=== PATIENT | female | born 1940 | race Caucasian/White ===

== ENCOUNTER 2018-01-21 16:23 | Inpatient (IN) ==
[2018-01-21] MEDS ORDERED: ONDANSETRON 4 MG/2 ML INJECTION IVP ONE (17:39)
[2018-01-21] MEDS ORDERED: ALBUTEROL/IPRATROPIUM 2.5mg-0.5mg/3ml NEB AEROSOL ONE ×2 (17:39→20:15)
--- NOTE | 2018-01-21 17:47 | Emergency Department Report ---
SOB HPI - General Chief Complaint: Shortness of Breath/Dyspnea Stated Complaint: difficulty breathing Time Seen by Provider: 01/21/18 17:30 Source: patient, family Mode of arrival: ambulatory Limitations: no limitations - History of Present Illness Pt presents with a known pneumonia. She reports she started having symptoms of cough and overall fatigue about 4 days ago. She then saw her PCP who did a CXR and the next day had a CTA of the chest which revealed a RML pneumonia. Pt was given an "antibiotic shot" that day and started on a Z pack hte next day. SHe then saw her validation technician earlier today who then changed her antibiotics ( which pt hasn't started yet). Once home pt states she was feeling progressively weaker and is now vomiting. Medical Secretary had mentioned she could be admitted earlier however pt felt she could treat at home. Pt later returned to validation technician with reports of nausea and increased weakness. He sent her to ER to be admitted. Pt denies chest pain, nausea, vomiting, diarrhea, or fever. She does have a history of COPD and uses "breathing treatments" at home. MD Complaint: shortness of breath, cough Onset (ago): day(s) Known history of: COPD Associated symptoms: nausea/vomiting - Related Data Home Medications Medication Instructions Recorded Confirmed Arformoterol Neb [Brovana Neb] 1 vial AEROSOL BID #320 ml 09/29/16 01/21/18 Azithromycin [Azithromycin] 500 mg PO O 01/21/18 01/21/18 Calcium Carbonate [Calcium] 500 mg PO DAILY 01/21/18 01/21/18 Cholecalciferol (Vitamin D3) 1 cap PO DAILY 01/21/18 01/21/18 [Vitamin D3] Hydrocodone/APAP 5/325 [[place] 1 tab PO Q4H PRN 01/21/18 01/21/18 5/325] Loratadine [Claritin] 10 mg PO DAILY 01/21/18 01/21/18 [place]-3/Dha/Epa/Fish Oil [Fish Oil 1 each PO DAILY 01/21/18 01/21/18 1,000 mg Softgel] Vit A/C/E AC/Znox/Cupric Oxide 1 each PO DAILY 01/21/18 01/21/18 [Eye Vitamin-Minerals Tablet] Zoledronic Acid [Reclast] 1 dose IV 1 YEAR 01/21/18 01/21/18 hydroCHLOROthiazide 12.5 mg PO DAILY 01/21/18 01/21/18 [Hydrochlorothiazide] levoFLOXacin [Levofloxacin] 750 mg PO DAILY 01/21/18 01/21/18 Allergies Allergy/AdvReac Type Severity Reaction Status Date / Time lisinopril Allergy Unknown Verified 01/21/18 17:19 nylon suture Allergy Uncoded 09/15/17 09:11 Review of Systems All systems: reviewed and negative except as stated Constitutional: Reports: as per HPI Cardiovascular: Reports: as per HPI Respiratory: Reports: as per HPI Gastrointestinal: Reports: as per HPI Musculoskeletal: Reports: as per HPI [facility] Patient Stated Medical History Macular Degeneration Yes Hypertension Yes Chronic Obstructive Pulmonary Yes: Patient states her diagnosis is emphysema, Disease (COPD) aware of COPD. Diagnosed 2014. Hiatal Hernia Yes: Diagnosed at the same time as the pacemaker , not symptomatic. Osteoporosis Yes Other Musculoskeletal Yes: osteoporosis Shingles Yes Depression No Clinic Medical History (Last Reviewed 09/15/17 @ 09:46 by Viola Ruffin) Bradycardia (Acute Medical) COPD (chronic obstructive pulmonary disease) (Acute Medical) Coronary atherosclerosis (Acute Medical) Edema (Acute Medical) Hypertension (Acute Medical) Hypocholesteremia (Acute Medical) Hypoxia (Acute Medical) Infiltrating ductal carcinoma of breast, stage 1 (Acute Medical) Diagnosed: 10/22/2015 Treatment: Lumpectomy with radiation Macular degeneration (Acute Medical) Osteoporosis (Acute Medical) Tobacco dependence (Acute Medical) Quit 2014 Surgical History: Left partial mastectomy 2008. Tubal ligation. Colonoscopy , polyps. Pacemaker insertion 03/14/2016 Family History: Family History (Last Updated 09/15/17 @ 09:53 by Viola Ruffin) Mother Cancer of female breast Sister Cancer of female breast Father Coronary arteriosclerosis COPD (chronic obstructive pulmonary disease) Sister Cancer of colon Cancer of female breast Brother Heart attack Daughter Ovarian cancer - Social History Smoking status: Former smoker Quit date: 10/26/14 Alcohol intake frequency: holidays/special occasions only () Physical Exam - Limitations Limitations: no limitations - General General appearance: alert, in no apparent distress - Normal Exams: Head:: Normocephalic without trauma Eyes:: Pupils are PERRLA w/ EOMI Cardiovascular:: Regular rate and rhythm, without murmur or gallop, Pulses 2+ all extremities, capillary refill, <2 seconds all extremities Abdomen:: Bowel sounds positive, soft, non-tender, non-distended Musculoskeletal:: No tenderness, or deformity noted, good range of motion, all extremities Integumentary:: No rashes Neurological:: Patient is alert, and oriented, cranial nerves, motor/sensory/ cerebellar, exams w/o gross deficits, to observation Psychiatric:: Patient exhibits, appropriate attention, emotion and affect - Respiratory Respiratory exam: Absent: respiratory distress, accessory muscle use - Expanded Respiratory Exam Location: Left: rhonchi, Right: rales, rhonchi, decreased breath sounds, Lower: rales, decreased breath sounds Course Vital Signs Temperature 97.7 F 01/21/18 16:33 Pulse Rate 84 01/21/18 16:33 Respiratory Rate 20 01/21/18 16:33 Blood Pressure 136/73 01/21/18 16:33 Pulse Oximetry 96 01/21/18 16:33 Temperature 97.1 F 01/25/18 08:57 Pulse Rate 79 01/25/18 08:57 Respiratory Rate 24 01/25/18 10:45 Blood Pressure 132/60 01/25/18 08:57 Pulse Oximetry 88 L 01/25/18 11:35 Shortness of Breath/Dyspnea - Differential Diagnosis Likely: acute exacerbation of chronic obstructive airways disease, congestive heart failure, community acquired pneumonia, asthma with exacerbation - Lab Data Result diagrams: 01/25/18 04:04 01/25/18 04:04 Lab Results 01/21/18 01/21/18 Range/Units 18:51 18:51 WBC 21.6 H (4.5-11.0) T/MM3 RBC 4.27 (4.00-5.20) M/MM3 Hgb 12.8 (12-16) GM/DL Hct 37.6 (36-46) % MCV 88.1 (80-100) UM3 MCH 30.0 (26-34) UUG MCHC 34.0 (31-37) GM/DL RDW Std Deviation 42.3 (36.9-50.2) FL Plt Count 163 (130-400) T/MM3 MPV 9.9 (9.4-12.4) UM3 Immature Gran % (Auto) Not performed Neut % (Auto) Not performed Lymph % (Auto) Not performed [place] % (Auto) Not performed Eos % (Auto) Not performed Baso % (Auto) Not performed Neut # (Auto) Not performed Lymph # (Auto) Not performed [place] # (Auto) Not performed Eos # (Auto) Not performed Baso # (Auto) Not performed Abs Immat Gran (auto) Not performed Neutrophils % (Manual) 89.0 H (33-66) % Band Neutrophils % 1.0 (0-6) % Lymphocytes % (Manual) 5.0 L (23-45) % Monocytes % (Manual) 5.0 (0-9.0) % Neutrophils # (Manual) 19.2 H (1.8-7.7) T/MM3 Band Neutrophils # 0.2 T/MM3 Lymphocytes # (Manual) 1.1 (1-4.8) T/MM3 Monocytes # (Manual) 1.1 H (0-0.8) T/MM3 RBC Morph Comment Normal Turbidity < 20 (0-20) Sodium 118 L* (134-144) MEQ/L Potassium 4.4 (3.6-5) MEQ/L Chloride 82 L (98-107) MEQ/L Carbon Dioxide 23 (22-30) MEQ/L Anion Gap 13 (5-15) MEQ/L BUN 26.0 H (7-17) MG/DL Creatinine 0.9 (0.7-1.2) mg/dL GFR Calculation 61 BUN/Creatinine Ratio 29 H (6-26) RATIO Glucose 111 H (65-110) MG/DL Calculated Osmolality 234 L (261-280) MOSM/KG Calcium 9.5 (8.4-10.2) MG/DL Total Bilirubin 0.90 (0.20-1.30) MG/DL Icterus Index < 2 (0-7) AST 42 H (14-36) U/L ALT 20 (1-35) U/L Alkaline Phosphatase 133 H (38-126) U/L Total Protein 7.0 (6.3-8.2) g/dL Albumin 3.5 (3.5-5.0) g/dL Globulin 3.5 (2.4-3.6) G/DL Albumin/Globulin Ratio 1.0 L (1.1-2.2) RATIO Specimen Hemolysis 48 H (0-25) Disposition Clinical Impression: Community acquired pneumonia, Hyponatremia Disposition: 02 To [place] Acute Care Condition: Stable - Seen By: midlevel
[2018-01-21] MEDS: SALINE FLUSH 10ml SYRINGE IVF PRN (18:55)
[2018-01-21] MEDS ORDERED: NS 1,000 ML IV ONE (19:48)
[2018-01-21] MEDS ORDERED: SENNA + DOCUSATE TABLET PO PRN (20:15)
[2018-01-21] MEDS ORDERED: ONDANSETRON 4 MG/2 ML INJECTION IVP PRN (20:15)
[2018-01-21] MEDS ORDERED: ACETAMINOPHEN 325 MG TABLET PO PRN (20:15)
[2018-01-21 20:58] VITALS: BMI 26.6
[2018-01-21] MEDS: LEVOFLOXACIN PB 750 MG/150 ML BAG IV SCH (21:23)
--- NOTE | 2018-01-21 21:34 | History & Physical Report ---
History of Present Illness Date: 01/21/18 Chief complaint: cough and weakness HPI: Patient seen via telemedicine with nursing assistance on 01/21/2018 Ms. Harden is a 77yo woman with h/o COPD, HTN, pacemaker, now with h/o 4 days of cough not greatly productive, weakness, [place]. No fevers or chills today, but nausea and vomiting X3. Had received Zpak and Lortab from PCP 2 days ago after told has CAP. No syncope or CP. Has been drinking water. Review of Systems All systems PM: 10-point ROS was reviewed, no additional remarkable complaints except Past Medical History Patient Stated Medical History Macular Degeneration Yes Hypertension Yes Chronic Obstructive Pulmonary Yes: Patient states her diagnosis is emphysema, Disease (COPD) aware of COPD. Diagnosed 2014. Hiatal Hernia Yes: Diagnosed at the same time as the pacemaker , not symptomatic. Other Musculoskeletal Yes: osteoporosis Shingles Yes Depression No Clinic Medical History (Last Reviewed 09/15/17 @ 09:46 by Viola Ruffin) Bradycardia (Acute Medical) COPD (chronic obstructive pulmonary disease) (Acute Medical) Coronary atherosclerosis (Acute Medical) Edema (Acute Medical) Hypertension (Acute Medical) Hypocholesteremia (Acute Medical) Hypoxia (Acute Medical) Infiltrating ductal carcinoma of breast, stage 1 (Acute Medical) Diagnosed: 10/22/2015 Treatment: Lumpectomy with radiation Macular degeneration (Acute Medical) Osteoporosis (Acute Medical) Tobacco dependence (Acute Medical) Quit 2014 Surgical History: Left partial mastectomy 2008. Tubal ligation. Colonoscopy , polyps. Pacemaker insertion 03/14/2016 Family History: Family History (Last Updated 09/15/17 @ 09:53 by Viola Ruffin) Mother Cancer of female breast Sister Cancer of female breast Father Coronary arteriosclerosis COPD (chronic obstructive pulmonary disease) Sister Cancer of colon Cancer of female breast Brother Heart attack Daughter Ovarian cancer Family History Updates: mother of breast cancer. father of emphysema. sis with breast cancer - Social History Smoking status: Former smoker Housing: house Household members: spouse Medications Home Medications Medication Instructions Recorded Confirmed Type Arformoterol Neb [Brovana Neb] 1 vial AEROSOL BID #320 ml 09/29/16 01/21/18 History Azithromycin [Azithromycin] 500 mg PO O 01/21/18 01/21/18 History Calcium Carbonate [Calcium] 500 mg PO DAILY 01/21/18 01/21/18 History Cholecalciferol (Vitamin D3) 1 cap PO DAILY 01/21/18 01/21/18 History [Vitamin D3] Hydrocodone/APAP 5/325 [[place] 1 tab PO Q4H PRN 01/21/18 01/21/18 History 5/325] Loratadine [Claritin] 10 mg PO DAILY 01/21/18 01/21/18 History [place]-3/Dha/Epa/Fish Oil [Fish Oil 1 each PO DAILY 01/21/18 01/21/18 History 1,000 mg Softgel] Vit A/C/E AC/Znox/Cupric Oxide 1 each PO DAILY 01/21/18 01/21/18 History [Eye Vitamin-Minerals Tablet] Zoledronic Acid [Reclast] 1 dose IV 1 YEAR 01/21/18 01/21/18 History hydroCHLOROthiazide 12.5 mg PO DAILY 01/21/18 01/21/18 History [Hydrochlorothiazide] levoFLOXacin [Levofloxacin] 750 mg PO DAILY 01/21/18 01/21/18 History Allergies Allergy/AdvReac Type Severity Reaction Status Date / Time lisinopril Allergy Unknown Verified 01/21/18 17:19 nylon suture Allergy Uncoded 09/15/17 09:11 Exam Vital Signs: Temperature 97.7 F 01/21/18 16:33 Pulse Rate 124 H 01/21/18 19:48 Respiratory Rate 22 01/21/18 19:48 Blood Pressure 168/72 H 01/21/18 19:47 Pulse Oximetry 92 01/21/18 19:48 Telemetry Rhythm: Sinus Rhythm Height/Weight/BMI: Height 1.61 m Weight 69.5 kg Body Mass Index 26.6 - Constitutional Present: mild distress - Routine HEENT Exam Head: Present: normocephalic, atraumatic Eye: Present: EOMI - Routine Neck Exam Absent: JVD - Routine Respiratory Exam Absent: accessory muscle use Comments: rales on R with no wheezing and good effort - Routine Cardiovascular Exam Present: RRR, S1, S2, no murmur - Routine Abdominal Exam Present: soft, normoactive bowel sounds, non tender - Routine Extremities Exam Absent: cyanosis - Routine Skin Exam Present: intact - Routine Neurological Exam Present: alert, oriented X3, CN II-XII intact Results - Labs CBC & Chem 7: 01/21/18 18:51 01/21/18 18:51 Assessment and Plan (1) CAP (community acquired pneumonia) Current visit: Yes Status: Acute (2) Hyponatremia Current visit: Yes Status: Acute (3) COPD (chronic obstructive pulmonary disease) Current visit: Yes Status: Acute (4) HTN (hypertension) Current visit: Yes Status: Acute Assessment and Plan: 1. CAP with no hypoxia currently--cxs, levaquin as per her dust mixer rec today. Nebs. 2. COPD--brovana and duoneb 3. Hyponatremia due to HCTZ and free water excess most likely. NS and recheck in AM holding HCTZ. 4. Essential HTN--hold HCTZ and monitor. 5. N/V likely due to lortab, monitor with 1. possible contributor. LFTs fine. Lovenox for DVT prophylaxis. DVT Prophylaxis: Lovenox - Physician Narrative Narrative: Date: 01/21/18 Time: 2130 Hospital Course Summary Disclaimer: The visit summary below is not to be considered part of the above Progress Note.
[2018-01-21] MEDS: ENOXAPARIN 40 MG/0.4 ML INJECTION SQ SCH (21:39)
[2018-01-21] MEDS: NS 1,000 ML IV SCH (21:44)
[2018-01-21] MEDS ORDERED: ALBUTEROL/IPRATROPIUM 2.5mg-0.5mg/3ml NEB AEROSOL SCH (22:00)
[2018-01-22] MEDS: ALBUTEROL 2.5mg/3ml (0.083%) NEB AEROSOL SCH ×4 (06:54→19:37)
[2018-01-22] MEDS: BUDESONIDE INH.SOLN 0.5mg/2ml NEB AEROSOL SCH ×2 (06:54→19:35)
[2018-01-22] MEDS ORDERED: ARFORMOTEROL NEB 15mcg/2ml AEROSOL SCH ×2 (07:00→09:00)
--- NOTE | 2018-01-22 08:05 | XRay Report ---
INDICATION: cough, known pneumonia COPD PROCEDURE: CHEST 2-VIEWS UPRIGHT (PA & LAT) Encounter: Initial COMPARISON: Chest CT dated January 20, 2018 FINDINGS: Increasing consolidation in the right mid to lower lung field peripherally. Small right effusion. Left lung remains clear. No pneumothorax. Cardiomediastinal contours are stable. Left pacemaker. Pulmonary vascularity appears normal. Impression: Right middle and lower lobe pneumonia appears slightly worse. .
[2018-01-22] MEDS: ENOXAPARIN 40 MG/0.4 ML INJECTION SQ SCH (08:54)
[2018-01-22] MEDS: NS 1,000 ML IV SCH ×2 (08:54→19:15)
[2018-01-22] MEDS ORDERED: METHYLPREDNISOLONE SOD SUCC 125mg/2ml INJECTION IVP SCH (12:00)
[2018-01-22] MEDS ORDERED: DiltiaZEM SR 60 MG CAPSULE (12 HR) PO SCH (12:00)
[2018-01-22] MEDS: SALINE FLUSH 10ml SYRINGE IVF PRN (12:27)
--- NOTE | 2018-01-22 13:11 | History & Physical Report ---
History of Present Illness Date: 01/22/18 HPI: Patient is a 77 year old female with a history of COPD, hypertension and pacemaker due to bradycardia who was admitted for pneumonia. Patient reports that she was seen by PCP due to cough and was diagnosed with pneumonia approximately 4 days ago. She was started on azithromycin. She was then seen by pulmonology, Dr Garcia who changed to levaquin and placed on steroids. She continued to be symptomatic so presented to the ED the same day. She was found to be hyponatremic as well. She reports nausea and vomiting with no fever or chills she also reports generalized weakness. She was found to be in atrial fibrillation overnight. She states this is a new diagnosis and she has never been told she has an abnormal heart rhythm. Review of Systems - Constitutional Constitutional: Present: weakness. Absent: fever(s) - EENMT Eyes: Absent: blurry vision, change in vision - Cardiovascular Cardiovascular: Absent: chest pain, palpitations, syncope - Respiratory Respiratory: Present: cough, excessive phlegm production - Gastrointestinal Gastrointestinal: Present: nausea, vomiting. Absent: abdominal pain - Musculoskeletal Musculoskeletal: Absent: myalgias - Integumentary/Breasts Integumentary: Absent: rash, wounds - Neurological Neurological: Absent: abnormal gait, abnormal movements, confusion, headache(s) Past Medical History Patient Stated Medical History Macular Degeneration Yes Hypertension Yes Chronic Obstructive Pulmonary Yes: Patient states her diagnosis is emphysema, Disease (COPD) aware of COPD. Diagnosed 2014. Hiatal Hernia Yes: Diagnosed at the same time as the pacemaker , not symptomatic. Other Musculoskeletal Yes: osteoporosis Shingles Yes Depression No Clinic Medical History (Last Reviewed 09/15/17 @ 09:46 by Viola Ruffin) Bradycardia (Acute Medical) COPD (chronic obstructive pulmonary disease) (Acute Medical) Coronary atherosclerosis (Acute Medical) Edema (Acute Medical) Hypertension (Acute Medical) Hypocholesteremia (Acute Medical) Hypoxia (Acute Medical) Infiltrating ductal carcinoma of breast, stage 1 (Acute Medical) Diagnosed: 10/22/2015 Treatment: Lumpectomy with radiation Macular degeneration (Acute Medical) Osteoporosis (Acute Medical) Tobacco dependence (Acute Medical) Quit 2014 Surgical History: Left partial mastectomy 2008. Tubal ligation. Colonoscopy , polyps. Pacemaker insertion 03/14/2016 Family History Updates: Family History (Last Updated 09/15/17 @ 09:53 by Viola Ruffin). Mother. Cancer of female breast. Sister. Cancer of female breast. Father. Coronary arteriosclerosis. COPD (chronic obstructive pulmonary disease). Sister. Cancer of colon. Cancer of female breast. Brother. Heart attack. Daughter. Ovarian cancer - Social History Smoking status: Former smoker Medications Home Medications Medication Instructions Recorded Confirmed Type Arformoterol Neb [Brovana Neb] 1 vial AEROSOL BID #320 ml 09/29/16 01/21/18 History Azithromycin [Azithromycin] 500 mg PO O 01/21/18 01/21/18 History Calcium Carbonate [Calcium] 500 mg PO DAILY 01/21/18 01/21/18 History Cholecalciferol (Vitamin D3) 1 cap PO DAILY 01/21/18 01/21/18 History [Vitamin D3] Hydrocodone/APAP 5/325 [[place] 1 tab PO Q4H PRN 01/21/18 01/21/18 History 5/325] Loratadine [Claritin] 10 mg PO DAILY 01/21/18 01/21/18 History [place]-3/Dha/Epa/Fish Oil [Fish Oil 1 each PO DAILY 01/21/18 01/21/18 History 1,000 mg Softgel] Vit A/C/E AC/Znox/Cupric Oxide 1 each PO DAILY 01/21/18 01/21/18 History [Eye Vitamin-Minerals Tablet] Zoledronic Acid [Reclast] 1 dose IV 1 YEAR 01/21/18 01/21/18 History hydroCHLOROthiazide 12.5 mg PO DAILY 01/21/18 01/21/18 History [Hydrochlorothiazide] levoFLOXacin [Levofloxacin] 750 mg PO DAILY 01/21/18 01/21/18 History Allergies Allergy/AdvReac Type Severity Reaction Status Date / Time lisinopril Allergy Unknown Verified 01/21/18 17:19 nylon suture Allergy Uncoded 09/15/17 09:11 Exam Vital Signs: Temperature 97.8 F 01/22/18 12:00 Pulse Rate 102 H 01/22/18 12:00 Respiratory Rate 22 01/22/18 12:00 Blood Pressure 152/58 H 01/22/18 12:00 Pulse Oximetry 93 01/22/18 12:00 Height/Weight/BMI: Height 5 ft 3.5 in Weight 70.5 kg Body Mass Index 26.6 - Constitutional Present: mild distress - Routine HEENT Exam Head: Present: normocephalic, atraumatic Eye: Present: EOMI, conjunctivae pink ENT: Present: mucous membranes moist - Routine Neck Exam Present: supple, full ROM - Routine Respiratory Exam Present: dyspnea, decreased breath sounds, distant breath sounds, diminished air movement - Routine Cardiovascular Exam Present: tachycardia, irregularly irregular - Routine Abdominal Exam Present: soft, normoactive bowel sounds, non distended, non tender - Routine Extremities Exam Present: no edema, pulses intact, normal capillary refill. Absent: cyanosis, clubbing - Routine Skin Exam Present: intact, dry, warm - Routine Neurological Exam Present: alert, oriented X3, CN II-XII intact - Routine Psychiatric Exam Present: normal affect, normal thought process Results - Labs CBC & Chem 7: 01/22/18 04:07 01/22/18 12:12 Microbiology Results: Microbiology 01/22/18 12:47 Sputum, Expectorated Sputum Culture - Preliminary Culture Initiated - Results Pending Assessment and Plan (1) CAP (community acquired pneumonia) Current visit: Yes Status: Acute (2) Hyponatremia Current visit: Yes Status: Acute (3) COPD (chronic obstructive pulmonary disease) Current visit: Yes Status: Acute (4) HTN (hypertension) Current visit: Yes Status: Acute Assessment and Plan: Assessment New onset A fib with RVR Hyponatremia-currently 120 CAP COPD HTN Nausea/Vomiting CAD Plan Obtain troponin Obtain serum/urine osm, urine sodium Hold HCTZ Obtain TSH Monitor I/O Continue antibiotics and start steroids Consult patient's dog sitter (Emilee) and slot machine repairer (Radha) Trend sodium Breathing treatments RT consult Oxygen as needed to maintain sats >[address] patient on tele DVT ppx: lovenox for now, will need to discuss anticoagulation GI ppx: not indicated Code status: full code, patient expressed to nurse she wanted to be DNR-on further discussion patient would like to talk to daughter prior to changing code status DVT Prophylaxis: Lovenox Resuscitation Status: Full Code - Physician Narrative Physician: other (Donna Meyer MD) Narrative: Date: 01/22/18 Time: 1306 Hospital Course Summary Disclaimer: The visit summary below is not to be considered part of the above Progress Note.
--- NOTE | 2018-01-22 15:02 | Cardiology Consult Note ---
<Madhavi Griffiths - Last Filed: 01/23/18 17:14> History of Present Illness Consult date: 01/22/18 Requesting physician: Donna Meyer Consult reason: atrial fibrillation Chief complaint: atrial fibrillation w/RVR; CAP, hyponatremia History of present illness: Kaitlin is a 77 yo pt well known to Dr. Hebert for PPM implanted for symptomatic bradycardia. She was being treated as an OP for pneumonia, on antibiotics and steroids, with a scheduled f/u with Dr. Cazares. She progressively worsened with n/v, weakness and presented to [facility] due to her worsened condition. She was admitted and placed on supplemental O2. Her tele overnight showed AFib with RVR, pt denied palpitations. She does confirm a intermittent substernal, upper GI pain; qualified as pressure. Troponin negative. Upon exam pt is alert, oriented. Reports feeling unwell, tired. Her tele shows SR rate 80's this afternoon, ECG confirms SR w/PAC, RBBB. When anticoagulation discussed pt refused. Review of Systems - Constitutional Constitutional: Present: fatigue, fever(s) - EENMT Eyes: Absent: change in vision - Cardiovascular Cardiovascular: Present: chest pain, heart murmur. Absent: palpitations, syncope, orthopnea - Respiratory Respiratory: Present: cough, excessive phlegm production - Gastrointestinal Gastrointestinal: Present: nausea - Musculoskeletal Musculoskeletal: Present: muscle weakness - Integumentary/Breasts Integumentary: Absent: rash - Neurological Neurological: Absent: abnormal gait, abnormal speech - Psychiatric Psychiatric: Absent: anxiety - Endocrine Endocrine: Absent: palpitations PFSH Patient Stated Medical History Macular Degeneration Yes Hypertension Yes Chronic Obstructive Pulmonary Yes: Patient states her diagnosis is emphysema, Disease (COPD) aware of COPD. Diagnosed 2014. Hiatal Hernia Yes: Diagnosed at the same time as the pacemaker , not symptomatic. Other Musculoskeletal Yes: osteoporosis Shingles Yes Depression No Clinic Medical History (Last Reviewed 09/15/17 @ 09:46 by Viola Ruffin) Bradycardia (Acute Medical) COPD (chronic obstructive pulmonary disease) (Acute Medical) Coronary atherosclerosis (Acute Medical) Edema (Acute Medical) Hypertension (Acute Medical) Hypocholesteremia (Acute Medical) Hypoxia (Acute Medical) Infiltrating ductal carcinoma of breast, stage 1 (Acute Medical) Diagnosed: 10/22/2015 Treatment: Lumpectomy with radiation Macular degeneration (Acute Medical) Osteoporosis (Acute Medical) Tobacco dependence (Acute Medical) Quit 2014 Surgical History: Left partial mastectomy 2008. Tubal ligation. Colonoscopy , polyps. Pacemaker insertion 03/14/2016 Family History: Family History (Last Updated 09/15/17 @ 09:53 by Viola Ruffin) Mother Cancer of female breast Sister Cancer of female breast Father Coronary arteriosclerosis COPD (chronic obstructive pulmonary disease) Sister Cancer of colon Cancer of female breast Brother Heart attack Daughter Ovarian cancer Family History Updates: Family History (Last Updated 09/15/17 @ 09:53 by Viola Ruffin). Mother. Cancer of female breast. Sister. Cancer of female breast. Father. Coronary arteriosclerosis. COPD (chronic obstructive pulmonary disease). Sister. Cancer of colon. Cancer of female breast. Brother. Heart attack. Daughter. Ovarian cancer - Social History Smoking status: Former smoker Quit date: 10/26/14 Alcohol intake frequency: holidays/special occasions only () Housing: house Household members: spouse Medications Home Medications Medication Instructions Recorded Confirmed Type Arformoterol Neb [Brovana Neb] 1 vial AEROSOL BID #320 ml 09/29/16 01/21/18 History Azithromycin [Azithromycin] 500 mg PO O 01/21/18 01/21/18 History Calcium Carbonate [Calcium] 500 mg PO DAILY 01/21/18 01/21/18 History Cholecalciferol (Vitamin D3) 1 cap PO DAILY 01/21/18 01/21/18 History [Vitamin D3] Hydrocodone/APAP 5/325 [[place] 1 tab PO Q4H PRN 01/21/18 01/21/18 History 5/325] Loratadine [Claritin] 10 mg PO DAILY 01/21/18 01/21/18 History [place]-3/Dha/Epa/Fish Oil [Fish Oil 1 each PO DAILY 01/21/18 01/21/18 History 1,000 mg Softgel] Vit A/C/E AC/Znox/Cupric Oxide 1 each PO DAILY 01/21/18 01/21/18 History [Eye Vitamin-Minerals Tablet] Zoledronic Acid [Reclast] 1 dose IV 1 YEAR 01/21/18 01/21/18 History hydroCHLOROthiazide 12.5 mg PO DAILY 01/21/18 01/21/18 History [Hydrochlorothiazide] levoFLOXacin [Levofloxacin] 750 mg PO DAILY 01/21/18 01/21/18 History Allergies Allergy/AdvReac Type Severity Reaction Status Date / Time lisinopril Allergy Unknown Verified 01/21/18 17:19 nylon suture Allergy Uncoded 09/15/17 09:11 Exam Vital signs: Temperature 97.8 F 01/22/18 12:00 Pulse Rate 102 H 01/22/18 12:00 Respiratory Rate 16 01/22/18 14:50 Blood Pressure 152/58 H 01/22/18 12:00 Pulse Oximetry 97 01/22/18 14:50 - Constitutional no acute distress - Routine HEENT Exam Head: Present: normocephalic, atraumatic Eye: Present: PERRL ENT: Present: mucous membranes moist - Routine Neck Exam Absent: JVD, carotid bruit - Routine Chest/Breast/Axilla Exam Chest wall: Present: pacemaker - Routine Respiratory Exam Present: decreased breath sounds, diminished air movement - Routine Cardiovascular Exam Present: RRR, murmur (II/IV). Absent: JVD - Routine Abdominal Exam Present: soft, normoactive bowel sounds - Routine Extremities Exam Present: no edema - Routine Skin Exam Present: intact. Absent: rash - Routine Neurological Exam Present: alert, oriented X3 - Routine Psychiatric Exam Present: normal affect, normal thought process, cooperative Results 01/23/18 10:13 01/23/18 10:13 Cardiac Enzymes 01/22/18 Range/Units 12:12 Troponin I 0.053 (0-0.12) ng/ml CBC 01/22/18 Range/Units 04:07 WBC 15.6 H (4.5-11.0) T/MM3 RBC 3.95 L (4.00-5.20) M/MM3 Hgb 12.0 (12-16) GM/DL Hct 35.1 L (36-46) % Plt Count 154 (130-400) T/MM3 Neut # (Auto) Not performed Lymph # (Auto) Not performed Kay # (Auto) Not performed Eos # (Auto) Not performed Baso # (Auto) Not performed Comprehensive Metabolic Panel 01/22/18 01/22/18 Range/Units 04:07 12:12 Sodium 120 L 120 L (134-144) MEQ/L Potassium 4.2 (3.6-5) MEQ/L Chloride 87 L D (98-107) MEQ/L Carbon Dioxide 24 (22-30) MEQ/L BUN 20.0 H (7-17) MG/DL Creatinine 0.9 (0.7-1.2) mg/dL Glucose 79 (65-110) MG/DL Calcium 8.2 L D (8.4-10.2) MG/DL Intake and Output 01/21/18 01/22/18 01/22/18 22:59 06:59 14:59 Intake Total 150 / 150 800 / 800 1000 / 1000 Output Total 250 / 250 600 / 600 Balance 150 / 150 550 / 550 400 / 400 Intake: IV 150 / 150 1000 / 1000 Levofloxacin Pb 750 mg In 150 150 / 150 ml @ 100 mls/hr IV Q24H JUANJOSE Rx# :[id number] Ns 1,000 ml @ 100 mls/hr IV . 1000 / 1000 Q10H JUANJOSE Rx#:[id number] Oral 800 / 800 Output: Urine 250 / 250 600 / 600 Other: Urine Appearance Clear Urine Color Pale Yellow # Voids 1 Weight 69.5 kg 70.5 kg Patient Weight 01/23/18 06:59 Weight 70.5 kg EKG interpretations - EKG EKG results cardiology: sinus rhythm EKG shows: sinus rhythm - Dysrhythmias Sinus rhythms and dysrhythmias: sinus rhythm Supraventricular dysrhythmia: atrial premature complexes - Blocks, axis, hypertrophy, ST abn AV and intraventricular conduction: right bundle branch block (fixed/ intermittent, complete/incomplete) Assessment and Plan - Assessment and Plan (1) Atrial fibrillation with RVR Current visit: Yes Status: Acute (2) CAP (community acquired pneumonia) Current visit: Yes Status: Acute (3) Hyponatremia Current visit: Yes Status: Acute (4) COPD (chronic obstructive pulmonary disease) Current visit: Yes Status: Chronic (5) HTN (hypertension) Current visit: Yes Status: Chronic (6) Aortic stenosis Current visit: Yes Status: Acute (7) Pulmonary hypertension Current visit: Yes Status: Acute (8) Pacemaker Current visit: Yes Status: Acute - Assessment and Plan Troponin negative. Converted to SR this afternoon, confirmed on ECG, no ischemic changes. TSH wnl. ECHO 01/22/18: moderate , Pa pressures 51mmHg, mild TR. Recommend aggressive rhythm management due to patient and pulmonary hypertension, putting her at greater heart failure risk. Initiate AAT with Amiodarone 400mg bid for 7 days, then 200mg daily. ECG in AM; monitor QT closely in the setting Levaquin antibiotic therapy. Pt refuses anticoagulation at this time; she is advised to start it to reduce stroke risk associated with Afib. Pneumonia, hypoxia, COPD managed per attending. Hospital Course Summary Disclaimer: The visit summary below is not to be considered part of the above Progress Note. <Omkar Hebert - Last Filed: 02/01/18 13:44> [facility] Patient Stated Medical History Macular Degeneration Yes Hypertension Yes Chronic Obstructive Pulmonary Yes: Patient states her diagnosis is emphysema, Disease (COPD) aware of COPD. Diagnosed 2014. Hiatal Hernia Yes: Diagnosed at the same time as the pacemaker , not symptomatic. Other Musculoskeletal Yes: osteoporosis Shingles Yes Depression No Clinic Medical History (Last Reviewed 09/15/17 @ 09:46 by Viola Ruffin) Bradycardia (Acute Medical) COPD (chronic obstructive pulmonary disease) (Acute Medical) Coronary atherosclerosis (Acute Medical) Edema (Acute Medical) Hypertension (Acute Medical) Hypocholesteremia (Acute Medical) Hypoxia (Acute Medical) Infiltrating ductal carcinoma of breast, stage 1 (Acute Medical) Diagnosed: 10/22/2015 Treatment: Lumpectomy with radiation Macular degeneration (Acute Medical) Osteoporosis (Acute Medical) Tobacco dependence (Acute Medical) Quit 2014 Family History: Family History (Last Updated 09/15/17 @ 09:53 by Viola Ruffin) Mother Cancer of female breast Sister Cancer of female breast Father Coronary arteriosclerosis COPD (chronic obstructive pulmonary disease) Sister Cancer of colon Cancer of female breast Brother Heart attack Daughter Ovarian cancer Exam Vital signs: Temperature 96.6 F L 01/27/18 07:50 Pulse Rate 70 01/27/18 07:50 Respiratory Rate 22 01/27/18 09:42 Blood Pressure 154/71 H 01/27/18 08:10 Pulse Oximetry 98 01/27/18 09:42 Results 02/01/18 04:48 02/01/18 04:48 CBC 01/27/18 Range/Units 04:36 WBC 18.0 H (4.5-11.0) T/MM3 RBC 3.54 L (4.00-5.20) M/MM3 Hgb 10.8 L (12-16) GM/DL Hct 32.1 L (36-46) % Plt Count 252 (130-400) T/MM3 Neut # (Auto) Not performed Lymph # (Auto) Not performed Kay # (Auto) Not performed Eos # (Auto) Not performed Baso # (Auto) Not performed Comprehensive Metabolic Panel 01/27/18 Range/Units 04:36 Sodium 137 (134-144) MEQ/L Potassium 3.6 (3.6-5) MEQ/L Chloride 100 (98-107) MEQ/L Carbon Dioxide 31 H (22-30) MEQ/L BUN 19.0 H (7-17) MG/DL Creatinine 0.7 (0.7-1.2) mg/dL Glucose 99 (65-110) MG/DL Calcium 7.6 L (8.4-10.2) MG/DL Intake and Output 01/26/18 01/27/18 01/27/18 22:59 06:59 14:59 Intake Total 800 / 800 200 / 200 Output Total 300 / 300 350 / 350 Balance 500 / 500 -150 / -150 Intake: Oral 800 / 800 200 / 200 Output: Urine 300 / 300 350 / 350 Other: Urine Appearance Clear Clear Urine Color Yellow Yellow Urine Odor Normal Stool Color Brown Green Stool Consistency Liquid Size of Bowel Movement Small # Bowel Movements 2 Weight 70.2 kg Patient Weight 01/28/18 06:59 Weight 70.2 kg Assessment and Plan - Attestation Attestation Narrative: 01/27/18 10:08 Patient seen and evaluated by me and all labs, radiology, clinical findings reviewed. I have determined this plan of care. 02/01/18 13:43 Recommendation I agree with the above and I am involved in the formulation of the patient's plan of care. - Assessment and Plan (1) CAP (community acquired pneumonia) Current visit: Yes Status: Acute (2) Hyponatremia Problem details: POA-118 Current visit: Yes Status: Resolved (3) COPD (chronic obstructive pulmonary disease) Current visit: Yes Status: Chronic (4) HTN (hypertension) Current visit: Yes Status: Chronic (5) Atrial fibrillation with RVR Current visit: Yes Status: Resolved (6) Aortic stenosis Current visit: Yes Status: Chronic (7) Pulmonary hypertension Current visit: Yes Status: Chronic (8) Pacemaker Current visit: Yes Status: Chronic (9) Diastolic CHF, acute Current visit: Yes Status: Acute Hospital Course Summary Disclaimer: The visit summary below is not to be considered part of the above Progress Note.
[2018-01-22] MEDS: AMIODARONE 200 MG TABLET PO SCH (17:38)
[2018-01-22] MEDS: ARFORMOTEROL NEB 15mcg/2ml AEROSOL SCH (19:35)
[2018-01-22] MEDS: LEVOFLOXACIN PB 750 MG/150 ML BAG IV SCH (20:21)
[2018-01-23] MEDS: NS 1,000 ML IV SCH ×2 (06:58→17:17)
[2018-01-23] MEDS: ARFORMOTEROL NEB 15mcg/2ml AEROSOL SCH ×2 (08:00→19:51)
[2018-01-23] MEDS: BUDESONIDE INH.SOLN 0.5mg/2ml NEB AEROSOL SCH ×2 (08:00→19:51)
[2018-01-23] MEDS: ENOXAPARIN 40 MG/0.4 ML INJECTION SQ SCH (08:22)
[2018-01-23] MEDS: AMIODARONE 200 MG TABLET PO SCH ×2 (08:22→20:48)
[2018-01-23] MEDS: ALBUTEROL 2.5mg/3ml (0.083%) NEB AEROSOL SCH ×4 (10:05→19:51)
--- NOTE | 2018-01-23 12:08 | Echocardiogram ---
DATE OF PROCEDURE 01/22/2018 This is a two-dimensional echo with spectral Doppler, color-flow and M-mode. It was obtained in a patient with new-onset atrial fibrillation. Left atrial dimension is normal. Left ventricular end-diastolic dimension is normal. Left ventricular wall thickness is normal. LV systolic function is normal with ejection fraction of 56%. Right atrium is normal. Right ventricle is normal. Aortic root dimension is normal. Mitral valve is morphologically normal. Aortic valve shows fibrocalcific changes. Peak velocity across the aortic valve is increased at 3.16 m/sec. Peak gradient across the aortic valve is 40 with a mean gradient of 24. Aortic valve area is calculated at 1.08 cm2. Mild aortic insufficiency is present. Tricuspid valve shows moderate tricuspid regurgitation with moderate pulmonary hypertension with estimated pulmonary artery systolic pressure of 51. Pulmonary valve was not visualized. There is no pericardial effusion. Pacemaker is present in right heart. IMPRESSION 1. Technically difficult study. 2. Normal LV systolic function with ejection fraction of 56%. 3. Moderate aortic stenosis with a valve area of 1.08 cm2 with mild aortic insufficiency. 4. Moderate tricuspid regurgitation with moderate pulmonary hypertension with estimated pulmonary artery systolic pressure of 51. 6. Pacemaker present in right heart. MTDD
--- NOTE | 2018-01-23 16:38 | Progress Note ---
- Date 01/23/18 Subjective: Mrs. Harden complains of burning in the lower esophagus when she swallows. She reports that it "clogs up" with swallowing and that she's had minor symptoms prior to hospitalization but that it's been worse after emesis preceding admission. She describes dyspnea with nonproductive cough today but no chest pain or palpitations. She remained in atrial fibrillation this morning with subsequent conversion to sinus rhythm this afternoon. She denied dysuria, feeling feverish or having chills, or pain. Her appetite is poor and she describes feeling slightly lightheaded when she initially stands. Objective Vital signs: Temperature 97.3 F 01/23/18 16:00 Pulse Rate 91 01/23/18 16:00 Respiratory Rate 20 01/23/18 16:28 Blood Pressure 124/64 01/23/18 16:00 Pulse Oximetry 98 -2 L 01/23/18 16:28 I/O 4100/3100 NAD, alert Conjunctiva clear, sclera anicteric, oropharynx clear Respirations nonlabored, diminished breath sounds throughout but clear; no wheezing Regular rhythm, S1-S2 Abdomen soft, nontender, bowel sounds diminished but present Trace edema MAEW cooperative, calm Height/Weight/BMI: Height 1.61 m Weight 70.3 kg Body Mass Index 26.6 Results - Labs CBC & Chem 7: 01/23/18 10:13 01/23/18 10:13 Labs: Sodium 128 this morning improving to 134 this afternoon; remainder of electrolytes unremarkable, creatinine 0.7. Urine sodium < 5, urine osmolality 172 Microbiology Results: Microbiology 01/22/18 12:47 Sputum, Expectorated Gram Stain - Final 01/22/18 12:47 Sputum, Expectorated Sputum Culture - Preliminary Normal Respiratory Bridgette Present - Echocardiogram History of Echocardiogram: 01/22/18: 1. Technically difficult study. 2. Normal LV systolic function with ejection fraction of 56%. 3. Moderate aortic stenosis with a valve area of 1.08 cm2 with mild aortic insufficiency. 4. Moderate tricuspid regurgitation with moderate pulmonary hypertension with estimated pulmonary artery systolic pressure of 51. 6. Pacemaker present in right heart. - ECG Data Tracing #1 I reviewed this ECG and interpreted as documented below: (a.m. tracing with atrial fibrillation, rate 140, RBBB by my review) Assessment and Plan (1) CAP (community acquired pneumonia) Current visit: Yes Status: Acute (2) Hyponatremia Current visit: Yes Status: Acute (3) Atrial fibrillation with RVR Current visit: Yes Status: Acute Assessment and Plan: Assessment: New onset A fib with RVR Hyponatremia-118 on admission CAP-RML/RLL COPD HTN Nausea/Vomiting Dysphagia-01/23/18 CAD Valvular heart disease-/TR Plan: Day 3 Levaquin for community-acquired pneumonia. Convert to oral Levaquin. Repeat chest x-ray in a.m. Continue breathing treatments/O2 as needed. Initiate prednisone-intended to start earlier today. Sodium has improved progressively off HCTZ and with volume replacement. Undetectable urine sodium consistent with volume depletion. BUN 26--> 14 with hydration. Cardiac rhythm stabilizing, in sinus rhythm at present. Troponins unremarkable. Echocardiogram with normal LV function and moderate aortic stenosis, moderate TR , moderate pulmonary hypertension. Appreciate assistance offered by cardiology. Increased dysphasia described by patient-Carafate suspension initiated. Minimal symptoms prior to nausea/vomiting prior to hospitalization. Nursing notes indicate patient asked about a DO NOT RESUSCITATE shortly after admission. Discussed with patient further, she describes desire not to be kept alive on machines and I've recommended that she consider further discussions with family and a living will. Continue current status-full code. DVT Prophylaxis: Lovenox Resuscitation Status: Full Code - Physician Narrative Narrative: Date: 01/23/18 Time: 1633 Hospital Course Summary Disclaimer: The visit summary below is not to be considered part of the above Progress Note. Hospital Course: 01/21/18 1. CAP with no hypoxia currently--cxs, levaquin as per her manager editorial rec today. Nebs. 2. COPD--brovana and duoneb 3. Hyponatremia due to HCTZ and free water excess most likely. NS and recheck in AM holding HCTZ. 4. Essential HTN--hold HCTZ and monitor. 5. N/V likely due to lortab, monitor with 1. possible contributor. LFTs fine. 01/22/18 New onset atrial fibrillation present early this morning. Obtain troponin, obtain echocardiogram. Telemetry initiated. Obtain serum/urine osm, urine sodium. Continue to hold HCTZ. Trend sodium. Obtain TSH Monitor I/O Continue antibiotics and start steroids; continue breathing treatments, RT consult. Consult patient's pediatric allergist (Emilee) and manager editorial (Radha) 01/23/18 Day 3 Levaquin for community-acquired pneumonia. Convert to oral Levaquin. Repeat chest x-ray in a.m. Continue breathing treatments/O2 as needed. Initiate prednisone-intended to start earlier today. Sodium has improved progressively off HCTZ and with volume replacement. Undetectable urine sodium consistent with volume depletion. BUN 26--> 14 with hydration. Cardiac rhythm stabilizing, in sinus rhythm at present. Troponins unremarkable. Echocardiogram with normal LV function and moderate aortic stenosis, moderate TR , moderate pulmonary hypertension. Appreciate assistance offered by cardiology. Increased dysphasia described by patient-Carafate suspension initiated. Minimal symptoms prior to nausea/vomiting prior to hospitalization.
[2018-01-23] MEDS ORDERED: HYDROCODONE/APAP 5mg/325mg TABLET PO PRN (16:45)
[2018-01-23] MEDS: SUCRALFATE 1gm/10ml ORAL LIQUID PO SCH ×2 (17:16→20:49)
--- NOTE | 2018-01-23 17:19 | Cardiology Progress Note ---
<Madhavi Griffiths L - Last Filed: 01/24/18 10:33> Subjective Principal diagnosis: Atrial Fibrillation Interval history: Kaitlin is seen in f/u of new onset AFib, , PPM. She is currently in AFib upon exam, she denies palpitations, chest pain. Confirms mild dizziness upon arising from bed. Pt educated regarding stroke risk associated with AFib, she consents to initiating anti-coagulation therapy with Eliquis 5mg bid. Exam Vital signs: Temperature 97.3 F 01/23/18 16:00 Pulse Rate 91 01/23/18 16:00 Respiratory Rate 20 01/23/18 16:28 Blood Pressure 124/64 01/23/18 16:00 Pulse Oximetry 98 01/23/18 16:28 Inpatient Medications: Generic Name Dose Route Start Last Admin Trade Name Freq PRN Reason Stop Dose Admin Acetaminophen 325 - 650 mg 01/21/18 20:15 01/22/18 11:42 Tylenol PO 650 mg Q5H PRN Administration Discomfort Hydrocodone Bitart/Acetaminophen 1 tab 01/23/18 16:45 [place] 5/325 PO Q4H PRN Pain Albuterol Sulfate 2.5 mg 01/22/18 07:00 01/23/18 16:27 Proventil Neb (0.083%) AEROSOL 2.5 mg RTQID JUANJOSE Administration Amiodarone HCl 400 mg 01/22/18 16:24 01/23/18 08:22 Pacerone PO 01/29/18 09:01 400 mg BID JUANJOSE Administration Amiodarone HCl 200 mg 01/29/18 21:00 Pacerone PO 02/05/18 09:01 BID JUANJOSE Amiodarone HCl 200 mg 02/06/18 09:00 Pacerone PO DAILY JUANJOSE Arformoterol Tartrate 15 mcg 01/22/18 19:00 01/23/18 08:00 Brovana Neb AEROSOL 15 mcg RTBID JUANJOSE Administration Budesonide 0.5 mg 01/22/18 07:00 01/23/18 08:00 Pulmicort Inhalation AEROSOL 0.5 mg RTBID JUANJOSE Administration Diltiazem HCl 180 mg 01/23/18 13:00 01/23/18 13:02 Cardizem Cd 180 Mg PO 180 mg DAILY JUANJOSE Administration Enoxaparin Sodium 40 mg 01/22/18 09:00 01/23/18 08:22 Lovenox SQ 40 mg DAILY JUANJOSE Administration Sodium Chloride 1,000 mls @ 50 mls/hr 01/21/18 20:15 01/23/18 06:58 Normal Saline IV 100 mls/hr .Q20H JUANJOSE Administration Levofloxacin 750 mg 01/23/18 20:30 Levaquin PO ACB JUANJOSE Ondansetron HCl 4 mg 01/21/18 20:15 Zofran IVP Q6H PRN Nausea &/or vomiting Prednisone 40 mg 01/23/18 16:47 Deltasone 20 Mg PO WB JUANJOSE Senna/Docusate Sodium 1 tab 01/21/18 20:15 Senna Plus Tablet PO BID PRN Constipation Sodium Chloride 10 - 80 ml 01/21/18 17:39 01/22/18 12:27 Iv Flush IVF 10 ml PRN PRN Administration Flushing Sucralfate 1 gm 01/23/18 17:00 Carafate Slurry PO ACHS JUANJOSE Discontinued Medications Generic Name Dose Route Start Last Admin Trade Name Freq PRN Reason Stop Dose Admin Albuterol/Ipratropium 3 ml 01/21/18 17:39 01/21/18 18:59 Duoneb AEROSOL 01/21/18 17:40 3 ml O ONE Administration Albuterol/Ipratropium 3 ml 01/21/18 20:15 Duoneb AEROSOL 01/21/18 20:16 Q4WA ONE Albuterol/Ipratropium 3 ml 01/21/18 22:00 01/21/18 21:45 Duoneb AEROSOL 3 ml Q4WA JUANJOSE Administration Arformoterol Tartrate 15 mcg 01/22/18 09:00 01/22/18 09:15 Brovana Neb AEROSOL 15 mcg BID JUANJOSE Administration Diltiazem HCl 60 mg 01/22/18 12:00 01/22/18 12:26 Cardizem Sr 60 Mg (12 Hr) PO 60 mg O JUANJOSE Administration Sodium Chloride 1,000 mls @ 999.9 mls/hr 01/21/18 19:48 01/21/18 19:59 Normal Saline IV 01/21/18 20:47 999.9 mls/hr .Q1H ONE Administration Levofloxacin/Dextrose 750 mg in 150 mls @ 100 mls/hr 01/21/18 20:15 01/22/18 21:54 Levaquin Premix IV Infused Q24H JUANJOSE Infusion Methylprednisolone Sodium Succinate 62.5 mg 01/22/18 12:00 01/22/18 12:26 Solu-Medrol IVP 62.5 mg O JUANJOSE Administration Ondansetron HCl 4 mg 01/21/18 17:39 01/21/18 18:54 Zofran IVP 01/21/18 17:40 4 mg O ONE Administration - Constitutional no acute distress, well developed - Routine HEENT Exam Head: Present: normocephalic, atraumatic Eye: Present: PERRL ENT: Present: mucous membranes moist - Routine Neck Exam Absent: JVD, carotid bruit - Routine Chest/Breast/Axilla Exam Chest wall: Present: pacemaker - Routine Respiratory Exam Present: decreased breath sounds - Routine Cardiovascular Exam Present: murmur (II/IV), tachycardia, irregular rhythm - Routine Abdominal Exam Present: soft, normoactive bowel sounds - Routine Extremities Exam Present: no edema, pulses intact, normal capillary refill - Routine Skin Exam Present: intact. Absent: rash - Routine Neurological Exam Present: alert, oriented X3 - Routine Psychiatric Exam Present: normal affect, normal thought process Results 01/24/18 05:00 01/24/18 05:00 Cardiac Enzymes 01/22/18 Range/Units 18:06 Troponin I 0.044 (0-0.12) ng/ml CBC 01/23/18 Range/Units 10:13 WBC 16.3 H (4.5-11.0) T/MM3 RBC 4.27 (4.00-5.20) M/MM3 Hgb 12.9 (12-16) GM/DL Hct 38.2 (36-46) % Plt Count 197 (130-400) T/MM3 Neut # (Auto) Not performed Lymph # (Auto) Not performed [place] # (Auto) Not performed Eos # (Auto) Not performed Baso # (Auto) Not performed Comprehensive Metabolic Panel 01/22/18 01/22/18 01/23/18 Range/Units 18:06 19:07 00:15 Sodium 129 L D 120 L D 124 L (134-144) MEQ/L Potassium 2.9 L* D 4.3 D 4.1 (3.6-5) MEQ/L Chloride 103 D 89 L D 92 L (98-107) MEQ/L Carbon Dioxide 19 L 23 22 (22-30) MEQ/L BUN 12.0 16.0 15.0 (7-17) MG/DL Creatinine 0.6 L D 0.8 D 0.8 (0.7-1.2) mg/dL Glucose 107 138 H 115 H (65-110) MG/DL Calcium 5.8 L* D 8.2 L D 8.3 L (8.4-10.2) MG/DL 01/23/18 01/23/18 Range/Units 04:36 10:13 Sodium 128 L 134 D (134-144) MEQ/L Potassium 4.4 (3.6-5) MEQ/L Chloride 96 L (98-107) MEQ/L Carbon Dioxide 23 (22-30) MEQ/L BUN 14.0 (7-17) MG/DL Creatinine 0.7 (0.7-1.2) mg/dL Glucose 111 H (65-110) MG/DL Calcium 8.4 (8.4-10.2) MG/DL Intake and Output 01/23/18 01/23/18 01/23/18 06:59 14:59 22:59 Intake Total 1500 / 1500 1060 / 1060 Output Total 1450 / 1450 400 / 400 200 / 200 Balance 50 / 50 660 / 660 -200 / -200 Intake: IV 1000 / 1000 Ns 1,000 ml @ 100 mls/hr IV . 1000 / 1000 Q10H [facility] Rx#:[id number] Oral 500 / 500 1060 / 1060 Output: Urine 1450 / 1450 400 / 400 200 / 200 Other: Urine Appearance Clear Clear Urine Color Pale Yellow Yellow Urine Odor Normal Normal Weight 70.3 kg Patient Weight 01/24/18 06:59 Weight 70.3 kg - Imaging and Cardiology EKG results: image reviewed Imaging & Cardiology Narrative: ECHO 01/22/18 IMPRESSION 1. Technically difficult study. 2. Normal LV systolic function with ejection fraction of 56%. 3. Moderate aortic stenosis with a valve area of 1.08 cm2 with mild aortic insufficiency. 4. Moderate tricuspid regurgitation with moderate pulmonary hypertension with estimated pulmonary artery systolic pressure of 51. 6. Pacemaker present in right heart. - EKG Interpretation EKG shows: atrial fibrillation (QT stable) Assessment and Plan - Assessment and Plan (1) Atrial fibrillation with RVR Current visit: Yes Status: Acute (2) CAP (community acquired pneumonia) Current visit: Yes Status: Acute (3) Hyponatremia Current visit: Yes Status: Acute (4) COPD (chronic obstructive pulmonary disease) Current visit: Yes Status: Chronic (5) HTN (hypertension) Current visit: Yes Status: Chronic (6) Aortic stenosis Current visit: Yes Status: Acute (7) Pulmonary hypertension Current visit: Yes Status: Acute (8) Pacemaker Current visit: Yes Status: Acute - Assessment and Plan 01/22/18 Troponin negative. Converted to SR this afternoon, confirmed on ECG, no ischemic changes. TSH wnl. ECHO 01/22/18: moderate , Pa pressures 51mmHg, mild TR. Recommend aggressive rhythm management due to patient and pulmonary hypertension, putting her at greater heart failure risk. Initiate AAT with Amiodarone 400mg bid for 7 days, then 200mg daily. ECG in AM; monitor QT closely in the setting Levaquin antibiotic therapy. Pt refuses anticoagulation at this time; she is advised to start it to reduce stroke risk associated with Afib. Pneumonia, hypoxia, COPD managed per attending. 01/23/18 Pt has been and out of afib since yesterday rates up to 140 seen on tele. On amiodarone 400mg po bid, continue. Initiate diltiazem 180mg daily for improved rate control, hold for sbp <100. Monitor pressures closely, avoid hypotension in setting of . Pt consents to anticoagulation therapy, initiate eliquis 5mg bid, dc lovenox 40mg daily. First dose of eliquis this PM. Pneumonia, hypotnatremia per attending. Hospital Course Summary Disclaimer: The visit summary below is not to be considered part of the above Progress Note. Hospital Course: 01/21/18 1. CAP with no hypoxia currently--cxs, levaquin as per her risk control specialist rec today. Nebs. 2. COPD--brovana and duoneb 3. Hyponatremia due to HCTZ and free water excess most likely. NS and recheck in AM holding HCTZ. 4. Essential HTN--hold HCTZ and monitor. 5. N/V likely due to lortab, monitor with 1. possible contributor. LFTs fine. 01/22/18 New onset atrial fibrillation present early this morning. Obtain troponin, obtain echocardiogram. Telemetry initiated. Obtain serum/urine osm, urine sodium. Continue to hold HCTZ. Trend sodium. Obtain TSH Monitor I/O Continue antibiotics and start steroids; continue breathing treatments, RT consult. Consult patient's senior quality technician (Emilee) and risk control specialist (Radha) 01/23/18 Day 3 Levaquin for community-acquired pneumonia. Convert to oral Levaquin. Repeat chest x-ray in a.m. Continue breathing treatments/O2 as needed. Initiate prednisone-intended to start earlier today. Sodium has improved progressively off HCTZ and with volume replacement. Undetectable urine sodium consistent with volume depletion. BUN 26--> 14 with hydration. Cardiac rhythm stabilizing, in sinus rhythm at present. Troponins unremarkable. Echocardiogram with normal LV function and moderate aortic stenosis, moderate TR , moderate pulmonary hypertension. Appreciate assistance offered by cardiology. Increased dysphasia described by patient-Carafate suspension initiated. Minimal symptoms prior to nausea/vomiting prior to hospitalization. <Omkar Hebert - Last Filed: 01/27/18 10:09> Exam Vital signs: Temperature 96.6 F L 01/27/18 07:50 Pulse Rate 70 01/27/18 07:50 Respiratory Rate 22 01/27/18 09:42 Blood Pressure 154/71 H 01/27/18 08:10 Pulse Oximetry 98 01/27/18 09:42 Inpatient Medications: Generic Name Dose Route Start Last Admin Trade Name Freq PRN Reason Stop Dose Admin Acetaminophen 325 - 650 mg 01/21/18 20:15 01/22/18 11:42 Tylenol PO 650 mg Q5H PRN Administration Discomfort Hydrocodone Bitart/Acetaminophen 1 tab 01/23/18 16:45 [place] 5/325 PO Q4H PRN Pain Albuterol/Ipratropium 3 ml 01/27/18 11:00 01/27/18 09:41 Duoneb AEROSOL 3 ml RTQID JUANJOSE Administration Amiodarone HCl 400 mg 01/22/18 16:24 01/27/18 09:02 Pacerone PO 01/29/18 09:01 400 mg BID JUANJOSE Administration Amiodarone HCl 200 mg 01/29/18 21:00 Pacerone PO 02/05/18 09:01 BID JUANJOSE Amiodarone HCl 200 mg 02/06/18 09:00 Pacerone PO DAILY JUANJOSE Apixaban 5 mg 01/23/18 21:00 01/27/18 09:04 Eliquis PO 5 mg BID JUANJOSE Administration Arformoterol Tartrate 15 mcg 01/22/18 19:00 01/27/18 08:12 Brovana Neb AEROSOL 15 mcg RTBID JUANJOSE Administration Budesonide 0.5 mg 01/22/18 07:00 01/27/18 09:42 Pulmicort Inhalation AEROSOL 0.5 mg RTBID JUANJOSE Administration Bumetanide 2 mg 01/26/18 15:00 01/27/18 09:04 Bumex 2.5 Mg/10 Ml Inj IVP 2 mg DAILY JUANJOSE Administration Diltiazem HCl 180 mg 01/23/18 13:00 01/27/18 09:04 Cardizem Cd 180 Mg PO 180 mg DAILY JUANJOSE Administration Famotidine 20 mg 01/25/18 21:00 01/27/18 09:03 Pepcid PO 20 mg BID JUANJOSE Administration Nystatin 5 ml 01/25/18 13:00 01/27/18 09:05 Mycostatin PO 01/30/18 12:59 5 ml QID JUANJOSE Administration Ondansetron HCl 4 mg 01/21/18 20:15 Zofran IVP Q6H PRN Nausea &/or vomiting Prednisone 20 mg 01/28/18 08:00 Deltasone 20 Mg PO 02/02/18 07:59 WB JUANJOSE Senna/Docusate Sodium 1 tab 01/21/18 20:15 Senna Plus Tablet PO BID PRN Constipation Sodium Chloride 10 - 80 ml 01/21/18 17:39 01/22/18 12:27 Iv Flush IVF 10 ml PRN PRN Administration Flushing Sucralfate 1 gm 01/23/18 17:00 01/27/18 05:59 Carafate Slurry PO 1 gm ACHS JUANJOSE Administration Discontinued Medications Generic Name Dose Route Start Last Admin Trade Name Freq PRN Reason Stop Dose Admin Albuterol Sulfate 2.5 mg 01/22/18 07:00 01/26/18 19:47 Proventil Neb (0.083%) AEROSOL 2.5 mg RTQID JUANJOSE Administration Albuterol/Ipratropium 3 ml 01/21/18 17:39 01/21/18 18:59 Duoneb AEROSOL 01/21/18 17:40 3 ml O ONE Administration Albuterol/Ipratropium 3 ml 01/21/18 20:15 03/31/18 22:20 Duoneb AEROSOL 01/21/18 20:16 Not Given Q4WA ONE Albuterol/Ipratropium 3 ml 01/21/18 22:00 01/21/18 21:45 Duoneb AEROSOL 3 ml Q4WA JUANJOSE Administration Amoxicillin/Clavulanate Potassium 875 mg 01/25/18 08:00 01/25/18 17:06 Augmentin 875/125 PO 01/26/18 01:00 875 mg BIDWM JUANJOSE Administration Arformoterol Tartrate 15 mcg 01/22/18 09:00 01/22/18 09:15 Brovana Neb AEROSOL 15 mcg BID JUANJOSE Administration Diltiazem HCl 60 mg 01/22/18 12:00 01/22/18 12:26 Cardizem Sr 60 Mg (12 Hr) PO 60 mg O JUANJOSE Administration Enoxaparin Sodium 40 mg 01/22/18 09:00 01/23/18 08:22 Lovenox SQ 40 mg DAILY JUANJOSE Administration Furosemide 40 mg 01/25/18 12:14 01/25/18 12:24 Lasix 40 Mg/4 Ml IVP 01/25/18 12:15 40 mg O ONE Administration Sodium Chloride 1,000 mls @ 999.9 mls/hr 01/21/18 19:48 01/23/18 22:19 Normal Saline IV 01/21/18 20:47 Infused .Q1H ONE Infusion Levofloxacin/Dextrose 750 mg in 150 mls @ 100 mls/hr 01/21/18 20:15 01/22/18 21:54 Levaquin Premix IV Infused Q24H JUANJOSE Infusion Sodium Chloride 1,000 mls @ 50 mls/hr 01/21/18 20:15 01/24/18 15:15 Normal Saline IV Infused .Q20H JUANJOSE Infusion Levofloxacin 750 mg 01/23/18 20:30 01/24/18 06:30 Levaquin PO 750 mg ACB JUANJOSE Administration Methylprednisolone Sodium Succinate 62.5 mg 01/22/18 12:00 01/22/18 12:26 Solu-Medrol IVP 62.5 mg O JUANJOSE Administration Ondansetron HCl 4 mg 01/21/18 17:39 01/21/18 18:54 Zofran IVP 01/21/18 17:40 4 mg O ONE Administration Potassium Chloride 20 meq 01/25/18 12:14 01/25/18 12:24 K-Dur 20 Meq Tablet PO 01/25/18 12:15 20 meq O ONE Administration Prednisone 40 mg 01/23/18 16:47 01/27/18 09:03 Deltasone 20 Mg PO 01/27/18 08:01 40 mg WB JUANJOSE Administration Sodium Phosphate 250 mg 01/24/18 17:30 01/26/18 20:26 K-Phos *Neutral* Tablet PO 250 mg WM JUANJOSE Administration Results 01/27/18 04:36 01/27/18 04:36 CBC 01/27/18 Range/Units 04:36 WBC 18.0 H (4.5-11.0) T/MM3 RBC 3.54 L (4.00-5.20) M/MM3 Hgb 10.8 L (12-16) GM/DL Hct 32.1 L (36-46) % Plt Count 252 (130-400) T/MM3 Neut # (Auto) Not performed Lymph # (Auto) Not performed [place] # (Auto) Not performed Eos # (Auto) Not performed Baso # (Auto) Not performed Comprehensive Metabolic Panel 01/27/18 Range/Units 04:36 Sodium 137 (134-144) MEQ/L Potassium 3.6 (3.6-5) MEQ/L Chloride 100 (98-107) MEQ/L Carbon Dioxide 31 H (22-30) MEQ/L BUN 19.0 H (7-17) MG/DL Creatinine 0.7 (0.7-1.2) mg/dL Glucose 99 (65-110) MG/DL Calcium 7.6 L (8.4-10.2) MG/DL Intake and Output 01/26/18 01/27/18 01/27/18 22:59 06:59 14:59 Intake Total 800 / 800 200 / 200 Output Total 300 / 300 350 / 350 Balance 500 / 500 -150 / -150 Intake: Oral 800 / 800 200 / 200 Output: Urine 300 / 300 350 / 350 Other: Urine Appearance Clear Clear Urine Color Yellow Yellow Urine Odor Normal Stool Color Brown Green Stool Consistency Liquid Size of Bowel Movement Small # Bowel Movements 2 Weight 70.2 kg Patient Weight 01/28/18 06:59 Weight 70.2 kg Assessment and Plan - Assessment and Plan (1) CAP (community acquired pneumonia) Current visit: Yes Status: Acute (2) Hyponatremia Current visit: Yes Status: Acute (3) COPD (chronic obstructive pulmonary disease) Current visit: Yes Status: Chronic (4) HTN (hypertension) Current visit: Yes Status: Chronic (5) Atrial fibrillation with RVR Current visit: Yes Status: Acute (6) Aortic stenosis Current visit: Yes Status: Acute (7) Pulmonary hypertension Current visit: Yes Status: Acute (8) Pacemaker Current visit: Yes Status: Acute (9) Diastolic CHF, acute Current visit: Yes Status: Acute - Attestation Attestation Narrative: 01/27/18 10:09 Patient seen and evaluated by my midlevel Laura. All aspects of this patient' s care was discussed with me in detail and I agree with the plan of care and note above. Hospital Course Summary Disclaimer: The visit summary below is not to be considered part of the above Progress Note.
[2018-01-23] MEDS: PredniSONE 20 MG TABLET PO SCH (17:32)
[2018-01-23] MEDS: LEVOFLOXACIN 750 MG TABLET PO SCH (20:48)
[2018-01-23] MEDS: APIXABAN 5 MG TABLET PO SCH (20:48)
[2018-01-24] MEDS: LEVOFLOXACIN 750 MG TABLET PO SCH (06:30)
[2018-01-24] MEDS: SUCRALFATE 1gm/10ml ORAL LIQUID PO SCH ×5 (06:30→21:35)
[2018-01-24] MEDS: BUDESONIDE INH.SOLN 0.5mg/2ml NEB AEROSOL SCH ×2 (07:10→21:24)
[2018-01-24] MEDS: ARFORMOTEROL NEB 15mcg/2ml AEROSOL SCH ×2 (07:10→21:23)
[2018-01-24] MEDS: APIXABAN 5 MG TABLET PO SCH ×2 (08:29→21:35)
[2018-01-24] MEDS: PredniSONE 20 MG TABLET PO SCH (08:29)
[2018-01-24] MEDS: AMIODARONE 200 MG TABLET PO SCH ×2 (08:29→21:35)
[2018-01-24] MEDS: ALBUTEROL 2.5mg/3ml (0.083%) NEB AEROSOL SCH ×4 (10:20→21:23)
--- NOTE | 2018-01-24 10:41 | Cardiology Progress Note ---
<Madhavi Griffiths - Last Filed: 01/25/18 08:02> Subjective Principal diagnosis: Atrial Fibrillation Interval history: Kaitlin is seen in f/u of new onset AFib, , PPM. She reports feeling fatigued today. Denies palpitations. She continues to have epigastric discomfort and low appetite from her hiatal hernia. Exam Vital signs: Temperature 96.9 F 01/24/18 07:32 Pulse Rate 83 01/24/18 07:32 Respiratory Rate 24 01/24/18 10:24 Blood Pressure 133/66 01/24/18 07:32 Pulse Oximetry 97 01/24/18 07:32 Inpatient Medications: Generic Name Dose Route Start Last Admin Trade Name Freq PRN Reason Stop Dose Admin Acetaminophen 325 - 650 mg 01/21/18 20:15 01/22/18 11:42 Tylenol PO 650 mg Q5H PRN Administration Discomfort Hydrocodone Bitart/Acetaminophen 1 tab 01/23/18 16:45 [place] 5/325 PO Q4H PRN Pain Albuterol Sulfate 2.5 mg 01/22/18 07:00 01/24/18 10:20 Proventil Neb (0.083%) AEROSOL 2.5 mg RTQID JUANJOSE Administration Amiodarone HCl 400 mg 01/22/18 16:24 01/24/18 08:29 Pacerone PO 01/29/18 09:01 400 mg BID JUANJOSE Administration Amiodarone HCl 200 mg 01/29/18 21:00 Pacerone PO 02/05/18 09:01 BID JUANJOSE Amiodarone HCl 200 mg 02/06/18 09:00 Pacerone PO DAILY JUANJOSE Apixaban 5 mg 01/23/18 21:00 01/24/18 08:29 Eliquis PO 5 mg BID JUANJOSE Administration Arformoterol Tartrate 15 mcg 01/22/18 19:00 01/24/18 07:10 Brovana Neb AEROSOL 15 mcg RTBID JUANJOSE Administration Budesonide 0.5 mg 01/22/18 07:00 01/24/18 07:10 Pulmicort Inhalation AEROSOL 0.5 mg RTBID JUANJOSE Administration Diltiazem HCl 180 mg 01/23/18 13:00 01/24/18 08:29 Cardizem Cd 180 Mg PO 180 mg DAILY JUANJOSE Administration Sodium Chloride 1,000 mls @ 50 mls/hr 01/21/18 20:15 01/23/18 17:17 Normal Saline IV 50 mls/hr .Q20H JUANJOSE Infusion Levofloxacin 750 mg 01/23/18 20:30 01/24/18 06:30 Levaquin PO 750 mg ACB JUANJOSE Administration Ondansetron HCl 4 mg 01/21/18 20:15 Zofran IVP Q6H PRN Nausea &/or vomiting Prednisone 40 mg 01/23/18 16:47 01/24/18 08:29 Deltasone 20 Mg PO 40 mg WB JUANJOSE Administration Senna/Docusate Sodium 1 tab 01/21/18 20:15 Senna Plus Tablet PO BID PRN Constipation Sodium Chloride 10 - 80 ml 01/21/18 17:39 01/22/18 12:27 Iv Flush IVF 10 ml PRN PRN Administration Flushing Sucralfate 1 gm 01/23/18 17:00 01/24/18 06:45 Carafate Slurry PO 1 gm ACHS JUANJOSE Administration Discontinued Medications Generic Name Dose Route Start Last Admin Trade Name Freq PRN Reason Stop Dose Admin Albuterol/Ipratropium 3 ml 01/21/18 17:39 01/21/18 18:59 Duoneb AEROSOL 01/21/18 17:40 3 ml O ONE Administration Albuterol/Ipratropium 3 ml 01/21/18 20:15 01/23/18 22:20 Duoneb AEROSOL 01/21/18 20:16 Not Given Q4WA ONE Albuterol/Ipratropium 3 ml 01/21/18 22:00 01/21/18 21:45 Duoneb AEROSOL 3 ml Q4WA JUANJOSE Administration Arformoterol Tartrate 15 mcg 01/22/18 09:00 01/22/18 09:15 Brovana Neb AEROSOL 15 mcg BID JUANJOSE Administration Diltiazem HCl 60 mg 01/22/18 12:00 01/22/18 12:26 Cardizem Sr 60 Mg (12 Hr) PO 60 mg O JUANJOSE Administration Enoxaparin Sodium 40 mg 01/22/18 09:00 01/23/18 08:22 Lovenox SQ 40 mg DAILY JUANJOSE Administration Sodium Chloride 1,000 mls @ 999.9 mls/hr 01/21/18 19:48 01/23/18 22:19 Normal Saline IV 01/21/18 20:47 Infused .Q1H ONE Infusion Levofloxacin/Dextrose 750 mg in 150 mls @ 100 mls/hr 01/21/18 20:15 01/22/18 21:54 Levaquin Premix IV Infused Q24H JUANJOSE Infusion Methylprednisolone Sodium Succinate 62.5 mg 01/22/18 12:00 01/22/18 12:26 Solu-Medrol IVP 62.5 mg O JUANJOSE Administration Ondansetron HCl 4 mg 01/21/18 17:39 01/21/18 18:54 Zofran IVP 01/21/18 17:40 4 mg O ONE Administration - Constitutional no acute distress - Routine HEENT Exam Head: Present: normocephalic, atraumatic Eye: Present: EOMI, PERRL ENT: Present: mucous membranes moist - Routine Chest/Breast/Axilla Exam Chest wall: Present: pacemaker - Routine Respiratory Exam Present: diminished air movement - Routine Cardiovascular Exam Present: murmur (II/IV systolic ejection), tachycardia - Routine Abdominal Exam Present: soft, normoactive bowel sounds - Routine Extremities Exam Present: no edema, normal capillary refill - Routine Skin Exam Present: intact, dry, warm - Routine Neurological Exam Present: alert, oriented X3 - Routine Psychiatric Exam Present: normal affect, normal thought process Results 01/25/18 04:04 01/25/18 04:04 CBC 01/23/18 01/24/18 Range/Units 10:13 05:00 WBC 16.3 H 13.9 H (4.5-11.0) T/MM3 RBC 4.27 3.54 L (4.00-5.20) M/MM3 Hgb 12.9 10.8 L D (12-16) GM/DL Hct 38.2 32.0 L D (36-46) % Plt Count 197 219 (130-400) T/MM3 Neut # (Auto) Not performed Not performed Lymph # (Auto) Not performed Not performed [place] # (Auto) Not performed Not performed Eos # (Auto) Not performed Not performed Baso # (Auto) Not performed Not performed Comprehensive Metabolic Panel 01/23/18 01/24/18 Range/Units 10:13 05:00 Sodium 134 D 136 (134-144) MEQ/L Potassium 4.2 (3.6-5) MEQ/L Chloride 105 D (98-107) MEQ/L Carbon Dioxide 24 (22-30) MEQ/L BUN 16.0 (7-17) MG/DL Creatinine 0.8 (0.7-1.2) mg/dL Glucose 137 H (65-110) MG/DL Calcium 8.0 L (8.4-10.2) MG/DL Albumin 2.7 L (3.5-5.0) g/dL Intake and Output 01/23/18 01/24/18 01/24/18 22:59 06:59 14:59 Intake Total 2920 / 2920 Output Total 450 / 450 650 / 650 Balance 2470 / 2470 -650 / -650 Intake: IV 1999 / 1999 Ns 1,000 ml @ 50 mls/hr IV . 1000 / 1000 Q20H JUANJOSE Rx#:[id number] Oral 920 / 920 Output: Urine 450 / 450 650 / 650 Other: Urine Appearance Clear Clear Urine Color Yellow Yellow Urine Odor Normal # Voids 1 1 Weight 70.7 kg Patient Weight 01/25/18 06:59 Weight 70.7 kg - Imaging and Cardiology Echo: report reviewed EKG results: image reviewed Assessment and Plan - Assessment and Plan (1) Atrial fibrillation with RVR Current visit: Yes Status: Acute (2) CAP (community acquired pneumonia) Current visit: Yes Status: Acute (3) Hyponatremia Current visit: Yes Status: Acute (4) COPD (chronic obstructive pulmonary disease) Current visit: Yes Status: Chronic (5) HTN (hypertension) Current visit: Yes Status: Chronic (6) Aortic stenosis Current visit: Yes Status: Acute (7) Pulmonary hypertension Current visit: Yes Status: Acute (8) Pacemaker Current visit: Yes Status: Acute - Assessment and Plan 01/22/18 Troponin negative. Converted to SR this afternoon, confirmed on ECG, no ischemic changes. TSH wnl. ECHO 01/22/18: moderate , Pa pressures 51mmHg, mild TR. Recommend aggressive rhythm management due to patient and pulmonary hypertension, putting her at greater heart failure risk. Initiate AAT with Amiodarone 400mg bid for 7 days, then 200mg daily. ECG in AM; monitor QT closely in the setting Levaquin antibiotic therapy. Pt refuses anticoagulation at this time; she is advised to start it to reduce stroke risk associated with Afib. Pneumonia, hypoxia, COPD managed per attending. 01/23/18 Pt has been and out of afib since yesterday rates up to 140 seen on tele. On amiodarone 400mg po bid, continue. Initiate diltiazem 180mg daily for improved rate control, hold for sbp <100. Monitor pressures closely, avoid hypotension in setting of . Pt consents to anticoagulation therapy, initiate eliquis 5mg bid, dc lovenox 40mg daily. First dose of eliquis this PM. Pneumonia, hypotnatremia per attending. 01/24/18: In SR, has maintained it most of the day. Continue Amiodarone and Diltiazem. Get ECG in AM to monitor QT. Eliquis 5mg bid. Continue to monitor tele, vitals. Hospital Course Summary Disclaimer: The visit summary below is not to be considered part of the above Progress Note. Hospital Course: 01/21/18 1. CAP with no hypoxia currently--cxs, levaquin as per her transit authority police officer rec today. Nebs. 2. COPD--brovana and duoneb 3. Hyponatremia due to HCTZ and free water excess most likely. NS and recheck in AM holding HCTZ. 4. Essential HTN--hold HCTZ and monitor. 5. N/V likely due to lortab, monitor with 1. possible contributor. LFTs fine. 01/22/18 New onset atrial fibrillation present early this morning. Obtain troponin, obtain echocardiogram. Telemetry initiated. Obtain serum/urine osm, urine sodium. Continue to hold HCTZ. Trend sodium. Obtain TSH Monitor I/O Continue antibiotics and start steroids; continue breathing treatments, RT consult. Consult patient's end finder twisting department (Emilee) and transit authority police officer (Radha) 01/23/18 Day 3 Levaquin for community-acquired pneumonia. Convert to oral Levaquin. Repeat chest x-ray in a.m. Continue breathing treatments/O2 as needed. Initiate prednisone-intended to start earlier today. Sodium has improved progressively off HCTZ and with volume replacement. Undetectable urine sodium consistent with volume depletion. BUN 26--> 14 with hydration. Cardiac rhythm stabilizing, in sinus rhythm at present. Troponins unremarkable. Echocardiogram with normal LV function and moderate aortic stenosis, moderate TR , moderate pulmonary hypertension. Appreciate assistance offered by cardiology. Increased dysphasia described by patient-Carafate suspension initiated. Minimal symptoms prior to nausea/vomiting prior to hospitalization. <ColettecristoferOmkar [email or web address] - Last Filed: 02/01/18 13:47> Exam Vital signs: Temperature 97.5 F 02/01/18 07:00 Pulse Rate 72 02/01/18 08:00 Respiratory Rate 22 02/01/18 09:33 Blood Pressure 136/62 02/01/18 07:33 Pulse Oximetry 96 02/01/18 07:07 Inpatient Medications: Generic Name Dose Route Start Last Admin Trade Name Freq PRN Reason Stop Dose Admin Acetaminophen 325 - 650 mg 01/21/18 20:15 01/22/18 11:42 Tylenol PO 650 mg Q5H PRN Administration Discomfort Hydrocodone Bitart/Acetaminophen 1 tab 01/23/18 16:45 [place] 5/325 PO Q4H PRN Pain Albuterol/Ipratropium 3 ml 01/27/18 11:00 02/01/18 13:38 Duoneb AEROSOL 3 ml RTQID JUANJOSE Administration Amiodarone HCl 200 mg 01/29/18 21:00 02/01/18 10:10 Pacerone PO 02/05/18 09:01 200 mg BID JUANJOSE Administration Amiodarone HCl 200 mg 02/06/18 09:00 Pacerone PO DAILY JUANJOSE Apixaban 5 mg 01/23/18 21:00 02/01/18 10:12 Eliquis PO 5 mg BID JUANJOSE Administration Arformoterol Tartrate 15 mcg 01/22/18 19:00 02/01/18 06:57 Brovana Neb AEROSOL 15 mcg RTBID JUANJOSE Administration Budesonide 0.5 mg 01/22/18 07:00 02/01/18 06:57 Pulmicort Inhalation AEROSOL 0.5 mg RTBID JUANJOSE Administration Bumetanide 2 mg 01/30/18 09:00 02/01/18 10:09 Bumex 1 Mg Tab PO 2 mg DAILY JUANJOSE Administration Famotidine 20 mg 01/31/18 21:00 01/31/18 20:53 Pepcid PO 20 mg HS JUANJOSE Administration Ceftriaxone Sodium 1 g/ Sodium 100 mls @ 200 mls/hr 01/28/18 10:15 02/01/18 10:39 Chloride IV Infused Q24H JUANJOSE Infusion Lactobacillus Acidophilus 2 cap 01/29/18 17:30 02/01/18 10:09 Culturelle PO 2 cap BIDWM [facility] Administration Metoprolol Tartrate 50 mg 01/27/18 13:30 02/01/18 10:10 Lopressor PO 50 mg BIDWM [facility] Administration Nystatin 5 ml 02/01/18 13:00 Mycostatin PO QID JUANJOSE Ondansetron HCl 4 mg 01/21/18 20:15 Zofran IVP Q6H PRN Nausea &/or vomiting Pantoprazole Sodium 40 mg 01/28/18 06:30 02/01/18 06:05 Protonix Tab PO 40 mg ACB JUANJOSE Administration Potassium Chloride 20 meq 02/01/18 08:00 02/01/18 10:10 Micro-K 10 Meq Capsule PO 20 meq BIDWM [facility] Administration Senna/Docusate Sodium 1 tab 01/21/18 20:15 Senna Plus Tablet PO BID PRN Constipation Sodium Chloride 10 - 80 ml 01/21/18 17:39 02/01/18 10:12 Iv Flush IVF 10 ml PRN PRN Administration Flushing Sodium Chloride 500 ml 01/31/18 09:32 01/31/18 09:36 Normal Saline IV 500 ml PRN PRN Administration Discontinued Medications Generic Name Dose Route Start Last Admin Trade Name Freq PRN Reason Stop Dose Admin Albuterol Sulfate 2.5 mg 01/22/18 07:00 01/28/18 09:03 Proventil Neb (0.083%) AEROSOL Not Given RTQID JUANJOSE Albuterol/Ipratropium 3 ml 01/21/18 17:39 01/21/18 18:59 Duoneb AEROSOL 01/21/18 17:40 3 ml O ONE Administration Albuterol/Ipratropium 3 ml 01/21/18 20:15 01/23/18 22:20 Duoneb AEROSOL 01/21/18 20:16 Not Given Q4WA ONE Albuterol/Ipratropium 3 ml 01/21/18 22:00 01/21/18 21:45 Duoneb AEROSOL 3 ml Q4WA JUANJOSE Administration Alteplase, Recombinant 10 mg 01/28/18 15:30 01/28/18 15:45 Cathflo Activase IPL 01/28/18 15:31 10 mg O ONE Administration Alteplase, Recombinant 10 mg 02/01/18 09:00 Cathflo Activase IPL 02/01/18 09:01 O ONE Amiodarone HCl 400 mg 01/22/18 16:24 01/29/18 09:14 Pacerone PO 01/29/18 09:01 400 mg BID JUANJOSE Administration Amoxicillin/Clavulanate Potassium 875 mg 01/25/18 08:00 01/25/18 17:06 Augmentin 875/125 PO 01/26/18 01:00 875 mg BIDWM JUANJOSE Administration Arformoterol Tartrate 15 mcg 01/22/18 09:00 01/22/18 09:15 Brovana Neb AEROSOL 15 mcg BID JUANJOSE Administration Bumetanide 2 mg 01/26/18 15:00 01/29/18 09:13 Bumex 2.5 Mg/10 Ml Inj IVP 2 mg DAILY JUANJOSE Administration Diltiazem HCl 60 mg 01/22/18 12:00 01/22/18 12:26 Cardizem Sr 60 Mg (12 Hr) PO 60 mg O JUANJOSE Administration Diltiazem HCl 180 mg 01/23/18 13:00 01/27/18 09:04 Cardizem Cd 180 Mg PO 180 mg DAILY JUANJOSE Administration Enoxaparin Sodium 40 mg 01/22/18 09:00 01/23/18 08:22 Lovenox SQ 40 mg DAILY JUANJOSE Administration Famotidine 20 mg 01/25/18 21:00 01/31/18 08:53 Pepcid PO 20 mg BID JUANJOSE Administration Furosemide 40 mg 01/25/18 12:14 01/25/18 12:24 Lasix 40 Mg/4 Ml IVP 01/25/18 12:15 40 mg O ONE Administration Sodium Chloride 1,000 mls @ 999.9 mls/hr 01/21/18 19:48 01/23/18 22:19 Normal Saline IV 01/21/18 20:47 Infused .Q1H ONE Infusion Levofloxacin/Dextrose 750 mg in 150 mls @ 100 mls/hr 01/21/18 20:15 01/22/18 21:54 Levaquin Premix IV Infused Q24H JUANJOSE Infusion Sodium Chloride 1,000 mls @ 50 mls/hr 01/21/18 20:15 01/24/18 15:15 Normal Saline IV Infused .Q20H JUANJOSE Infusion Levofloxacin 750 mg 01/23/18 20:30 04/01/18 06:30 Levaquin PO 750 mg ACB JUANJOSE Administration Methylprednisolone Sodium Succinate 62.5 mg 01/22/18 12:00 01/22/18 12:26 Solu-Medrol IVP 62.5 mg O JUANJOSE Administration Metoprolol Tartrate 50 mg 01/27/18 22:00 01/27/18 21:56 Lopressor PO 01/27/18 22:01 50 mg ONE TIME JUANJOSE Administration Nystatin 5 ml 01/25/18 13:00 01/30/18 08:38 Mycostatin PO 01/30/18 12:59 5 ml QID JUANJOSE Administration Ondansetron HCl 4 mg 01/21/18 17:39 01/21/18 18:54 Zofran IVP 01/21/18 17:40 4 mg O ONE Administration Pharmacy Consult each 01/28/18 20:50 Pharmacy Consult - Fall Risk 01/28/18 20:51 ONE TIME ONE Potassium Chloride 20 meq 01/25/18 12:14 01/25/18 12:24 K-Dur 20 Meq Tablet PO 01/25/18 12:15 20 meq O ONE Administration Potassium Chloride 20 meq 01/30/18 13:42 01/30/18 14:03 K-Dur 20 Meq Tablet PO 01/30/18 13:43 20 meq O ONE Administration Potassium Chloride 40 meq 01/31/18 09:03 01/31/18 09:33 K-Dur 20 Meq Tablet PO 01/31/18 09:04 40 meq O ONE Administration Potassium Chloride 40 meq 01/31/18 13:36 01/31/18 14:32 K-Dur 20 Meq Tablet PO 01/31/18 13:37 40 meq O ONE Administration Prednisone 40 mg 01/23/18 16:47 01/27/18 09:03 Deltasone 20 Mg PO 01/27/18 08:01 40 mg WB JUANJOSE Administration Prednisone 20 mg 01/28/18 08:00 01/28/18 08:52 Deltasone 20 Mg PO 02/02/18 07:59 20 mg WB JUANJOSE Administration Sodium Phosphate 250 mg 01/24/18 17:30 01/26/18 20:26 K-Phos *Neutral* Tablet PO 250 mg WM JUANJOSE Administration Sucralfate 1 gm 01/23/18 17:00 01/31/18 12:06 Carafate Slurry PO 1 gm ACHS JUANJOSE Administration Results 02/01/18 04:48 04/09/18 04:48 CBC 02/01/18 Range/Units 04:48 WBC 12.7 H (4.5-11.0) T/MM3 RBC 3.39 L (4.00-5.20) M/MM3 Hgb 10.1 L (12-16) GM/DL Hct 30.9 L (36-46) % Plt Count 309 (130-400) T/MM3 Neut # (Auto) 10.3 H (1.8-7.7) T/MM3 Lymph # (Auto) 1.1 (1-4.8) T/MM3 [place] # (Auto) 1.1 H (0-0.8) T/MM3 Eos # (Auto) 0.1 (0-0.5) T/MM3 Baso # (Auto) 0.0 (0-0.2) T/MM3 Comprehensive Metabolic Panel 02/01/18 Range/Units 04:48 Sodium 136 (134-144) MEQ/L Potassium 3.9 D (3.6-5) MEQ/L Chloride 99 (98-107) MEQ/L Carbon Dioxide 31 H (22-30) MEQ/L BUN 18.0 H (7-17) MG/DL Creatinine 0.8 (0.7-1.2) mg/dL Glucose 86 (65-110) MG/DL Calcium 7.7 L (8.4-10.2) MG/DL Albumin 2.3 L (3.5-5.0) g/dL Intake and Output 01/31/18 02/01/18 02/01/18 22:59 06:59 14:59 Intake Total 920 / 920 393 / 393 Output Total 709 / 709 650 / 650 100 / 100 Balance 211 / 211 -650 / -650 293 / 293 Intake: IV 100 / 100 Ceftriaxone 1 g In Ns 100 ml @ 100 / 100 200 mls/hr IV Q24H [facility] Rx#: [id number] Oral 920 / 920 293 / 293 Output: Urine 700 / 700 650 / 650 100 / 100 Chest Tube Drainage Right Posterior Chest Other: Urine Appearance Clear Clear Clear Urine Color Pale Pale Pale Yellow Yellow Yellow Urine Odor Normal Stool Color Brown Brown Stool Consistency Soft Soft Watery Formed Size of Bowel Movement Moderate Small # Voids 1 # Bowel Movements 1 1 Weight 69.1 kg Patient Weight 02/02/18 06:59 Weight 69.1 kg Assessment and Plan - Assessment and Plan (1) CAP (community acquired pneumonia) Current visit: Yes Status: Acute (2) Hyponatremia Problem details: [id number] Current visit: Yes Status: Resolved (3) COPD (chronic obstructive pulmonary disease) Current visit: Yes Status: Chronic (4) HTN (hypertension) Current visit: Yes Status: Chronic (5) Atrial fibrillation with RVR Current visit: Yes Status: Resolved (6) Aortic stenosis Current visit: Yes Status: Chronic (7) Pulmonary hypertension Current visit: Yes Status: Chronic (8) Pacemaker Current visit: Yes Status: Chronic (9) Diastolic CHF, acute Current visit: Yes Status: Acute - Attestation Attestation Narrative: 02/01/18 13:47 Recommendation After examining the patient I agree with the above assessment. I am involved in the formulation of the patient's plan of care. Hospital Course Summary Disclaimer: The visit summary below is not to be considered part of the above Progress Note.
[2018-01-24] MEDS: NS 1,000 ML IV SCH (14:19)
--- NOTE | 2018-01-24 14:24 | Progress Note ---
- Date 01/24/18 Subjective: Mrs. Harden reported that she is tired today despite sleeping well. She has persistent dyspnea but denied cough or sputum production. She denied palpitations or chest pain and review of telemetry strips indicates she's been in sinus rhythm overnight. She denied nausea or vomiting and burning discomfort with swallow is somewhat better than it was yesterday. Her appetite is good and she is voiding without dysuria. Objective Vital signs: Temperature 96.6 F L 01/24/18 11:21 Pulse Rate 84 01/24/18 11:21 Respiratory Rate 20 01/24/18 13:28 Blood Pressure 123/69 01/24/18 11:21 Pulse Oximetry 96 -2 L 01/24/18 11:21 I/O 3980/1500 NAD, appears fatigued but responds to questions appropriately Conjunctiva clear, sclera anicteric, neck supple Respirations nonlabored, decreased airflow throughout, breath sounds clear Regular rhythm, S1-S2, soft systolic murmur graded 1/6 upper sternal border Abdomen soft, nontender, bowel sounds present Extremities without edema bilaterally at the ankles or dorsal feet MAEW Cooperative, pleasant, calm Height/Weight/BMI: Height 1.61 m Weight 70.7 kg Body Mass Index 26.6 Results - Labs CBC & Chem 7: 01/24/18 05:00 01/24/18 05:00 Labs: S72, B13, L4, M7, Meta1, Myelo3 Phosphorus 2.0, albumin 2.7 Microbiology Results: Microbiology 01/22/18 12:47 Sputum, Expectorated Gram Stain - Final 01/22/18 12:47 Sputum, Expectorated Sputum Culture - Final Normal Respiratory Bridgette including Yeast Present - Imaging and Cardiology Chest x-ray Status: image reviewed by me (decreased right infiltrate compared to prior film) Assessment and Plan (1) CAP (community acquired pneumonia) Current visit: Yes Status: Acute (2) Hyponatremia Current visit: Yes Status: Acute (3) Atrial fibrillation with RVR Current visit: Yes Status: Acute Assessment and Plan: Assessment: New onset A fib with RVR Hyponatremia-118 on admission CAP-RML/RLL COPD HTN Nausea/Vomiting Dysphagia-01/23/18 CAD Valvular heart disease-/TR Hypophosphatemia Plan: Day 4 Levaquin for community-acquired pneumonia. Converted to oral Levaquin yesterday and we'll discontinue today due to interaction with amiodarone. Convert to Augmentin for 1-3 days. Repeat chest x-ray with improvement in infiltrate. Continue breathing treatments/O2 as needed. Continue prednisone 40 mg daily 5 days. Sodium has normalized off HCTZ and with volume replacement. Undetectable urine sodium consistent with volume depletion. Good oral intake, discontinue IV fluids. Telemetry strips reviewed by myself-sinus rhythm overnight. Previously discussed with cardiology. Eliquis initiated yesterday per cardiology, remains on amiodarone and diltiazem for atrial fibrillation. Echocardiogram with normal LV function and moderate aortic stenosis, moderate TR , moderate pulmonary hypertension. Increased dysphasia described by patient yesterday-Carafate suspension initiated and symptoms slightly improved today. Phosphorus supplement initiated-reassess phosphorus level in a couple of days. - Physician Narrative Narrative: Date: 01/24/18 Time: 1419 Hospital Course Summary Disclaimer: The visit summary below is not to be considered part of the above Progress Note. Hospital Course: 01/21/18 1. CAP with no hypoxia currently--cxs, levaquin as per her kitchen utility associate rec today. Nebs. 2. COPD--brovana and duoneb 3. Hyponatremia due to HCTZ and free water excess most likely. NS and recheck in AM holding HCTZ. 4. Essential HTN--hold HCTZ and monitor. 5. N/V likely due to lortab, monitor with 1. possible contributor. LFTs fine. 01/22/18 New onset atrial fibrillation present early this morning. Obtain troponin, obtain echocardiogram. Telemetry initiated. Obtain serum/urine osm, urine sodium. Continue to hold HCTZ. Trend sodium. Obtain TSH Monitor I/O Continue antibiotics and start steroids; continue breathing treatments, RT consult. Consult patient's barber shop manager (Emilee) and kitchen utility associate (Radha) 01/23/18 Day 3 Levaquin for community-acquired pneumonia. Convert to oral Levaquin. Repeat chest x-ray in a.m. Continue breathing treatments/O2 as needed. Initiate prednisone-intended to start earlier today. Sodium has improved progressively off HCTZ and with volume replacement. Undetectable urine sodium consistent with volume depletion. BUN 26--> 14 with hydration. Cardiac rhythm stabilizing, in sinus rhythm at present. Troponins unremarkable. Echocardiogram with normal LV function and moderate aortic stenosis, moderate TR , moderate pulmonary hypertension. Appreciate assistance offered by cardiology. Increased dysphasia described by patient-Carafate suspension initiated. Minimal symptoms prior to nausea/vomiting prior to hospitalization. 01/24/18 Day 4 Levaquin for community-acquired pneumonia. Converted to oral Levaquin yesterday and we'll discontinue today due to interaction with amiodarone. Convert to Augmentin for 1-3 days. Repeat chest x-ray with improvement in infiltrate. Continue breathing treatments/O2 as needed. Continue prednisone 40 mg daily 5 days. Sodium has normalized off HCTZ and with volume replacement. Undetectable urine sodium consistent with volume depletion. Good oral intake, discontinue IV fluids. Telemetry strips reviewed by myself-sinus rhythm overnight. Previously discussed with cardiology. Eliquis initiated yesterday per cardiology, remains on amiodarone and diltiazem for atrial fibrillation. Dysphasia slightly improved-continue Carafate. Phosphorus supplement initiated-reassess phosphorus level in a couple of days.
--- NOTE | 2018-01-24 16:46 | XRay Report ---
INDICATION: pneumonia PROCEDURE: CHEST 2-VIEWS UPRIGHT (PA & LAT) Encounter: Initial COMPARISON: January 21, 2018 FINDINGS: Right middle and lower lobe airspace consolidation is not significant changed. Small right effusion is stable. No pneumothorax. Left lung remains clear. Heart size and mediastinal contours are unchanged. Pulmonary vascularity is stable. Impression: No significant change in right-sided consolidation. .
[2018-01-24] MEDS: PHOSPHORUS 250 MG TABLET PO SCH (17:53)
[2018-01-25] MEDS: SUCRALFATE 1gm/10ml ORAL LIQUID PO SCH ×4 (06:06→21:06)
[2018-01-25] MEDS: BUDESONIDE INH.SOLN 0.5mg/2ml NEB AEROSOL SCH ×2 (07:38→19:28)
[2018-01-25] MEDS: ARFORMOTEROL NEB 15mcg/2ml AEROSOL SCH ×2 (07:39→19:28)
[2018-01-25] MEDS: PredniSONE 20 MG TABLET PO SCH (08:59)
[2018-01-25] MEDS: AMOX/CLAV 875 MG/125 MG TABLET PO SCH ×2 (08:59→17:06)
[2018-01-25] MEDS: AMIODARONE 200 MG TABLET PO SCH ×2 (09:00→21:07)
[2018-01-25] MEDS: APIXABAN 5 MG TABLET PO SCH ×2 (09:00→21:07)
[2018-01-25] MEDS: PHOSPHORUS 250 MG TABLET PO SCH ×3 (09:00→17:05)
[2018-01-25] MEDS: ALBUTEROL 2.5mg/3ml (0.083%) NEB AEROSOL SCH ×4 (10:40→19:28)
--- NOTE | 2018-01-25 10:57 | Cardiology Progress Note ---
Subjective Principal diagnosis: Atrial Fibrillation Interval history: Kaitlin is seen in f/u of new onset AFib, , PPM. She reports feeling fatigued today. Denies palpitations and denies chest pain. RN informs me that Tele noted episodes of VT. This patient has RBBB and PPM Exam Vital signs: Temperature 97.1 F 01/25/18 08:57 Pulse Rate 79 01/25/18 08:57 Respiratory Rate 24 01/25/18 10:45 Blood Pressure 132/60 01/25/18 08:57 Pulse Oximetry 96 01/25/18 10:45 Inpatient Medications: Generic Name Dose Route Start Last Admin Trade Name Freq PRN Reason Stop Dose Admin Acetaminophen 325 - 650 mg 01/21/18 20:15 01/22/18 11:42 Tylenol PO 650 mg Q5H PRN Administration Discomfort Hydrocodone Bitart/Acetaminophen 1 tab 01/23/18 16:45 [place] 5/325 PO Q4H PRN Pain Albuterol Sulfate 2.5 mg 01/22/18 07:00 01/25/18 10:45 Proventil Neb (0.083%) AEROSOL 2.5 mg RTQID JUANJOSE Administration Amiodarone HCl 400 mg 01/22/18 16:24 01/25/18 09:00 Pacerone PO 01/29/18 09:01 400 mg BID JUANJOSE Administration Amiodarone HCl 200 mg 01/29/18 21:00 Pacerone PO 02/05/18 09:01 BID JUANJOSE Amiodarone HCl 200 mg 02/06/18 09:00 Pacerone PO DAILY JUANJOSE Amoxicillin/Clavulanate Potassium 875 mg 01/25/18 08:00 01/25/18 08:59 Augmentin 875/125 PO 875 mg BIDWM JUANJOSE Administration Apixaban 5 mg 01/23/18 21:00 01/25/18 09:00 Eliquis PO 5 mg BID JUANJOSE Administration Arformoterol Tartrate 15 mcg 01/22/18 19:00 01/25/18 07:39 Brovana Neb AEROSOL 15 mcg RTBID JUANJOSE Administration Budesonide 0.5 mg 01/22/18 07:00 01/25/18 07:38 Pulmicort Inhalation AEROSOL 0.5 mg RTBID JUANJOSE Administration Diltiazem HCl 180 mg 01/23/18 13:00 01/25/18 09:00 Cardizem Cd 180 Mg PO 180 mg DAILY JUANJOSE Administration Ondansetron HCl 4 mg 01/21/18 20:15 Zofran IVP Q6H PRN Nausea &/or vomiting Prednisone 40 mg 01/23/18 16:47 01/25/18 08:59 Deltasone 20 Mg PO 40 mg WB JUANJOSE Administration Senna/Docusate Sodium 1 tab 01/21/18 20:15 Senna Plus Tablet PO BID PRN Constipation Sodium Chloride 10 - 80 ml 01/21/18 17:39 01/22/18 12:27 Iv Flush IVF 10 ml PRN PRN Administration Flushing Sodium Phosphate 250 mg 01/24/18 17:30 01/25/18 09:00 K-Phos *Neutral* Tablet PO 250 mg WM JUANJOSE Administration Sucralfate 1 gm 01/23/18 17:00 01/25/18 06:06 Carafate Slurry PO 1 gm ACHS JUANJOSE Administration Discontinued Medications Generic Name Dose Route Start Last Admin Trade Name Freq PRN Reason Stop Dose Admin Albuterol/Ipratropium 3 ml 01/21/18 17:39 01/21/18 18:59 Duoneb AEROSOL 01/21/18 17:40 3 ml O ONE Administration Albuterol/Ipratropium 3 ml 01/21/18 20:15 01/23/18 22:20 Duoneb AEROSOL 01/21/18 20:16 Not Given Q4WA ONE Albuterol/Ipratropium 3 ml 01/21/18 22:00 01/21/18 21:45 Duoneb AEROSOL 3 ml Q4WA JUANJOSE Administration Arformoterol Tartrate 15 mcg 01/22/18 09:00 01/22/18 09:15 Brovana Neb AEROSOL 15 mcg BID JUANJOSE Administration Diltiazem HCl 60 mg 01/22/18 12:00 01/22/18 12:26 Cardizem Sr 60 Mg (12 Hr) PO 60 mg O JUANJOSE Administration Enoxaparin Sodium 40 mg 01/22/18 09:00 01/23/18 08:22 Lovenox SQ 40 mg DAILY JUANJOSE Administration Sodium Chloride 1,000 mls @ 999.9 mls/hr 01/21/18 19:48 01/23/18 22:19 Normal Saline IV 01/21/18 20:47 Infused .Q1H ONE Infusion Levofloxacin/Dextrose 750 mg in 150 mls @ 100 mls/hr 01/21/18 20:15 01/22/18 21:54 Levaquin Premix IV Infused Q24H JUANJOSE Infusion Sodium Chloride 1,000 mls @ 50 mls/hr 01/21/18 20:15 01/24/18 15:15 Normal Saline IV Infused .Q20H JUANJOSE Infusion Levofloxacin 750 mg 01/23/18 20:30 01/24/18 06:30 Levaquin PO 750 mg ACB JUANJOSE Administration Methylprednisolone Sodium Succinate 62.5 mg 01/22/18 12:00 01/22/18 12:26 Solu-Medrol IVP 62.5 mg O JUANJOSE Administration Ondansetron HCl 4 mg 01/21/18 17:39 01/21/18 18:54 Zofran IVP 01/21/18 17:40 4 mg O ONE Administration - Constitutional no acute distress, well developed, thin - Routine HEENT Exam Head: Present: normocephalic, atraumatic Eye: Present: EOMI - Routine Neck Exam Absent: JVD - Routine Chest/Breast/Axilla Exam Chest wall: Absent: tenderness Comments: increased AP diameter - Routine Respiratory Exam Present: decreased breath sounds. Absent: accessory muscle use, respiratory distress, stridor, wheezes - Routine Cardiovascular Exam Present: irregular rhythm. Absent: RRR, tachycardia Comments: Irregular rate and rhythm - Routine Abdominal Exam Present: soft - Routine Extremities Exam Absent: cyanosis, edema, extremity cold to touch Comments: decreased DP pulses, Toenails discolored - Routine Skin Exam Present: dry - Routine Neurological Exam Present: alert, oriented X3 - Routine Psychiatric Exam Comments: flat affect Results 01/25/18 04:04 01/25/18 04:04 Cardiac Enzymes 01/25/18 Range/Units 04:04 AST 68 H (14-36) U/L CBC 01/25/18 Range/Units 04:04 WBC 16.8 H (4.5-11.0) T/MM3 RBC 3.77 L (4.00-5.20) M/MM3 Hgb 11.3 L (12-16) GM/DL Hct 34.5 L (36-46) % Plt Count 270 (130-400) T/MM3 Comprehensive Metabolic Panel 01/25/18 Range/Units 04:04 Sodium 138 (134-144) MEQ/L Potassium 4.0 (3.6-5) MEQ/L Chloride 104 (98-107) MEQ/L Carbon Dioxide 26 (22-30) MEQ/L BUN 20.0 H (7-17) MG/DL Creatinine 0.8 (0.7-1.2) mg/dL Glucose 124 H (65-110) MG/DL Calcium 8.2 L (8.4-10.2) MG/DL AST 68 H (14-36) U/L ALT 41 H (1-35) U/L Alkaline Phosphatase 105 (38-126) U/L Total Protein 6.1 L (6.3-8.2) g/dL Albumin 2.9 L (3.5-5.0) g/dL Intake and Output 01/24/18 01/25/18 01/25/18 22:59 06:59 14:59 Intake Total 546.67 / 546.67 Balance 546.67 / 546.67 Intake: IV 46.67 / 46.67 Ns 1,000 ml @ 50 mls/hr IV . 46.67 / 46.67 Q20H JUANJOSE Rx#:[id number] Oral 500 / 500 Other: # Voids 1 Weight 71.8 kg Patient Weight 01/26/18 06:59 Weight 71.8 kg Assessment and Plan - Assessment and Plan (1) CAP (community acquired pneumonia) Current visit: Yes Status: Acute (2) Hyponatremia Current visit: Yes Status: Acute (3) COPD (chronic obstructive pulmonary disease) Current visit: Yes Status: Chronic (4) HTN (hypertension) Current visit: Yes Status: Chronic (5) Atrial fibrillation with RVR Current visit: Yes Status: Acute (6) Aortic stenosis Current visit: Yes Status: Acute (7) Pulmonary hypertension Current visit: Yes Status: Acute (8) Pacemaker Current visit: Yes Status: Acute (9) Diastolic CHF, acute Current visit: Yes Status: Acute Diurese patient and monitor vitals and labs closely. Give Bumex 2mg IV daily start today - Assessment and Plan 01/22/18 Troponin negative. Converted to SR this afternoon, confirmed on ECG, no ischemic changes. TSH wnl. ECHO 01/22/18: moderate , Pa pressures 51mmHg, mild TR. Recommend aggressive rhythm management due to patient and pulmonary hypertension, putting her at greater heart failure risk. Initiate AAT with Amiodarone 400mg bid for 7 days, then 200mg daily. ECG in AM; monitor QT closely in the setting Levaquin antibiotic therapy. Pt refuses anticoagulation at this time; she is advised to start it to reduce stroke risk associated with Afib. Pneumonia, hypoxia, COPD managed per attending. 01/23/18 Pt has been and out of afib since yesterday rates up to 140 seen on tele. On amiodarone 400mg po bid, continue. Initiate diltiazem 180mg daily for improved rate control, hold for sbp <100. Monitor pressures closely, avoid hypotension in setting of . Pt consents to anticoagulation therapy, initiate eliquis 5mg bid, dc lovenox 40mg daily. First dose of eliquis this PM. Pneumonia, hypotnatremia per attending. 01/24/18: In SR, has maintained it most of the day. Continue Amiodarone and Diltiazem. Get ECG in AM to monitor QT. Eliquis 5mg bid. Continue to monitor tele, vitals. 01/25/18 Continue Eliquis Continue Diltiazem 180mg one tablet daily for rate control Continue Amiodarone oral titration to maintain NSR. EKG today revealing NSR, RBBB, Qtc 432 - tolerating Amiodarone well. Monitor tele and vitals Hyponatremia resolved Evaluation of Tele revealing tachycardia in a patient with known RBBB will perform Mg level and consider PPM interrogation BNP today high - was given Lasix 40mg IV X 1 earlier today Mg level high Will start Bumex 2mg IV daily - start today and monitor response Patient likely in acute diastolic heart failure due to rapid atrial fibrillation - she has moderate will monitor blood pressure closely Possible VT noted on Tele Will obtain [facility] PPM interrogation Hospital Course Summary Disclaimer: The visit summary below is not to be considered part of the above Progress Note. Hospital Course: 01/21/18 1. CAP with no hypoxia currently--cxs, levaquin as per her utility spray operator rec today. Nebs. 2. COPD--brovana and duoneb 3. Hyponatremia due to HCTZ and free water excess most likely. NS and recheck in AM holding HCTZ. 4. Essential HTN--hold HCTZ and monitor. 5. N/V likely due to lortab, monitor with 1. possible contributor. LFTs fine. 01/22/18 New onset atrial fibrillation present early this morning. Obtain troponin, obtain echocardiogram. Telemetry initiated. Obtain serum/urine osm, urine sodium. Continue to hold HCTZ. Trend sodium. Obtain TSH Monitor I/O Continue antibiotics and start steroids; continue breathing treatments, RT consult. Consult patient's subeditor (Emilee) and utility spray operator (Radha) 01/23/18 Day 3 Levaquin for community-acquired pneumonia. Convert to oral Levaquin. Repeat chest x-ray in a.m. Continue breathing treatments/O2 as needed. Initiate prednisone-intended to start earlier today. Sodium has improved progressively off HCTZ and with volume replacement. Undetectable urine sodium consistent with volume depletion. BUN 26--> 14 with hydration. Cardiac rhythm stabilizing, in sinus rhythm at present. Troponins unremarkable. Echocardiogram with normal LV function and moderate aortic stenosis, moderate TR , moderate pulmonary hypertension. Appreciate assistance offered by cardiology. Increased dysphasia described by patient-Carafate suspension initiated. Minimal symptoms prior to nausea/vomiting prior to hospitalization. 01/24/18 Day 4 Levaquin for community-acquired pneumonia. Converted to oral Levaquin yesterday and we'll discontinue today due to interaction with amiodarone. Convert to Augmentin for 1-3 days. Repeat chest x-ray with improvement in infiltrate. Continue breathing treatments/O2 as needed. Continue prednisone 40 mg daily 5 days. Sodium has normalized off HCTZ and with volume replacement. Undetectable urine sodium consistent with volume depletion. Good oral intake, discontinue IV fluids. Telemetry strips reviewed by myself-sinus rhythm overnight. Previously discussed with cardiology. Eliquis initiated yesterday per cardiology, remains on amiodarone and diltiazem for atrial fibrillation. Dysphasia slightly improved-continue Carafate. Phosphorus supplement initiated-reassess phosphorus level in a couple of days. Hospital Course Summary Disclaimer: The visit summary below is not to be considered part of the above Progress Note. Hospital Course: 01/21/18 1. CAP with no hypoxia currently--cxs, levaquin as per her utility spray operator rec today. Nebs. 2. COPD--brovana and duoneb 3. Hyponatremia due to HCTZ and free water excess most likely. NS and recheck in AM holding HCTZ. 4. Essential HTN--hold HCTZ and monitor. 5. N/V likely due to lortab, monitor with 1. possible contributor. LFTs fine. 01/22/18 New onset atrial fibrillation present early this morning. Obtain troponin, obtain echocardiogram. Telemetry initiated. Obtain serum/urine osm, urine sodium. Continue to hold HCTZ. Trend sodium. Obtain TSH Monitor I/O Continue antibiotics and start steroids; continue breathing treatments, RT consult. Consult patient's subeditor (Emilee) and utility spray operator (Radha) 01/23/18 Day 3 Levaquin for community-acquired pneumonia. Convert to oral Levaquin. Repeat chest x-ray in a.m. Continue breathing treatments/O2 as needed. Initiate prednisone-intended to start earlier today. Sodium has improved progressively off HCTZ and with volume replacement. Undetectable urine sodium consistent with volume depletion. BUN 26--> 14 with hydration. Cardiac rhythm stabilizing, in sinus rhythm at present. Troponins unremarkable. Echocardiogram with normal LV function and moderate aortic stenosis, moderate TR , moderate pulmonary hypertension. Appreciate assistance offered by cardiology. Increased dysphasia described by patient-Carafate suspension initiated. Minimal symptoms prior to nausea/vomiting prior to hospitalization.
[2018-01-25] MEDS ORDERED: FUROSEMIDE 40 MG/4 ML INJECTION IVP ONE (12:14)
[2018-01-25] MEDS: NYSTATIN 500,000 units/5 ml ORAL LIQUID PO SCH ×3 (14:52→21:07)
--- NOTE | 2018-01-25 14:57 | Progress Note ---
- Date 01/25/18 Subjective: Patient seen sitting in her chair before lunch. She reports she feels short of breath, yet her oxygen needs are not as great as they were yesterday. She feels very fatigued. No nausea, vomiting, or chest pain. She did have a bowel movement this morning. Complains of a "coating" and soreness on her tongue. Has had thrush in the past and this is what it felt like. Objective Vital signs: Temperature 97.1 F 01/25/18 08:57 Pulse Rate 79 01/25/18 08:57 Respiratory Rate 24 01/25/18 10:45 Blood Pressure 132/60 01/25/18 08:57 Pulse Oximetry 88 L 01/25/18 11:35 Height/Weight/BMI: Height 1.61 m Weight 71.8 kg Body Mass Index 26.6 - Constitutional Present: no acute distress, well nourished, well developed Comments: Appears tired - Routine HEENT Exam Head: Present: normocephalic, atraumatic Comments: Coating noted to tongue. No buccal or gingival exudate. - Routine Respiratory Exam Present: decreased breath sounds, diminished air movement. Absent: wheezes Comments: Mild conversational dyspnea - Routine Cardiovascular Exam Present: no murmur, irregularly irregular - Routine Abdominal Exam Present: soft, non distended, non tender - Routine Extremities Exam Present: edema (3+ pitting edema to bilateral lower extremities and 1-2+ pitting edema to the left arm.), normal capillary refill - Routine Skin Exam Present: dry, warm - Routine Neurological Exam Present: alert, oriented X3 - Routine Lymphatic Exam Lymphatic: Absent: adenopathy - Routine Psychiatric Exam Present: cooperative, depressed Results - Labs CBC & Chem 7: 01/25/18 04:04 01/25/18 04:04 Microbiology Results: Microbiology 01/22/18 12:47 Sputum, Expectorated Gram Stain - Final 01/22/18 12:47 Sputum, Expectorated Sputum Culture - Final Normal Respiratory Bridgette including Yeast Present Assessment and Plan (1) CAP (community acquired pneumonia) Current visit: Yes Status: Acute (2) Hyponatremia Current visit: Yes Status: Acute (3) Atrial fibrillation with RVR Current visit: Yes Status: Acute Assessment and Plan: Assessment: New onset A fib with RVR-Eliquis initiated 01/23/18 Hyponatremia-118 on admission-resolved CAP-RML/RLL COPD HTN Nausea/Vomiting-resolved Dysphagia-01/23/18 CAD Valvular heart disease-/TR Hypophosphatemia Thrush (tongue)-01/25/18 Plan: Has had 4 days of Levaquin. Today started on Augmentin as Levaquin was discontinued due to interaction with amiodarone. Continue prednisone 40 mg daily 5 days (through January 27) Appears fluid overloaded today. IV fluids were discontinued yesterday. Lasix 40 mg IV and potassium 20 mEq po given1. Phosphorus initiated yesterday due to hypophosphatemia. Repeat phosphorus level in a.m. Eliquis initiated 01/23/18 per cardiology, remains on amiodarone and diltiazem for atrial fibrillation. Echocardiogram with normal LV function and moderate aortic stenosis, moderate TR , moderate pulmonary hypertension. Start nystatin for thrush. Per cardiology: Will start Bumex 2mg IV daily - start today and monitor response Patient likely in acute diastolic heart failure due to rapid atrial fibrillation - she has moderate will monitor blood pressure closely Possible VT noted on Tele Will obtain [facility] PPM interrogation DVT Prophylaxis: Eliquis GI Prophylaxis: Pepcid, other (sucralfate) Resuscitation Status: Full Code - Physician Narrative Physician: Julia Dennis MD Narrative: Date: 01/25/18 Time: 1700 I have independently evaluated and examined this patient. I reviewed the chart, the patient's history, and the DIRECTOR OF PHOTOGRAPHY/PA's documented findings as above. We discussed and formulated the assessment and plan as above with additions as below: Mrs. Harden reports increased dyspnea with some wheezing but improvement in cough and sputum production. She continues to have dysphagia. Oxygen was decreased to 1 L earlier today but she failed attempt to decrease to 0.5 L. NAD, alert; respirations nonlabored with crackles at the bases R>L; regular cardiac rhythm Diuretics increased earlier today per cardiology, fluids discontinued yesterday. Persistent hypoxia-patient reports outpatient evaluation by Dr. Garcia. We'll ask him to assist with care. Reassess chest x-ray in a.m. Pepcid initiated due to ongoing dysphasia. Discussed with cardiology and pulmonary. Completes 5 days of antibiotics today. Hospital Course Summary Disclaimer: The visit summary below is not to be considered part of the above Progress Note. Hospital Course: 01/21/18 1. CAP with no hypoxia currently--cxs, levaquin as per her chief safety officer rec today. Nebs. 2. COPD--brovana and duoneb 3. Hyponatremia due to HCTZ and free water excess most likely. NS and recheck in AM holding HCTZ. 4. Essential HTN--hold HCTZ and monitor. 5. N/V likely due to lortab, monitor with 1. possible contributor. LFTs fine. 01/22/18 New onset atrial fibrillation present early this morning. Obtain troponin, obtain echocardiogram. Telemetry initiated. Obtain serum/urine osm, urine sodium. Continue to hold HCTZ. Trend sodium. Obtain TSH Monitor I/O Continue antibiotics and start steroids; continue breathing treatments, RT consult. Consult patient's senior data warehouse architect (Emilee) and chief safety officer (Radha) 01/23/18 Day 3 Levaquin for community-acquired pneumonia. Convert to oral Levaquin. Repeat chest x-ray in a.m. Continue breathing treatments/O2 as needed. Initiate prednisone-intended to start earlier today. Sodium has improved progressively off HCTZ and with volume replacement. Undetectable urine sodium consistent with volume depletion. BUN 26--> 14 with hydration. Cardiac rhythm stabilizing, in sinus rhythm at present. Troponins unremarkable. Echocardiogram with normal LV function and moderate aortic stenosis, moderate TR , moderate pulmonary hypertension. Appreciate assistance offered by cardiology. Increased dysphasia described by patient-Carafate suspension initiated. Minimal symptoms prior to nausea/vomiting prior to hospitalization. 01/24/18 Day 4 Levaquin for community-acquired pneumonia. Converted to oral Levaquin yesterday and we'll discontinue today due to interaction with amiodarone. Convert to Augmentin for 1-3 days. Repeat chest x-ray with improvement in infiltrate. Continue prednisone 40 mg daily 5 days. Sodium has normalized off HCTZ and with volume replacement. Undetectable urine sodium consistent with volume depletion. Good oral intake, discontinue IV fluids. Eliquis initiated yesterday per cardiology, remains on amiodarone and diltiazem for atrial fibrillation. Echocardiogram with normal LV function and moderate aortic stenosis, moderate TR , moderate pulmonary hypertension. Increased dysphagia described by patient yesterday-Carafate suspension initiated and symptoms slightly improved today. Phosphorus supplement initiated-reassess phosphorus level in a couple of days. 01/25/18 Has had 4 days of Levaquin. Today started on Augmentin as Levaquin was discontinued due to interaction with amiodarone. Complete 5 days of antibiotics today. Continue prednisone 40 mg daily 5 days (through January 27) Appears fluid overloaded today. IV fluids were discontinued yesterday. Lasix 40 mg IV and potassium 20 mEq po given1. Phosphorus initiated yesterday due to hypophosphatemia. Repeat phosphorus level in a.m. Cynthia initiated 01/23/18 per cardiology, remains on amiodarone and diltiazem for atrial fibrillation. Start nystatin for thrush. Pepcid added for persistent dysphasia. Per cardiology: Will start Bumex 2mg IV daily - start today and monitor response Patient likely in acute diastolic heart failure due to rapid atrial fibrillation - she has moderate will monitor blood pressure closely Possible VT noted on Tele Will obtain [facility] PPM interrogation
[2018-01-25] MEDS: FAMOTIDINE 20 MG TABLET PO SCH (21:07)
[2018-01-26] MEDS: SUCRALFATE 1gm/10ml ORAL LIQUID PO SCH ×4 (06:24→21:42)
[2018-01-26] MEDS: ALBUTEROL 2.5mg/3ml (0.083%) NEB AEROSOL SCH ×4 (06:46→19:47)
[2018-01-26] MEDS: BUDESONIDE INH.SOLN 0.5mg/2ml NEB AEROSOL SCH ×2 (06:46→19:47)
[2018-01-26] MEDS: ARFORMOTEROL NEB 15mcg/2ml AEROSOL SCH ×2 (08:19→19:47)
[2018-01-26] MEDS: PredniSONE 20 MG TABLET PO SCH (09:04)
[2018-01-26] MEDS: PHOSPHORUS 250 MG TABLET PO SCH ×3 (09:04→20:26)
[2018-01-26] MEDS: AMIODARONE 200 MG TABLET PO SCH ×2 (09:05→21:43)
[2018-01-26] MEDS: APIXABAN 5 MG TABLET PO SCH ×2 (09:06→21:42)
[2018-01-26] MEDS: FAMOTIDINE 20 MG TABLET PO SCH ×2 (10:15→21:43)
[2018-01-26] MEDS: NYSTATIN 500,000 units/5 ml ORAL LIQUID PO SCH ×4 (10:34→21:42)
--- NOTE | 2018-01-26 11:38 | Cardiology Progress Note ---
<Sophie Bush A - Last Filed: 01/26/18 15:51> Subjective Principal diagnosis: Atrial Fibrillation Interval history: Kaitlin is seen in f/u of new onset AFib, , PPM. She reports feeling fatigued today. Denies palpitations and denies chest pain. RN informs me that Tele noted episodes of VT. This patient has RBBB and PPM Patient continues to have runs of NSVT, patient is fatigued and hypoxic. We will proceed with a heart catheterization today and patient in agreement with plan of care. Exam Vital signs: Temperature 96.7 F L 01/26/18 08:08 Pulse Rate 77 01/26/18 08:08 Respiratory Rate 18 01/26/18 10:28 Blood Pressure 140/56 H 01/26/18 08:08 Pulse Oximetry 94 01/26/18 10:28 Inpatient Medications: Generic Name Dose Route Start Last Admin Trade Name Freq PRN Reason Stop Dose Admin Acetaminophen 325 - 650 mg 01/21/18 20:15 01/22/18 11:42 Tylenol PO 650 mg Q5H PRN Administration Discomfort Hydrocodone Bitart/Acetaminophen 1 tab 01/23/18 16:45 [place] 5/325 PO Q4H PRN Pain Albuterol Sulfate 2.5 mg 01/22/18 07:00 01/26/18 10:28 Proventil Neb (0.083%) AEROSOL 2.5 mg RTQID JUANJOSE Administration Amiodarone HCl 400 mg 01/22/18 16:24 01/26/18 09:05 Pacerone PO 01/29/18 09:01 400 mg BID JUANJOSE Administration Amiodarone HCl 200 mg 01/29/18 21:00 Pacerone PO 02/05/18 09:01 BID JUANJOSE Amiodarone HCl 200 mg 02/06/18 09:00 Pacerone PO DAILY JUANJOSE Apixaban 5 mg 01/23/18 21:00 01/26/18 09:06 Eliquis PO 5 mg BID JUANJOSE Administration Arformoterol Tartrate 15 mcg 01/22/18 19:00 01/26/18 08:19 Brovana Neb AEROSOL 15 mcg RTBID JUANJOSE Administration Budesonide 0.5 mg 01/22/18 07:00 01/26/18 06:46 Pulmicort Inhalation AEROSOL 0.5 mg RTBID JUANJOSE Administration Bumetanide 2 mg 01/26/18 15:00 Bumex 2.5 Mg/10 Ml Inj IVP DAILY JUANJOSE Diltiazem HCl 180 mg 01/23/18 13:00 01/26/18 09:05 Cardizem Cd 180 Mg PO 180 mg DAILY JUANJOSE Administration Famotidine 20 mg 01/25/18 21:00 01/26/18 10:15 Pepcid PO 20 mg BID JUANJSOE Administration Nystatin 5 ml 01/25/18 13:00 01/26/18 10:34 Mycostatin PO 01/30/18 12:59 5 ml QID JUANJOSE Administration Ondansetron HCl 4 mg 01/21/18 20:15 Zofran IVP Q6H PRN Nausea &/or vomiting Prednisone 40 mg 01/23/18 16:47 01/26/18 09:04 Deltasone 20 Mg PO 40 mg WB JUANJOSE Administration Senna/Docusate Sodium 1 tab 01/21/18 20:15 Senna Plus Tablet PO BID PRN Constipation Sodium Chloride 10 - 80 ml 01/21/18 17:39 01/22/18 12:27 Iv Flush IVF 10 ml PRN PRN Administration Flushing Sodium Phosphate 250 mg 01/24/18 17:30 01/26/18 09:04 K-Phos *Neutral* Tablet PO 250 mg WM JUANJOSE Administration Sucralfate 1 gm 01/23/18 17:00 01/26/18 06:24 Carafate Slurry PO 1 gm ACHS JUANJOSE Administration Discontinued Medications Generic Name Dose Route Start Last Admin Trade Name Freq PRN Reason Stop Dose Admin Albuterol/Ipratropium 3 ml 01/21/18 17:39 01/21/18 18:59 Duoneb AEROSOL 01/21/18 17:40 3 ml O ONE Administration Albuterol/Ipratropium 3 ml 01/21/18 20:15 01/23/18 22:20 Duoneb AEROSOL 01/21/18 20:16 Not Given Q4WA ONE Albuterol/Ipratropium 3 ml 01/21/18 22:00 01/21/18 21:45 Duoneb AEROSOL 3 ml Q4WA JUANJOSE Administration Amoxicillin/Clavulanate Potassium 875 mg 01/25/18 08:00 01/25/18 17:06 Augmentin 875/125 PO 01/26/18 01:00 875 mg BIDWM JUANJOSE Administration Arformoterol Tartrate 15 mcg 01/22/18 09:00 01/22/18 09:15 Brovana Neb AEROSOL 15 mcg BID JUANJOSE Administration Diltiazem HCl 60 mg 01/22/18 12:00 01/22/18 12:26 Cardizem Sr 60 Mg (12 Hr) PO 60 mg O JUANJOSE Administration Enoxaparin Sodium 40 mg 01/22/18 09:00 01/23/18 08:22 Lovenox SQ 40 mg DAILY JUANJOSE Administration Furosemide 40 mg 01/25/18 12:14 01/25/18 12:24 Lasix 40 Mg/4 Ml IVP 01/25/18 12:15 40 mg O ONE Administration Sodium Chloride 1,000 mls @ 999.9 mls/hr 01/21/18 19:48 01/23/18 22:19 Normal Saline IV 01/21/18 20:47 Infused .Q1H ONE Infusion Levofloxacin/Dextrose 750 mg in 150 mls @ 100 mls/hr 01/21/18 20:15 01/22/18 21:54 Levaquin Premix IV Infused Q24H JUANJOSE Infusion Sodium Chloride 1,000 mls @ 50 mls/hr 01/21/18 20:15 01/24/18 15:15 Normal Saline IV Infused .Q20H JUANJOSE Infusion Levofloxacin 750 mg 01/23/18 20:30 01/24/18 06:30 Levaquin PO 750 mg ACB JUANJOSE Administration Methylprednisolone Sodium Succinate 62.5 mg 01/22/18 12:00 01/22/18 12:26 Solu-Medrol IVP 62.5 mg O JUANJOSE Administration Ondansetron HCl 4 mg 01/21/18 17:39 01/21/18 18:54 Zofran IVP 01/21/18 17:40 4 mg O ONE Administration Potassium Chloride 20 meq 01/25/18 12:14 01/25/18 12:24 K-Dur 20 Meq Tablet PO 01/25/18 12:15 20 meq O ONE Administration Results 01/26/18 03:55 01/26/18 03:55 Cardiac Enzymes 01/26/18 Range/Units 03:55 AST 51 H (14-36) U/L CBC 01/26/18 Range/Units 03:55 WBC 18.9 H (4.5-11.0) T/MM3 RBC 3.73 L (4.00-5.20) M/MM3 Hgb 11.3 L (12-16) GM/DL Hct 34.0 L (36-46) % Plt Count 266 (130-400) T/MM3 Neut # (Auto) Not performed Lymph # (Auto) Not performed Frio # (Auto) Not performed Eos # (Auto) Not performed Baso # (Auto) Not performed Comprehensive Metabolic Panel 01/25/18 01/26/18 Range/Units 20:18 03:55 Sodium 137 138 (134-144) MEQ/L Potassium 5.0 D 3.9 D (3.6-5) MEQ/L Chloride 102 102 (98-107) MEQ/L Carbon Dioxide 26 29 (22-30) MEQ/L BUN 27.0 H 23.0 H (7-17) MG/DL Creatinine 0.7 0.7 (0.7-1.2) mg/dL Glucose 132 H 110 (65-110) MG/DL Calcium 8.3 L 7.9 L (8.4-10.2) MG/DL AST 51 H (14-36) U/L ALT 44 H (1-35) U/L Alkaline Phosphatase 79 (38-126) U/L Total Protein 5.5 L (6.3-8.2) g/dL Albumin 2.6 L (3.5-5.0) g/dL Intake and Output 01/25/18 01/26/18 01/26/18 22:59 06:59 14:59 Intake Total 200 / 200 Output Total 500 / 500 400 / 400 Balance -500 / -500 -200 / -200 Intake: Oral 200 / 200 Output: Urine 500 / 500 400 / 400 Other: Urine Appearance Clear Clear Urine Color Yellow Yellow Stool Color Green Green Stool Consistency Formed Formed Watery Watery Size of Bowel Movement Small Moderate # Voids 1 1 1 # Bowel Movements 1 1 1 # Incontinent Bowel Movements 1 Weight 71.3 kg Patient Weight 01/27/18 06:59 Weight 71.3 kg Assessment and Plan - Assessment and Plan (1) CAP (community acquired pneumonia) Current visit: Yes Status: Acute (2) Hyponatremia Current visit: Yes Status: Acute (3) COPD (chronic obstructive pulmonary disease) Current visit: Yes Status: Chronic (4) HTN (hypertension) Current visit: Yes Status: Chronic (5) Atrial fibrillation with RVR Current visit: Yes Status: Acute (6) Aortic stenosis Current visit: Yes Status: Acute (7) Pulmonary hypertension Current visit: Yes Status: Acute (8) Pacemaker Current visit: Yes Status: Acute (9) Diastolic CHF, acute Current visit: Yes Status: Acute - Assessment and Plan 01/22/18 Troponin negative. Converted to SR this afternoon, confirmed on ECG, no ischemic changes. TSH wnl. ECHO 01/22/18: moderate , Pa pressures 51mmHg, mild TR. Recommend aggressive rhythm management due to patient and pulmonary hypertension, putting her at greater heart failure risk. Initiate AAT with Amiodarone 400mg bid for 7 days, then 200mg daily. ECG in AM; monitor QT closely in the setting Levaquin antibiotic therapy. Pt refuses anticoagulation at this time; she is advised to start it to reduce stroke risk associated with Afib. Pneumonia, hypoxia, COPD managed per attending. 01/23/18 Pt has been and out of afib since yesterday rates up to 140 seen on tele. On amiodarone 400mg po bid, continue. Initiate diltiazem 180mg daily for improved rate control, hold for sbp <100. Monitor pressures closely, avoid hypotension in setting of . Pt consents to anticoagulation therapy, initiate eliquis 5mg bid, dc lovenox 40mg daily. First dose of eliquis this PM. Pneumonia, hypotnatremia per attending. 01/24/18: In SR, has maintained it most of the day. Continue Amiodarone and Diltiazem. Get ECG in AM to monitor QT. Eliquis 5mg bid. Continue to monitor tele, vitals. 01/25/18 Continue Eliquis Continue Diltiazem 180mg one tablet daily for rate control Continue Amiodarone oral titration to maintain NSR. EKG today revealing NSR, RBBB, Qtc 432 - tolerating Amiodarone well. Monitor tele and vitals Hyponatremia resolved Evaluation of Tele revealing tachycardia in a patient with known RBBB will perform Mg level and consider PPM interrogation BNP today high - was given Lasix 40mg IV X 1 earlier today Mg level high Will start Bumex 2mg IV daily - start today and monitor response Patient likely in acute diastolic heart failure due to rapid atrial fibrillation - she has moderate will monitor blood pressure closely Possible VT noted on Tele Will obtain [facility] PPM interrogation Hospital Course Summary Disclaimer: The visit summary below is not to be considered part of the above Progress Note. Hospital Course: 01/21/18 1. CAP with no hypoxia currently--cxs, levaquin as per her meat supervisor rec today. Nebs. 2. COPD--brovana and duoneb 3. Hyponatremia due to HCTZ and free water excess most likely. NS and recheck in AM holding HCTZ. 4. Essential HTN--hold HCTZ and monitor. 5. N/V likely due to lortab, monitor with 1. possible contributor. LFTs fine. 01/22/18 New onset atrial fibrillation present early this morning. Obtain troponin, obtain echocardiogram. Telemetry initiated. Obtain serum/urine osm, urine sodium. Continue to hold HCTZ. Trend sodium. Obtain TSH Monitor I/O Continue antibiotics and start steroids; continue breathing treatments, RT consult. Consult patient's assistant import manager (Emilee) and meat supervisor (Radha) 01/23/18 Day 3 Levaquin for community-acquired pneumonia. Convert to oral Levaquin. Repeat chest x-ray in a.m. Continue breathing treatments/O2 as needed. Initiate prednisone-intended to start earlier today. Sodium has improved progressively off HCTZ and with volume replacement. Undetectable urine sodium consistent with volume depletion. BUN 26--> 14 with hydration. Cardiac rhythm stabilizing, in sinus rhythm at present. Troponins unremarkable. Echocardiogram with normal LV function and moderate aortic stenosis, moderate TR , moderate pulmonary hypertension. Appreciate assistance offered by cardiology. Increased dysphasia described by patient-Carafate suspension initiated. Minimal symptoms prior to nausea/vomiting prior to hospitalization. 01/24/18 Day 4 Levaquin for community-acquired pneumonia. Converted to oral Levaquin yesterday and we'll discontinue today due to interaction with amiodarone. Convert to Augmentin for 1-3 days. Repeat chest x-ray with improvement in infiltrate. Continue breathing treatments/O2 as needed. Continue prednisone 40 mg daily 5 days. Sodium has normalized off HCTZ and with volume replacement. Undetectable urine sodium consistent with volume depletion. Good oral intake, discontinue IV fluids. Telemetry strips reviewed by myself-sinus rhythm overnight. Previously discussed with cardiology. Eliquis initiated yesterday per cardiology, remains on amiodarone and diltiazem for atrial fibrillation. Dysphasia slightly improved-continue Carafate. Phosphorus supplement initiated-reassess phosphorus level in a couple of days. 01/25/18 PPM interrogation ordered for NSVT Will be done in AM Continue IV diuresis 01/26/18 Patient continues to have runs of dysrhythmia I have just received a call from Carlos Manjarrez PPM rep. It appears that patient is having multiple pacemaker dependent tachycardic events. Carlos has adjusted the PPM to prevent this event. Otherwise, The VT detection has been turned on today. Carlos is seeing multiple events of SVT, Afib vs Aflutter with rapid ventricular rate and no evidence of NSVT Patient will need senior care anticoagulation therapy as an outpatient. No need for a heart catheterization today as likely her rhythm is not VT We will go ahead and feed patient today and once discharged, will have her follow up with us for a repeat PPM check in 2 to 4 weeks to ensure that her pacemaker dependent tachycardia has resolved. I have informed patient that we will not proceed with a HC today for a couple of reasons - she is on Eliquis and likely her dysrhythmia is not VT. Patient is ok with the plan of care We will change her IV Bumex to oral bumex 1mg po BID Her EF is approx 55%, which is normal Her CHF is likely diastolic heart failure from her dysrhythmia and pneumonia/ hypoxia She will likely be ready for discharge from a cardiac standpoint in 1 to 2 days Hospital Course Summary Disclaimer: The visit summary below is not to be considered part of the above Progress Note. Hospital Course: 01/21/18 1. CAP with no hypoxia currently--cxs, levaquin as per her meat supervisor rec today. Nebs. 2. COPD--brovana and duoneb 3. Hyponatremia due to HCTZ and free water excess most likely. NS and recheck in AM holding HCTZ. 4. Essential HTN--hold HCTZ and monitor. 5. N/V likely due to lortab, monitor with 1. possible contributor. LFTs fine. 01/22/18 New onset atrial fibrillation present early this morning. Obtain troponin, obtain echocardiogram. Telemetry initiated. Obtain serum/urine osm, urine sodium. Continue to hold HCTZ. Trend sodium. Obtain TSH Monitor I/O Continue antibiotics and start steroids; continue breathing treatments, RT consult. Consult patient's assistant import manager (Emilee) and meat supervisor (Radha) 01/23/18 Day 3 Levaquin for community-acquired pneumonia. Convert to oral Levaquin. Repeat chest x-ray in a.m. Continue breathing treatments/O2 as needed. Initiate prednisone-intended to start earlier today. Sodium has improved progressively off HCTZ and with volume replacement. Undetectable urine sodium consistent with volume depletion. BUN 26--> 14 with hydration. Cardiac rhythm stabilizing, in sinus rhythm at present. Troponins unremarkable. Echocardiogram with normal LV function and moderate aortic stenosis, moderate TR , moderate pulmonary hypertension. Appreciate assistance offered by cardiology. Increased dysphasia described by patient-Carafate suspension initiated. Minimal symptoms prior to nausea/vomiting prior to hospitalization. Hospital Course Summary Disclaimer: The visit summary below is not to be considered part of the above Progress Note. Hospital Course: 01/21/18 1. CAP with no hypoxia currently--cxs, levaquin as per her meat supervisor rec today. Nebs. 2. COPD--brovana and duoneb 3. Hyponatremia due to HCTZ and free water excess most likely. NS and recheck in AM holding HCTZ. 4. Essential HTN--hold HCTZ and monitor. 5. N/V likely due to lortab, monitor with 1. possible contributor. LFTs fine. 01/22/18 New onset atrial fibrillation present early this morning. Obtain troponin, obtain echocardiogram. Telemetry initiated. Obtain serum/urine osm, urine sodium. Continue to hold HCTZ. Trend sodium. Obtain TSH Monitor I/O Continue antibiotics and start steroids; continue breathing treatments, RT consult. Consult patient's assistant import manager (Emilee) and meat supervisor (Radha) 01/23/18 Day 3 Levaquin for community-acquired pneumonia. Convert to oral Levaquin. Repeat chest x-ray in a.m. Continue breathing treatments/O2 as needed. Initiate prednisone-intended to start earlier today. Sodium has improved progressively off HCTZ and with volume replacement. Undetectable urine sodium consistent with volume depletion. BUN 26--> 14 with hydration. Cardiac rhythm stabilizing, in sinus rhythm at present. Troponins unremarkable. Echocardiogram with normal LV function and moderate aortic stenosis, moderate TR , moderate pulmonary hypertension. Appreciate assistance offered by cardiology. Increased dysphasia described by patient-Carafate suspension initiated. Minimal symptoms prior to nausea/vomiting prior to hospitalization. 01/24/18 Day 4 Levaquin for community-acquired pneumonia. Converted to oral Levaquin yesterday and we'll discontinue today due to interaction with amiodarone. Convert to Augmentin for 1-3 days. Repeat chest x-ray with improvement in infiltrate. Continue prednisone 40 mg daily 5 days. Sodium has normalized off HCTZ and with volume replacement. Undetectable urine sodium consistent with volume depletion. Good oral intake, discontinue IV fluids. Eliquis initiated yesterday per cardiology, remains on amiodarone and diltiazem for atrial fibrillation. Echocardiogram with normal LV function and moderate aortic stenosis, moderate TR , moderate pulmonary hypertension. Increased dysphagia described by patient yesterday-Carafate suspension initiated and symptoms slightly improved today. Phosphorus supplement initiated-reassess phosphorus level in a couple of days. 01/25/18 Has had 4 days of Levaquin. Today started on Augmentin as Levaquin was discontinued due to interaction with amiodarone. Complete 5 days of antibiotics today. Continue prednisone 40 mg daily 5 days (through January 27) Appears fluid overloaded today. IV fluids were discontinued yesterday. Lasix 40 mg IV and potassium 20 mEq po given1. Phosphorus initiated yesterday due to hypophosphatemia. Repeat phosphorus level in a.m. Eliquis initiated 01/23/18 per cardiology, remains on amiodarone and diltiazem for atrial fibrillation. Start nystatin for thrush. Pepcid added for persistent dysphasia. Per cardiology: Will start Bumex 2mg IV daily - start today and monitor response Patient likely in acute diastolic heart failure due to rapid atrial fibrillation - she has moderate will monitor blood pressure closely Possible VT noted on Tele Will obtain [facility] PPM interrogation <Omkar Hebert - Last Filed: 01/27/18 09:12> Exam Vital signs: Temperature 96.6 F L 01/27/18 07:50 Pulse Rate 70 01/27/18 07:50 Respiratory Rate 18 01/27/18 08:11 Blood Pressure 154/71 H 01/27/18 08:10 Pulse Oximetry 92 01/27/18 08:11 Inpatient Medications: Generic Name Dose Route Start Last Admin Trade Name Freq PRN Reason Stop Dose Admin Acetaminophen 325 - 650 mg 01/21/18 20:15 01/22/18 11:42 Tylenol PO 650 mg Q5H PRN Administration Discomfort Hydrocodone Bitart/Acetaminophen 1 tab 01/23/18 16:45 [place] 5/325 PO Q4H PRN Pain Albuterol/Ipratropium 3 ml 01/27/18 11:00 Duoneb AEROSOL RTQID JUANJOSE Amiodarone HCl 400 mg 01/22/18 16:24 01/27/18 09:02 Pacerone PO 01/29/18 09:01 400 mg BID JUANJOSE Administration Amiodarone HCl 200 mg 01/29/18 21:00 Pacerone PO 02/05/18 09:01 BID JUANJOSE Amiodarone HCl 200 mg 02/06/18 09:00 Pacerone PO DAILY JUANJOSE Apixaban 5 mg 01/23/18 21:00 01/27/18 09:04 Eliquis PO 5 mg BID JUANJOSE Administration Arformoterol Tartrate 15 mcg 01/22/18 19:00 01/27/18 08:12 Brovana Neb AEROSOL 15 mcg RTBID JUANJOSE Administration Budesonide 0.5 mg 01/22/18 07:00 01/26/18 19:47 Pulmicort Inhalation AEROSOL 0.5 mg RTBID JUANJOSE Administration Bumetanide 2 mg 01/26/18 15:00 01/27/18 09:04 Bumex 2.5 Mg/10 Ml Inj IVP 2 mg DAILY JUANJOSE Administration Diltiazem HCl 180 mg 01/23/18 13:00 01/27/18 09:04 Cardizem Cd 180 Mg PO 180 mg DAILY JUANJOSE Administration Famotidine 20 mg 01/25/18 21:00 01/27/18 09:03 Pepcid PO 20 mg BID JUANJOSE Administration Nystatin 5 ml 01/25/18 13:00 01/27/18 09:05 Mycostatin PO 01/30/18 12:59 5 ml QID JUANJOSE Administration Ondansetron HCl 4 mg 01/21/18 20:15 Zofran IVP Q6H PRN Nausea &/or vomiting Prednisone 20 mg 01/28/18 08:00 Deltasone 20 Mg PO 02/02/18 07:59 WB JUANJOSE Senna/Docusate Sodium 1 tab 01/21/18 20:15 Senna Plus Tablet PO BID PRN Constipation Sodium Chloride 10 - 80 ml 01/21/18 17:39 01/22/18 12:27 Iv Flush IVF 10 ml PRN PRN Administration Flushing Sucralfate 1 gm 01/23/18 17:00 01/27/18 05:59 Carafate Slurry PO 1 gm ACHS JUANJOSE Administration Discontinued Medications Generic Name Dose Route Start Last Admin Trade Name Freq PRN Reason Stop Dose Admin Albuterol Sulfate 2.5 mg 01/22/18 07:00 01/26/18 19:47 Proventil Neb (0.083%) AEROSOL 2.5 mg RTQID JUANJOSE Administration Albuterol/Ipratropium 3 ml 01/21/18 17:39 01/21/18 18:59 Duoneb AEROSOL 01/21/18 17:40 3 ml O ONE Administration Albuterol/Ipratropium 3 ml 01/21/18 20:15 01/23/18 22:20 Duoneb AEROSOL 01/21/18 20:16 Not Given Q4WA ONE Albuterol/Ipratropium 3 ml 01/21/18 22:00 01/21/18 21:45 Duoneb AEROSOL 3 ml Q4WA JUANJOSE Administration Amoxicillin/Clavulanate Potassium 875 mg 01/25/18 08:00 01/25/18 17:06 Augmentin 875/125 PO 01/26/18 01:00 875 mg BIDWM JUANJOSE Administration Arformoterol Tartrate 15 mcg 01/22/18 09:00 01/22/18 09:15 Brovana Neb AEROSOL 15 mcg BID JUANJOSE Administration Diltiazem HCl 60 mg 01/22/18 12:00 01/22/18 12:26 Cardizem Sr 60 Mg (12 Hr) PO 60 mg O JUANJOSE Administration Enoxaparin Sodium 40 mg 01/22/18 09:00 01/23/18 08:22 Lovenox SQ 40 mg DAILY JUANJOSE Administration Furosemide 40 mg 01/25/18 12:14 01/25/18 12:24 Lasix 40 Mg/4 Ml IVP 01/25/18 12:15 40 mg O ONE Administration Sodium Chloride 1,000 mls @ 999.9 mls/hr 01/21/18 19:48 01/23/18 22:19 Normal Saline IV 01/21/18 20:47 Infused .Q1H ONE Infusion Levofloxacin/Dextrose 750 mg in 150 mls @ 100 mls/hr 01/21/18 20:15 01/22/18 21:54 Levaquin Premix IV Infused Q24H JUANJOSE Infusion Sodium Chloride 1,000 mls @ 50 mls/hr 01/21/18 20:15 01/24/18 15:15 Normal Saline IV Infused .Q20H JUANJOSE Infusion Levofloxacin 750 mg 01/23/18 20:30 01/24/18 06:30 Levaquin PO 750 mg ACB JUANJOSE Administration Methylprednisolone Sodium Succinate 62.5 mg 01/22/18 12:00 01/22/18 12:26 Solu-Medrol IVP 62.5 mg O JUANJOSE Administration Ondansetron HCl 4 mg 01/21/18 17:39 01/21/18 18:54 Zofran IVP 01/21/18 17:40 4 mg O ONE Administration Potassium Chloride 20 meq 01/25/18 12:14 01/25/18 12:24 K-Dur 20 Meq Tablet PO 01/25/18 12:15 20 meq O ONE Administration Prednisone 40 mg 01/23/18 16:47 01/27/18 09:03 Deltasone 20 Mg PO 01/27/18 08:01 40 mg WB JUANJOSE Administration Sodium Phosphate 250 mg 01/24/18 17:30 01/26/18 20:26 K-Phos *Neutral* Tablet PO 250 mg WM JUANJOSE Administration Results 01/27/18 04:36 01/27/18 04:36 CBC 01/27/18 Range/Units 04:36 WBC 18.0 H (4.5-11.0) T/MM3 RBC 3.54 L (4.00-5.20) M/MM3 Hgb 10.8 L (12-16) GM/DL Hct 32.1 L (36-46) % Plt Count 252 (130-400) T/MM3 Neut # (Auto) Not performed Lymph # (Auto) Not performed Frio # (Auto) Not performed Eos # (Auto) Not performed Baso # (Auto) Not performed Comprehensive Metabolic Panel 01/27/18 Range/Units 04:36 Sodium 137 (134-144) MEQ/L Potassium 3.6 (3.6-5) MEQ/L Chloride 100 (98-107) MEQ/L Carbon Dioxide 31 H (22-30) MEQ/L BUN 19.0 H (7-17) MG/DL Creatinine 0.7 (0.7-1.2) mg/dL Glucose 99 (65-110) MG/DL Calcium 7.6 L (8.4-10.2) MG/DL Intake and Output 01/26/18 01/27/18 01/27/18 22:59 06:59 14:59 Intake Total 800 / 800 200 / 200 Output Total 300 / 300 350 / 350 Balance 500 / 500 -150 / -150 Intake: Oral 800 / 800 200 / 200 Output: Urine 300 / 300 350 / 350 Other: Urine Appearance Clear Clear Urine Color Yellow Yellow Urine Odor Normal Stool Color Brown Green Stool Consistency Liquid Size of Bowel Movement Small # Bowel Movements 2 Weight 70.2 kg Patient Weight 01/28/18 06:59 Weight 70.2 kg Assessment and Plan - Assessment and Plan (1) CAP (community acquired pneumonia) Current visit: Yes Status: Acute (2) Hyponatremia Current visit: Yes Status: Acute (3) COPD (chronic obstructive pulmonary disease) Current visit: Yes Status: Chronic (4) HTN (hypertension) Current visit: Yes Status: Chronic (5) Atrial fibrillation with RVR Current visit: Yes Status: Acute (6) Aortic stenosis Current visit: Yes Status: Acute (7) Pulmonary hypertension Current visit: Yes Status: Acute (8) Pacemaker Current visit: Yes Status: Acute (9) Diastolic CHF, acute Current visit: Yes Status: Acute - Attestation Attestation Narrative: 01/27/18 09:12 Patient seen by me and evaluated on the date of this note. I have reviewed lab , radiology, EKG's and I have determined this plan of care and I agree with this note. Hospital Course Summary Disclaimer: The visit summary below is not to be considered part of the above Progress Note.
--- NOTE | 2018-01-26 11:38 | Pulmonology Consult Note ---
History of Present Illness Consult date: 01/26/18 Requesting physician: Julia Dennis Reason for consult: COPD Chief complaint: shortness of breath History of present illness: HPI: Patient is a 77 year old female known to me for a history of COPD. She was sent to the office last week after having been diagnosed with right lung pneumonia and parapneumonic effusion. The patient was started on empiric antibiotics as an outpatient prior to being admitted this time due to shortness of breath and pneumonia. She has known hypertension and pacemaker due to bradycardia. Patient reports that she was seen by PCP due to cough and was diagnosed with pneumonia approximately 4 days ago. She was started on IM Rocephin and azithromycin. She continued to be symptomatic so presented to the ED the same day. She was found to be hyponatremic as well. She reports nausea and vomiting with no fever or chills she also reports generalized weakness. She was found to be in atrial fibrillation overnight. She states this is a new diagnosis and she has never been told she has an abnormal heart rhythm. She is being seen by Dr Hebert as well. Cardiology notes state: Kaitlin is seen in f/u of new onset AFib, , PPM. She reports feeling fatigued today. Denies palpitations and denies chest pain. RN noted episodes of VT. This patient has RBBB and PPM, NSVT, patient is fatigued and hypoxic. Review of Systems - Constitutional Constitutional: Present: weakness. Absent: fever(s) - EENMT Eyes: Absent: blurry vision, change in vision - Cardiovascular Cardiovascular: Absent: chest pain, palpitations, syncope - Respiratory Respiratory: Present: cough, excessive phlegm production - Gastrointestinal Gastrointestinal: Present: nausea, vomiting. Absent: abdominal pain - Musculoskeletal Musculoskeletal: Absent: myalgias - Integumentary/Breasts Integumentary: Absent: rash, wounds - Neurological Neurological: Absent: abnormal gait, abnormal movements, confusion, headache(s) Past Medical History Patient Stated Medical History Macular Degeneration Yes Hypertension Yes Chronic Obstructive Pulmonary Yes: Patient states her diagnosis is emphysema, Disease (COPD) aware of COPD. Diagnosed 2014. Hiatal Hernia Yes: Diagnosed at the same time as the pacemaker , not symptomatic. Other Musculoskeletal Yes: osteoporosis Shingles Yes Depression No Clinic Medical History (Last Reviewed 09/15/17 @ 09:46 by Viola Ruffin) Bradycardia (Acute Medical) COPD (chronic obstructive pulmonary disease) (Acute Medical) Coronary atherosclerosis (Acute Medical) Edema (Acute Medical) Hypertension (Acute Medical) Hypocholesteremia (Acute Medical) Hypoxia (Acute Medical) Infiltrating ductal carcinoma of breast, stage 1 (Acute Medical) Diagnosed: 10/22/2015 Treatment: Lumpectomy with radiation Macular degeneration (Acute Medical) Osteoporosis (Acute Medical) Tobacco dependence (Acute Medical) Quit 2014 Surgical History: Left partial mastectomy 2009. Tubal ligation. Colonoscopy , polyps. Pacemaker insertion 03/14/2016 Family History Updates: Family History (Last Updated 09/15/17 @ 09:53 by Viola Ruffin). Mother. Cancer of female breast. Sister. Cancer of female breast. Father. Coronary arteriosclerosis. COPD (chronic obstructive pulmonary disease). Sister. Cancer of colon. Cancer of female breast. Brother. Heart attack. Daughter. Ovarian cancer - Social History Smoking status: Former smoker [facility] Patient Stated Medical History Macular Degeneration Yes Hypertension Yes Chronic Obstructive Pulmonary Yes: Patient states her diagnosis is emphysema, Disease (COPD) aware of COPD. Diagnosed 2014. Hiatal Hernia Yes: Diagnosed at the same time as the pacemaker , not symptomatic. Other Musculoskeletal Yes: osteoporosis Shingles Yes Depression No Clinic Medical History (Last Reviewed 09/15/17 @ 09:46 by Viola Ruffin) Bradycardia (Acute Medical) COPD (chronic obstructive pulmonary disease) (Acute Medical) Coronary atherosclerosis (Acute Medical) Edema (Acute Medical) Hypertension (Acute Medical) Hypocholesteremia (Acute Medical) Hypoxia (Acute Medical) Infiltrating ductal carcinoma of breast, stage 1 (Acute Medical) Diagnosed: 10/22/2015 Treatment: Lumpectomy with radiation Macular degeneration (Acute Medical) Osteoporosis (Acute Medical) Tobacco dependence (Acute Medical) Quit 2014 Surgical History: Left partial mastectomy 2009. Tubal ligation. Colonoscopy , polyps. Pacemaker insertion 03/14/2016 Family History: Family History (Last Updated 09/15/17 @ 09:53 by Viola Ruffin) Mother Cancer of female breast Sister Cancer of female breast Father Coronary arteriosclerosis COPD (chronic obstructive pulmonary disease) Sister Cancer of colon Cancer of female breast Brother Heart attack Daughter Ovarian cancer Family History Updates: Family History (Last Updated 09/15/17 @ 09:53 by Viola Ruffin). Mother. Cancer of female breast. Sister. Cancer of female breast. Father. Coronary arteriosclerosis. COPD (chronic obstructive pulmonary disease). Sister. Cancer of colon. Cancer of female breast. Brother. Heart attack. Daughter. Ovarian cancer - Social History Smoking status: Former smoker Quit date: 10/26/14 Alcohol intake frequency: holidays/special occasions only () Housing: house Household members: spouse Medications Home Medications Medication Instructions Recorded Confirmed Type Arformoterol Neb [Brovana Neb] 1 vial AEROSOL BID #320 ml 09/29/16 01/21/18 History Azithromycin [Azithromycin] 500 mg PO O 01/21/18 01/21/18 History Calcium Carbonate [Calcium] 500 mg PO DAILY 01/21/18 01/21/18 History Cholecalciferol (Vitamin D3) 1 cap PO DAILY 01/21/18 01/21/18 History [Vitamin D3] Hydrocodone/APAP 5/325 [[place] 1 tab PO Q4H PRN 01/21/18 01/21/18 History 5/325] Loratadine [Claritin] 10 mg PO DAILY 01/21/18 01/21/18 History [place]-3/Dha/Epa/Fish Oil [Fish Oil 1 each PO DAILY 01/21/18 01/21/18 History 1,000 mg Softgel] Vit A/C/E AC/Znox/Cupric Oxide 1 each PO DAILY 01/21/18 01/21/18 History [Eye Vitamin-Minerals Tablet] Zoledronic Acid [Reclast] 1 dose IV 1 YEAR 01/21/18 01/21/18 History hydroCHLOROthiazide 12.5 mg PO DAILY 01/21/18 01/21/18 History [Hydrochlorothiazide] levoFLOXacin [Levofloxacin] 750 mg PO DAILY 01/21/18 01/21/18 History Allergies Allergy/AdvReac Type Severity Reaction Status Date / Time lisinopril Allergy Unknown Verified 01/21/18 17:19 nylon suture Allergy Uncoded 09/15/17 09:11 Exam Vital signs: Temperature 96.7 F L 01/26/18 08:08 Pulse Rate 77 01/26/18 08:08 Respiratory Rate 18 01/26/18 10:28 Blood Pressure 140/56 H 01/26/18 08:08 Pulse Oximetry 94 01/26/18 10:28 - Constitutional no acute distress, cooperative - Routine HEENT Exam Head: Present: normocephalic, atraumatic Nose: moist mucous membranes - Routine Neck Exam Present: supple - Routine Respiratory Exam Present: decreased breath sounds, prolonged expiratory phase. Absent: accessory muscle use, wheezes - Routine Cardiovascular Exam Present: RRR, murmur - Routine Abdominal Exam Present: soft. Absent: rebound, guarding - Routine Extremities Exam Present: edema. Absent: cyanosis, clubbing - Routine Skin Exam Present: intact - Routine Neurological Exam Present: alert, oriented X3 Results - Laboratory Findings CBC and BMP: 01/26/18 03:55 01/26/18 03:55 Abnormal lab findings: Abnormal Labs 01/22/18 01/22/18 01/22/18 04:07 04:07 12:12 WBC 15.6 H RBC 3.95 L Hgb Hct 35.1 L MPV Neutrophils % (Manual) 83.0 H Band Neutrophils % 10.0 H Lymphocytes % (Manual) 1.0 L Metamyelocytes % Myelocytes % Neutrophils # (Manual) 12.9 H Lymphocytes # (Manual) 0.2 L Monocytes # (Manual) 0.9 H Sodium 120 L 120 L Potassium Chloride 87 L D Carbon Dioxide BUN 20.0 H Creatinine BUN/Creatinine Ratio Glucose Serum Osmolality Calculated Osmolality 234 L Calcium 8.2 L D Phosphorus Magnesium AST ALT NT-Pro-B Natriuret Pep Total Protein Albumin Albumin/Globulin Ratio Specimen Hemolysis Ur Random Sodium 01/22/18 01/22/18 01/22/18 12:12 15:49 16:20 WBC RBC Hgb Hct MPV Neutrophils % (Manual) Band Neutrophils % Lymphocytes % (Manual) Metamyelocytes % Myelocytes % Neutrophils # (Manual) Lymphocytes # (Manual) Monocytes # (Manual) Sodium 120 L Potassium Chloride 87 L Carbon Dioxide BUN Creatinine BUN/Creatinine Ratio Glucose 127 H Serum Osmolality 246 L Calculated Osmolality 235 L Calcium 8.3 L Phosphorus Magnesium AST ALT NT-Pro-B Natriuret Pep Total Protein Albumin Albumin/Globulin Ratio Specimen Hemolysis Ur Random Sodium < 5 L 01/22/18 01/22/18 01/23/18 18:06 19:07 00:15 WBC RBC Hgb Hct MPV Neutrophils % (Manual) Band Neutrophils % Lymphocytes % (Manual) Metamyelocytes % Myelocytes % Neutrophils # (Manual) Lymphocytes # (Manual) Monocytes # (Manual) Sodium 129 L D 120 L D 124 L Potassium 2.9 L* D Chloride 89 L D 92 L Carbon Dioxide 19 L BUN Creatinine 0.6 L D BUN/Creatinine Ratio Glucose 138 H 115 H Serum Osmolality Calculated Osmolality 249 L 235 L 242 L Calcium 5.8 L* D 8.2 L D 8.3 L Phosphorus Magnesium AST ALT NT-Pro-B Natriuret Pep Total Protein Albumin Albumin/Globulin Ratio Specimen Hemolysis Ur Random Sodium 01/23/18 01/23/18 01/23/18 04:36 10:13 10:13 WBC 16.3 H RBC Hgb Hct MPV Neutrophils % (Manual) 78.0 H Band Neutrophils % 12.0 H Lymphocytes % (Manual) 5.0 L Metamyelocytes % Myelocytes % Neutrophils # (Manual) 12.7 H Lymphocytes # (Manual) 0.8 L Monocytes # (Manual) Sodium 128 L Potassium Chloride 96 L Carbon Dioxide BUN Creatinine BUN/Creatinine Ratio Glucose 111 H Serum Osmolality Calculated Osmolality 249 L Calcium Phosphorus Magnesium 2.5 H AST ALT NT-Pro-B Natriuret Pep Total Protein Albumin Albumin/Globulin Ratio Specimen Hemolysis 35 H Ur Random Sodium 01/24/18 01/24/18 01/25/18 05:00 05:00 04:04 WBC 13.9 H 16.8 H RBC 3.54 L 3.77 L Hgb 10.8 L D 11.3 L Hct 32.0 L D 34.5 L MPV 9.3 L Neutrophils % (Manual) 72.0 H 71.0 H Band Neutrophils % 13.0 H 12.0 H Lymphocytes % (Manual) 4.0 L 4.0 L Metamyelocytes % 1.0 H Myelocytes % 3.0 H 7.0 H Neutrophils # (Manual) 10.0 H Lymphocytes # (Manual) 0.6 L Monocytes # (Manual) 1.0 H Sodium Potassium Chloride Carbon Dioxide BUN Creatinine BUN/Creatinine Ratio Glucose 137 H Serum Osmolality Calculated Osmolality Calcium 8.0 L Phosphorus 2.0 L Magnesium AST ALT NT-Pro-B Natriuret Pep Total Protein Albumin 2.7 L Albumin/Globulin Ratio Specimen Hemolysis Ur Random Sodium 01/25/18 01/25/18 01/25/18 04:04 04:04 04:04 WBC RBC Hgb Hct MPV Neutrophils % (Manual) Band Neutrophils % Lymphocytes % (Manual) Metamyelocytes % Myelocytes % Neutrophils # (Manual) Lymphocytes # (Manual) Monocytes # (Manual) Sodium Potassium Chloride Carbon Dioxide BUN 20.0 H Creatinine BUN/Creatinine Ratio Glucose 124 H Serum Osmolality Calculated Osmolality Calcium 8.2 L Phosphorus Magnesium 2.8 H AST 68 H ALT 41 H NT-Pro-B Natriuret Pep 3290 H Total Protein 6.1 L Albumin 2.9 L Albumin/Globulin Ratio 0.9 L Specimen Hemolysis Ur Random Sodium 01/25/18 01/26/18 01/26/18 20:18 03:55 03:55 WBC 18.9 H RBC 3.73 L Hgb 11.3 L Hct 34.0 L MPV 9.0 L Neutrophils % (Manual) 75.0 H Band Neutrophils % Lymphocytes % (Manual) 11.0 L Metamyelocytes % 3.0 H Myelocytes % Neutrophils # (Manual) 14.2 H Lymphocytes # (Manual) Monocytes # (Manual) 0.9 H Sodium Potassium Chloride Carbon Dioxide BUN 27.0 H 23.0 H Creatinine BUN/Creatinine Ratio 39 H 33 H Glucose 132 H Serum Osmolality Calculated Osmolality Calcium 8.3 L 7.9 L Phosphorus Magnesium AST 51 H ALT 44 H NT-Pro-B Natriuret Pep Total Protein 5.5 L Albumin 2.6 L Albumin/Globulin Ratio 0.9 L Specimen Hemolysis 61 H Ur Random Sodium - Diagnostic Findings Chest x-ray: report reviewed, image reviewed Assessment and Plan (1) Chronic obstructive pulmonary disease with acute exacerbation Status: Acute Assessment and plan: currently on prednisone 40/day Neb budesonide BID, Brovana BID. No significant wheeze at this time. wean pred as tolerated. we will follow Current Visit: Yes (2) CAP (community acquired pneumonia) Status: Acute Assessment and plan: CXR still demonstrating RLL opacity with possible parapneumonic pleural effusion. I would recommend checking a CT chest (hold IV contrast at this time) . presently off antibiotics for community acquired pneumonia Still with leukocytosis which may be due to prednisone Current Visit: Yes - Time Spent With Patient Total time spent is greater than 50% in coordination of care (as documented) at patient's floor/unit and/or counseling patient: 25 - 35 minutes
[2018-01-26] MEDS: BUMETANIDE 2.5mg/10ml INJECTION IVP SCH (16:32)
--- NOTE | 2018-01-26 21:01 | Progress Note ---
- Date 01/26/18 Subjective: Mrs. Harden was resting comfortably when seen. She reported chronic lower extremity edema and some swelling in her arms but no edema in her hands. She denied cough or sputum production. Reported increased fatigue from baseline and that minimal activity wears her out. She denied chest pain or palpitations and was pleased that cardiac catheterization would not be needed in the immediate future. Diarrhea has subsided and she denied nausea or vomiting. Objective Vital signs: Temperature 98.1 F 01/26/18 15:52 Pulse Rate 81 01/26/18 16:00 Respiratory Rate 18 01/26/18 19:48 Blood Pressure 123/58 01/26/18 15:52 Pulse Oximetry 96 -1 L 01/26/18 15:52 NAD, alert, fluent speech Conjunctiva clear, oropharynx with white coating on tongue consistent with thrush Respirations nonlabored, decreased airflow throughout but breath sounds are clear, no wheezing present Regular rhythm, S1-S2; telemetry reviewed by myself-sinus rhythm, wide complex tachycardia occasionally present, rare strips with paced rhythm Abdomen soft, nontender, bowel sounds present +2-3 edema bilateral lower extremities Bruising bilateral forearms without wounds Calm, cooperative, pleasant Height/Weight/BMI: Height 1.61 m Weight 71.3 kg Body Mass Index 26.6 Results - Labs CBC & Chem 7: 01/26/18 03:55 01/26/18 03:55 Labs: S75, B6, L11, M5, Meta3 AST 51, ALT 44 Phosphorus 2.8 C. difficile toxin negative Microbiology Results: Microbiology 01/22/18 12:47 Sputum, Expectorated Gram Stain - Final 01/22/18 12:47 Sputum, Expectorated Sputum Culture - Final Normal Respiratory Bridgette including Yeast Present Assessment and Plan (1) CAP (community acquired pneumonia) Current visit: Yes Status: Acute (2) Hyponatremia Current visit: Yes Status: Acute (3) Atrial fibrillation with RVR Current visit: Yes Status: Acute Assessment and Plan: Assessment: New onset A fib with RVR-Eliquis initiated 01/23/18 Hyponatremia-118 on admission-resolved CAP-RML/RLL COPD HTN Nausea/Vomiting-resolved Dysphagia-01/23/18 CAD Valvular heart disease-/TR Hypophosphatemia Thrush (tongue)-01/25/18 Plan: Completed 5 days of antibiotics yesterday. Continue prednisone through tomorrow for pulmonary inflammation associated with pneumonia. Chest x-ray in the morning. Chronic COPD-reassessed by Dr. Garcia, no additional changes in regimen recommended at this time. Pacemaker was interrogated earlier today due to presence of wide complex tachycardia which appeared to be pacemaker dependent tachycardia prompting pacemaker adjustment. SVT and previously identified A. fib/flutter with RVR was identified on interrogation but there was no evidence of NSVT. Pacemaker check plan 2-4 weeks after discharge to evaluate modifications and pacemaker settings made today. Cardiology is converted to oral Bumex to continue diuresis. On amiodarone and Eliquis following recent atrial fibrillation. Continue nystatin. Phosphorus improved-discontinue replacement. PT/OT evaluations in a.m. in anticipation of discharge. Discussed with Dr. Garcia. DVT Prophylaxis: Eliquis GI Prophylaxis: Pepcid Resuscitation Status: Full Code - Physician Narrative Narrative: Date: 01/26/18 Time: 2057 Hospital Course Summary Disclaimer: The visit summary below is not to be considered part of the above Progress Note. Hospital Course: 01/21/18 1. CAP with no hypoxia currently--cxs, levaquin as per her fish seiner rec today. Nebs. 2. COPD--brovana and duoneb 3. Hyponatremia due to HCTZ and free water excess most likely. NS and recheck in AM holding HCTZ. 4. Essential HTN--hold HCTZ and monitor. 5. N/V likely due to lortab, monitor with 1. possible contributor. LFTs fine. 01/22/18 New onset atrial fibrillation present early this morning. Obtain troponin, obtain echocardiogram. Telemetry initiated. Obtain serum/urine osm, urine sodium. Continue to hold HCTZ. Trend sodium. Obtain TSH Monitor I/O Continue antibiotics and start steroids; continue breathing treatments, RT consult. Consult patient's tape calender (Emilee) and fish seiner (Radha) 01/23/18 Day 3 Levaquin for community-acquired pneumonia. Convert to oral Levaquin. Repeat chest x-ray in a.m. Continue breathing treatments/O2 as needed. Initiate prednisone-intended to start earlier today. Sodium has improved progressively off HCTZ and with volume replacement. Undetectable urine sodium consistent with volume depletion. BUN 26--> 14 with hydration. Cardiac rhythm stabilizing, in sinus rhythm at present. Troponins unremarkable. Echocardiogram with normal LV function and moderate aortic stenosis, moderate TR , moderate pulmonary hypertension. Appreciate assistance offered by cardiology. Increased dysphasia described by patient-Carafate suspension initiated. Minimal symptoms prior to nausea/vomiting prior to hospitalization. 01/24/18 Day 4 Levaquin for community-acquired pneumonia. Converted to oral Levaquin yesterday and we'll discontinue today due to interaction with amiodarone. Convert to Augmentin for 1-3 days. Repeat chest x-ray with improvement in infiltrate. Continue prednisone 40 mg daily 5 days. Sodium has normalized off HCTZ and with volume replacement. Undetectable urine sodium consistent with volume depletion. Good oral intake, discontinue IV fluids. Eliquis initiated yesterday per cardiology, remains on amiodarone and diltiazem for atrial fibrillation. Echocardiogram with normal LV function and moderate aortic stenosis, moderate TR , moderate pulmonary hypertension. Increased dysphagia described by patient yesterday-Carafate suspension initiated and symptoms slightly improved today. Phosphorus supplement initiated-reassess phosphorus level in a couple of days. 01/25/18 Has had 4 days of Levaquin. Today started on Augmentin as Levaquin was discontinued due to interaction with amiodarone. Complete 5 days of antibiotics today. Continue prednisone 40 mg daily 5 days (through January 27) Appears fluid overloaded today. IV fluids were discontinued yesterday. Lasix 40 mg IV and potassium 20 mEq po given1. Phosphorus initiated yesterday due to hypophosphatemia. Repeat phosphorus level in a.m. Cynthia initiated 01/23/18 per cardiology, remains on amiodarone and diltiazem for atrial fibrillation. Start nystatin for thrush. Pepcid added for persistent dysphasia. Per cardiology: Will start Bumex 2mg IV daily - start today and monitor response Patient likely in acute diastolic heart failure due to rapid atrial fibrillation - she has moderate will monitor blood pressure closely Possible VT noted on Tele Will obtain [facility] PPM interrogation 01/26/18 Completed 5 days of antibiotics yesterday. Continue prednisone through tomorrow for pulmonary inflammation associated with pneumonia. Chest x-ray in the morning. Chronic COPD-reassessed by Dr. Garcia, no additional changes in regimen recommended at this time. Pacemaker was interrogated earlier today due to presence of wide complex tachycardia which appeared to be pacemaker dependent tachycardia prompting pacemaker adjustment. SVT and previously identified A. fib/flutter with RVR was identified on interrogation but there was no evidence of NSVT. Pacemaker check plan 2-4 weeks after discharge to evaluate modifications and pacemaker settings made today. Cardiology is converted to oral Bumex to continue diuresis. Continue nystatin. Phosphorus improved-discontinue replacement. PT/OT evaluations in a.m. in anticipation of discharge.
[2018-01-27] MEDS: SUCRALFATE 1gm/10ml ORAL LIQUID PO SCH ×4 (05:59→20:14)
[2018-01-27] MEDS: ARFORMOTEROL NEB 15mcg/2ml AEROSOL SCH ×2 (08:12→19:32)
--- NOTE | 2018-01-27 08:44 | XRay Report ---
INDICATION: CHF/pneumonia PROCEDURE: CHEST 2-VIEWS UPRIGHT (PA & LAT) Encounter: Initial COMPARISON: January 24, 2018 FINDINGS: Right lower lobe airspace consolidation has improved with some hazy opacity remaining in the right upper and lower lobes. Loculated pleural fluid in the right posterior mid chest is again seen projecting over the midthoracic spine on the lateral view and is slightly smaller. Small right subpulmonic pleural effusion is also seen and unchanged. Left lung remains grossly clear. No pneumothorax. Heart size and mediastinal contours are stable. Left pacemaker. Pulmonary vascularity appears normal. Impression: Improving pneumonia with decreasing size of a loculated right parapneumonic effusion. .
[2018-01-27] MEDS: AMIODARONE 200 MG TABLET PO SCH ×2 (09:02→20:11)
[2018-01-27] MEDS: FAMOTIDINE 20 MG TABLET PO SCH ×2 (09:03→20:11)
[2018-01-27] MEDS: PredniSONE 20 MG TABLET PO SCH (09:03)
[2018-01-27] MEDS: APIXABAN 5 MG TABLET PO SCH ×2 (09:04→20:11)
[2018-01-27] MEDS: BUMETANIDE 2.5mg/10ml INJECTION IVP SCH (09:04)
[2018-01-27] MEDS: NYSTATIN 500,000 units/5 ml ORAL LIQUID PO SCH ×4 (09:05→20:11)
[2018-01-27] MEDS: ALBUTEROL/IPRATROPIUM 2.5mg-0.5mg/3ml NEB AEROSOL SCH ×3 (09:41→15:13)
[2018-01-27] MEDS: BUDESONIDE INH.SOLN 0.5mg/2ml NEB AEROSOL SCH ×2 (09:42→19:33)
--- NOTE | 2018-01-27 11:12 | Cardiology Progress Note ---
<Poly,Anabela M - Last Filed: 01/28/18 13:11> Subjective Principal diagnosis: Atrial Fibrillation Interval history: Kaitlin is seen in f/u of new onset AFib, , PPM. Pacemaker interrogation showed pacemaker medicated tachycardia. Ventricular sensing turned on for further monitoring of ventricular rhythms. Denies palpitations and denies chest pain. Exam Vital signs: Temperature 96.6 F L 01/27/18 07:50 Pulse Rate 70 01/27/18 07:50 Respiratory Rate 22 01/27/18 09:42 Blood Pressure 154/71 H 01/27/18 08:10 Pulse Oximetry 98 01/27/18 09:42 Inpatient Medications: Generic Name Dose Route Start Last Admin Trade Name Freq PRN Reason Stop Dose Admin Acetaminophen 325 - 650 mg 01/21/18 20:15 01/22/18 11:42 Tylenol PO 650 mg Q5H PRN Administration Discomfort Hydrocodone Bitart/Acetaminophen 1 tab 01/23/18 16:45 [place] 5/325 PO Q4H PRN Pain Albuterol/Ipratropium 3 ml 01/27/18 11:00 01/27/18 09:41 Duoneb AEROSOL 3 ml RTQID JUANJOSE Administration Amiodarone HCl 400 mg 01/22/18 16:24 01/27/18 09:02 Pacerone PO 01/29/18 09:01 400 mg BID JUANJOSE Administration Amiodarone HCl 200 mg 01/29/18 21:00 Pacerone PO 02/05/18 09:01 BID JUANJOSE Amiodarone HCl 200 mg 02/06/18 09:00 Pacerone PO DAILY JUANJOSE Apixaban 5 mg 01/23/18 21:00 01/27/18 09:04 Eliquis PO 5 mg BID JUANJOSE Administration Arformoterol Tartrate 15 mcg 01/22/18 19:00 01/27/18 08:12 Brovana Neb AEROSOL 15 mcg RTBID JUANJOSE Administration Budesonide 0.5 mg 01/22/18 07:00 01/27/18 09:42 Pulmicort Inhalation AEROSOL 0.5 mg RTBID JUANJOSE Administration Bumetanide 2 mg 01/26/18 15:00 01/27/18 09:04 Bumex 2.5 Mg/10 Ml Inj IVP 2 mg DAILY JUANJOSE Administration Diltiazem HCl 180 mg 01/23/18 13:00 01/27/18 09:04 Cardizem Cd 180 Mg PO 180 mg DAILY JUANJOSE Administration Famotidine 20 mg 01/25/18 21:00 01/27/18 09:03 Pepcid PO 20 mg BID JUANJOSE Administration Nystatin 5 ml 01/25/18 13:00 01/27/18 09:05 Mycostatin PO 01/30/18 12:59 5 ml QID JUANJOSE Administration Ondansetron HCl 4 mg 01/21/18 20:15 Zofran IVP Q6H PRN Nausea &/or vomiting Prednisone 20 mg 01/28/18 08:00 Deltasone 20 Mg PO 02/02/18 07:59 WB JUANJOSE Senna/Docusate Sodium 1 tab 01/21/18 20:15 Senna Plus Tablet PO BID PRN Constipation Sodium Chloride 10 - 80 ml 01/21/18 17:39 01/22/18 12:27 Iv Flush IVF 10 ml PRN PRN Administration Flushing Sucralfate 1 gm 01/23/18 17:00 01/27/18 05:59 Carafate Slurry PO 1 gm ACHS JUANJOSE Administration Discontinued Medications Generic Name Dose Route Start Last Admin Trade Name Freq PRN Reason Stop Dose Admin Albuterol Sulfate 2.5 mg 01/22/18 07:00 01/26/18 19:47 Proventil Neb (0.083%) AEROSOL 2.5 mg RTQID JUANJOSE Administration Albuterol/Ipratropium 3 ml 01/21/18 17:39 01/21/18 18:59 Duoneb AEROSOL 01/21/18 17:40 3 ml O ONE Administration Albuterol/Ipratropium 3 ml 01/21/18 20:15 01/23/18 22:20 Duoneb AEROSOL 01/21/18 20:16 Not Given Q4WA ONE Albuterol/Ipratropium 3 ml 01/21/18 22:00 01/21/18 21:45 Duoneb AEROSOL 3 ml Q4WA JUANJOSE Administration Amoxicillin/Clavulanate Potassium 875 mg 01/25/18 08:00 01/25/18 17:06 Augmentin 875/125 PO 01/26/18 01:00 875 mg BIDWM JUANJOSE Administration Arformoterol Tartrate 15 mcg 01/22/18 09:00 01/22/18 09:15 Brovana Neb AEROSOL 15 mcg BID JUANJOSE Administration Diltiazem HCl 60 mg 01/22/18 12:00 01/22/18 12:26 Cardizem Sr 60 Mg (12 Hr) PO 60 mg O JUANJOSE Administration Enoxaparin Sodium 40 mg 01/22/18 09:00 01/23/18 08:22 Lovenox SQ 40 mg DAILY JUANJOSE Administration Furosemide 40 mg 01/25/18 12:14 01/25/18 12:24 Lasix 40 Mg/4 Ml IVP 01/25/18 12:15 40 mg O ONE Administration Sodium Chloride 1,000 mls @ 999.9 mls/hr 01/21/18 19:48 01/23/18 22:19 Normal Saline IV 01/21/18 20:47 Infused .Q1H ONE Infusion Levofloxacin/Dextrose 750 mg in 150 mls @ 100 mls/hr 01/21/18 20:15 01/22/18 21:54 Levaquin Premix IV Infused Q24H JUANJOSE Infusion Sodium Chloride 1,000 mls @ 50 mls/hr 01/21/18 20:15 01/24/18 15:15 Normal Saline IV Infused .Q20H JUANJOSE Infusion Levofloxacin 750 mg 01/23/18 20:30 01/24/18 06:30 Levaquin PO 750 mg ACB JUANJOSE Administration Methylprednisolone Sodium Succinate 62.5 mg 01/22/18 12:00 01/22/18 12:26 Solu-Medrol IVP 62.5 mg O JUANJOSE Administration Ondansetron HCl 4 mg 01/21/18 17:39 01/21/18 18:54 Zofran IVP 01/21/18 17:40 4 mg O ONE Administration Potassium Chloride 20 meq 01/25/18 12:14 01/25/18 12:24 K-Dur 20 Meq Tablet PO 01/25/18 12:15 20 meq O ONE Administration Prednisone 40 mg 01/23/18 16:47 01/27/18 09:03 Deltasone 20 Mg PO 01/27/18 08:01 40 mg WB JUANJOSE Administration Sodium Phosphate 250 mg 01/24/18 17:30 01/26/18 20:26 K-Phos *Neutral* Tablet PO 250 mg WM JUANJOSE Administration - Constitutional no acute distress, cooperative - Routine HEENT Exam Head: Present: normocephalic ENT: Present: mucous membranes moist - Routine Neck Exam Absent: JVD, carotid bruit - Routine Chest/Breast/Axilla Exam Chest wall: Absent: tenderness - Routine Respiratory Exam Present: CTA bilaterally. Absent: dyspnea, rales, wheezes - Routine Cardiovascular Exam Present: RRR, S1, S2, no murmur - Routine Abdominal Exam Present: soft, normoactive bowel sounds - Routine Extremities Exam Present: edema - Routine Skin Exam Present: intact, dry, warm, ecchymosis (UEs) - Routine Neurological Exam Present: alert, oriented X3 - Routine Psychiatric Exam Present: normal affect, normal thought process Results 01/28/18 04:26 01/28/18 04:26 CBC 01/27/18 Range/Units 04:36 WBC 18.0 H (4.5-11.0) T/MM3 RBC 3.54 L (4.00-5.20) M/MM3 Hgb 10.8 L (12-16) GM/DL Hct 32.1 L (36-46) % Plt Count 252 (130-400) T/MM3 Neut # (Auto) Not performed Lymph # (Auto) Not performed [place] # (Auto) Not performed Eos # (Auto) Not performed Baso # (Auto) Not performed Comprehensive Metabolic Panel 01/27/18 Range/Units 04:36 Sodium 137 (134-144) MEQ/L Potassium 3.6 (3.6-5) MEQ/L Chloride 100 (98-107) MEQ/L Carbon Dioxide 31 H (22-30) MEQ/L BUN 19.0 H (7-17) MG/DL Creatinine 0.7 (0.7-1.2) mg/dL Glucose 99 (65-110) MG/DL Calcium 7.6 L (8.4-10.2) MG/DL Intake and Output 01/26/18 01/27/18 01/27/18 22:59 06:59 14:59 Intake Total 800 / 800 200 / 200 Output Total 300 / 300 350 / 350 300 / 300 Balance 500 / 500 -150 / -150 -300 / -300 Intake: Oral 800 / 800 200 / 200 Output: Urine 300 / 300 350 / 350 300 / 300 Other: Urine Appearance Clear Clear Clear Urine Color Yellow Yellow Pale Yellow Urine Odor Normal Normal Stool Color Brown Brown Green Green Stool Consistency Liquid Loose Size of Bowel Movement Small Small # Bowel Movements 2 Weight 154 lb 12.232 oz Patient Weight 01/28/18 06:59 Weight 154 lb 12.232 oz - Imaging and Cardiology Imaging & Cardiology Narrative: Date of Exam: 01/27/18 Ordering Provider: Julia Dennis MD Type of Exam(s): XR chest 2V Reason for Exam(s): CHF/pneumonia INDICATION: CHF/pneumonia PROCEDURE: CHEST 2-VIEWS UPRIGHT (PA & LAT) Encounter: Initial COMPARISON: January 24, 2018 FINDINGS: Right lower lobe airspace consolidation has improved with some hazy opacity remaining in the right upper and lower lobes. Loculated pleural fluid in the right posterior mid chest is again seen projecting over the midthoracic spine on the lateral view and is slightly smaller. Small right subpulmonic pleural effusion is also seen and unchanged. Left lung remains grossly clear. No pneumothorax. Heart size and mediastinal contours are stable. Left pacemaker. Pulmonary vascularity appears normal. Impression: Improving pneumonia with decreasing size of a loculated right parapneumonic effusion. 01/27/18 11:09 Assessment and Plan - Assessment and Plan (1) Diastolic CHF, acute Current visit: Yes Status: Acute (2) CAP (community acquired pneumonia) Current visit: Yes Status: Acute (3) Hyponatremia Current visit: Yes Status: Acute (4) Atrial fibrillation with RVR Current visit: Yes Status: Acute (5) HTN (hypertension) Current visit: Yes Status: Chronic (6) Aortic stenosis Current visit: Yes Status: Chronic (7) COPD (chronic obstructive pulmonary disease) Current visit: Yes Status: Chronic (8) Pulmonary hypertension Current visit: Yes Status: Chronic (9) Pacemaker Current visit: Yes Status: Chronic (10) NSVT (nonsustained ventricular tachycardia) Current visit: Yes Status: Acute Start Metoprolol 50mg BID for NSVT - Stop Cardizem - Assessment and Plan 01/22/18 Troponin negative. Converted to SR this afternoon, confirmed on ECG, no ischemic changes. TSH wnl. ECHO 01/22/18: moderate , Pa pressures 51mmHg, mild TR. Recommend aggressive rhythm management due to patient and pulmonary hypertension, putting her at greater heart failure risk. Initiate AAT with Amiodarone 400mg bid for 7 days, then 200mg daily. ECG in AM; monitor QT closely in the setting Levaquin antibiotic therapy. Pt refuses anticoagulation at this time; she is advised to start it to reduce stroke risk associated with Afib. Pneumonia, hypoxia, COPD managed per attending. 01/23/18 Pt has been and out of afib since yesterday rates up to 140 seen on tele. On amiodarone 400mg po bid, continue. Initiate diltiazem 180mg daily for improved rate control, hold for sbp <100. Monitor pressures closely, avoid hypotension in setting of . Pt consents to anticoagulation therapy, initiate eliquis 5mg bid, dc lovenox 40mg daily. First dose of eliquis this PM. Pneumonia, hypotnatremia per attending. 01/24/18: In SR, has maintained it most of the day. Continue Amiodarone and Diltiazem. Get ECG in AM to monitor QT. Eliquis 5mg bid. Continue to monitor tele, vitals. 01/25/18 Continue Eliquis Continue Diltiazem 180mg one tablet daily for rate control Continue Amiodarone oral titration to maintain NSR. EKG today revealing NSR, RBBB, Qtc 432 - tolerating Amiodarone well. Monitor tele and vitals Hyponatremia resolved Evaluation of Tele revealing tachycardia in a patient with known RBBB will perform Mg level and consider PPM interrogation BNP today high - was given Lasix 40mg IV X 1 earlier today Mg level high Will start Bumex 2mg IV daily - start today and monitor response Patient likely in acute diastolic heart failure due to rapid atrial fibrillation - she has moderate will monitor blood pressure closely Possible VT noted on Tele Will obtain [facility] PPM interrogation 01/26/18 Patient continues to have runs of dysrhythmia I have just received a call from Carlos Manjarrez PPM rep. It appears that patient is having multiple pacemaker dependent tachycardic events. Carlos has adjusted the PPM to prevent this event. Otherwise, The VT detection has been turned on today. Carlos is seeing multiple events of SVT, Afib vs Aflutter with rapid ventricular rate and no evidence of NSVT Patient will need longterm anticoagulation therapy as an outpatient. No need for a heart catheterization today as likely her rhythm is not VT We will go ahead and feed patient today and once discharged, will have her follow up with us for a repeat PPM check in 2 to 4 weeks to ensure that her pacemaker dependent tachycardia has resolved. I have informed patient that we will not proceed with a HC today for a couple of reasons - she is on Eliquis and likely her dysrhythmia is not VT. Patient is ok with the plan of care We will change her IV Bumex to oral bumex 1mg po BID Her EF is approx 55%, which is normal Her CHF is likely diastolic heart failure from her dysrhythmia and pneumonia/ hypoxia She will likely be ready for discharge from a cardiac standpoint in 1 to 2 days 01/27/18 NSVT: Start Metoprolol 50mg BID - Stop [facility] Hospital Course Summary Disclaimer: The visit summary below is not to be considered part of the above Progress Note. Hospital Course: 01/21/18 1. CAP with no hypoxia currently--cxs, levaquin as per her cartridge loader rec today. Nebs. 2. COPD--brovana and duoneb 3. Hyponatremia due to HCTZ and free water excess most likely. NS and recheck in AM holding HCTZ. 4. Essential HTN--hold HCTZ and monitor. 5. N/V likely due to lortab, monitor with 1. possible contributor. LFTs fine. 01/22/18 New onset atrial fibrillation present early this morning. Obtain troponin, obtain echocardiogram. Telemetry initiated. Obtain serum/urine osm, urine sodium. Continue to hold HCTZ. Trend sodium. Obtain TSH Monitor I/O Continue antibiotics and start steroids; continue breathing treatments, RT consult. Consult patient's security auditor (Emilee) and cartridge loader (Radha) 01/23/18 Day 3 Levaquin for community-acquired pneumonia. Convert to oral Levaquin. Repeat chest x-ray in a.m. Continue breathing treatments/O2 as needed. Initiate prednisone-intended to start earlier today. Sodium has improved progressively off HCTZ and with volume replacement. Undetectable urine sodium consistent with volume depletion. BUN 26--> 14 with hydration. Cardiac rhythm stabilizing, in sinus rhythm at present. Troponins unremarkable. Echocardiogram with normal LV function and moderate aortic stenosis, moderate TR , moderate pulmonary hypertension. Appreciate assistance offered by cardiology. Increased dysphasia described by patient-Carafate suspension initiated. Minimal symptoms prior to nausea/vomiting prior to hospitalization. 01/24/18 Day 4 Levaquin for community-acquired pneumonia. Converted to oral Levaquin yesterday and we'll discontinue today due to interaction with amiodarone. Convert to Augmentin for 1-3 days. Repeat chest x-ray with improvement in infiltrate. Continue prednisone 40 mg daily 5 days. Sodium has normalized off HCTZ and with volume replacement. Undetectable urine sodium consistent with volume depletion. Good oral intake, discontinue IV fluids. Eliquis initiated yesterday per cardiology, remains on amiodarone and diltiazem for atrial fibrillation. Echocardiogram with normal LV function and moderate aortic stenosis, moderate TR , moderate pulmonary hypertension. Increased dysphagia described by patient yesterday-Carafate suspension initiated and symptoms slightly improved today. Phosphorus supplement initiated-reassess phosphorus level in a couple of days. 01/25/18 Has had 4 days of Levaquin. Today started on Augmentin as Levaquin was discontinued due to interaction with amiodarone. Complete 5 days of antibiotics today. Continue prednisone 40 mg daily 5 days (through January 27) Appears fluid overloaded today. IV fluids were discontinued yesterday. Lasix 40 mg IV and potassium 20 mEq po given1. Phosphorus initiated yesterday due to hypophosphatemia. Repeat phosphorus level in a.m. Eliquis initiated 01/23/18 per cardiology, remains on amiodarone and diltiazem for atrial fibrillation. Start nystatin for thrush. Pepcid added for persistent dysphasia. Per cardiology: Will start Bumex 2mg IV daily - start today and monitor response Patient likely in acute diastolic heart failure due to rapid atrial fibrillation - she has moderate will monitor blood pressure closely Possible VT noted on Tele Will obtain [facility] PPM interrogation 01/26/18 Completed 5 days of antibiotics yesterday. Continue prednisone through tomorrow for pulmonary inflammation associated with pneumonia. Chest x-ray in the morning. Chronic COPD-reassessed by Dr. Garcia, no additional changes in regimen recommended at this time. Pacemaker was interrogated earlier today due to presence of wide complex tachycardia which appeared to be pacemaker dependent tachycardia prompting pacemaker adjustment. SVT and previously identified A. fib/flutter with RVR was identified on interrogation but there was no evidence of NSVT. Pacemaker check plan 2-4 weeks after discharge to evaluate modifications and pacemaker settings made today. Cardiology is converted to oral Bumex to continue diuresis. Continue nystatin. Phosphorus improved-discontinue replacement. PT/OT evaluations in a.m. in anticipation of discharge. <Omkar Hebert - Last Filed: 02/02/18 12:26> Exam Vital signs: Temperature 96.9 F 02/02/18 07:00 Pulse Rate 66 02/02/18 07:38 Respiratory Rate 18 02/02/18 11:36 Blood Pressure 129/49 02/02/18 07:00 Pulse Oximetry 97 02/02/18 11:36 Inpatient Medications: Generic Name Dose Route Start Last Admin Trade Name Freq PRN Reason Stop Dose Admin Acetaminophen 325 - 650 mg 01/21/18 20:15 01/22/18 11:42 Tylenol PO 650 mg Q5H PRN Administration Discomfort Hydrocodone Bitart/Acetaminophen 1 tab 01/23/18 16:45 [place] 5/325 PO Q4H PRN Pain Albuterol/Ipratropium 3 ml 01/27/18 11:00 02/02/18 11:36 Duoneb AEROSOL 3 ml RTQID JUANJOSE Administration Amiodarone HCl 200 mg 01/29/18 21:00 02/02/18 09:19 Pacerone PO 02/05/18 09:01 200 mg BID JUANJOSE Administration Amiodarone HCl 200 mg 02/06/18 09:00 Pacerone PO DAILY JUANJOSE Apixaban 5 mg 01/23/18 21:00 02/02/18 09:17 Eliquis PO 5 mg BID JUANJOSE Administration Arformoterol Tartrate 15 mcg 01/22/18 19:00 02/02/18 08:43 Brovana Neb AEROSOL 15 mcg RTBID JUANJOSE Administration Budesonide 0.5 mg 01/22/18 07:00 02/02/18 06:58 Pulmicort Inhalation AEROSOL 0.5 mg RTBID JUANJOSE Administration Bumetanide 2 mg 01/30/18 09:00 02/02/18 09:18 Bumex 1 Mg Tab PO 2 mg DAILY JUANJOSE Administration Famotidine 20 mg 01/31/18 21:00 02/01/18 21:22 Pepcid PO 20 mg HS JUANJOSE Administration Ceftriaxone Sodium 1 g/ Sodium 100 mls @ 200 mls/hr 01/28/18 10:15 02/02/18 11:11 Chloride IV 200 mls/hr Q24H JUANJOSE Administration Lactobacillus Acidophilus 2 cap 01/29/18 17:30 02/02/18 09:18 Culturelle PO 2 cap BIDWM JUANJOSE Administration Metoprolol Tartrate 50 mg 01/27/18 13:30 02/02/18 09:18 Lopressor PO 50 mg BIDWM JUANJOSE Administration Nystatin 5 ml 02/01/18 13:00 02/02/18 09:17 Mycostatin PO 5 ml QID JUANJOSE Administration Ondansetron HCl 4 mg 01/21/18 20:15 Zofran IVP Q6H PRN Nausea &/or vomiting Pantoprazole Sodium 40 mg 01/28/18 06:30 02/02/18 07:34 Protonix Tab PO Not Given ACB JUANJOSE Potassium Chloride 20 meq 02/01/18 08:00 02/02/18 09:19 Micro-K 10 Meq Capsule PO 20 meq BIDWM JUANJOSE Administration Senna/Docusate Sodium 1 tab 01/21/18 20:15 Senna Plus Tablet PO BID PRN Constipation Sodium Chloride 10 - 80 ml 01/21/18 17:39 02/01/18 10:12 Iv Flush IVF 10 ml PRN PRN Administration Flushing Sodium Chloride 500 ml 01/31/18 09:32 02/02/18 11:12 Normal Saline IV 500 ml PRN PRN Administration Discontinued Medications Generic Name Dose Route Start Last Admin Trade Name Freq PRN Reason Stop Dose Admin Albuterol Sulfate 2.5 mg 01/22/18 07:00 01/28/18 09:03 Proventil Neb (0.083%) AEROSOL Not Given RTQID JUANJOSE Albuterol/Ipratropium 3 ml 01/21/18 17:39 01/21/18 18:59 Duoneb AEROSOL 01/21/18 17:40 3 ml O ONE Administration Albuterol/Ipratropium 3 ml 01/21/18 20:15 01/23/18 22:20 Duoneb AEROSOL 01/21/18 20:16 Not Given Q4WA ONE Albuterol/Ipratropium 3 ml 01/21/18 22:00 01/21/18 21:45 Duoneb AEROSOL 3 ml Q4WA JUANJOSE Administration Alteplase, Recombinant 10 mg 01/28/18 15:30 01/28/18 15:45 Cathflo Activase IPL 01/28/18 15:31 10 mg O ONE Administration Alteplase, Recombinant 10 mg 02/01/18 09:00 Cathflo Activase IPL 02/01/18 09:01 O ONE Amiodarone HCl 400 mg 01/22/18 16:24 01/29/18 09:14 Pacerone PO 01/29/18 09:01 400 mg BID JUANJOSE Administration Amoxicillin/Clavulanate Potassium 875 mg 01/25/18 08:00 01/25/18 17:06 Augmentin 875/125 PO 01/26/18 01:00 875 mg BIDWM JUANJOSE Administration Arformoterol Tartrate 15 mcg 01/22/18 09:00 01/22/18 09:15 Brovana Neb AEROSOL 15 mcg BID JUANJOSE Administration Bumetanide 2 mg 01/26/18 15:00 01/29/18 09:13 Bumex 2.5 Mg/10 Ml Inj IVP 2 mg DAILY JUANJOSE Administration Diltiazem HCl 60 mg 01/22/18 12:00 01/22/18 12:26 Cardizem Sr 60 Mg (12 Hr) PO 60 mg O JUANJOSE Administration Diltiazem HCl 180 mg 01/23/18 13:00 01/27/18 09:04 Cardizem Cd 180 Mg PO 180 mg DAILY JUANJOSE Administration Enoxaparin Sodium 40 mg 01/22/18 09:00 01/23/18 08:22 Lovenox SQ 40 mg DAILY JUANJOSE Administration Famotidine 20 mg 01/25/18 21:00 01/31/18 08:53 Pepcid PO 20 mg BID JUANJOSE Administration Furosemide 40 mg 01/25/18 12:14 01/25/18 12:24 Lasix 40 Mg/4 Ml IVP 01/25/18 12:15 40 mg O ONE Administration Sodium Chloride 1,000 mls @ 999.9 mls/hr 01/21/18 19:48 01/23/18 22:19 Normal Saline IV 01/21/18 20:47 Infused .Q1H ONE Infusion Levofloxacin/Dextrose 750 mg in 150 mls @ 100 mls/hr 01/21/18 20:15 01/22/18 21:54 Levaquin Premix IV Infused Q24H JUANJOSE Infusion Sodium Chloride 1,000 mls @ 50 mls/hr 01/21/18 20:15 01/24/18 15:15 Normal Saline IV Infused .Q20H JUANJOSE Infusion Levofloxacin 750 mg 01/23/18 20:30 01/24/18 06:30 Levaquin PO 750 mg ACB JUANJOSE Administration Methylprednisolone Sodium Succinate 62.5 mg 01/22/18 12:00 01/22/18 12:26 Solu-Medrol IVP 62.5 mg O JUANJOSE Administration Metoprolol Tartrate 50 mg 01/27/18 22:00 01/27/18 21:56 Lopressor PO 01/27/18 22:01 50 mg ONE TIME JUANJOSE Administration Nystatin 5 ml 01/25/18 13:00 01/30/18 08:38 Mycostatin PO 01/30/18 12:59 5 ml QID JUANJOSE Administration Ondansetron HCl 4 mg 01/21/18 17:39 01/21/18 18:54 Zofran IVP 01/21/18 17:40 4 mg O ONE Administration Pharmacy Consult each 01/28/18 20:50 Pharmacy Consult - Fall Risk 01/28/18 20:51 ONE TIME ONE Potassium Chloride 20 meq 01/25/18 12:14 01/25/18 12:24 K-Dur 20 Meq Tablet PO 01/25/18 12:15 20 meq O ONE Administration Potassium Chloride 20 meq 01/30/18 13:42 01/30/18 14:03 K-Dur 20 Meq Tablet PO 01/30/18 13:43 20 meq O ONE Administration Potassium Chloride 40 meq 01/31/18 09:03 01/31/18 09:33 K-Dur 20 Meq Tablet PO 01/31/18 09:04 40 meq O ONE Administration Potassium Chloride 40 meq 01/31/18 13:36 01/31/18 14:32 K-Dur 20 Meq Tablet PO 01/31/18 13:37 40 meq O ONE Administration Prednisone 40 mg 01/23/18 16:47 01/27/18 09:03 Deltasone 20 Mg PO 01/27/18 08:01 40 mg WB JUANJOSE Administration Prednisone 20 mg 01/28/18 08:00 01/28/18 08:52 Deltasone 20 Mg PO 02/02/18 07:59 20 mg WB JUANJOSE Administration Sodium Phosphate 250 mg 01/24/18 17:30 01/26/18 20:26 K-Phos *Neutral* Tablet PO 250 mg WM JUANJOSE Administration Sucralfate 1 gm 01/23/18 17:00 01/31/18 12:06 Carafate Slurry PO 1 gm ACHS JUANJOSE Administration - Routine Cardiovascular Exam Present: murmur Results 02/02/18 04:19 02/02/18 04:19 CBC 02/02/18 Range/Units 04:19 WBC 9.4 (4.5-11.0) T/MM3 RBC 3.42 L (4.00-5.20) M/MM3 Hgb 10.2 L (12-16) GM/DL Hct 31.7 L (36-46) % Plt Count 335 (130-400) T/MM3 Neut # (Auto) 7.2 (1.8-7.7) T/MM3 Lymph # (Auto) 1.2 (1-4.8) T/MM3 [place] # (Auto) 0.8 (0-0.8) T/MM3 Eos # (Auto) 0.1 (0-0.5) T/MM3 Baso # (Auto) 0.0 (0-0.2) T/MM3 Comprehensive Metabolic Panel 02/02/18 Range/Units 04:19 Sodium 136 (134-144) MEQ/L Potassium 4.0 (3.6-5) MEQ/L Chloride 99 (98-107) MEQ/L Carbon Dioxide 32 H (22-30) MEQ/L BUN 17.0 (7-17) MG/DL Creatinine 0.9 (0.7-1.2) mg/dL Glucose 85 (65-110) MG/DL Calcium 7.6 L (8.4-10.2) MG/DL Intake and Output 02/01/18 02/02/18 02/02/18 22:59 06:59 14:59 Intake Total 1140 / 1140 200 / 200 Output Total 186 / 186 365 / 365 400 / 400 Balance 954 / 954 -165 / -165 -400 / -400 Intake: Oral 1140 / 1140 200 / 200 Output: Urine 150 / 150 350 / 350 400 / 400 Chest Tube Drainage Right Posterior Chest Other: Urine Appearance Clear Clear Urine Color Yellow Yellow Urine Odor Normal Normal Size of Bowel Movement Smear # Voids 1 # Bowel Movements 1 Weight 69.7 kg Patient Weight 02/03/18 06:59 Weight 69.7 kg Assessment and Plan - Assessment and Plan (1) CAP (community acquired pneumonia) Current visit: Yes Status: Acute (2) Hyponatremia Problem details: [id number] Current visit: Yes Status: Resolved (3) COPD (chronic obstructive pulmonary disease) Current visit: Yes Status: Chronic (4) HTN (hypertension) Current visit: Yes Status: Chronic (5) Atrial fibrillation with RVR Current visit: Yes Status: Resolved (6) Aortic stenosis Current visit: Yes Status: Chronic (7) Pulmonary hypertension Current visit: Yes Status: Chronic (8) Pacemaker Current visit: Yes Status: Chronic (9) Diastolic CHF, acute Current visit: Yes Status: Acute (10) NSVT (nonsustained ventricular tachycardia) Current visit: Yes Status: Acute - Attestation Attestation Narrative: 02/02/18 12:26 Recommendation After examining the patient I agree with the above assessment. I am involved in the formulation of the patient's plan of care. Hospital Course Summary Disclaimer: The visit summary below is not to be considered part of the above Progress Note.
--- NOTE | 2018-01-27 17:01 | Progress Note ---
- Date 01/27/18 Subjective: Mrs. Harden reports having no dyspnea today and only minor exertional dyspnea when she ambulated in the halls with physical therapy. She denies cough or sputum production any longer. She's had no chest pain or pleuritic pain and is not aware of any palpitations. She did have a 7 beat run of wide complex tachycardia last night but did not have associated symptoms. She reports persistent burning in the lower esophagus and experiencing some difficulty swallowing foods with the sensation that nothing sticks slightly and that she has to change positions to fully swallow food boluses. The symptoms aren't as bad as they were several days ago. She's had no nausea or vomiting. She denies fevers, chills, or lightheadedness. Objective Vital signs: Temperature 96.7 F L 01/27/18 11:42 Pulse Rate 64 01/27/18 16:00 Respiratory Rate 17 01/27/18 16:00 Blood Pressure 129/59 01/27/18 16:00 Pulse Oximetry 96 -1 L 01/27/18 16:00 I/O 1600/850 Weight down 1 kg from yesterday NAD, alert, fluent speech, appears completely comfortable and significantly improved from a couple of days ago Conjunctiva clear, sclera anicteric, tongue with minimal residual thrush Respirations nonlabored, good airflow, breath sounds clear anteriorly/ posteriorly Regular rhythm, S1-S2 Abdomen soft, nontender, bowel sounds present +2 pitting edema bilateral lower extremities Extensive bruising on the forearms Fully oriented, cooperative, pleasant Rhythm: Normal Sinus Rhythm Height/Weight/BMI: Height 1.61 m Weight 70.2 kg Body Mass Index 26.6 Results - Labs CBC & Chem 7: 01/27/18 04:36 01/27/18 04:36 Labs: S58 B13 L10 M8 Meta7 Myelo4 Microbiology Results: Microbiology 01/22/18 12:47 Sputum, Expectorated Gram Stain - Final 01/22/18 12:47 Sputum, Expectorated Sputum Culture - Final Normal Respiratory Bridgette including Yeast Present - Imaging and Cardiology Chest x-ray Status: image reviewed by me (decreased infiltrate right lung, probable loculated right parapneumonic effusion) Assessment and Plan (1) CAP (community acquired pneumonia) Current visit: Yes Status: Acute (2) Hyponatremia Current visit: Yes Status: Acute (3) Atrial fibrillation with RVR Current visit: Yes Status: Acute Assessment and Plan: Assessment: New onset A fib with RVR-Eliquis initiated 01/23/18 Hyponatremia-118 on admission-resolved CAP-RML/RLL; antibiotics completed Pleural effusion-01/27/18 COPD HTN Nausea/Vomiting-resolved Dysphagia-01/23/18 CAD Valvular heart disease-/TR Hypophosphatemia Thrush (tongue)-01/25/18 Plan: Titrate prednisone to 20 mg daily. Chest x-ray improving however there is suggestion of loculated pleural effusion ; discussed with Dr. Garcia--> CT chest with contrast. Discussed recurrent wide complex tachycardia with cardiology-strip reviewed by myself, morphology overnight different than prior pacemaker mediated tachycardia. Pacemaker check planned 2-4 weeks after discharge to evaluate modifications in pacemaker settings made for/. Diuresing well; continue amiodarone and Eliquis for recent atrial fibrillation. Continue nystatin. Dysphasia/heartburn slightly improved; will convert from Pepcid to Protonix given ongoing heartburn. Speech therapy evaluation. PT/OT evaluated today and recommended home with home health; may require walker. DVT Prophylaxis: Eliquis GI Prophylaxis: Pepcid Resuscitation Status: Full Code - Physician Narrative Narrative: Date: 01/27/18 Time: 1657 Hospital Course Summary Disclaimer: The visit summary below is not to be considered part of the above Progress Note. Hospital Course: 01/21/18 1. CAP with no hypoxia currently--cxs, levaquin as per her stonecutter rec today. Nebs. 2. COPD--brovana and duoneb 3. Hyponatremia due to HCTZ and free water excess most likely. NS and recheck in AM holding HCTZ. 4. Essential HTN--hold HCTZ and monitor. 5. N/V likely due to lortab, monitor with 1. possible contributor. LFTs fine. 01/22/18 New onset atrial fibrillation present early this morning. Obtain troponin, obtain echocardiogram. Telemetry initiated. Obtain serum/urine osm, urine sodium. Continue to hold HCTZ. Trend sodium. Obtain TSH Monitor I/O Continue antibiotics and start steroids; continue breathing treatments, RT consult. Consult patient's brim pouncing machine operator (Emilee) and stonecutter (Radha) 01/23/18 Day 3 Levaquin for community-acquired pneumonia. Convert to oral Levaquin. Repeat chest x-ray in a.m. Continue breathing treatments/O2 as needed. Initiate prednisone-intended to start earlier today. Sodium has improved progressively off HCTZ and with volume replacement. Undetectable urine sodium consistent with volume depletion. BUN 26--> 14 with hydration. Cardiac rhythm stabilizing, in sinus rhythm at present. Troponins unremarkable. Echocardiogram with normal LV function and moderate aortic stenosis, moderate TR , moderate pulmonary hypertension. Appreciate assistance offered by cardiology. Increased dysphasia described by patient-Carafate suspension initiated. Minimal symptoms prior to nausea/vomiting prior to hospitalization. 01/24/18 Day 4 Levaquin for community-acquired pneumonia. Converted to oral Levaquin yesterday and we'll discontinue today due to interaction with amiodarone. Convert to Augmentin for 1-3 days. Repeat chest x-ray with improvement in infiltrate. Continue prednisone 40 mg daily 5 days. Sodium has normalized off HCTZ and with volume replacement. Undetectable urine sodium consistent with volume depletion. Good oral intake, discontinue IV fluids. Eliquis initiated yesterday per cardiology, remains on amiodarone and diltiazem for atrial fibrillation. Echocardiogram with normal LV function and moderate aortic stenosis, moderate TR , moderate pulmonary hypertension. Increased dysphagia described by patient yesterday-Carafate suspension initiated and symptoms slightly improved today. Phosphorus supplement initiated-reassess phosphorus level in a couple of days. 01/25/18 Has had 4 days of Levaquin. Today started on Augmentin as Levaquin was discontinued due to interaction with amiodarone. Complete 5 days of antibiotics today. Continue prednisone 40 mg daily 5 days (through January 27) Appears fluid overloaded today. IV fluids were discontinued yesterday. Lasix 40 mg IV and potassium 20 mEq po given1. Phosphorus initiated yesterday due to hypophosphatemia. Repeat phosphorus level in a.m. Eliquis initiated 01/23/18 per cardiology, remains on amiodarone and diltiazem for atrial fibrillation. Start nystatin for thrush. Pepcid added for persistent dysphasia. Per cardiology: Will start Bumex 2mg IV daily - start today and monitor response Patient likely in acute diastolic heart failure due to rapid atrial fibrillation - she has moderate will monitor blood pressure closely Possible VT noted on Tele Will obtain [facility] PPM interrogation 01/26/18 Completed 5 days of antibiotics yesterday. Continue prednisone through tomorrow for pulmonary inflammation associated with pneumonia. Chest x-ray in the morning. Chronic COPD-reassessed by Dr. Garcia, no additional changes in regimen recommended at this time. Pacemaker was interrogated earlier today due to presence of wide complex tachycardia which appeared to be pacemaker dependent tachycardia prompting pacemaker adjustment. SVT and previously identified A. fib/flutter with RVR was identified on interrogation but there was no evidence of NSVT. Pacemaker check plan 2-4 weeks after discharge to evaluate modifications and pacemaker settings made today. Cardiology is converted to oral Bumex to continue diuresis. Continue nystatin. Phosphorus improved-discontinue replacement. PT/OT evaluations in a.m. in anticipation of discharge. 01/27/18 Titrate prednisone to 20 mg daily. Chest x-ray improving however there is suggestion of loculated pleural effusion ; discussed with Dr. Garcia--> CT chest with contrast. Discussed recurrent wide complex tachycardia with cardiology-strip reviewed by myself, morphology overnight different than prior pacemaker mediated tachycardia. Pacemaker check planned 2-4 weeks after discharge to evaluate modifications in pacemaker settings made for/3. Diuresing well; continue amiodarone and Eliquis for recent atrial fibrillation. Continue nystatin. Dysphasia/heartburn slightly improved; will convert from Pepcid to Protonix given ongoing heartburn. Speech therapy evaluation. PT/OT evaluated today and recommended home with home health; may require walker.
[2018-01-27] MEDS ORDERED: SALINE FLUSH 10ml SYRINGE ONE (17:21)
[2018-01-27] MEDS ORDERED: IOHEXOL 300mg/ml 75ml INJECTION ONE (17:21)
[2018-01-28] MEDS: SUCRALFATE 1gm/10ml ORAL LIQUID PO SCH ×4 (06:13→20:42)
[2018-01-28] MEDS: PANTOPRAZOLE 40 MG TABLET PO SCH (06:13)
[2018-01-28] MEDS: ALBUTEROL/IPRATROPIUM 2.5mg-0.5mg/3ml NEB AEROSOL SCH ×3 (06:30→15:00)
[2018-01-28] MEDS: BUDESONIDE INH.SOLN 0.5mg/2ml NEB AEROSOL SCH ×2 (06:30→18:43)
[2018-01-28] MEDS: ARFORMOTEROL NEB 15mcg/2ml AEROSOL SCH ×2 (07:47→18:43)
[2018-01-28] MEDS ORDERED: PredniSONE 20 MG TABLET PO SCH (08:00)
--- NOTE | 2018-01-28 08:25 | CT Scan Report ---
Indication: pleural effusion PROCEDURE: CT chest w con: Encounter: Initial Comparison: Chest x-ray from the same date Technique: Axial CT images were performed through the chest after the administration of intravenous contrast. Coronal and sagittal two-dimensional reformats. Automated Exposure Control and Iterative Reconstruction dose reducing techniques were utilized. Contrast: Omnipaque 300 74 mL Findings: Irregular multiloculated right-sided pleural effusion. Mild emphysema with subpleural scarring. Minor compressive atelectasis in the right lower lobe. No pneumothorax. Small left effusion. No pulmonary masses. The central airways are patent. There is no significant pleural enhancement seen on the right to suggest an empyema despite the multiloculated appearance. No axillary or mediastinal adenopathy by CT criteria. Heart size is normal. No pericardial effusion. Great vessels are within normal limits. Large hiatal hernia. The upper abdomen shows no acute findings. Impression: Multiloculated right pleural effusion accounting for the opacities on chest x-ray. There is no significant consolidative pneumonia. Although there is no definite CT evidence to suggest an empyema, diagnostic thoracentesis may be helpful. .
[2018-01-28] MEDS: BUMETANIDE 2.5mg/10ml INJECTION IVP SCH (08:51)
[2018-01-28] MEDS: NYSTATIN 500,000 units/5 ml ORAL LIQUID PO SCH ×4 (08:52→20:42)
[2018-01-28] MEDS: FAMOTIDINE 20 MG TABLET PO SCH ×2 (08:52→20:43)
[2018-01-28] MEDS: APIXABAN 5 MG TABLET PO SCH ×2 (08:52→21:50)
[2018-01-28] MEDS: AMIODARONE 200 MG TABLET PO SCH ×2 (08:53→20:43)
[2018-01-28] MEDS: ALBUTEROL 2.5mg/3ml (0.083%) NEB AEROSOL SCH (09:03)
--- NOTE | 2018-01-28 11:42 | Progress Note ---
- Date 01/28/18 Subjective: Patient seen sitting in her chair after breakfast. She states she is feeling better. Breathing is ok. She was happy to hear from cardiology that she didn' t have any "flutters" overnight. Today was the first morning she has eaten a decent amt at breakfast. Doesn't have as much pain with swallowing today. Had diarrhea for several days previously and feels her bowels are getting back to normal now. Objective Vital signs: Temperature 97.2 F 01/28/18 07:00 Pulse Rate 61 01/28/18 07:00 Respiratory Rate 16 01/28/18 07:49 Blood Pressure 138/53 01/28/18 07:00 Pulse Oximetry 97 01/28/18 07:49 Rhythm: Normal Sinus Rhythm Height/Weight/BMI: Height 1.61 m Weight 70.3 kg Body Mass Index 26.6 - Constitutional Present: no acute distress, well nourished, well developed - Routine HEENT Exam Head: Present: normocephalic, atraumatic - Routine Respiratory Exam Present: CTA bilaterally, distant breath sounds, diminished air movement. Absent: wheezes - Routine Cardiovascular Exam Present: RRR, no murmur - Routine Abdominal Exam Present: soft, non distended, non tender - Routine Extremities Exam Present: edema (3+ edema b/l LE's R>L. Edema ), normal capillary refill - Routine Skin Exam Present: dry, warm - Routine Neurological Exam Present: alert, oriented X3 - Routine Lymphatic Exam Lymphatic: Absent: adenopathy - Routine Psychiatric Exam Present: normal affect, cooperative Results - Labs CBC & Chem 7: 01/28/18 04:26 01/28/18 04:26 Microbiology Results: Microbiology 01/22/18 12:47 Sputum, Expectorated Gram Stain - Final 01/22/18 12:47 Sputum, Expectorated Sputum Culture - Final Normal Respiratory Bridgette including Yeast Present Assessment and Plan (1) CAP (community acquired pneumonia) Current visit: Yes Status: Acute (2) Hyponatremia Current visit: Yes Status: Acute (3) Atrial fibrillation with RVR Current visit: Yes Status: Acute Assessment and Plan: Assessment: New onset A fib with RVR-Eliquis initiated 01/23/18 Hyponatremia-118 on admission-resolved CAP-RML/RLL; antibiotics completed Pleural effusion, multiloculated-01/27/18 COPD HTN Nausea/Vomiting-resolved Dysphagia-01/23/18 CAD Valvular heart disease-/TR Hypophosphatemia Thrush (tongue)-01/25/18 Plan: CT chest showed multiloculated effusion consistent with complex parapneumonic effusion. Dr Garcia DC'd prednisone. Pigtail catheter was placed under US guidance. Plan to instill TPA to enhance drainage per pulm. . Recommend continuing antibiotics for CAP. Ceftriaxone was restarted today. ( Initial tx for CAP was completed 01/25/18) Pleural fluid sent for culture. Cardiology following. GI Prophylaxis: Protonix Resuscitation Status: Full Code - Physician Narrative Physician: Julia Dennis MD Narrative: Date: 01/28/18 Time: 1705 I have independently evaluated and examined this patient. I reviewed the chart, the patient's history, and the FOOD PREP WORKER/PA's documented findings as above. We discussed and formulated the assessment and plan as above with additions as below: Mrs. Harden is seen following placement of pigtail catheter. She was breathing comfortably and described minimal discomfort. Dysphasia/dyspepsia is significantly better today. Respirations nonlabored, decreased breath sounds throughout, no wheezing Regular cardiac rhythm Telemetry strips reviewed by myself-sinus rhythm or paced rhythm; no ventricular ectopy. Chest x-ray (post placement pigtail catheter)-no pneumothorax, partial evacuation posterior right pleural effusion Karen discussed plans earlier with Dr. Garcia--TPA to be infused to break up loculations and improve drainage of effusion. Will hold Eliquis temporarily; converted from diltiazem to metoprolol yesterday by cardiology for rate control/ventricular ectopy. Hospital Course Summary Disclaimer: The visit summary below is not to be considered part of the above Progress Note. Hospital Course: 01/21/18 1. CAP with no hypoxia currently--cxs, levaquin as per her show card writer rec today. Nebs. 2. COPD--brovana and duoneb 3. Hyponatremia due to HCTZ and free water excess most likely. NS and recheck in AM holding HCTZ. 4. Essential HTN--hold HCTZ and monitor. 5. N/V likely due to lortab, monitor with 1. possible contributor. LFTs fine. 01/22/18 New onset atrial fibrillation present early this morning. Obtain troponin, obtain echocardiogram. Telemetry initiated. Obtain serum/urine osm, urine sodium. Continue to hold HCTZ. Trend sodium. Obtain TSH Monitor I/O Continue antibiotics and start steroids; continue breathing treatments, RT consult. Consult patient's wire bender hand (Emilee) and show card writer (Radha) 01/23/18 Day 3 Levaquin for community-acquired pneumonia. Convert to oral Levaquin. Repeat chest x-ray in a.m. Continue breathing treatments/O2 as needed. Initiate prednisone-intended to start earlier today. Sodium has improved progressively off HCTZ and with volume replacement. Undetectable urine sodium consistent with volume depletion. BUN 26--> 14 with hydration. Cardiac rhythm stabilizing, in sinus rhythm at present. Troponins unremarkable. Echocardiogram with normal LV function and moderate aortic stenosis, moderate TR , moderate pulmonary hypertension. Appreciate assistance offered by cardiology. Increased dysphasia described by patient-Carafate suspension initiated. Minimal symptoms prior to nausea/vomiting prior to hospitalization. 01/24/18 Day 4 Levaquin for community-acquired pneumonia. Converted to oral Levaquin yesterday and we'll discontinue today due to interaction with amiodarone. Convert to Augmentin for 1-3 days. Repeat chest x-ray with improvement in infiltrate. Continue prednisone 40 mg daily 5 days. Sodium has normalized off HCTZ and with volume replacement. Undetectable urine sodium consistent with volume depletion. Good oral intake, discontinue IV fluids. Eliquis initiated yesterday per cardiology, remains on amiodarone and diltiazem for atrial fibrillation. Echocardiogram with normal LV function and moderate aortic stenosis, moderate TR , moderate pulmonary hypertension. Increased dysphagia described by patient yesterday-Carafate suspension initiated and symptoms slightly improved today. Phosphorus supplement initiated-reassess phosphorus level in a couple of days. 01/25/18 Has had 4 days of Levaquin. Today started on Augmentin as Levaquin was discontinued due to interaction with amiodarone. Complete 5 days of antibiotics today. Continue prednisone 40 mg daily 5 days (through January 27) Appears fluid overloaded today. IV fluids were discontinued yesterday. Lasix 40 mg IV and potassium 20 mEq po given1. Phosphorus initiated yesterday due to hypophosphatemia. Repeat phosphorus level in a.m. Eliquis initiated 01/23/18 per cardiology, remains on amiodarone and diltiazem for atrial fibrillation. Start nystatin for thrush. Pepcid added for persistent dysphasia. Per cardiology: Will start Bumex 2mg IV daily - start today and monitor response Patient likely in acute diastolic heart failure due to rapid atrial fibrillation - she has moderate will monitor blood pressure closely Possible VT noted on Tele Will obtain [facility] PPM interrogation 01/26/18 Completed 5 days of antibiotics yesterday. Continue prednisone through tomorrow for pulmonary inflammation associated with pneumonia. Chest x-ray in the morning. Chronic COPD-reassessed by Dr. Garcia, no additional changes in regimen recommended at this time. Pacemaker was interrogated earlier today due to presence of wide complex tachycardia which appeared to be pacemaker dependent tachycardia prompting pacemaker adjustment. SVT and previously identified A. fib/flutter with RVR was identified on interrogation but there was no evidence of NSVT. Pacemaker check plan 2-4 weeks after discharge to evaluate modifications and pacemaker settings made today. Cardiology is converted to oral Bumex to continue diuresis. Continue nystatin. Phosphorus improved-discontinue replacement. PT/OT evaluations in a.m. in anticipation of discharge. 01/27/18 Titrate prednisone to 20 mg daily. Chest x-ray improving however there is suggestion of loculated pleural effusion ; discussed with Dr. Garcia--> CT chest with contrast. Discussed recurrent wide complex tachycardia with cardiology-strip reviewed by myself, morphology overnight different than prior pacemaker mediated tachycardia. Pacemaker check planned 2-4 weeks after discharge to evaluate modifications in pacemaker settings made for/3. Diuresing well; continue amiodarone and Eliquis for recent atrial fibrillation. Continue nystatin. Dysphasia/heartburn slightly improved; will convert from Pepcid to Protonix given ongoing heartburn. Speech therapy evaluation. PT/OT evaluated today and recommended home with home health; may require walker. 01/28/18 CT chest showed multiloculated effusion consistent with complex parapneumonic effusion. Dr Garcia DC'd prednisone. Pigtail catheter was placed under US guidance. Plan to instill TPA to enhance drainage per pulm. . Recommend continuing antibiotics for CAP. Ceftriaxone was restarted today. ( Initial tx for CAP was completed 01/25/18) Pleural fluid sent for culture. Cardiology following.
[2018-01-28] MEDS: CEFTRIAXONE 1 G in NS 100 ML IV SCH (11:46)
--- NOTE | 2018-01-28 13:05 | Pulmonology Progress Note ---
Subjective Principal diagnosis: pneumonia Interval history: slept well. denies fever or chills minimal cough and sputum eating well Exam Vital signs: Temperature 97.2 F 01/28/18 07:00 Pulse Rate 65 01/28/18 09:00 Respiratory Rate 14 01/28/18 10:30 Blood Pressure 138/53 01/28/18 07:00 Pulse Oximetry 95 01/28/18 10:30 Inpatient Medications: Generic Name Dose Route Start Last Admin Trade Name Freq PRN Reason Stop Dose Admin Acetaminophen 325 - 650 mg 01/21/18 20:15 01/22/18 11:42 Tylenol PO 650 mg Q5H PRN Administration Discomfort Hydrocodone Bitart/Acetaminophen 1 tab 01/23/18 16:45 Leonard 5/325 PO Q4H PRN Pain Albuterol/Ipratropium 3 ml 01/27/18 11:00 01/28/18 10:30 Duoneb AEROSOL 3 ml RTQID JUANJOSE Administration Amiodarone HCl 400 mg 01/22/18 16:24 01/28/18 08:53 Pacerone PO 01/29/18 09:01 400 mg BID JUANJOSE Administration Amiodarone HCl 200 mg 01/29/18 21:00 Pacerone PO 02/05/18 09:01 BID JUANJOSE Amiodarone HCl 200 mg 02/06/18 09:00 Pacerone PO DAILY JUANJOSE Apixaban 5 mg 01/23/18 21:00 01/28/18 08:52 Eliquis PO 5 mg BID JUANJOSE Administration Arformoterol Tartrate 15 mcg 01/22/18 19:00 01/28/18 07:47 Brovana Neb AEROSOL 15 mcg RTBID JUANJOSE Administration Budesonide 0.5 mg 01/22/18 07:00 01/28/18 06:30 Pulmicort Inhalation AEROSOL 0.5 mg RTBID JUANJOSE Administration Bumetanide 2 mg 01/26/18 15:00 01/28/18 08:51 Bumex 2.5 Mg/10 Ml Inj IVP 2 mg DAILY JUANJOSE Administration Famotidine 20 mg 01/25/18 21:00 01/28/18 08:52 Pepcid PO 20 mg BID JUANJOSE Administration Ceftriaxone Sodium 1 g/ Sodium 100 mls @ 200 mls/hr 01/28/18 10:15 01/28/18 12:18 Chloride IV Infused Q24H JUANJOSE Infusion Metoprolol Tartrate 50 mg 01/27/18 13:30 01/28/18 08:52 Lopressor PO 50 mg BIDWM JUANJOSE Administration Nystatin 5 ml 01/25/18 13:00 01/28/18 08:52 Mycostatin PO 01/30/18 12:59 5 ml QID JUANJOSE Administration Ondansetron HCl 4 mg 01/21/18 20:15 Zofran IVP Q6H PRN Nausea &/or vomiting Pantoprazole Sodium 40 mg 01/28/18 06:30 01/28/18 06:13 Protonix Tab PO 40 mg ACB JUANJOSE Administration Prednisone 20 mg 01/28/18 08:00 01/28/18 08:52 Deltasone 20 Mg PO 02/02/18 07:59 20 mg WB JUANJOSE Administration Senna/Docusate Sodium 1 tab 01/21/18 20:15 Senna Plus Tablet PO BID PRN Constipation Sodium Chloride 10 - 80 ml 01/21/18 17:39 01/22/18 12:27 Iv Flush IVF 10 ml PRN PRN Administration Flushing Sucralfate 1 gm 01/23/18 17:00 01/28/18 11:51 Carafate Slurry PO 1 gm ACHS JUANJOSE Administration Discontinued Medications Generic Name Dose Route Start Last Admin Trade Name Freq PRN Reason Stop Dose Admin Albuterol Sulfate 2.5 mg 01/22/18 07:00 01/28/18 09:03 Proventil Neb (0.083%) AEROSOL Not Given RTQID JUANJOSE Albuterol/Ipratropium 3 ml 01/21/18 17:39 01/21/18 18:59 Duoneb AEROSOL 01/21/18 17:40 3 ml O ONE Administration Albuterol/Ipratropium 3 ml 01/21/18 20:15 01/23/18 22:20 Duoneb AEROSOL 01/21/18 20:16 Not Given Q4WA ONE Albuterol/Ipratropium 3 ml 01/21/18 22:00 01/21/18 21:45 Duoneb AEROSOL 3 ml Q4WA JUANJOSE Administration Amoxicillin/Clavulanate Potassium 875 mg 01/25/18 08:00 01/25/18 17:06 Augmentin 875/125 PO 01/26/18 01:00 875 mg BIDWM JUANJOSE Administration Arformoterol Tartrate 15 mcg 01/22/18 09:00 01/22/18 09:15 Brovana Neb AEROSOL 15 mcg BID JUANJOSE Administration Diltiazem HCl 60 mg 01/22/18 12:00 01/22/18 12:26 Cardizem Sr 60 Mg (12 Hr) PO 60 mg O JUANJOSE Administration Diltiazem HCl 180 mg 01/23/18 13:00 01/27/18 09:04 Cardizem Cd 180 Mg PO 180 mg DAILY JUANJOSE Administration Enoxaparin Sodium 40 mg 01/22/18 09:00 01/23/18 08:22 Lovenox SQ 40 mg DAILY JUANJOSE Administration Furosemide 40 mg 01/25/18 12:14 01/25/18 12:24 Lasix 40 Mg/4 Ml IVP 01/25/18 12:15 40 mg O ONE Administration Sodium Chloride 1,000 mls @ 999.9 mls/hr 01/21/18 19:48 01/23/18 22:19 Normal Saline IV 01/21/18 20:47 Infused .Q1H ONE Infusion Levofloxacin/Dextrose 750 mg in 150 mls @ 100 mls/hr 01/21/18 20:15 01/22/18 21:54 Levaquin Premix IV Infused Q24H JUANJOSE Infusion Sodium Chloride 1,000 mls @ 50 mls/hr 01/21/18 20:15 01/24/18 15:15 Normal Saline IV Infused .Q20H JUANJOSE Infusion Levofloxacin 750 mg 01/23/18 20:30 01/24/18 06:30 Levaquin PO 750 mg ACB JUANJOSE Administration Methylprednisolone Sodium Succinate 62.5 mg 01/22/18 12:00 01/22/18 12:26 Solu-Medrol IVP 62.5 mg O JUANJOSE Administration Metoprolol Tartrate 50 mg 01/27/18 22:00 01/27/18 21:56 Lopressor PO 01/27/18 22:01 50 mg ONE TIME JUANJOSE Administration Ondansetron HCl 4 mg 01/21/18 17:39 01/21/18 18:54 Zofran IVP 01/21/18 17:40 4 mg O ONE Administration Potassium Chloride 20 meq 01/25/18 12:14 01/25/18 12:24 K-Dur 20 Meq Tablet PO 01/25/18 12:15 20 meq O ONE Administration Prednisone 40 mg 01/23/18 16:47 01/27/18 09:03 Deltasone 20 Mg PO 01/27/18 08:01 40 mg WB JUANJOSE Administration Sodium Phosphate 250 mg 01/24/18 17:30 01/26/18 20:26 K-Phos *Neutral* Tablet PO 250 mg WM JUANJOSE Administration - Constitutional no acute distress - Routine HEENT Exam Head: Present: normocephalic, atraumatic - Routine Neck Exam Present: supple - Routine Respiratory Exam Present: decreased breath sounds. Absent: accessory muscle use Comments: on right - Routine Cardiovascular Exam Present: RRR - Routine Abdominal Exam Present: soft. Absent: guarding - Routine Extremities Exam Present: cyanosis, clubbing - Routine Neurological Exam Present: alert, oriented X3 Results - Laboratory Findings Laboratory: Laboratory Results - last 48 hr 01/27/18 01/27/18 01/28/18 04:36 04:36 04:26 WBC 18.0 H 17.8 H RBC 3.54 L 3.62 L Hgb 10.8 L 10.9 L Hct 32.1 L 32.7 L MCV 90.7 90.3 MCH 30.5 30.1 MCHC 33.6 33.3 RDW Std Deviation 47.9 47.7 Plt Count 252 261 MPV 8.9 L 8.7 L Immature Gran % (Auto) Not performed Neut % (Auto) Not performed Lymph % (Auto) Not performed [place] % (Auto) Not performed Eos % (Auto) Not performed Baso % (Auto) Not performed Neut # (Auto) Not performed Lymph # (Auto) Not performed [place] # (Auto) Not performed Eos # (Auto) Not performed Baso # (Auto) Not performed Abs Immat Gran (auto) Not performed Neutrophils % (Manual) 58.0 86.0 H Band Neutrophils % 13.0 H Lymphocytes % (Manual) 10.0 L 10.0 L Monocytes % (Manual) 8.0 2.0 Eosinophils % (Manual) 1.0 Metamyelocytes % 7.0 H 1.0 H Myelocytes % 4.0 H Neutrophils # (Manual) 10.4 H 15.3 H Band Neutrophils # 2.3 Lymphocytes # (Manual) 1.8 1.8 Monocytes # (Manual) 1.4 H 0.4 Eosinophils # (Manual) 0.2 Metamyelocytes # 1.3 0.2 Myelocytes # 0.7 RBC Morph Comment Normal Normal Turbidity < 20 Sodium 137 Potassium 3.6 Chloride 100 Carbon Dioxide 31 H Anion Gap 6 BUN 19.0 H Creatinine 0.7 GFR Calculation 82 BUN/Creatinine Ratio 27 H Glucose 99 Calculated Osmolality 266 Calcium 7.6 L Magnesium Icterus Index < 2 Specimen Hemolysis < 15 01/28/18 04:26 WBC RBC Hgb Hct MCV MCH MCHC RDW Std Deviation Plt Count MPV Immature Gran % (Auto) Neut % (Auto) Lymph % (Auto) [place] % (Auto) Eos % (Auto) Baso % (Auto) Neut # (Auto) Lymph # (Auto) [place] # (Auto) Eos # (Auto) Baso # (Auto) Abs Immat Gran (auto) Neutrophils % (Manual) Band Neutrophils % Lymphocytes % (Manual) Monocytes % (Manual) Eosinophils % (Manual) Metamyelocytes % Myelocytes % Neutrophils # (Manual) Band Neutrophils # Lymphocytes # (Manual) Monocytes # (Manual) Eosinophils # (Manual) Metamyelocytes # Myelocytes # RBC Morph Comment Turbidity < 20 Sodium 136 Potassium 3.9 Chloride 98 Carbon Dioxide 32 H Anion Gap 6 BUN 18.0 H Creatinine 0.8 GFR Calculation 70 BUN/Creatinine Ratio 23 Glucose 86 Calculated Osmolality 263 Calcium 7.8 L Magnesium 2.3 Icterus Index < 2 Specimen Hemolysis < 15 - Diagnostic Findings CT scan - chest: report reviewed, image reviewed Assessment and Plan (1) Chronic obstructive pulmonary disease with acute exacerbation Status: Acute Assessment and plan: currently on prednisone 20 mg /day. Will stop at this point and monitor for worsening bronchospasm Neb budesonide BID, Brovana BID. No significant wheeze at this time. wean pred as tolerated. we will follow Current Visit: Yes (2) CAP (community acquired pneumonia) Status: Acute Assessment and plan: with multiloculated effusion consistent with complex parapneumonic effusion. She is a poor candidate for surgical decortication. I would favor placing a pigtail catheter under US guidance . We can instill TPA to enhance drainage. I do not expect complete resolution of the issue with this approach, but there may not be a good option. Recommend continuing antibiotics for CAP. We will send pleural fluid for cultures. Current Visit: Yes - Time Spent With Patient Total time spent is greater than 50% in coordination of care (as documented) at patient's floor/unit and/or counseling patient: 25 - 35 minutes
--- NOTE | 2018-01-28 13:16 | Procedure Note ---
Date of procedure: 01/28/18 Pre-op diagnosis: plueral effusion Post-op diagnosis: same Procedure: right sided US guided chest tube placement The patient was placed in the upright position. US was used to image a pocket of fluid in the posterior axillary line, right hemithorax. The site was marked for tube placement Lidocaine was used for local anesthetic A small incision was made in the skin. and 18 guage needle was inserted into the pleural space with return of yellow fluid a guidewire was inserted into the right pleural space a 12 [place] pigtail catheter was inserted over the guidewire and the catheter was secured at the skin there was a small airleak noted after placement under water seal The tube was connected to continuous suction and water seal. There were no complications. Anesthesia: local Surgeon: Chente Garcia MD Pathology: none sent Condition: Stable Disposition: floor
--- NOTE | 2018-01-28 13:25 | Cardiology Progress Note ---
<Anabela Pang M - Last Filed: 01/29/18 15:12> Subjective Principal diagnosis: Atrial Fibrillation Interval history: Kaitlin is seen in f/u of new onset AFib, , PPM. She is in her bed, she just had chest tube placed by Pulm. She denies complaints and is in no distress. Denies palpitations and denies chest pain. Exam Vital signs: Temperature 97.2 F 01/28/18 07:00 Pulse Rate 65 01/28/18 09:00 Respiratory Rate 14 01/28/18 10:30 Blood Pressure 138/53 01/28/18 07:00 Pulse Oximetry 95 01/28/18 10:30 Inpatient Medications: Generic Name Dose Route Start Last Admin Trade Name Freq PRN Reason Stop Dose Admin Acetaminophen 325 - 650 mg 01/21/18 20:15 01/22/18 11:42 Tylenol PO 650 mg Q5H PRN Administration Discomfort Hydrocodone Bitart/Acetaminophen 1 tab 01/23/18 16:45 [place] 5/325 PO Q4H PRN Pain Albuterol/Ipratropium 3 ml 01/27/18 11:00 01/28/18 10:30 Duoneb AEROSOL 3 ml RTQID JUANJOSE Administration Amiodarone HCl 400 mg 01/22/18 16:24 01/28/18 08:53 Pacerone PO 01/29/18 09:01 400 mg BID JUANJOSE Administration Amiodarone HCl 200 mg 01/29/18 21:00 Pacerone PO 02/05/18 09:01 BID JUANJOSE Amiodarone HCl 200 mg 02/06/18 09:00 Pacerone PO DAILY JUANJOSE Apixaban 5 mg 01/23/18 21:00 01/28/18 08:52 Eliquis PO 5 mg BID JUANJOSE Administration Arformoterol Tartrate 15 mcg 01/22/18 19:00 01/28/18 07:47 Brovana Neb AEROSOL 15 mcg RTBID JUANJOSE Administration Budesonide 0.5 mg 01/22/18 07:00 01/28/18 06:30 Pulmicort Inhalation AEROSOL 0.5 mg RTBID JUANJOSE Administration Bumetanide 2 mg 01/26/18 15:00 01/28/18 08:51 Bumex 2.5 Mg/10 Ml Inj IVP 2 mg DAILY JUANJOSE Administration Famotidine 20 mg 01/25/18 21:00 01/28/18 08:52 Pepcid PO 20 mg BID JUANJOSE Administration Ceftriaxone Sodium 1 g/ Sodium 100 mls @ 200 mls/hr 01/28/18 10:15 01/28/18 12:18 Chloride IV Infused Q24H JUANJOSE Infusion Metoprolol Tartrate 50 mg 01/27/18 13:30 01/28/18 08:52 Lopressor PO 50 mg BIDWM JUANJOSE Administration Nystatin 5 ml 01/25/18 13:00 01/28/18 08:52 Mycostatin PO 01/30/18 12:59 5 ml QID JUANJOSE Administration Ondansetron HCl 4 mg 01/21/18 20:15 Zofran IVP Q6H PRN Nausea &/or vomiting Pantoprazole Sodium 40 mg 01/28/18 06:30 01/28/18 06:13 Protonix Tab PO 40 mg ACB JUANJOSE Administration Prednisone 20 mg 01/28/18 08:00 01/28/18 08:52 Deltasone 20 Mg PO 02/02/18 07:59 20 mg WB JUANJOSE Administration Senna/Docusate Sodium 1 tab 01/21/18 20:15 Senna Plus Tablet PO BID PRN Constipation Sodium Chloride 10 - 80 ml 01/21/18 17:39 01/22/18 12:27 Iv Flush IVF 10 ml PRN PRN Administration Flushing Sucralfate 1 gm 01/23/18 17:00 01/28/18 11:51 Carafate Slurry PO 1 gm ACHS JUANJOSE Administration Discontinued Medications Generic Name Dose Route Start Last Admin Trade Name Freq PRN Reason Stop Dose Admin Albuterol Sulfate 2.5 mg 01/22/18 07:00 01/28/18 09:03 Proventil Neb (0.083%) AEROSOL Not Given RTQID JUANJOSE Albuterol/Ipratropium 3 ml 01/21/18 17:39 01/21/18 18:59 Duoneb AEROSOL 01/21/18 17:40 3 ml O ONE Administration Albuterol/Ipratropium 3 ml 01/21/18 20:15 01/23/18 22:20 Duoneb AEROSOL 01/21/18 20:16 Not Given Q4WA ONE Albuterol/Ipratropium 3 ml 01/21/18 22:00 01/21/18 21:45 Duoneb AEROSOL 3 ml Q4WA JUANJOSE Administration Amoxicillin/Clavulanate Potassium 875 mg 01/25/18 08:00 01/25/18 17:06 Augmentin 875/125 PO 01/26/18 01:00 875 mg BIDWM JUANJOSE Administration Arformoterol Tartrate 15 mcg 01/22/18 09:00 01/22/18 09:15 Brovana Neb AEROSOL 15 mcg BID JUANJOSE Administration Diltiazem HCl 60 mg 01/22/18 12:00 01/22/18 12:26 Cardizem Sr 60 Mg (12 Hr) PO 60 mg O JUANJOSE Administration Diltiazem HCl 180 mg 01/23/18 13:00 01/27/18 09:04 Cardizem Cd 180 Mg PO 180 mg DAILY JUANJOSE Administration Enoxaparin Sodium 40 mg 01/22/18 09:00 01/23/18 08:22 Lovenox SQ 40 mg DAILY JUANJOSE Administration Furosemide 40 mg 01/25/18 12:14 01/25/18 12:24 Lasix 40 Mg/4 Ml IVP 01/25/18 12:15 40 mg O ONE Administration Sodium Chloride 1,000 mls @ 999.9 mls/hr 01/21/18 19:48 01/23/18 22:19 Normal Saline IV 01/21/18 20:47 Infused .Q1H ONE Infusion Levofloxacin/Dextrose 750 mg in 150 mls @ 100 mls/hr 01/21/18 20:15 01/22/18 21:54 Levaquin Premix IV Infused Q24H JUANJOSE Infusion Sodium Chloride 1,000 mls @ 50 mls/hr 01/21/18 20:15 01/24/18 15:15 Normal Saline IV Infused .Q20H JUANJOSE Infusion Levofloxacin 750 mg 01/23/18 20:30 01/24/18 06:30 Levaquin PO 750 mg ACB JUANJOSE Administration Methylprednisolone Sodium Succinate 62.5 mg 01/22/18 12:00 01/22/18 12:26 Solu-Medrol IVP 62.5 mg O JUANJOSE Administration Metoprolol Tartrate 50 mg 01/27/18 22:00 01/27/18 21:56 Lopressor PO 01/27/18 22:01 50 mg ONE TIME JUANJOSE Administration Ondansetron HCl 4 mg 01/21/18 17:39 01/21/18 18:54 Zofran IVP 01/21/18 17:40 4 mg O ONE Administration Potassium Chloride 20 meq 01/25/18 12:14 01/25/18 12:24 K-Dur 20 Meq Tablet PO 01/25/18 12:15 20 meq O ONE Administration Prednisone 40 mg 01/23/18 16:47 01/27/18 09:03 Deltasone 20 Mg PO 01/27/18 08:01 40 mg WB JUANJOSE Administration Sodium Phosphate 250 mg 01/24/18 17:30 01/26/18 20:26 K-Phos *Neutral* Tablet PO 250 mg WM JUANJOSE Administration - Constitutional no acute distress, cooperative - Routine HEENT Exam Head: Present: normocephalic ENT: Present: mucous membranes moist - Routine Neck Exam Absent: JVD, carotid bruit - Routine Chest/Breast/Axilla Exam Chest wall: Present: tenderness, chest tube - Routine Respiratory Exam Present: decreased breath sounds (right). Absent: accessory muscle use - Routine Cardiovascular Exam Present: RRR, S1, S2 - Routine Abdominal Exam Present: soft, normoactive bowel sounds - Routine Extremities Exam Present: edema - Routine Skin Exam Present: intact, dry, warm - Routine Neurological Exam Present: alert, oriented X3 - Routine Psychiatric Exam Present: normal affect, normal thought process Results 01/28/18 04:26 01/28/18 04:26 CBC 01/28/18 Range/Units 04:26 WBC 17.8 H (4.5-11.0) T/MM3 RBC 3.62 L (4.00-5.20) M/MM3 Hgb 10.9 L (12-16) GM/DL Hct 32.7 L (36-46) % Plt Count 261 (130-400) T/MM3 Comprehensive Metabolic Panel 01/28/18 Range/Units 04:26 Sodium 136 (134-144) MEQ/L Potassium 3.9 (3.6-5) MEQ/L Chloride 98 (98-107) MEQ/L Carbon Dioxide 32 H (22-30) MEQ/L BUN 18.0 H (7-17) MG/DL Creatinine 0.8 (0.7-1.2) mg/dL Glucose 86 (65-110) MG/DL Calcium 7.8 L (8.4-10.2) MG/DL Intake and Output 01/27/18 01/28/18 01/28/18 22:59 06:59 14:59 Intake Total 980 / 980 225 / 225 100 / 100 Output Total 150 / 150 600 / 600 800 / 800 Balance 830 / 830 -375 / -375 -700 / -700 Intake: IV 100 / 100 Ceftriaxone 1 g In Ns 100 ml @ 100 / 100 200 mls/hr IV Q24H [facility] Rx#: [id number] Oral 980 / 980 225 / 225 Output: Urine 150 / 150 600 / 600 800 / 800 Other: Urine Appearance Clear Clear Clear Urine Color Yellow Pale Yellow Yellow Urine Odor Normal Normal Normal Weight 154 lb 15.759 oz Patient Weight 01/29/18 06:59 Weight 154 lb 15.759 oz - Imaging and Cardiology Imaging & Cardiology Narrative: = = = = = = = = = = = = = = = = = = = = = = = = = = = = = = = = = = = = = = = = = = = = = = = = = = = = = = = = = = = Date of Exam: 01/27/18 Ordering Provider: Julia Dennis MD Type of Exam(s): CT chest w con Reason for Exam(s): pleural effusion Indication: pleural effusion PROCEDURE: CT chest w con: Encounter: Initial Comparison: Chest x-ray from the same date Technique: Axial CT images were performed through the chest after the administration of intravenous contrast. Coronal and sagittal two-dimensional reformats. Automated Exposure Control and Iterative Reconstruction dose reducing techniques were utilized. Contrast: Omnipaque 300 74 mL Findings: Irregular multiloculated right-sided pleural effusion. Mild emphysema with subpleural scarring. Minor compressive atelectasis in the right lower lobe. No pneumothorax. Small left effusion. No pulmonary masses. The central airways are patent. There is no significant pleural enhancement seen on the right to suggest an empyema despite the multiloculated appearance. No axillary or mediastinal adenopathy by CT criteria. Heart size is normal. No pericardial effusion. Great vessels are within normal limits. Large hiatal hernia. The upper abdomen shows no acute findings. Impression: Multiloculated right pleural effusion accounting for the opacities on chest x-ray. There is no significant consolidative pneumonia. Although there is no definite CT evidence to suggest an empyema, diagnostic thoracentesis may be helpful. 01/28/18 13:29 Assessment and Plan - Assessment and Plan (1) Diastolic CHF, acute Current visit: Yes Status: Acute (2) CAP (community acquired pneumonia) Current visit: Yes Status: Acute (3) Hyponatremia Current visit: Yes Status: Acute (4) Atrial fibrillation with RVR Current visit: Yes Status: Acute (5) HTN (hypertension) Current visit: Yes Status: Chronic (6) Aortic stenosis Current visit: Yes Status: Chronic (7) COPD (chronic obstructive pulmonary disease) Current visit: Yes Status: Chronic (8) Pulmonary hypertension Current visit: Yes Status: Chronic (9) Pacemaker Current visit: Yes Status: Chronic (10) NSVT (nonsustained ventricular tachycardia) Current visit: Yes Status: Acute - Assessment and Plan 01/22/18 Troponin negative. Converted to SR this afternoon, confirmed on ECG, no ischemic changes. TSH wnl. ECHO 01/22/18: moderate , Pa pressures 51mmHg, mild TR. Recommend aggressive rhythm management due to patient and pulmonary hypertension, putting her at greater heart failure risk. Initiate AAT with Amiodarone 400mg bid for 7 days, then 200mg daily. ECG in AM; monitor QT closely in the setting Levaquin antibiotic therapy. Pt refuses anticoagulation at this time; she is advised to start it to reduce stroke risk associated with Afib. Pneumonia, hypoxia, COPD managed per attending. 01/23/18 Pt has been and out of afib since yesterday rates up to 140 seen on tele. On amiodarone 400mg po bid, continue. Initiate diltiazem 180mg daily for improved rate control, hold for sbp <100. Monitor pressures closely, avoid hypotension in setting of . Pt consents to anticoagulation therapy, initiate eliquis 5mg bid, dc lovenox 40mg daily. First dose of eliquis this PM. Pneumonia, hypotnatremia per attending. 01/24/18: In SR, has maintained it most of the day. Continue Amiodarone and Diltiazem. Get ECG in AM to monitor QT. Eliquis 5mg bid. Continue to monitor tele, vitals. 01/25/18 Continue Eliquis Continue Diltiazem 180mg one tablet daily for rate control Continue Amiodarone oral titration to maintain NSR. EKG today revealing NSR, RBBB, Qtc 432 - tolerating Amiodarone well. Monitor tele and vitals Hyponatremia resolved Evaluation of Tele revealing tachycardia in a patient with known RBBB will perform Mg level and consider PPM interrogation BNP today high - was given Lasix 40mg IV X 1 earlier today Mg level high Will start Bumex 2mg IV daily - start today and monitor response Patient likely in acute diastolic heart failure due to rapid atrial fibrillation - she has moderate will monitor blood pressure closely Possible VT noted on Tele Will obtain [facility] PPM interrogation 01/26/18 Patient continues to have runs of dysrhythmia I have just received a call from Carlos Manjarrez PPM rep. It appears that patient is having multiple pacemaker dependent tachycardic events. Carlos has adjusted the PPM to prevent this event. Otherwise, The VT detection has been turned on today. Carlos is seeing multiple events of SVT, Afib vs Aflutter with rapid ventricular rate and no evidence of NSVT Patient will need senior care anticoagulation therapy as an outpatient. No need for a heart catheterization today as likely her rhythm is not VT We will go ahead and feed patient today and once discharged, will have her follow up with us for a repeat PPM check in 2 to 4 weeks to ensure that her pacemaker dependent tachycardia has resolved. I have informed patient that we will not proceed with a HC today for a couple of reasons - she is on Eliquis and likely her dysrhythmia is not VT. Patient is ok with the plan of care We will change her IV Bumex to oral bumex 1mg po BID Her EF is approx 55%, which is normal Her CHF is likely diastolic heart failure from her dysrhythmia and pneumonia/ hypoxia She will likely be ready for discharge from a cardiac standpoint in 1 to 2 days 01/27/18 NSVT: Start Metoprolol 50mg BID - Stop Cardizem 01/28/18 Chest tube inserted per pulm. - No further NSVT since started metoprolol. - Continue IV Bumex as ordered for diuresis Hospital Course Summary Disclaimer: The visit summary below is not to be considered part of the above Progress Note. Hospital Course: 01/21/18 1. CAP with no hypoxia currently--cxs, levaquin as per her estate attorney rec today. Nebs. 2. COPD--brovana and duoneb 3. Hyponatremia due to HCTZ and free water excess most likely. NS and recheck in AM holding HCTZ. 4. Essential HTN--hold HCTZ and monitor. 5. N/V likely due to lortab, monitor with 1. possible contributor. LFTs fine. 01/22/18 New onset atrial fibrillation present early this morning. Obtain troponin, obtain echocardiogram. Telemetry initiated. Obtain serum/urine osm, urine sodium. Continue to hold HCTZ. Trend sodium. Obtain TSH Monitor I/O Continue antibiotics and start steroids; continue breathing treatments, RT consult. Consult patient's veneer glue spreader (Emilee) and estate attorney (Radha) 01/23/18 Day 3 Levaquin for community-acquired pneumonia. Convert to oral Levaquin. Repeat chest x-ray in a.m. Continue breathing treatments/O2 as needed. Initiate prednisone-intended to start earlier today. Sodium has improved progressively off HCTZ and with volume replacement. Undetectable urine sodium consistent with volume depletion. BUN 26--> 14 with hydration. Cardiac rhythm stabilizing, in sinus rhythm at present. Troponins unremarkable. Echocardiogram with normal LV function and moderate aortic stenosis, moderate TR , moderate pulmonary hypertension. Appreciate assistance offered by cardiology. Increased dysphasia described by patient-Carafate suspension initiated. Minimal symptoms prior to nausea/vomiting prior to hospitalization. 01/24/18 Day 4 Levaquin for community-acquired pneumonia. Converted to oral Levaquin yesterday and we'll discontinue today due to interaction with amiodarone. Convert to Augmentin for 1-3 days. Repeat chest x-ray with improvement in infiltrate. Continue prednisone 40 mg daily 5 days. Sodium has normalized off HCTZ and with volume replacement. Undetectable urine sodium consistent with volume depletion. Good oral intake, discontinue IV fluids. Eliquis initiated yesterday per cardiology, remains on amiodarone and diltiazem for atrial fibrillation. Echocardiogram with normal LV function and moderate aortic stenosis, moderate TR , moderate pulmonary hypertension. Increased dysphagia described by patient yesterday-Carafate suspension initiated and symptoms slightly improved today. Phosphorus supplement initiated-reassess phosphorus level in a couple of days. 01/25/18 Has had 4 days of Levaquin. Today started on Augmentin as Levaquin was discontinued due to interaction with amiodarone. Complete 5 days of antibiotics today. Continue prednisone 40 mg daily 5 days (through January 27) Appears fluid overloaded today. IV fluids were discontinued yesterday. Lasix 40 mg IV and potassium 20 mEq po given1. Phosphorus initiated yesterday due to hypophosphatemia. Repeat phosphorus level in a.m. Eliquis initiated 01/23/18 per cardiology, remains on amiodarone and diltiazem for atrial fibrillation. Start nystatin for thrush. Pepcid added for persistent dysphasia. Per cardiology: Will start Bumex 2mg IV daily - start today and monitor response Patient likely in acute diastolic heart failure due to rapid atrial fibrillation - she has moderate will monitor blood pressure closely Possible VT noted on Tele Will obtain [facility] PPM interrogation 01/26/18 Completed 5 days of antibiotics yesterday. Continue prednisone through tomorrow for pulmonary inflammation associated with pneumonia. Chest x-ray in the morning. Chronic COPD-reassessed by Dr. Garcia, no additional changes in regimen recommended at this time. Pacemaker was interrogated earlier today due to presence of wide complex tachycardia which appeared to be pacemaker dependent tachycardia prompting pacemaker adjustment. SVT and previously identified A. fib/flutter with RVR was identified on interrogation but there was no evidence of NSVT. Pacemaker check plan 2-4 weeks after discharge to evaluate modifications and pacemaker settings made today. Cardiology is converted to oral Bumex to continue diuresis. Continue nystatin. Phosphorus improved-discontinue replacement. PT/OT evaluations in a.m. in anticipation of discharge. <Omkar Hebert - Last Filed: 02/02/18 12:33> Exam Vital signs: Temperature 96.9 F 02/02/18 07:00 Pulse Rate 66 02/02/18 07:38 Respiratory Rate 18 02/02/18 11:36 Blood Pressure 129/49 02/02/18 07:00 Pulse Oximetry 97 02/02/18 11:36 Inpatient Medications: Generic Name Dose Route Start Last Admin Trade Name Freq PRN Reason Stop Dose Admin Acetaminophen 325 - 650 mg 01/21/18 20:15 01/22/18 11:42 Tylenol PO 650 mg Q5H PRN Administration Discomfort Hydrocodone Bitart/Acetaminophen 1 tab 01/23/18 16:45 [place] 5/325 PO Q4H PRN Pain Albuterol/Ipratropium 3 ml 01/27/18 11:00 02/02/18 11:36 Duoneb AEROSOL 3 ml RTQID JUANJOSE Administration Amiodarone HCl 200 mg 01/29/18 21:00 02/02/18 09:19 Pacerone PO 02/05/18 09:01 200 mg BID JUANJOSE Administration Amiodarone HCl 200 mg 02/06/18 09:00 Pacerone PO DAILY JUANJOSE Apixaban 5 mg 01/23/18 21:00 02/02/18 09:17 Eliquis PO 5 mg BID JUANJOSE Administration Arformoterol Tartrate 15 mcg 01/22/18 19:00 02/02/18 08:43 Brovana Neb AEROSOL 15 mcg RTBID JUANJOSE Administration Budesonide 0.5 mg 01/22/18 07:00 02/02/18 06:58 Pulmicort Inhalation AEROSOL 0.5 mg RTBID JUANJOSE Administration Bumetanide 2 mg 01/30/18 09:00 02/02/18 09:18 Bumex 1 Mg Tab PO 2 mg DAILY JUANJOSE Administration Famotidine 20 mg 01/31/18 21:00 02/01/18 21:22 Pepcid PO 20 mg HS JUANJOSE Administration Ceftriaxone Sodium 1 g/ Sodium 100 mls @ 200 mls/hr 01/28/18 10:15 02/02/18 11:41 Chloride IV Infused Q24H JUANJOSE Infusion Lactobacillus Acidophilus 2 cap 01/29/18 17:30 02/02/18 09:18 Culturelle PO 2 cap BIDWM JUANJOSE Administration Metoprolol Tartrate 50 mg 01/27/18 13:30 02/02/18 09:18 Lopressor PO 50 mg BIDWM JUANJOSE Administration Nystatin 5 ml 02/01/18 13:00 02/02/18 09:17 Mycostatin PO 5 ml QID JUANJOSE Administration Ondansetron HCl 4 mg 01/21/18 20:15 Zofran IVP Q6H PRN Nausea &/or vomiting Pantoprazole Sodium 40 mg 01/28/18 06:30 02/02/18 07:34 Protonix Tab PO Not Given ACB JUANJOSE Potassium Chloride 20 meq 02/01/18 08:00 02/02/18 09:19 Micro-K 10 Meq Capsule PO 20 meq BIDWM JUANJOSE Administration Senna/Docusate Sodium 1 tab 01/21/18 20:15 Senna Plus Tablet PO BID PRN Constipation Sodium Chloride 10 - 80 ml 01/21/18 17:39 02/01/18 10:12 Iv Flush IVF 10 ml PRN PRN Administration Flushing Sodium Chloride 500 ml 01/31/18 09:32 02/02/18 11:12 Normal Saline IV 500 ml PRN PRN Administration Discontinued Medications Generic Name Dose Route Start Last Admin Trade Name Freq PRN Reason Stop Dose Admin Albuterol Sulfate 2.5 mg 01/22/18 07:00 01/28/18 09:03 Proventil Neb (0.083%) AEROSOL Not Given RTQID JUANJOSE Albuterol/Ipratropium 3 ml 01/21/18 17:39 01/21/18 18:59 Duoneb AEROSOL 01/21/18 17:40 3 ml O ONE Administration Albuterol/Ipratropium 3 ml 01/21/18 20:15 01/23/18 22:20 Duoneb AEROSOL 01/21/18 20:16 Not Given Q4WA ONE Albuterol/Ipratropium 3 ml 01/21/18 22:00 01/21/18 21:45 Duoneb AEROSOL 3 ml Q4WA JUANJOSE Administration Alteplase, Recombinant 10 mg 01/28/18 15:30 01/28/18 15:45 Cathflo Activase IPL 01/28/18 15:31 10 mg O ONE Administration Alteplase, Recombinant 10 mg 02/01/18 09:00 Cathflo Activase IPL 02/01/18 09:01 O ONE Amiodarone HCl 400 mg 01/22/18 16:24 01/29/18 09:14 Pacerone PO 01/29/18 09:01 400 mg BID JUANJOSE Administration Amoxicillin/Clavulanate Potassium 875 mg 01/25/18 08:00 01/25/18 17:06 Augmentin 875/125 PO 01/26/18 01:00 875 mg BIDWM JUANJOSE Administration Arformoterol Tartrate 15 mcg 01/22/18 09:00 01/22/18 09:15 Brovana Neb AEROSOL 15 mcg BID JUANJOSE Administration Bumetanide 2 mg 01/26/18 15:00 01/29/18 09:13 Bumex 2.5 Mg/10 Ml Inj IVP 2 mg DAILY JUANJOSE Administration Diltiazem HCl 60 mg 01/22/18 12:00 01/22/18 12:26 Cardizem Sr 60 Mg (12 Hr) PO 60 mg O JUANJOSE Administration Diltiazem HCl 180 mg 01/23/18 13:00 01/27/18 09:04 Cardizem Cd 180 Mg PO 180 mg DAILY JUANJOSE Administration Enoxaparin Sodium 40 mg 01/22/18 09:00 01/23/18 08:22 Lovenox SQ 40 mg DAILY JUANJOSE Administration Famotidine 20 mg 01/25/18 21:00 01/31/18 08:53 Pepcid PO 20 mg BID JUANJOSE Administration Furosemide 40 mg 01/25/18 12:14 01/25/18 12:24 Lasix 40 Mg/4 Ml IVP 01/25/18 12:15 40 mg O ONE Administration Sodium Chloride 1,000 mls @ 999.9 mls/hr 01/21/18 19:48 01/23/18 22:19 Normal Saline IV 01/21/18 20:47 Infused .Q1H ONE Infusion Levofloxacin/Dextrose 750 mg in 150 mls @ 100 mls/hr 01/21/18 20:15 01/22/18 21:54 Levaquin Premix IV Infused Q24H [facility] Infusion Sodium Chloride 1,000 mls @ 50 mls/hr 01/21/18 20:15 01/24/18 15:15 Normal Saline IV Infused .Q20H [facility] Infusion Levofloxacin 750 mg 01/23/18 20:30 01/24/18 06:30 Levaquin PO 750 mg ACB JUANJOSE Administration Methylprednisolone Sodium Succinate 62.5 mg 01/22/18 12:00 01/22/18 12:26 Solu-Medrol IVP 62.5 mg O JUANJOSE Administration Metoprolol Tartrate 50 mg 01/27/18 22:00 01/27/18 21:56 Lopressor PO 01/27/18 22:01 50 mg ONE TIME JUANJOSE Administration Nystatin 5 ml 01/25/18 13:00 01/30/18 08:38 Mycostatin PO 01/30/18 12:59 5 ml QID JUANJOSE Administration Ondansetron HCl 4 mg 01/21/18 17:39 01/21/18 18:54 Zofran IVP 01/21/18 17:40 4 mg O ONE Administration Pharmacy Consult each 01/28/18 20:50 Pharmacy Consult - Fall Risk 01/28/18 20:51 ONE TIME ONE Potassium Chloride 20 meq 01/25/18 12:14 01/25/18 12:24 K-Dur 20 Meq Tablet PO 01/25/18 12:15 20 meq O ONE Administration Potassium Chloride 20 meq 01/30/18 13:42 01/30/18 14:03 K-Dur 20 Meq Tablet PO 01/30/18 13:43 20 meq O ONE Administration Potassium Chloride 40 meq 01/31/18 09:03 01/31/18 09:33 K-Dur 20 Meq Tablet PO 01/31/18 09:04 40 meq O ONE Administration Potassium Chloride 40 meq 01/31/18 13:36 01/31/18 14:32 K-Dur 20 Meq Tablet PO 01/31/18 13:37 40 meq O ONE Administration Prednisone 40 mg 01/23/18 16:47 01/27/18 09:03 Deltasone 20 Mg PO 01/27/18 08:01 40 mg WB JUANJOSE Administration Prednisone 20 mg 01/28/18 08:00 01/28/18 08:52 Deltasone 20 Mg PO 02/02/18 07:59 20 mg WB JUANJOSE Administration Sodium Phosphate 250 mg 01/24/18 17:30 01/26/18 20:26 K-Phos *Neutral* Tablet PO 250 mg WM JUANJOSE Administration Sucralfate 1 gm 01/23/18 17:00 01/31/18 12:06 Carafate Slurry PO 1 gm ACHS JUANJOSE Administration Results 02/02/18 04:19 02/02/18 04:19 CBC 02/02/18 Range/Units 04:19 WBC 9.4 (4.5-11.0) T/MM3 RBC 3.42 L (4.00-5.20) M/MM3 Hgb 10.2 L (12-16) GM/DL Hct 31.7 L (36-46) % Plt Count 335 (130-400) T/MM3 Neut # (Auto) 7.2 (1.8-7.7) T/MM3 Lymph # (Auto) 1.2 (1-4.8) T/MM3 [place] # (Auto) 0.8 (0-0.8) T/MM3 Eos # (Auto) 0.1 (0-0.5) T/MM3 Baso # (Auto) 0.0 (0-0.2) T/MM3 Comprehensive Metabolic Panel 04/10/18 Range/Units 04:19 Sodium 136 (134-144) MEQ/L Potassium 4.0 (3.6-5) MEQ/L Chloride 99 (98-107) MEQ/L Carbon Dioxide 32 H (22-30) MEQ/L BUN 17.0 (7-17) MG/DL Creatinine 0.9 (0.7-1.2) mg/dL Glucose 85 (65-110) MG/DL Calcium 7.6 L (8.4-10.2) MG/DL Intake and Output 02/01/18 02/02/18 02/02/18 22:59 06:59 14:59 Intake Total 1140 / 1140 200 / 200 100 / 100 Output Total 186 / 186 365 / 365 1200 / 1200 Balance 954 / 954 -165 / -165 -1100 / -1100 Intake: IV 100 / 100 Ceftriaxone 1 g In Ns 100 ml @ 100 / 100 200 mls/hr IV Q24H [facility] Rx#: [id number] Oral 1140 / 1140 200 / 200 Output: Urine 150 / 150 350 / 350 1200 / 1200 Chest Tube Drainage Right Posterior Chest Other: Urine Appearance Clear Clear Clear Urine Color Yellow Yellow Yellow Urine Odor Normal Normal Normal Stool Color Brown Stool Consistency Loose Size of Bowel Movement Smear Moderate # Voids 1 # Bowel Movements 1 Weight 69.7 kg Patient Weight 02/03/18 06:59 Weight 69.7 kg Assessment and Plan - Assessment and Plan (1) CAP (community acquired pneumonia) Current visit: Yes Status: Acute (2) Hyponatremia Problem details: POA-118 Current visit: Yes Status: Resolved (3) COPD (chronic obstructive pulmonary disease) Current visit: Yes Status: Chronic (4) HTN (hypertension) Current visit: Yes Status: Chronic (5) Atrial fibrillation with RVR Current visit: Yes Status: Resolved (6) Aortic stenosis Current visit: Yes Status: Chronic (7) Pulmonary hypertension Current visit: Yes Status: Chronic (8) Pacemaker Current visit: Yes Status: Chronic (9) Diastolic CHF, acute Current visit: Yes Status: Acute (10) NSVT (nonsustained ventricular tachycardia) Current visit: Yes Status: Acute - Attestation Attestation Narrative: 02/02/18 12:33 Recommendation After examining the patient I agree with the above assessment. I am involved in the formulation of the patient's plan of care. Hospital Course Summary Disclaimer: The visit summary below is not to be considered part of the above Progress Note.
--- NOTE | 2018-01-28 13:46 | XRay Report ---
Indication: POST CHEST TUBE PROCEDURE: XR chest 1V: Encounter: Initial Comparison: Chest CT from yesterday Findings: New small bore right sided pleural drain in place with evacuation of some of the prior loculated right pleural effusion. Basilar pleural effusion remains. No pneumothorax. Left lung is stable and grossly clear. Heart size and may stomach contours are unchanged. Hiatal hernia. Impression: New right-sided pleural drain without evidence of pneumothorax. .
--- NOTE | 2018-01-28 13:58 | Ultrasound Report ---
Indication: CHEST TUBE PLACEMENT PROCEDURE: US chest real time w/ image: Encounter: Initial Comparison: Chest CT from yesterday Technique/findings/ Impression: Grayscale sonographic imaging of the right chest was performed demonstrating a small to moderate size pocket of loculated fluid in the right posterior chest. .
[2018-01-28] MEDS ORDERED: ALTEPLASE (Cathflo*) 2mg INJECTION IPL ONE (15:30)
[2018-01-28] MEDS ORDERED: FALL RISK - PHARMACY CONSULT MC ONE (20:50)
[2018-01-29] MEDS: ALBUTEROL/IPRATROPIUM 2.5mg-0.5mg/3ml NEB AEROSOL SCH ×5 (04:50→19:00)
[2018-01-29] MEDS: SUCRALFATE 1gm/10ml ORAL LIQUID PO SCH ×4 (06:16→20:48)
[2018-01-29] MEDS: PANTOPRAZOLE 40 MG TABLET PO SCH (06:16)
[2018-01-29] MEDS: ARFORMOTEROL NEB 15mcg/2ml AEROSOL SCH ×2 (07:55→20:58)
[2018-01-29] MEDS: BUDESONIDE INH.SOLN 0.5mg/2ml NEB AEROSOL SCH ×2 (07:55→20:58)
--- NOTE | 2018-01-29 08:26 | XRay Report ---
Indication: pleural effusion PROCEDURE: XR chest 1V: Encounter: Initial Comparison: January 28, 2018 Findings: Small bore right pleural drain remains with the tip in stable position. Interval decrease in right pleural effusion. No pneumothorax. Small left effusion is stable. Emphysema. Left pacemaker. Heart size and mediastinal contours are stable. Hiatal hernia. Impression: Continued decrease in right pleural fluid with a drain in place. .
[2018-01-29] MEDS: APIXABAN 5 MG TABLET PO SCH ×2 (09:13→20:48)
[2018-01-29] MEDS: NYSTATIN 500,000 units/5 ml ORAL LIQUID PO SCH ×4 (09:13→20:48)
[2018-01-29] MEDS: BUMETANIDE 2.5mg/10ml INJECTION IVP SCH (09:13)
[2018-01-29] MEDS: AMIODARONE 200 MG TABLET PO SCH ×2 (09:14→20:49)
[2018-01-29] MEDS: FAMOTIDINE 20 MG TABLET PO SCH ×2 (09:14→20:49)
--- NOTE | 2018-01-29 09:34 | Pulmonology Progress Note ---
Subjective Principal diagnosis: Atrial Fibrillation Interval history: Pt sitting up in bed eating, states stable SOB and minimal cough and sputum noted. Exam Vital signs: Temperature 99.0 F 01/29/18 07:33 Pulse Rate 64 01/29/18 07:33 Respiratory Rate 20 01/29/18 07:55 Blood Pressure 131/58 01/29/18 07:33 Pulse Oximetry 92 01/29/18 07:55 Inpatient Medications: Generic Name Dose Route Start Last Admin Trade Name Freq PRN Reason Stop Dose Admin Acetaminophen 325 - 650 mg 01/21/18 20:15 01/22/18 11:42 Tylenol PO 650 mg Q5H PRN Administration Discomfort Hydrocodone Bitart/Acetaminophen 1 tab 01/23/18 16:45 [place] 5/325 PO Q4H PRN Pain Albuterol/Ipratropium 3 ml 01/27/18 11:00 01/29/18 04:50 Duoneb AEROSOL Not Given RTQID JUANJOSE Amiodarone HCl 200 mg 01/29/18 21:00 Pacerone PO 02/05/18 09:01 BID JUANJOSE Amiodarone HCl 200 mg 02/06/18 09:00 Pacerone PO DAILY JUANJOSE Apixaban 5 mg 01/23/18 21:00 01/29/18 09:13 Eliquis PO 5 mg BID JUANJOSE Administration Arformoterol Tartrate 15 mcg 01/22/18 19:00 01/29/18 07:55 Brovana Neb AEROSOL 15 mcg RTBID JUANJOSE Administration Budesonide 0.5 mg 01/22/18 07:00 01/29/18 07:55 Pulmicort Inhalation AEROSOL 0.5 mg RTBID JUANJOSE Administration Bumetanide 2 mg 01/26/18 15:00 01/29/18 09:13 Bumex 2.5 Mg/10 Ml Inj IVP 2 mg DAILY JUANJOSE Administration Famotidine 20 mg 01/25/18 21:00 01/29/18 09:14 Pepcid PO 20 mg BID JUANJOSE Administration Ceftriaxone Sodium 1 g/ Sodium 100 mls @ 200 mls/hr 01/28/18 10:15 01/28/18 12:18 Chloride IV Infused Q24H JUANJOSE Infusion Metoprolol Tartrate 50 mg 01/27/18 13:30 01/29/18 09:13 Lopressor PO 50 mg BIDWM JUANJOSE Administration Nystatin 5 ml 01/25/18 13:00 01/29/18 09:13 Mycostatin PO 01/30/18 12:59 5 ml QID JUANJOSE Administration Ondansetron HCl 4 mg 01/21/18 20:15 Zofran IVP Q6H PRN Nausea &/or vomiting Pantoprazole Sodium 40 mg 01/28/18 06:30 01/29/18 06:16 Protonix Tab PO 40 mg ACB JUANJOSE Administration Senna/Docusate Sodium 1 tab 01/21/18 20:15 Senna Plus Tablet PO BID PRN Constipation Sodium Chloride 10 - 80 ml 01/21/18 17:39 01/22/18 12:27 Iv Flush IVF 10 ml PRN PRN Administration Flushing Sucralfate 1 gm 01/23/18 17:00 01/29/18 06:16 Carafate Slurry PO 1 gm ACHS JUANJOSE Administration Discontinued Medications Generic Name Dose Route Start Last Admin Trade Name Freq PRN Reason Stop Dose Admin Albuterol Sulfate 2.5 mg 01/22/18 07:00 01/28/18 09:03 Proventil Neb (0.083%) AEROSOL Not Given RTQID JUANJOSE Albuterol/Ipratropium 3 ml 01/21/18 17:39 01/21/18 18:59 Duoneb AEROSOL 01/21/18 17:40 3 ml O ONE Administration Albuterol/Ipratropium 3 ml 01/21/18 20:15 01/23/18 22:20 Duoneb AEROSOL 01/21/18 20:16 Not Given Q4WA ONE Albuterol/Ipratropium 3 ml 01/21/18 22:00 01/21/18 21:45 Duoneb AEROSOL 3 ml Q4WA JUANJOSE Administration Alteplase, Recombinant 10 mg 01/28/18 15:30 01/28/18 15:45 Cathflo Activase IPL 01/28/18 15:31 10 mg O ONE Administration Amiodarone HCl 400 mg 01/22/18 16:24 01/29/18 09:14 Pacerone PO 01/29/18 09:01 400 mg BID JUANJOSE Administration Amoxicillin/Clavulanate Potassium 875 mg 01/25/18 08:00 01/25/18 17:06 Augmentin 875/125 PO 04/03/18 01:00 875 mg BIDWM JUANJOSE Administration Arformoterol Tartrate 15 mcg 01/22/18 09:00 01/22/18 09:15 Brovana Neb AEROSOL 15 mcg BID JUANJOSE Administration Diltiazem HCl 60 mg 01/22/18 12:00 01/22/18 12:26 Cardizem Sr 60 Mg (12 Hr) PO 60 mg O JUANJOSE Administration Diltiazem HCl 180 mg 01/23/18 13:00 01/27/18 09:04 Cardizem Cd 180 Mg PO 180 mg DAILY JUANJOSE Administration Enoxaparin Sodium 40 mg 01/22/18 09:00 01/23/18 08:22 Lovenox SQ 40 mg DAILY JUANJOSE Administration Furosemide 40 mg 01/25/18 12:14 01/25/18 12:24 Lasix 40 Mg/4 Ml IVP 01/25/18 12:15 40 mg O ONE Administration Sodium Chloride 1,000 mls @ 999.9 mls/hr 01/21/18 19:48 01/23/18 22:19 Normal Saline IV 01/21/18 20:47 Infused .Q1H ONE Infusion Levofloxacin/Dextrose 750 mg in 150 mls @ 100 mls/hr 01/21/18 20:15 01/22/18 21:54 Levaquin Premix IV Infused Q24H JUANJOSE Infusion Sodium Chloride 1,000 mls @ 50 mls/hr 01/21/18 20:15 01/24/18 15:15 Normal Saline IV Infused .Q20H JUANJOSE Infusion Levofloxacin 750 mg 01/23/18 20:30 01/24/18 06:30 Levaquin PO 750 mg ACB JUANJOSE Administration Methylprednisolone Sodium Succinate 62.5 mg 01/22/18 12:00 01/22/18 12:26 Solu-Medrol IVP 62.5 mg O JUANJOSE Administration Metoprolol Tartrate 50 mg 01/27/18 22:00 01/27/18 21:56 Lopressor PO 01/27/18 22:01 50 mg ONE TIME JUANJOSE Administration Ondansetron HCl 4 mg 01/21/18 17:39 01/21/18 18:54 Zofran IVP 01/21/18 17:40 4 mg O ONE Administration Pharmacy Consult each 01/28/18 20:50 Pharmacy Consult - Fall Risk 01/28/18 20:51 ONE TIME ONE Potassium Chloride 20 meq 01/25/18 12:14 01/25/18 12:24 K-Dur 20 Meq Tablet PO 01/25/18 12:15 20 meq O ONE Administration Prednisone 40 mg 01/23/18 16:47 01/27/18 09:03 Deltasone 20 Mg PO 01/27/18 08:01 40 mg WB JUANJOSE Administration Prednisone 20 mg 01/28/18 08:00 01/28/18 08:52 Deltasone 20 Mg PO 02/02/18 07:59 20 mg WB JUANJOSE Administration Sodium Phosphate 250 mg 01/24/18 17:30 01/26/18 20:26 K-Phos *Neutral* Tablet PO 250 mg WM JUANJOSE Administration - Constitutional no acute distress, well nourished, cooperative - Routine HEENT Exam Head: Present: normocephalic, atraumatic Eye: Present: EOMI, PERRL ENT: Present: mucous membranes moist - Routine Neck Exam Present: full ROM, trachea midline - Routine Respiratory Exam Present: decreased breath sounds. Absent: accessory muscle use, patient mechanically ventilated - Routine Cardiovascular Exam Present: RRR, S1, S2, no murmur - Routine Abdominal Exam Present: soft, normoactive bowel sounds - Routine Extremities Exam Present: edema, non tender, full ROM. Absent: cyanosis, clubbing - Routine Back/Spine/Pelvis Exam Back/Spine: Present: full ROM - Routine Skin Exam Present: intact, dry. Absent: cyanosis - Routine Neurological Exam Present: alert, oriented X3, CN II-XII intact - Routine Psychiatric Exam Present: normal affect, normal thought process, good judgment Results - Laboratory Findings Laboratory: Laboratory Results - last 48 hr 01/28/18 01/28/18 04:26 04:26 WBC 17.8 H RBC 3.62 L Hgb 10.9 L Hct 32.7 L MCV 90.3 MCH 30.1 MCHC 33.3 RDW Std Deviation 47.7 Plt Count 261 MPV 8.7 L Neutrophils % (Manual) 86.0 H Lymphocytes % (Manual) 10.0 L Monocytes % (Manual) 2.0 Eosinophils % (Manual) 1.0 Metamyelocytes % 1.0 H Neutrophils # (Manual) 15.3 H Lymphocytes # (Manual) 1.8 Monocytes # (Manual) 0.4 Eosinophils # (Manual) 0.2 Metamyelocytes # 0.2 RBC Morph Comment Normal Turbidity < 20 Sodium 136 Potassium 3.9 Chloride 98 Carbon Dioxide 32 H Anion Gap 6 BUN 18.0 H Creatinine 0.8 GFR Calculation 70 BUN/Creatinine Ratio 23 Glucose 86 Calculated Osmolality 263 Calcium 7.8 L Magnesium 2.3 Icterus Index < 2 Specimen Hemolysis < 15 - Diagnostic Findings Chest x-ray: image reviewed (CXR: slightly improved R effusion) Assessment and Plan - Assessment and Plan CAP COPD exacerbation Complex parapneumonic effusion Atrial fibrillation Plan: Pt currently on O2 at 1L per NC and tolerating, wean to keep sats 90-95%. R pigtail in place, drained 100ml overnoc and cont to drain, CXR with slightly better effusion s/p TPA yesterday. Currently on pulmicort/brovana BID and a/a QID, off steroids at this time, no wheezing or increase in SOB. On Rocephin for pna, WBC stable, afebrile, sputum cx showing normal zahra, pleural fluid stain negative for organisms, follow cx. Will monitor pigtail over weekend, check CXR on thursday. - Time Spent With Patient Total time spent is greater than 50% in coordination of care (as documented) at patient's floor/unit and/or counseling patient: less than 15 minutes
[2018-01-29] MEDS: CEFTRIAXONE 1 G in NS 100 ML IV SCH (11:09)
--- NOTE | 2018-01-29 12:12 | Progress Note ---
- Date 01/29/18 Subjective: Jamila continues to have pain in her back from the right pigtail. She states that her breathing feels about the same - no better, no worse. She hasn't been coughing much. She denies feeling dizzy or lightheaded. She states that her diarrhea has returned (she didn't have any for a couple of days - she often has loose stools, which she thinks is from some of the meds she's on). Objective Vital signs: Temperature 99.0 F 01/29/18 07:33 Pulse Rate 64 01/29/18 07:33 Respiratory Rate 16 01/29/18 09:57 Blood Pressure 131/58 01/29/18 07:33 Pulse Oximetry 91 01/29/18 09:57 Rhythm: Normal Sinus Rhythm Height/Weight/BMI: Height 1.61 m Weight 70.5 kg Body Mass Index 26.6 - Constitutional Present: no acute distress, well nourished, well developed, obese - Routine HEENT Exam Head: Present: normocephalic Eye: Present: PERRL. Absent: conjunctival icterus, scleral injection - Routine Respiratory Exam Present: decreased breath sounds (R>L) - Routine Cardiovascular Exam Present: RRR, S1, S2 - Routine Abdominal Exam Present: soft, normoactive bowel sounds, non distended, non tender - Routine Extremities Exam Present: edema (BLE) - Routine Skin Exam Present: intact, dry, warm Comments: dressing to right posterior ribs is intact. There is dried drainage on the gauze. - Routine Neurological Exam Present: alert, oriented X3, normal speech - Routine Psychiatric Exam Present: normal affect, normal thought process, cooperative Results - Labs CBC & Chem 7: 01/28/18 04:26 01/28/18 04:26 Microbiology Results: Microbiology 01/28/18 12:50 Pleural Fluid Gram Stain - Final 01/28/18 12:50 Pleural Fluid Body Fluid Culture - Preliminary Culture Initiated - Results Pending 01/22/18 12:47 Sputum, Expectorated Gram Stain - Final 01/22/18 12:47 Sputum, Expectorated Sputum Culture - Final Normal Respiratory Bridgette including Yeast Present Assessment and Plan (1) CAP (community acquired pneumonia) Current visit: Yes Status: Acute (2) Hyponatremia Problem details: POA-118 Current visit: Yes Status: Resolved (3) Atrial fibrillation with RVR Current visit: Yes Status: Acute Assessment and Plan: Assessment: New onset A fib with RVR-Eliquis initiated 01/23/18 NSVT on 01/27/18-diltiazem dc'd and metoprolol initiated Hyponatremia-118 on admission-resolved CAP-RML/RLL; antibiotics completed Pleural effusion, multiloculated-01/27/18 COPD HTN Nausea/Vomiting-resolved Dysphagia-01/23/18 CAD Valvular heart disease-/TR Hypophosphatemia-resolved Thrush (tongue)-01/25/18 Plan: Had about 100 mL output from pigtail catheter to right lung. CXR today shows decreasing effusion. No further episodes of NSVT last night. Cardiology stopped diltiazem and started metoprolol yesterday. Ceftriaxone resumed on 01/28 -- may be contributing to diarrhea. Start Culturelle. WBC still elevated at 17.8 (prednisone had just been dc'd). Continue PT: she ambulated 380 feet today with FWW but needs to manage O2 tank and chest tube. Sats down to 87% after ambulation but she recovered within 30 sec of rest. D/W Anabela Pang APRN and Stephenie Ricardo APRN. DVT Prophylaxis: Eliquis GI Prophylaxis: Pepcid Resuscitation Status: Full Code - Physician Narrative Physician: Julia Dennis MD Narrative: Date: 01/29/18 Time: 1899 I have independently evaluated and examined this patient. I reviewed the chart, the patient's history, and the SPORTS DEVELOPMENT OFFICER/PA's documented findings as above. We discussed and formulated the assessment and plan as above with additions as below: Mrs. Harden reports that she is generally doing well. She reports minimal dyspnea and is tolerating the pigtail catheter well. She reports mild diarrhea again today after it had previously resolved. Nursing reports 3 loose stools today. No recurrent arrhythmias. NAD, alert, respirations nonlabored, diminished breath sounds Minimal residual white plaque on the lateral aspects of tongue Doing well Portable chest x-ray reviewed by myself-pigtail catheter stable, pleural effusion less evident (but was clear on lateral view originally) Discussed with Dr. Garcia-Will send to radiology tomorrow for PA/lateral chest x-ray with chest tube clamped. Generally doing well Culture of pleural fluid negative after 24 hours. Hospital Course Summary Disclaimer: The visit summary below is not to be considered part of the above Progress Note. Hospital Course: 01/21/18 1. CAP with no hypoxia currently--cxs, levaquin as per her oyster bed worker rec today. Nebs. 2. COPD--brovana and duoneb 3. Hyponatremia due to HCTZ and free water excess most likely. NS and recheck in AM holding HCTZ. 4. Essential HTN--hold HCTZ and monitor. 5. N/V likely due to lortab, monitor with 1. possible contributor. LFTs fine. 01/22/18 New onset atrial fibrillation present early this morning. Obtain troponin, obtain echocardiogram. Telemetry initiated. Obtain serum/urine osm, urine sodium. Continue to hold HCTZ. Trend sodium. Obtain TSH Monitor I/O Continue antibiotics and start steroids; continue breathing treatments, RT consult. Consult patient's corporate associate attorney (Emilee) and oyster bed worker (Radha) 01/23/18 Day 3 Levaquin for community-acquired pneumonia. Convert to oral Levaquin. Repeat chest x-ray in a.m. Continue breathing treatments/O2 as needed. Initiate prednisone-intended to start earlier today. Sodium has improved progressively off HCTZ and with volume replacement. Undetectable urine sodium consistent with volume depletion. BUN 26--> 14 with hydration. Cardiac rhythm stabilizing, in sinus rhythm at present. Troponins unremarkable. Echocardiogram with normal LV function and moderate aortic stenosis, moderate TR , moderate pulmonary hypertension. Appreciate assistance offered by cardiology. Increased dysphasia described by patient-Carafate suspension initiated. Minimal symptoms prior to nausea/vomiting prior to hospitalization. 01/24/18 Day 4 Levaquin for community-acquired pneumonia. Converted to oral Levaquin yesterday and we'll discontinue today due to interaction with amiodarone. Convert to Augmentin for 1-3 days. Repeat chest x-ray with improvement in infiltrate. Continue prednisone 40 mg daily 5 days. Sodium has normalized off HCTZ and with volume replacement. Undetectable urine sodium consistent with volume depletion. Good oral intake, discontinue IV fluids. Eliquis initiated yesterday per cardiology, remains on amiodarone and diltiazem for atrial fibrillation. Echocardiogram with normal LV function and moderate aortic stenosis, moderate TR , moderate pulmonary hypertension. Increased dysphagia described by patient yesterday-Carafate suspension initiated and symptoms slightly improved today. Phosphorus supplement initiated-reassess phosphorus level in a couple of days. 01/25/18 Has had 4 days of Levaquin. Today started on Augmentin as Levaquin was discontinued due to interaction with amiodarone. Complete 5 days of antibiotics today. Continue prednisone 40 mg daily 5 days (through January 27) Appears fluid overloaded today. IV fluids were discontinued yesterday. Lasix 40 mg IV and potassium 20 mEq po given1. Phosphorus initiated yesterday due to hypophosphatemia. Repeat phosphorus level in a.m. Eliquis initiated 01/23/18 per cardiology, remains on amiodarone and diltiazem for atrial fibrillation. Start nystatin for thrush. Pepcid added for persistent dysphasia. Per cardiology: Will start Bumex 2mg IV daily - start today and monitor response Patient likely in acute diastolic heart failure due to rapid atrial fibrillation - she has moderate will monitor blood pressure closely Possible VT noted on Tele Will obtain [facility] PPM interrogation 01/26/18 Completed 5 days of antibiotics yesterday. Continue prednisone through tomorrow for pulmonary inflammation associated with pneumonia. Chest x-ray in the morning. Chronic COPD-reassessed by Dr. Garcia, no additional changes in regimen recommended at this time. Pacemaker was interrogated earlier today due to presence of wide complex tachycardia which appeared to be pacemaker dependent tachycardia prompting pacemaker adjustment. SVT and previously identified A. fib/flutter with RVR was identified on interrogation but there was no evidence of NSVT. Pacemaker check plan 2-4 weeks after discharge to evaluate modifications and pacemaker settings made today. Cardiology is converted to oral Bumex to continue diuresis. Continue nystatin. Phosphorus improved-discontinue replacement. PT/OT evaluations in a.m. in anticipation of discharge. 01/27/18 Titrate prednisone to 20 mg daily. Chest x-ray improving however there is suggestion of loculated pleural effusion ; discussed with Dr. Garcia--> CT chest with contrast. Discussed recurrent wide complex tachycardia with cardiology-strip reviewed by myself, morphology overnight different than prior pacemaker mediated tachycardia. Pacemaker check planned 2-4 weeks after discharge to evaluate modifications in pacemaker settings made for/3. Diuresing well; continue amiodarone and Eliquis for recent atrial fibrillation. Continue nystatin. Dysphasia/heartburn slightly improved; will convert from Pepcid to Protonix given ongoing heartburn. Speech therapy evaluation. PT/OT evaluated today and recommended home with home health; may require walker. 01/28/18 CT chest showed multiloculated effusion consistent with complex parapneumonic effusion. Dr Garcia DC'd prednisone. Pigtail catheter was placed under US guidance. Plan to instill TPA to enhance drainage per pulm. . Recommend continuing antibiotics for CAP. Ceftriaxone was restarted today. ( Initial tx for CAP was completed 01/25/18) Pleural fluid sent for culture. Cardiology following. 01/29/18 Had about 100 mL output from pigtail catheter to right lung. CXR today shows decreasing effusion. No further episodes of NSVT last night. Cardiology stopped diltiazem and started metoprolol yesterday. Ceftriaxone resumed on 01/28 -- may be contributing to diarrhea. Start Culturelle. WBC still elevated at 17.8 (prednisone had just been dc'd). Continue PT: she ambulated 380 feet today with FWW but needs to manage O2 tank and chest tube. Sats down to 87% after ambulation but she recovered within 30 sec of rest.
--- NOTE | 2018-01-29 15:17 | Cardiology Progress Note ---
<Anabela Pang M - Last Filed: 02/01/18 11:49> Subjective Principal diagnosis: Atrial Fibrillation Interval history: Kaitlin is seen in f/u of new onset AFib, , PPM. She is in her bed, she just had chest tube placed by Pulm. She denies complaints and is in no distress. Denies palpitations and denies chest pain. Exam Vital signs: Temperature 99.0 F 01/29/18 07:33 Pulse Rate 62 01/29/18 08:00 Respiratory Rate 22 01/29/18 13:00 Blood Pressure 131/58 01/29/18 07:33 Pulse Oximetry 94 01/29/18 13:00 Inpatient Medications: Generic Name Dose Route Start Last Admin Trade Name Freq PRN Reason Stop Dose Admin Acetaminophen 325 - 650 mg 01/21/18 20:15 01/22/18 11:42 Tylenol PO 650 mg Q5H PRN Administration Discomfort Hydrocodone Bitart/Acetaminophen 1 tab 01/23/18 16:45 [place] 5/325 PO Q4H PRN Pain Albuterol/Ipratropium 3 ml 01/27/18 11:00 01/29/18 13:00 Duoneb AEROSOL 3 ml RTQID JUANJOSE Administration Amiodarone HCl 200 mg 01/29/18 21:00 Pacerone PO 02/05/18 09:01 BID JUANJOSE Amiodarone HCl 200 mg 02/06/18 09:00 Pacerone PO DAILY JUANJOSE Apixaban 5 mg 01/23/18 21:00 01/29/18 09:13 Eliquis PO 5 mg BID JUANJOSE Administration Arformoterol Tartrate 15 mcg 01/22/18 19:00 01/29/18 07:55 Brovana Neb AEROSOL 15 mcg RTBID JUANJOSE Administration Budesonide 0.5 mg 01/22/18 07:00 01/29/18 07:55 Pulmicort Inhalation AEROSOL 0.5 mg RTBID JUANJOSE Administration Bumetanide 2 mg 01/30/18 09:00 Bumex 1 Mg Tab PO DAILY JUANJOSE Famotidine 20 mg 01/25/18 21:00 01/29/18 09:14 Pepcid PO 20 mg BID JUANJOSE Administration Ceftriaxone Sodium 1 g/ Sodium 100 mls @ 200 mls/hr 01/28/18 10:15 01/29/18 11:39 Chloride IV Infused Q24H JUANJOSE Infusion Lactobacillus Acidophilus 2 cap 01/29/18 17:30 Culturelle PO BIDWM JUANJOSE Metoprolol Tartrate 50 mg 01/27/18 13:30 01/29/18 09:13 Lopressor PO 50 mg BIDWM JUANJOSE Administration Nystatin 5 ml 01/25/18 13:00 01/29/18 13:11 Mycostatin PO 01/30/18 12:59 5 ml QID JUANJOSE Administration Ondansetron HCl 4 mg 01/21/18 20:15 Zofran IVP Q6H PRN Nausea &/or vomiting Pantoprazole Sodium 40 mg 01/28/18 06:30 01/29/18 06:16 Protonix Tab PO 40 mg ACB JUANJOSE Administration Senna/Docusate Sodium 1 tab 01/21/18 20:15 Senna Plus Tablet PO BID PRN Constipation Sodium Chloride 10 - 80 ml 01/21/18 17:39 01/22/18 12:27 Iv Flush IVF 10 ml PRN PRN Administration Flushing Sucralfate 1 gm 01/23/18 17:00 01/29/18 11:10 Carafate Slurry PO 1 gm ACHS JUANJOSE Administration Discontinued Medications Generic Name Dose Route Start Last Admin Trade Name Freq PRN Reason Stop Dose Admin Albuterol Sulfate 2.5 mg 01/22/18 07:00 01/28/18 09:03 Proventil Neb (0.083%) AEROSOL Not Given RTQID JUANJOSE Albuterol/Ipratropium 3 ml 01/21/18 17:39 01/21/18 18:59 Duoneb AEROSOL 01/21/18 17:40 3 ml O ONE Administration Albuterol/Ipratropium 3 ml 01/21/18 20:15 01/23/18 22:20 Duoneb AEROSOL 01/21/18 20:16 Not Given Q4WA ONE Albuterol/Ipratropium 3 ml 01/21/18 22:00 01/21/18 21:45 Duoneb AEROSOL 3 ml Q4WA JUANJOSE Administration Alteplase, Recombinant 10 mg 01/28/18 15:30 01/28/18 15:45 Cathflo Activase IPL 01/28/18 15:31 10 mg O ONE Administration Amiodarone HCl 400 mg 01/22/18 16:24 01/29/18 09:14 Pacerone PO 01/29/18 09:01 400 mg BID JUANJOSE Administration Amoxicillin/Clavulanate Potassium 875 mg 01/25/18 08:00 01/25/18 17:06 Augmentin 875/125 PO 01/26/18 01:00 875 mg BIDWM JUANJOSE Administration Arformoterol Tartrate 15 mcg 01/22/18 09:00 01/22/18 09:15 Brovana Neb AEROSOL 15 mcg BID JUANJOSE Administration Bumetanide 2 mg 01/26/18 15:00 01/29/18 09:13 Bumex 2.5 Mg/10 Ml Inj IVP 2 mg DAILY JUANJOSE Administration Diltiazem HCl 60 mg 01/22/18 12:00 01/22/18 12:26 Cardizem Sr 60 Mg (12 Hr) PO 60 mg O JUANJOSE Administration Diltiazem HCl 180 mg 01/23/18 13:00 01/27/18 09:04 Cardizem Cd 180 Mg PO 180 mg DAILY JUANJOSE Administration Enoxaparin Sodium 40 mg 01/22/18 09:00 01/23/18 08:22 Lovenox SQ 40 mg DAILY JUANJOSE Administration Furosemide 40 mg 01/25/18 12:14 01/25/18 12:24 Lasix 40 Mg/4 Ml IVP 01/25/18 12:15 40 mg O ONE Administration Sodium Chloride 1,000 mls @ 999.9 mls/hr 01/21/18 19:48 01/23/18 22:19 Normal Saline IV 01/21/18 20:47 Infused .Q1H ONE Infusion Levofloxacin/Dextrose 750 mg in 150 mls @ 100 mls/hr 01/21/18 20:15 01/22/18 21:54 Levaquin Premix IV Infused Q24H JUANJOSE Infusion Sodium Chloride 1,000 mls @ 50 mls/hr 01/21/18 20:15 01/24/18 15:15 Normal Saline IV Infused .Q20H JUANJOSE Infusion Levofloxacin 750 mg 01/23/18 20:30 01/24/18 06:30 Levaquin PO 750 mg ACB JUANJOSE Administration Methylprednisolone Sodium Succinate 62.5 mg 01/22/18 12:00 01/22/18 12:26 Solu-Medrol IVP 62.5 mg O JUANJOSE Administration Metoprolol Tartrate 50 mg 01/27/18 22:00 04/04/18 21:56 Lopressor PO 01/27/18 22:01 50 mg ONE TIME JUANJOSE Administration Ondansetron HCl 4 mg 01/21/18 17:39 01/21/18 18:54 Zofran IVP 01/21/18 17:40 4 mg O ONE Administration Pharmacy Consult each 01/28/18 20:50 Pharmacy Consult - Fall Risk [facility] 01/28/18 20:51 ONE TIME ONE Potassium Chloride 20 meq 01/25/18 12:14 01/25/18 12:24 K-Dur 20 Meq Tablet PO 01/25/18 12:15 20 meq O ONE Administration Prednisone 40 mg 01/23/18 16:47 01/27/18 09:03 Deltasone 20 Mg PO 01/27/18 08:01 40 mg WB JUANJOSE Administration Prednisone 20 mg 01/28/18 08:00 01/28/18 08:52 Deltasone 20 Mg PO 02/02/18 07:59 20 mg WB JUANJOSE Administration Sodium Phosphate 250 mg 01/24/18 17:30 01/26/18 20:26 K-Phos *Neutral* Tablet PO 250 mg WM JUANJOSE Administration - Constitutional no acute distress, well nourished, cooperative - Routine HEENT Exam Head: Present: normocephalic ENT: Present: mucous membranes moist - Routine Neck Exam Absent: JVD, carotid bruit - Routine Chest/Breast/Axilla Exam Chest wall: Present: tenderness, chest tube - Routine Respiratory Exam Present: decreased breath sounds. Absent: rales, wheezes - Routine Cardiovascular Exam Present: RRR, no murmur - Routine Abdominal Exam Present: soft, normoactive bowel sounds - Routine Extremities Exam Present: edema - Routine Skin Exam Present: intact, dry, warm - Routine Neurological Exam Present: alert, oriented X3 Results 01/28/18 04:26 01/28/18 04:26 Intake and Output 01/29/18 01/29/18 01/29/18 06:59 14:59 22:59 Intake Total 200 / 200 220 / 220 Output Total 695 / 695 600 / 600 Balance -495 / -495 -380 / -380 Intake: IV 100 / 100 Ceftriaxone 1 g In Ns 100 ml @ 100 / 100 200 mls/hr IV Q24H [facility] Rx#: [id number] Oral 200 / 200 120 / 120 Output: Urine 600 / 600 600 / 600 Chest Tube Drainage 95 / 95 Right Posterior Chest 95 / 95 Other: Urine Appearance Clear Clear Urine Color Yellow Yellow Urine Odor Normal Normal Stool Color Brown Green Stool Consistency Loose Size of Bowel Movement Moderate Weight 155 lb 6.814 oz Patient Weight 01/30/18 06:59 Weight 155 lb 6.814 oz - Imaging and Cardiology Imaging & Cardiology Narrative: Date of Exam: 01/29/18 Ordering Provider: Chente Garcia MD Type of Exam(s): XR chest 1V Reason for Exam(s): pleural effusion Indication: pleural effusion PROCEDURE: XR chest 1V: Encounter: Initial Comparison: January 28, 2018 Findings: Small bore right pleural drain remains with the tip in stable position. Interval decrease in right pleural effusion. No pneumothorax. Small left effusion is stable. Emphysema. Left pacemaker. Heart size and mediastinal contours are stable. Hiatal hernia. Impression: Continued decrease in right pleural fluid with a drain in place. 01/29/18 15:15 Assessment and Plan - Assessment and Plan (1) Diastolic CHF, acute Current visit: Yes Status: Acute (2) CAP (community acquired pneumonia) Current visit: Yes Status: Acute (3) Hyponatremia Problem details: POA-118 Current visit: Yes Status: Resolved (4) Atrial fibrillation with RVR Current visit: Yes Status: Resolved (5) HTN (hypertension) Current visit: Yes Status: Chronic (6) Aortic stenosis Current visit: Yes Status: Chronic (7) COPD (chronic obstructive pulmonary disease) Current visit: Yes Status: Chronic (8) Pulmonary hypertension Current visit: Yes Status: Chronic (9) Pacemaker Current visit: Yes Status: Chronic (10) NSVT (nonsustained ventricular tachycardia) Current visit: Yes Status: Acute - Assessment and Plan 01/22/18 Troponin negative. Converted to SR this afternoon, confirmed on ECG, no ischemic changes. TSH wnl. ECHO 01/22/18: moderate , Pa pressures 51mmHg, mild TR. Recommend aggressive rhythm management due to patient and pulmonary hypertension, putting her at greater heart failure risk. Initiate AAT with Amiodarone 400mg bid for 7 days, then 200mg daily. ECG in AM; monitor QT closely in the setting Levaquin antibiotic therapy. Pt refuses anticoagulation at this time; she is advised to start it to reduce stroke risk associated with Afib. Pneumonia, hypoxia, COPD managed per attending. 01/23/18 Pt has been and out of afib since yesterday rates up to 140 seen on tele. On amiodarone 400mg po bid, continue. Initiate diltiazem 180mg daily for improved rate control, hold for sbp <100. Monitor pressures closely, avoid hypotension in setting of . Pt consents to anticoagulation therapy, initiate eliquis 5mg bid, dc lovenox 40mg daily. First dose of eliquis this PM. Pneumonia, hypotnatremia per attending. 01/24/18: In SR, has maintained it most of the day. Continue Amiodarone and Diltiazem. Get ECG in AM to monitor QT. Eliquis 5mg bid. Continue to monitor tele, vitals. 01/25/18 Continue Eliquis Continue Diltiazem 180mg one tablet daily for rate control Continue Amiodarone oral titration to maintain NSR. EKG today revealing NSR, RBBB, Qtc 432 - tolerating Amiodarone well. Monitor tele and vitals Hyponatremia resolved Evaluation of Tele revealing tachycardia in a patient with known RBBB will perform Mg level and consider PPM interrogation BNP today high - was given Lasix 40mg IV X 1 earlier today Mg level high Will start Bumex 2mg IV daily - start today and monitor response Patient likely in acute diastolic heart failure due to rapid atrial fibrillation - she has moderate will monitor blood pressure closely Possible VT noted on Tele Will obtain [facility] PPM interrogation 01/26/18 Patient continues to have runs of dysrhythmia I have just received a call from Carlos Manjarrez PPM rep. It appears that patient is having multiple pacemaker dependent tachycardic events. Carlos has adjusted the PPM to prevent this event. Otherwise, The VT detection has been turned on today. Carlos is seeing multiple events of SVT, Afib vs Aflutter with rapid ventricular rate and no evidence of NSVT Patient will need terminal superintendent anticoagulation therapy as an outpatient. No need for a heart catheterization today as likely her rhythm is not VT We will go ahead and feed patient today and once discharged, will have her follow up with us for a repeat PPM check in 2 to 4 weeks to ensure that her pacemaker dependent tachycardia has resolved. I have informed patient that we will not proceed with a HC today for a couple of reasons - she is on Eliquis and likely her dysrhythmia is not VT. Patient is ok with the plan of care We will change her IV Bumex to oral bumex 1mg po BID Her EF is approx 55%, which is normal Her CHF is likely diastolic heart failure from her dysrhythmia and pneumonia/ hypoxia She will likely be ready for discharge from a cardiac standpoint in 1 to 2 days 01/27/18 NSVT: Start Metoprolol 50mg BID - Stop Cardizem 01/28/18 Chest tube inserted per pulm. - No further NSVT since started metoprolol. - Continue IV Bumex as ordered for diuresis 01/29/18 Change Bumex to 2mg PO daily - No further NSVT on telemetry Continue to monitor Hospital Course Summary Disclaimer: The visit summary below is not to be considered part of the above Progress Note. Hospital Course: 01/21/18 1. CAP with no hypoxia currently--cxs, levaquin as per her washing tub operator rec today. Nebs. 2. COPD--brovana and duoneb 3. Hyponatremia due to HCTZ and free water excess most likely. NS and recheck in AM holding HCTZ. 4. Essential HTN--hold HCTZ and monitor. 5. N/V likely due to lortab, monitor with 1. possible contributor. LFTs fine. 01/22/18 New onset atrial fibrillation present early this morning. Obtain troponin, obtain echocardiogram. Telemetry initiated. Obtain serum/urine osm, urine sodium. Continue to hold HCTZ. Trend sodium. Obtain TSH Monitor I/O Continue antibiotics and start steroids; continue breathing treatments, RT consult. Consult patient's commercial loan underwriter (Emilee) and washing tub operator (Radha) 01/23/18 Day 3 Levaquin for community-acquired pneumonia. Convert to oral Levaquin. Repeat chest x-ray in a.m. Continue breathing treatments/O2 as needed. Initiate prednisone-intended to start earlier today. Sodium has improved progressively off HCTZ and with volume replacement. Undetectable urine sodium consistent with volume depletion. BUN 26--> 14 with hydration. Cardiac rhythm stabilizing, in sinus rhythm at present. Troponins unremarkable. Echocardiogram with normal LV function and moderate aortic stenosis, moderate TR , moderate pulmonary hypertension. Appreciate assistance offered by cardiology. Increased dysphasia described by patient-Carafate suspension initiated. Minimal symptoms prior to nausea/vomiting prior to hospitalization. 01/24/18 Day 4 Levaquin for community-acquired pneumonia. Converted to oral Levaquin yesterday and we'll discontinue today due to interaction with amiodarone. Convert to Augmentin for 1-3 days. Repeat chest x-ray with improvement in infiltrate. Continue prednisone 40 mg daily 5 days. Sodium has normalized off HCTZ and with volume replacement. Undetectable urine sodium consistent with volume depletion. Good oral intake, discontinue IV fluids. Eliquis initiated yesterday per cardiology, remains on amiodarone and diltiazem for atrial fibrillation. Echocardiogram with normal LV function and moderate aortic stenosis, moderate TR , moderate pulmonary hypertension. Increased dysphagia described by patient yesterday-Carafate suspension initiated and symptoms slightly improved today. Phosphorus supplement initiated-reassess phosphorus level in a couple of days. 01/25/18 Has had 4 days of Levaquin. Today started on Augmentin as Levaquin was discontinued due to interaction with amiodarone. Complete 5 days of antibiotics today. Continue prednisone 40 mg daily 5 days (through January 27) Appears fluid overloaded today. IV fluids were discontinued yesterday. Lasix 40 mg IV and potassium 20 mEq po given1. Phosphorus initiated yesterday due to hypophosphatemia. Repeat phosphorus level in a.m. Eliquis initiated 01/23/18 per cardiology, remains on amiodarone and diltiazem for atrial fibrillation. Start nystatin for thrush. Pepcid added for persistent dysphasia. Per cardiology: Will start Bumex 2mg IV daily - start today and monitor response Patient likely in acute diastolic heart failure due to rapid atrial fibrillation - she has moderate will monitor blood pressure closely Possible VT noted on Tele Will obtain [facility] PPM interrogation 01/26/18 Completed 5 days of antibiotics yesterday. Continue prednisone through tomorrow for pulmonary inflammation associated with pneumonia. Chest x-ray in the morning. Chronic COPD-reassessed by Dr. Garcia, no additional changes in regimen recommended at this time. Pacemaker was interrogated earlier today due to presence of wide complex tachycardia which appeared to be pacemaker dependent tachycardia prompting pacemaker adjustment. SVT and previously identified A. fib/flutter with RVR was identified on interrogation but there was no evidence of NSVT. Pacemaker check plan 2-4 weeks after discharge to evaluate modifications and pacemaker settings made today. Cardiology is converted to oral Bumex to continue diuresis. Continue nystatin. Phosphorus improved-discontinue replacement. PT/OT evaluations in a.m. in anticipation of discharge. <Omkar Hebert - Last Filed: 02/02/18 12:39> Exam Vital signs: Temperature 96.9 F 02/02/18 07:00 Pulse Rate 66 02/02/18 07:38 Respiratory Rate 18 02/02/18 11:36 Blood Pressure 129/49 02/02/18 07:00 Pulse Oximetry 97 02/02/18 11:36 Inpatient Medications: Generic Name Dose Route Start Last Admin Trade Name Freq PRN Reason Stop Dose Admin Acetaminophen 325 - 650 mg 01/21/18 20:15 01/22/18 11:42 Tylenol PO 650 mg Q5H PRN Administration Discomfort Hydrocodone Bitart/Acetaminophen 1 tab 01/23/18 16:45 [place] 5/325 PO Q4H PRN Pain Albuterol/Ipratropium 3 ml 01/27/18 11:00 02/02/18 11:36 Duoneb AEROSOL 3 ml RTQID JUANJOSE Administration Amiodarone HCl 200 mg 01/29/18 21:00 02/02/18 09:19 Pacerone PO 02/05/18 09:01 200 mg BID JUANJOSE Administration Amiodarone HCl 200 mg 02/06/18 09:00 Pacerone PO DAILY JUANJOSE Apixaban 5 mg 01/23/18 21:00 02/02/18 09:17 Eliquis PO 5 mg BID JUANJOSE Administration Arformoterol Tartrate 15 mcg 01/22/18 19:00 02/02/18 08:43 Brovana Neb AEROSOL 15 mcg RTBID JUANJOSE Administration Budesonide 0.5 mg 01/22/18 07:00 02/02/18 06:58 Pulmicort Inhalation AEROSOL 0.5 mg RTBID JUANJOSE Administration Bumetanide 2 mg 01/30/18 09:00 02/02/18 09:18 Bumex 1 Mg Tab PO 2 mg DAILY JUANJOSE Administration Famotidine 20 mg 01/31/18 21:00 02/01/18 21:22 Pepcid PO 20 mg HS JUANJOSE Administration Ceftriaxone Sodium 1 g/ Sodium 100 mls @ 200 mls/hr 01/28/18 10:15 02/02/18 11:41 Chloride IV Infused Q24H JUANJOSE Infusion Lactobacillus Acidophilus 2 cap 01/29/18 17:30 02/02/18 09:18 Culturelle PO 2 cap BIDWM JUANJOSE Administration Metoprolol Tartrate 50 mg 01/27/18 13:30 02/02/18 09:18 Lopressor PO 50 mg BIDWM JUANJOSE Administration Nystatin 5 ml 02/01/18 13:00 02/02/18 09:17 Mycostatin PO 5 ml QID JUANJOSE Administration Ondansetron HCl 4 mg 01/21/18 20:15 Zofran IVP Q6H PRN Nausea &/or vomiting Pantoprazole Sodium 40 mg 01/28/18 06:30 02/02/18 07:34 Protonix Tab PO Not Given ACB [facility] Potassium Chloride 20 meq 02/01/18 08:00 02/02/18 09:19 Micro-K 10 Meq Capsule PO 20 meq BIDWM JUANJOSE Administration Senna/Docusate Sodium 1 tab 01/21/18 20:15 Senna Plus Tablet PO BID PRN Constipation Sodium Chloride 10 - 80 ml 01/21/18 17:39 02/01/18 10:12 Iv Flush IVF 10 ml PRN PRN Administration Flushing Sodium Chloride 500 ml 01/31/18 09:32 02/02/18 11:12 Normal Saline IV 500 ml PRN PRN Administration Discontinued Medications Generic Name Dose Route Start Last Admin Trade Name Freq PRN Reason Stop Dose Admin Albuterol Sulfate 2.5 mg 01/22/18 07:00 01/28/18 09:03 Proventil Neb (0.083%) AEROSOL Not Given RTQID JUANJOSE Albuterol/Ipratropium 3 ml 01/21/18 17:39 01/21/18 18:59 Duoneb AEROSOL 01/21/18 17:40 3 ml O ONE Administration Albuterol/Ipratropium 3 ml 01/21/18 20:15 01/23/18 22:20 Duoneb AEROSOL 01/21/18 20:16 Not Given Q4WA ONE Albuterol/Ipratropium 3 ml 01/21/18 22:00 01/21/18 21:45 Duoneb AEROSOL 3 ml Q4WA JUANJOSE Administration Alteplase, Recombinant 10 mg 01/28/18 15:30 01/28/18 15:45 Cathflo Activase IPL 01/28/18 15:31 10 mg O ONE Administration Alteplase, Recombinant 10 mg 02/01/18 09:00 Cathflo Activase IPL 02/01/18 09:01 O ONE Amiodarone HCl 400 mg 01/22/18 16:24 01/29/18 09:14 Pacerone PO 01/29/18 09:01 400 mg BID JUANJOSE Administration Amoxicillin/Clavulanate Potassium 875 mg 01/25/18 08:00 01/25/18 17:06 Augmentin 875/125 PO 01/26/18 01:00 875 mg BIDWM JUANJOSE Administration Arformoterol Tartrate 15 mcg 01/22/18 09:00 01/22/18 09:15 Brovana Neb AEROSOL 15 mcg BID JUANJOSE Administration Bumetanide 2 mg 01/26/18 15:00 01/29/18 09:13 Bumex 2.5 Mg/10 Ml Inj IVP 2 mg DAILY JUANJOSE Administration Diltiazem HCl 60 mg 01/22/18 12:00 01/22/18 12:26 Cardizem Sr 60 Mg (12 Hr) PO 60 mg O JUANJOSE Administration Diltiazem HCl 180 mg 01/23/18 13:00 01/27/18 09:04 Cardizem Cd 180 Mg PO 180 mg DAILY JUANJOSE Administration Enoxaparin Sodium 40 mg 01/22/18 09:00 01/23/18 08:22 Lovenox SQ 40 mg DAILY JUANJOSE Administration Famotidine 20 mg 01/25/18 21:00 01/31/18 08:53 Pepcid PO 20 mg BID JUANJOSE Administration Furosemide 40 mg 01/25/18 12:14 01/25/18 12:24 Lasix 40 Mg/4 Ml IVP 01/25/18 12:15 40 mg O ONE Administration Sodium Chloride 1,000 mls @ 999.9 mls/hr 01/21/18 19:48 01/23/18 22:19 Normal Saline IV 01/21/18 20:47 Infused .Q1H ONE Infusion Levofloxacin/Dextrose 750 mg in 150 mls @ 100 mls/hr 01/21/18 20:15 01/22/18 21:54 Levaquin Premix IV Infused Q24H JUANJOSE Infusion Sodium Chloride 1,000 mls @ 50 mls/hr 01/21/18 20:15 04/01/18 15:15 Normal Saline IV Infused .Q20H J[facility]AN[facility]SE Infusion Levofloxacin 750 mg 01/23/18 20:30 01/24/18 06:30 Levaquin PO 750 mg ACB JUANJOSE Administration Methylprednisolone Sodium Succinate 62.5 mg 01/22/18 12:00 01/22/18 12:26 Solu-Medrol IVP 62.5 mg O JUANJOSE Administration Metoprolol Tartrate 50 mg 01/27/18 22:00 01/27/18 21:56 Lopressor PO 01/27/18 22:01 50 mg ONE TIME JUANJOSE Administration Nystatin 5 ml 01/25/18 13:00 01/30/18 08:38 Mycostatin PO 01/30/18 12:59 5 ml QID JUANJOSE Administration Ondansetron HCl 4 mg 01/21/18 17:39 01/21/18 18:54 Zofran IVP 01/21/18 17:40 4 mg O ONE Administration Pharmacy Consult each 01/28/18 20:50 Pharmacy Consult - Fall Risk 01/28/18 20:51 ONE TIME ONE Potassium Chloride 20 meq 01/25/18 12:14 01/25/18 12:24 K-Dur 20 Meq Tablet PO 01/25/18 12:15 20 meq O ONE Administration Potassium Chloride 20 meq 01/30/18 13:42 01/30/18 14:03 K-Dur 20 Meq Tablet PO 01/30/18 13:43 20 meq O ONE Administration Potassium Chloride 40 meq 01/31/18 09:03 01/31/18 09:33 K-Dur 20 Meq Tablet PO 01/31/18 09:04 40 meq O ONE Administration Potassium Chloride 40 meq 01/31/18 13:36 01/31/18 14:32 K-Dur 20 Meq Tablet PO 01/31/18 13:37 40 meq O ONE Administration Prednisone 40 mg 01/23/18 16:47 01/27/18 09:03 Deltasone 20 Mg PO 01/27/18 08:01 40 mg WB JUANJOSE Administration Prednisone 20 mg 01/28/18 08:00 01/28/18 08:52 Deltasone 20 Mg PO 02/02/18 07:59 20 mg WB JUANJOSE Administration Sodium Phosphate 250 mg 01/24/18 17:30 01/26/18 20:26 K-Phos *Neutral* Tablet PO 250 mg WM JUANJOSE Administration Sucralfate 1 gm 01/23/18 17:00 01/31/18 12:06 Carafate Slurry PO 1 gm ACHS JUANJOSE Administration Results 02/02/18 04:19 02/02/18 04:19 CBC 02/02/18 Range/Units 04:19 WBC 9.4 (4.5-11.0) T/MM3 RBC 3.42 L (4.00-5.20) M/MM3 Hgb 10.2 L (12-16) GM/DL Hct 31.7 L (36-46) % Plt Count 335 (130-400) T/MM3 Neut # (Auto) 7.2 (1.8-7.7) T/MM3 Lymph # (Auto) 1.2 (1-4.8) T/MM3 [place] # (Auto) 0.8 (0-0.8) T/MM3 Eos # (Auto) 0.1 (0-0.5) T/MM3 Baso # (Auto) 0.0 (0-0.2) T/MM3 Comprehensive Metabolic Panel 02/02/18 Range/Units 04:19 Sodium 136 (134-144) MEQ/L Potassium 4.0 (3.6-5) MEQ/L Chloride 99 (98-107) MEQ/L Carbon Dioxide 32 H (22-30) MEQ/L BUN 17.0 (7-17) MG/DL Creatinine 0.9 (0.7-1.2) mg/dL Glucose 85 (65-110) MG/DL Calcium 7.6 L (8.4-10.2) MG/DL Intake and Output 02/01/18 02/02/18 02/02/18 22:59 06:59 14:59 Intake Total 1140 / 1140 200 / 200 100 / 100 Output Total 186 / 186 365 / 365 1200 / 1200 Balance 954 / 954 -165 / -165 -1100 / -1100 Intake: IV 100 / 100 Ceftriaxone 1 g In Ns 100 ml @ 100 / 100 200 mls/hr IV Q24H [facility] Rx#: [id number] Oral 1140 / 1140 200 / 200 Output: Urine 150 / 150 350 / 350 1200 / 1200 Chest Tube Drainage Right Posterior Chest Other: Urine Appearance Clear Clear Clear Urine Color Yellow Yellow Yellow Urine Odor Normal Normal Normal Stool Color Brown Stool Consistency Loose Size of Bowel Movement Smear Moderate # Voids 1 # Bowel Movements 1 Weight 69.7 kg Patient Weight 02/03/18 06:59 Weight 69.7 kg Assessment and Plan - Assessment and Plan (1) CAP (community acquired pneumonia) Current visit: Yes Status: Acute (2) Hyponatremia Problem details: POA-118 Current visit: Yes Status: Resolved (3) COPD (chronic obstructive pulmonary disease) Current visit: Yes Status: Chronic (4) HTN (hypertension) Current visit: Yes Status: Chronic (5) Atrial fibrillation with RVR Current visit: Yes Status: Resolved (6) Aortic stenosis Current visit: Yes Status: Chronic (7) Pulmonary hypertension Current visit: Yes Status: Chronic (8) Pacemaker Current visit: Yes Status: Chronic (9) Diastolic CHF, acute Current visit: Yes Status: Acute (10) NSVT (nonsustained ventricular tachycardia) Current visit: Yes Status: Acute - Attestation Attestation Narrative: 02/02/18 12:39 Recommendation After examining the patient I agree with the above assessment. I am involved in the formulation of the patient's plan of care. Hospital Course Summary Disclaimer: The visit summary below is not to be considered part of the above Progress Note.
[2018-01-29] MEDS: LACTOBACILLUS (15B cfu) CAPSULE PO SCH (17:47)
[2018-01-29] MEDS: SALINE FLUSH 10ml SYRINGE IVF PRN (20:49)
[2018-01-30] MEDS: SUCRALFATE 1gm/10ml ORAL LIQUID PO SCH ×4 (06:03→20:47)
[2018-01-30] MEDS: PANTOPRAZOLE 40 MG TABLET PO SCH (06:04)
[2018-01-30] MEDS: ALBUTEROL/IPRATROPIUM 2.5mg-0.5mg/3ml NEB AEROSOL SCH ×4 (06:37→20:53)
[2018-01-30] MEDS: BUDESONIDE INH.SOLN 0.5mg/2ml NEB AEROSOL SCH ×2 (06:37→21:08)
[2018-01-30] MEDS: FAMOTIDINE 20 MG TABLET PO SCH ×2 (08:38→20:47)
[2018-01-30] MEDS: LACTOBACILLUS (15B cfu) CAPSULE PO SCH ×2 (08:38→17:23)
[2018-01-30] MEDS: APIXABAN 5 MG TABLET PO SCH ×2 (08:38→20:47)
[2018-01-30] MEDS: AMIODARONE 200 MG TABLET PO SCH ×2 (08:38→20:47)
[2018-01-30] MEDS: NYSTATIN 500,000 units/5 ml ORAL LIQUID PO SCH (08:38)
[2018-01-30] MEDS: BUMETANIDE 1 MG TABLET PO SCH (08:38)
[2018-01-30] MEDS: ARFORMOTEROL NEB 15mcg/2ml AEROSOL SCH ×2 (09:23→21:09)
[2018-01-30] MEDS: CEFTRIAXONE 1 G in NS 100 ML IV SCH (10:09)
[2018-01-30] MEDS: SALINE FLUSH 10ml SYRINGE IVF PRN (10:10)
--- NOTE | 2018-01-30 11:44 | Pulmonology Progress Note ---
Subjective Principal diagnosis: pneumonia Interval history: minimal discomfort from chest tube total drainage about 200 ML serosanguinous fluid. Minimal cough, no sputum production eating well Exam Vital signs: Temperature 98.3 F 01/30/18 07:30 Pulse Rate 68 01/30/18 08:04 Respiratory Rate 16 01/30/18 11:16 Blood Pressure 121/21 01/30/18 07:36 Pulse Oximetry 91 01/30/18 11:16 Inpatient Medications: Generic Name Dose Route Start Last Admin Trade Name Freq PRN Reason Stop Dose Admin Acetaminophen 325 - 650 mg 01/21/18 20:15 01/22/18 11:42 Tylenol PO 650 mg Q5H PRN Administration Discomfort Hydrocodone Bitart/Acetaminophen 1 tab 01/23/18 16:45 [place] 5/325 PO Q4H PRN Pain Albuterol/Ipratropium 3 ml 01/27/18 11:00 01/30/18 11:16 Duoneb AEROSOL 3 ml RTQID JUANJOSE Administration Amiodarone HCl 200 mg 01/29/18 21:00 01/30/18 08:38 Pacerone PO 02/05/18 09:01 200 mg BID JUANJOSE Administration Amiodarone HCl 200 mg 02/06/18 09:00 Pacerone PO DAILY JUANJOSE Apixaban 5 mg 01/23/18 21:00 01/30/18 08:38 Eliquis PO 5 mg BID JUANJOSE Administration Arformoterol Tartrate 15 mcg 01/22/18 19:00 01/30/18 09:23 Brovana Neb AEROSOL 15 mcg RTBID JUANJOSE Administration Budesonide 0.5 mg 01/22/18 07:00 01/30/18 06:37 Pulmicort Inhalation AEROSOL 0.5 mg RTBID JUANJOSE Administration Bumetanide 2 mg 01/30/18 09:00 01/30/18 08:38 Bumex 1 Mg Tab PO 2 mg DAILY JUANJOSE Administration Famotidine 20 mg 01/25/18 21:00 01/30/18 08:38 Pepcid PO 20 mg BID JUANJOSE Administration Ceftriaxone Sodium 1 g/ Sodium 100 mls @ 200 mls/hr 01/28/18 10:15 01/30/18 10:42 Chloride IV Infused Q24H JUANJOSE Infusion Lactobacillus Acidophilus 2 cap 01/29/18 17:30 01/30/18 08:38 Culturelle PO 2 cap BIDWM JUANJOSE Administration Metoprolol Tartrate 50 mg 01/27/18 13:30 01/30/18 08:38 Lopressor PO 50 mg BIDWM JUANJOSE Administration Nystatin 5 ml 01/25/18 13:00 01/30/18 08:38 Mycostatin PO 01/30/18 12:59 5 ml QID JUANJOSE Administration Ondansetron HCl 4 mg 01/21/18 20:15 Zofran IVP Q6H PRN Nausea &/or vomiting Pantoprazole Sodium 40 mg 01/28/18 06:30 01/30/18 06:04 Protonix Tab PO 40 mg ACB JUANJOSE Administration Senna/Docusate Sodium 1 tab 01/21/18 20:15 Senna Plus Tablet PO BID PRN Constipation Sodium Chloride 10 - 80 ml 01/21/18 17:39 01/30/18 10:10 Iv Flush IVF 10 ml PRN PRN Administration Flushing Sucralfate 1 gm 01/23/18 17:00 01/30/18 06:03 Carafate Slurry PO 1 gm ACHS JUANJOSE Administration Discontinued Medications Generic Name Dose Route Start Last Admin Trade Name Freq PRN Reason Stop Dose Admin Albuterol Sulfate 2.5 mg 01/22/18 07:00 01/28/18 09:03 Proventil Neb (0.083%) AEROSOL Not Given RTQID JUANJOSE Albuterol/Ipratropium 3 ml 01/21/18 17:39 01/21/18 18:59 Duoneb AEROSOL 01/21/18 17:40 3 ml O ONE Administration Albuterol/Ipratropium 3 ml 01/21/18 20:15 01/23/18 22:20 Duoneb AEROSOL 01/21/18 20:16 Not Given Q4WA ONE Albuterol/Ipratropium 3 ml 01/21/18 22:00 01/21/18 21:45 Duoneb AEROSOL 3 ml Q4WA JUANJOSE Administration Alteplase, Recombinant 10 mg 01/28/18 15:30 01/28/18 15:45 Cathflo Activase IPL 01/28/18 15:31 10 mg O ONE Administration Amiodarone HCl 400 mg 01/22/18 16:24 01/29/18 09:14 Pacerone PO 01/29/18 09:01 400 mg BID JUANJOSE Administration Amoxicillin/Clavulanate Potassium 875 mg 01/25/18 08:00 01/25/18 17:06 Augmentin 875/125 PO 01/26/18 01:00 875 mg BIDWM JUANJOSE Administration Arformoterol Tartrate 15 mcg 01/22/18 09:00 01/22/18 09:15 Brovana Neb AEROSOL 15 mcg BID JUANJOSE Administration Bumetanide 2 mg 01/26/18 15:00 01/29/18 09:13 Bumex 2.5 Mg/10 Ml Inj IVP 2 mg DAILY JUANJOSE Administration Diltiazem HCl 60 mg 01/22/18 12:00 01/22/18 12:26 Cardizem Sr 60 Mg (12 Hr) PO 60 mg O JUANJOSE Administration Diltiazem HCl 180 mg 01/23/18 13:00 01/27/18 09:04 Cardizem Cd 180 Mg PO 180 mg DAILY JUANJOSE Administration Enoxaparin Sodium 40 mg 01/22/18 09:00 01/23/18 08:22 Lovenox SQ 40 mg DAILY JUANJOSE Administration Furosemide 40 mg 01/25/18 12:14 01/25/18 12:24 Lasix 40 Mg/4 Ml IVP 01/25/18 12:15 40 mg O ONE Administration Sodium Chloride 1,000 mls @ 999.9 mls/hr 01/21/18 19:48 01/23/18 22:19 Normal Saline IV 01/21/18 20:47 Infused .Q1H ONE Infusion Levofloxacin/Dextrose 750 mg in 150 mls @ 100 mls/hr 01/21/18 20:15 01/22/18 21:54 Levaquin Premix IV Infused Q24H JUANJOSE Infusion Sodium Chloride 1,000 mls @ 50 mls/hr 01/21/18 20:15 01/24/18 15:15 Normal Saline IV Infused .Q20H JUANJOSE Infusion Levofloxacin 750 mg 01/23/18 20:30 01/24/18 06:30 Levaquin PO 750 mg ACB JUANJOSE Administration Methylprednisolone Sodium Succinate 62.5 mg 01/22/18 12:00 01/22/18 12:26 Solu-Medrol IVP 62.5 mg O JUANJOSE Administration Metoprolol Tartrate 50 mg 01/27/18 22:00 01/27/18 21:56 Lopressor PO 01/27/18 22:01 50 mg ONE TIME JUANJOSE Administration Ondansetron HCl 4 mg 01/21/18 17:39 01/21/18 18:54 Zofran IVP 01/21/18 17:40 4 mg O ONE Administration Pharmacy Consult each 01/28/18 20:50 Pharmacy Consult - Fall Risk 01/28/18 20:51 ONE TIME ONE Potassium Chloride 20 meq 01/25/18 12:14 01/25/18 12:24 K-Dur 20 Meq Tablet PO 01/25/18 12:15 20 meq O ONE Administration Prednisone 40 mg 01/23/18 16:47 01/27/18 09:03 Deltasone 20 Mg PO 01/27/18 08:01 40 mg WB JUANJOSE Administration Prednisone 20 mg 01/28/18 08:00 01/28/18 08:52 Deltasone 20 Mg PO 02/02/18 07:59 20 mg WB JUANJOSE Administration Sodium Phosphate 250 mg 01/24/18 17:30 01/26/18 20:26 K-Phos *Neutral* Tablet PO 250 mg WM JUANJOSE Administration - Constitutional no acute distress - Routine Neck Exam Present: supple, full ROM - Routine Respiratory Exam Present: decreased breath sounds. Absent: wheezes - Routine Cardiovascular Exam Present: RRR - Routine Skin Exam Present: intact. Absent: cyanosis - Routine Neurological Exam Present: alert, oriented X3 Results - Laboratory Findings Laboratory: Laboratory Results - last 48 hr 01/30/18 01/30/18 05:15 05:15 WBC 24.0 H RBC 3.90 L Hgb 11.7 L Hct 34.9 L MCV 89.5 MCH 30.0 MCHC 33.5 RDW Std Deviation 46.1 Plt Count 280 MPV 9.4 Immature Gran % (Auto) Not performed Neut % (Auto) Not performed Lymph % (Auto) Not performed [place] % (Auto) Not performed Eos % (Auto) Not performed Baso % (Auto) Not performed Neut # (Auto) Not performed Lymph # (Auto) Not performed [place] # (Auto) Not performed Eos # (Auto) Not performed Baso # (Auto) Not performed Abs Immat Gran (auto) Not performed Neutrophils % (Manual) 92.0 H Lymphocytes % (Manual) 6.0 L Monocytes % (Manual) 1.0 Metamyelocytes % 1.0 H Neutrophils # (Manual) 22.1 H Lymphocytes # (Manual) 1.4 Monocytes # (Manual) 0.2 Metamyelocytes # 0.2 RBC Morph Comment Normal Turbidity < 20 Sodium 133 L Potassium 3.5 L Chloride 96 L Carbon Dioxide 30 Anion Gap 7 BUN 19.0 H Creatinine 0.8 GFR Calculation 70 BUN/Creatinine Ratio 24 Glucose 99 Calculated Osmolality 258 L Calcium 8.0 L Icterus Index < 2 Specimen Hemolysis < 15 - Diagnostic Findings Chest x-ray: report reviewed, image reviewed CT scan - chest: report reviewed, image reviewed Assessment and Plan (1) Chronic obstructive pulmonary disease with acute exacerbation Status: Acute Assessment and plan: Neb budesonide BID, Brovana BID. No significant wheeze at this time. O2 to keep sat >90% Current Visit: Yes (2) CAP (community acquired pneumonia) Status: Acute Assessment and plan: with multiloculated effusion consistent with complex parapneumonic effusion. 12 [place] pigtail drain placed on IV Rocephin cultures neg to date Plan to continue drainage until Thursday. We will instill another 10 mg TPA into the tube on Thursday and continue to drain. Tentatively plan on removing the tube on Thursday. Current Visit: Yes - Time Spent With Patient Total time spent is greater than 50% in coordination of care (as documented) at patient's floor/unit and/or counseling patient: less than 15 minutes
--- NOTE | 2018-01-30 13:42 | Progress Note ---
- Date 01/30/18 Subjective: Kaitlin's feeling slightly better today. She states that the tube is "annoying", but she's not feeling short of breath. She has a nonproductive cough. She denies chest pain or palpitations. She's been working with PT/OT and is trying to walk three times per day. She denies feeling weak or dizzy. Her appetite is "fair". She denies nausea/vomiting. Objective Vital signs: Temperature 98.3 F 01/30/18 07:30 Pulse Rate 68 01/30/18 08:04 Respiratory Rate 16 01/30/18 11:16 Blood Pressure 121/21 01/30/18 07:36 Pulse Oximetry 91 01/30/18 11:16 Rhythm: Normal Sinus Rhythm Height/Weight/BMI: Height 1.61 m Weight 69.8 kg Body Mass Index 26.6 - Constitutional Present: no acute distress, well nourished, well developed, thin - Routine HEENT Exam Head: Present: normocephalic Eye: Absent: conjunctival icterus, scleral injection - Routine Respiratory Exam Present: decreased breath sounds (right>left) - Routine Cardiovascular Exam Present: RRR, S1, S2 - Routine Abdominal Exam Present: soft, normoactive bowel sounds, non distended, non tender - Routine Extremities Exam Present: edema (trace BLE) - Routine Musculoskeletal Exam Musculoskeletal: Present: moving extremities well - Routine Skin Exam Present: intact, dry, warm - Routine Neurological Exam Present: alert, oriented X3, normal speech - Routine Psychiatric Exam Present: normal affect, normal thought process, cooperative Results - Labs CBC & Chem 7: 01/30/18 05:15 01/30/18 05:15 Microbiology Results: Microbiology 01/28/18 12:50 Pleural Fluid Gram Stain - Final 01/28/18 12:50 Pleural Fluid Body Fluid Culture - Preliminary No Growth After 1 Day 01/22/18 12:47 Sputum, Expectorated Gram Stain - Final 01/22/18 12:47 Sputum, Expectorated Sputum Culture - Final Normal Respiratory Bridgette including Yeast Present Assessment and Plan (1) CAP (community acquired pneumonia) Current visit: Yes Status: Acute (2) Hyponatremia Problem details: POA-118 Current visit: Yes Status: Resolved (3) Atrial fibrillation with RVR Current visit: Yes Status: Resolved Assessment and Plan: Assessment: New onset A fib with RVR-Eliquis initiated 01/23/18 NSVT on 01/27/18-diltiazem dc'd and metoprolol initiated Hyponatremia-118 on admission-resolved CAP-RML/RLL; antibiotics completed Pleural effusion, multiloculated-01/27/18 COPD HTN Nausea/Vomiting-resolved Dysphagia-01/23/18 CAD Valvular heart disease-/TR Hypophosphatemia-resolved Thrush (tongue)-01/25/18 Hypokalemia-01/30/18 Plan: About 200 mL total output from pigtail catheter to right lung. Dr. Garcia is planning on repeating tPA on Thursday and tentatively removing the drain on Thursday. Pleural fluid culture remains neg. WBC increased to 24; continue Rocephin. She's afebrile. Pt had 5 loose bowel movements yesterday but only 1 soft bowel movement so far today. If diarrhea returns we may need to check for C. diff. (consider holding PPI) Remains in sinus rhythm. Continue amiodarone. Continue diuresis per cardiology. Continue PT/OT/Speech DVT Prophylaxis: Eliquis GI Prophylaxis: Protonix, Pepcid Resuscitation Status: Full Code - Physician Narrative Physician: Julia Dennis MD Narrative: Date: 01/30/18 Time: 1734 I have independently evaluated and examined this patient. I reviewed the chart, the patient's history, and the ETHNOGRAPHER/PA's documented findings as above. We discussed and formulated the assessment and plan as above with additions as below: Kaitlin reports no concerns today. She has minimal discomfort in the back side pigtail catheter placement. 40 mL drainage per chest tube reported yesterday. Alert, NAD, respirations nonlabored, faint crackles right lower anterior lung [place], otherwise breath sounds clear Sodium down slightly today, reassess tomorrow. Potassium replaced orally. Chest x-ray reviewed by myself and discussed with Dr. Garcia-inferior right pleural fluid flexion increasing; posterior collection has improved following placement of pigtail. Repeat instillation of TPA planned on Thursday. Hospital Course Summary Disclaimer: The visit summary below is not to be considered part of the above Progress Note. Hospital Course: 01/21/18 1. CAP with no hypoxia currently--cxs, levaquin as per her newspaper correspondent rec today. Nebs. 2. COPD--brovana and duoneb 3. Hyponatremia due to HCTZ and free water excess most likely. NS and recheck in AM holding HCTZ. 4. Essential HTN--hold HCTZ and monitor. 5. N/V likely due to lortab, monitor with 1. possible contributor. LFTs fine. 01/22/18 New onset atrial fibrillation present early this morning. Obtain troponin, obtain echocardiogram. Telemetry initiated. Obtain serum/urine osm, urine sodium. Continue to hold HCTZ. Trend sodium. Obtain TSH Monitor I/O Continue antibiotics and start steroids; continue breathing treatments, RT consult. Consult patient's asphalt machine operator (Emilee) and newspaper correspondent (Radha) 01/23/18 Day 3 Levaquin for community-acquired pneumonia. Convert to oral Levaquin. Repeat chest x-ray in a.m. Continue breathing treatments/O2 as needed. Initiate prednisone-intended to start earlier today. Sodium has improved progressively off HCTZ and with volume replacement. Undetectable urine sodium consistent with volume depletion. BUN 26--> 14 with hydration. Cardiac rhythm stabilizing, in sinus rhythm at present. Troponins unremarkable. Echocardiogram with normal LV function and moderate aortic stenosis, moderate TR , moderate pulmonary hypertension. Appreciate assistance offered by cardiology. Increased dysphasia described by patient-Carafate suspension initiated. Minimal symptoms prior to nausea/vomiting prior to hospitalization. 01/24/18 Day 4 Levaquin for community-acquired pneumonia. Converted to oral Levaquin yesterday and we'll discontinue today due to interaction with amiodarone. Convert to Augmentin for 1-3 days. Repeat chest x-ray with improvement in infiltrate. Continue prednisone 40 mg daily 5 days. Sodium has normalized off HCTZ and with volume replacement. Undetectable urine sodium consistent with volume depletion. Good oral intake, discontinue IV fluids. Eliquis initiated yesterday per cardiology, remains on amiodarone and diltiazem for atrial fibrillation. Echocardiogram with normal LV function and moderate aortic stenosis, moderate TR , moderate pulmonary hypertension. Increased dysphagia described by patient yesterday-Carafate suspension initiated and symptoms slightly improved today. Phosphorus supplement initiated-reassess phosphorus level in a couple of days. 01/25/18 Has had 4 days of Levaquin. Today started on Augmentin as Levaquin was discontinued due to interaction with amiodarone. Complete 5 days of antibiotics today. Continue prednisone 40 mg daily 5 days (through January 27) Appears fluid overloaded today. IV fluids were discontinued yesterday. Lasix 40 mg IV and potassium 20 mEq po given1. Phosphorus initiated yesterday due to hypophosphatemia. Repeat phosphorus level in a.m. Eliquis initiated 01/23/18 per cardiology, remains on amiodarone and diltiazem for atrial fibrillation. Start nystatin for thrush. Pepcid added for persistent dysphasia. Per cardiology: Will start Bumex 2mg IV daily - start today and monitor response Patient likely in acute diastolic heart failure due to rapid atrial fibrillation - she has moderate will monitor blood pressure closely Possible VT noted on Tele Will obtain [place] PPM interrogation 01/26/18 Completed 5 days of antibiotics yesterday. Continue prednisone through tomorrow for pulmonary inflammation associated with pneumonia. Chest x-ray in the morning. Chronic COPD-reassessed by Dr. Garcia, no additional changes in regimen recommended at this time. Pacemaker was interrogated earlier today due to presence of wide complex tachycardia which appeared to be pacemaker dependent tachycardia prompting pacemaker adjustment. SVT and previously identified A. fib/flutter with RVR was identified on interrogation but there was no evidence of NSVT. Pacemaker check plan 2-4 weeks after discharge to evaluate modifications and pacemaker settings made today. Cardiology is converted to oral Bumex to continue diuresis. Continue nystatin. Phosphorus improved-discontinue replacement. PT/OT evaluations in a.m. in anticipation of discharge. 01/27/18 Titrate prednisone to 20 mg daily. Chest x-ray improving however there is suggestion of loculated pleural effusion ; discussed with Dr. Garcia--> CT chest with contrast. Discussed recurrent wide complex tachycardia with cardiology-strip reviewed by myself, morphology overnight different than prior pacemaker mediated tachycardia. Pacemaker check planned 2-4 weeks after discharge to evaluate modifications in pacemaker settings made for/3. Diuresing well; continue amiodarone and Eliquis for recent atrial fibrillation. Continue nystatin. Dysphasia/heartburn slightly improved; will convert from Pepcid to Protonix given ongoing heartburn. Speech therapy evaluation. PT/OT evaluated today and recommended home with home health; may require walker. 01/28/18 CT chest showed multiloculated effusion consistent with complex parapneumonic effusion. Dr Garcia DC'd prednisone. Pigtail catheter was placed under US guidance. Plan to instill TPA to enhance drainage per pulm. . Recommend continuing antibiotics for CAP. Ceftriaxone was restarted today. ( Initial tx for CAP was completed 01/25/18) Pleural fluid sent for culture. Cardiology following. 01/29/18 Had about 100 mL output from pigtail catheter to right lung. CXR today shows decreasing effusion. No further episodes of NSVT last night. Cardiology stopped diltiazem and started metoprolol yesterday. Ceftriaxone resumed on 01/28 -- may be contributing to diarrhea. Start Culturelle. WBC still elevated at 17.8 (prednisone had just been dc'd). Continue PT: she ambulated 380 feet today with FWW but needs to manage O2 tank and chest tube. Sats down to 87% after ambulation but she recovered within 30 sec of rest. 01/30/18 About 200 mL total output from pigtail catheter to right lung. Dr. Garcia is planning on repeating tPA on Thursday and tentatively removing the drain on Thursday. Pleural fluid culture remains neg. WBC increased to 24; continue Rocephin. She's afebrile. Pt had 5 loose bowel movements yesterday but only 1 soft bowel movement so far today. If diarrhea returns we may need to check for C. diff. (consider holding PPI) Remains in sinus rhythm. Continue amiodarone. Continue diuresis per cardiology.
[2018-01-31] MEDS: SUCRALFATE 1gm/10ml ORAL LIQUID PO SCH ×2 (06:25→12:06)
[2018-01-31] MEDS: PANTOPRAZOLE 40 MG TABLET PO SCH (06:25)
[2018-01-31] MEDS: ALBUTEROL/IPRATROPIUM 2.5mg-0.5mg/3ml NEB AEROSOL SCH ×4 (06:39→19:07)
[2018-01-31] MEDS: BUDESONIDE INH.SOLN 0.5mg/2ml NEB AEROSOL SCH ×2 (06:39→19:07)
[2018-01-31] MEDS: ARFORMOTEROL NEB 15mcg/2ml AEROSOL SCH ×2 (08:44→19:07)
[2018-01-31] MEDS: FAMOTIDINE 20 MG TABLET PO SCH ×2 (08:53→20:53)
[2018-01-31] MEDS: AMIODARONE 200 MG TABLET PO SCH ×2 (08:53→20:53)
[2018-01-31] MEDS: APIXABAN 5 MG TABLET PO SCH ×2 (08:53→20:53)
[2018-01-31] MEDS: LACTOBACILLUS (15B cfu) CAPSULE PO SCH ×2 (08:53→16:44)
[2018-01-31] MEDS: BUMETANIDE 1 MG TABLET PO SCH (08:54)
[2018-01-31] MEDS: SALINE FLUSH 10ml SYRINGE IVF PRN ×2 (09:36→20:53)
[2018-01-31] MEDS: CEFTRIAXONE 1 G in NS 100 ML IV SCH (09:36)
[2018-01-31] MEDS: NS FLUSH BAG 500ml IV PRN (09:36)
--- NOTE | 2018-01-31 10:01 | XRay Report ---
INDICATION: loculated pleural effusion PROCEDURE: CHEST 2-VIEWS UPRIGHT (PA & LAT) Encounter: Initial COMPARISON: January 29, 2018 FINDINGS: Right-sided pleural drain in stable position. No visible pneumothorax. Development of subcutaneous emphysema in the right chest wall. Increasing opacity in the right lower lobe with some loculated basilar pleural fluid remaining. Left lung appears clear. Heart size and mediastinal contours are stable. Left pacemaker. Pulmonary vascularity is mildly congested. Impression: Developing mild pulmonary vascular congestion and increasing right lower lobe airspace disease. .
--- NOTE | 2018-01-31 13:42 | Progress Note ---
- Date 01/31/18 Subjective: Kaitlin is a very pleasant 77 yo WF who is seen today in follow up. She is up in chair. Reports feeling fairly well. Chest tube is not overtly uncomfortable. No new or progressive SOA. No fever. Chart is reviewed for collateral information. Objective Vital signs: Temperature 97.3 F 01/31/18 07:37 Pulse Rate 67 01/31/18 07:57 Respiratory Rate 16 01/31/18 10:17 Blood Pressure 135/56 01/31/18 07:41 Pulse Oximetry 94 01/31/18 10:17 Rhythm: Normal Sinus Rhythm Height/Weight/BMI: Height 1.61 m Weight 69.8 kg Body Mass Index 26.6 - Constitutional Present: no acute distress, average body habitus, cooperative - Routine HEENT Exam Head: Present: normocephalic, atraumatic Eye: Present: EOMI, PERRL - Routine Respiratory Exam Present: decreased breath sounds, rhonchi, distant breath sounds. Absent: accessory muscle use - Routine Cardiovascular Exam Present: RRR, S1, S2, no murmur - Routine Abdominal Exam Present: soft, non distended, non tender - Routine Extremities Exam Present: no edema, non tender - Routine Musculoskeletal Exam Musculoskeletal: Present: no clubbing or cyanosis, normal strength - Routine Skin Exam Present: intact, dry, warm - Routine Neurological Exam Present: alert, oriented X3, moving all extremities - Routine Psychiatric Exam Present: normal affect, normal thought process, cooperative, good insight Results - Labs CBC & Chem 7: 01/31/18 04:48 01/31/18 04:48 Microbiology Results: Microbiology 01/28/18 12:50 Pleural Fluid Gram Stain - Final 01/28/18 12:50 Pleural Fluid Body Fluid Culture - Preliminary No Growth After 2 Days 01/22/18 12:47 Sputum, Expectorated Gram Stain - Final 01/22/18 12:47 Sputum, Expectorated Sputum Culture - Final Normal Respiratory Bridgette including Yeast Present - Imaging and Cardiology Chest x-ray Additional comments: Impression: Developing mild pulmonary vascular congestion and increasing right lower lobe airspace disease. . Assessment and Plan (1) CAP (community acquired pneumonia) Current visit: Yes Status: Acute (2) Hyponatremia Problem details: POA-118 Current visit: Yes Status: Resolved (3) Atrial fibrillation with RVR Current visit: Yes Status: Resolved Assessment and Plan: Assessment: New onset A fib with RVR-Eliquis initiated 01/23/18 NSVT on 01/27/18-diltiazem dc'd and metoprolol initiated Hyponatremia-118 on admission-resolved CAP-RML/RLL; antibiotics completed Pleural effusion, multiloculated-01/27/18 COPD HTN Nausea/Vomiting-resolved Dysphagia-01/23/18 CAD Valvular heart disease-/TR Hypophosphatemia-resolved Thrush (tongue)-01/25/18 Hypokalemia-01/30/18 Plan: 01/31/18-Dr. Lutz *Pulm-Continue Chest tube. Possible Repeat tPA tomorrow per Dr. Garcia. Minimal output apparent. CXR reviewed. Leukocytosis persistent, but she is not febrile and does not appear ill. Continue Ceftriaxone and monitor. Cx reviewed, negative. *CV- HR controlled. Doing well on Bumex. Continue, but will need to replace potassium now and then order daily replacement. Dr. Hebert following. Will DC Carafate to avoid interaction with NOAC. *AFib- Eliquis/Amiodarone. *N/V/Dysphagia- Will de-escalate therapy. Stop Carafate (day #9 therapy), Decrease H2RB to Q HS and continue PPI in AM. Repeat labs in AM. Continue supportive care. 01/31/2018-7:20 PM-I reviewed this chart, the patient history, and the SET UP ME[employer]ING [employer]ACH[employer]ES's/PA 's documented findings as above. We discussed and formulated the assessment and plan as above with the additions below.-Dr. Lutz Patient was seen this evening in her room. She states she's feeling a little better every day. She is on 1 L of oxygen. She denies shortness of breath. She states her thrush has resolved. She states she is swallowing well now. She states she is eating and drinking well. She did denies pain except in the site where she has her chest tube. On exam she is alert and oriented and in no acute distress. She is on 1 L of oxygen. Cardiovascular reveals a regular rate and rhythm. Chest reveals some mild coarse breath sounds in the bases. Diminished soft and nontender. Bowel sounds are normoactive. Extremities reveal 1-2+ lower extremity edema. She states this is chronic. Impression and plan Community acquired pneumonia with loculated pleural effusion-continue antibiotics. Chest tube is in place. Appreciate Dr. Garcia's help. They need further TPA in chest tube tomorrow. Continue breathing treatments. Continue pelvic was/amiodarone for A. fib. Overall, the patient appears to be improving. Replace potassium orally and recheck. DVT Prophylaxis: Eliquis GI Prophylaxis: Protonix, Pepcid Resuscitation Status: Full Code - Physician Narrative Narrative: Date: 01/31/18 Time: 1338 Hospital Course Summary Disclaimer: The visit summary below is not to be considered part of the above Progress Note. Hospital Course: 01/21/18 1. CAP with no hypoxia currently--cxs, levaquin as per her column precaster rec today. Nebs. 2. COPD--brovana and duoneb 3. Hyponatremia due to HCTZ and free water excess most likely. NS and recheck in AM holding HCTZ. 4. Essential HTN--hold HCTZ and monitor. 5. N/V likely due to lortab, monitor with 1. possible contributor. LFTs fine. 01/22/18 New onset atrial fibrillation present early this morning. Obtain troponin, obtain echocardiogram. Telemetry initiated. Obtain serum/urine osm, urine sodium. Continue to hold HCTZ. Trend sodium. Obtain TSH Monitor I/O Continue antibiotics and start steroids; continue breathing treatments, RT consult. Consult patient's electromyographic technician (Emilee) and column precaster (Radha) 01/23/18 Day 3 Levaquin for community-acquired pneumonia. Convert to oral Levaquin. Repeat chest x-ray in a.m. Continue breathing treatments/O2 as needed. Initiate prednisone-intended to start earlier today. Sodium has improved progressively off HCTZ and with volume replacement. Undetectable urine sodium consistent with volume depletion. BUN 26--> 14 with hydration. Cardiac rhythm stabilizing, in sinus rhythm at present. Troponins unremarkable. Echocardiogram with normal LV function and moderate aortic stenosis, moderate TR , moderate pulmonary hypertension. Appreciate assistance offered by cardiology. Increased dysphasia described by patient-Carafate suspension initiated. Minimal symptoms prior to nausea/vomiting prior to hospitalization. 01/24/18 Day 4 Levaquin for community-acquired pneumonia. Converted to oral Levaquin yesterday and we'll discontinue today due to interaction with amiodarone. Convert to Augmentin for 1-3 days. Repeat chest x-ray with improvement in infiltrate. Continue prednisone 40 mg daily 5 days. Sodium has normalized off HCTZ and with volume replacement. Undetectable urine sodium consistent with volume depletion. Good oral intake, discontinue IV fluids. Eliquis initiated yesterday per cardiology, remains on amiodarone and diltiazem for atrial fibrillation. Echocardiogram with normal LV function and moderate aortic stenosis, moderate TR , moderate pulmonary hypertension. Increased dysphagia described by patient yesterday-Carafate suspension initiated and symptoms slightly improved today. Phosphorus supplement initiated-reassess phosphorus level in a couple of days. 01/25/18 Has had 4 days of Levaquin. Today started on Augmentin as Levaquin was discontinued due to interaction with amiodarone. Complete 5 days of antibiotics today. Continue prednisone 40 mg daily 5 days (through January 27) Appears fluid overloaded today. IV fluids were discontinued yesterday. Lasix 40 mg IV and potassium 20 mEq po given1. Phosphorus initiated yesterday due to hypophosphatemia. Repeat phosphorus level in a.m. Eliquis initiated 01/23/18 per cardiology, remains on amiodarone and diltiazem for atrial fibrillation. Start nystatin for thrush. Pepcid added for persistent dysphasia. Per cardiology: Will start Bumex 2mg IV daily - start today and monitor response Patient likely in acute diastolic heart failure due to rapid atrial fibrillation - she has moderate will monitor blood pressure closely Possible VT noted on Tele Will obtain [facility] PPM interrogation 01/26/18 Completed 5 days of antibiotics yesterday. Continue prednisone through tomorrow for pulmonary inflammation associated with pneumonia. Chest x-ray in the morning. Chronic COPD-reassessed by Dr. Garcia, no additional changes in regimen recommended at this time. Pacemaker was interrogated earlier today due to presence of wide complex tachycardia which appeared to be pacemaker dependent tachycardia prompting pacemaker adjustment. SVT and previously identified A. fib/flutter with RVR was identified on interrogation but there was no evidence of NSVT. Pacemaker check plan 2-4 weeks after discharge to evaluate modifications and pacemaker settings made today. Cardiology is converted to oral Bumex to continue diuresis. Continue nystatin. Phosphorus improved-discontinue replacement. PT/OT evaluations in a.m. in anticipation of discharge. 01/27/18 Titrate prednisone to 20 mg daily. Chest x-ray improving however there is suggestion of loculated pleural effusion ; discussed with Dr. Garcia--> CT chest with contrast. Discussed recurrent wide complex tachycardia with cardiology-strip reviewed by myself, morphology overnight different than prior pacemaker mediated tachycardia. Pacemaker check planned 2-4 weeks after discharge to evaluate modifications in pacemaker settings made for/3. Diuresing well; continue amiodarone and Eliquis for recent atrial fibrillation. Continue nystatin. Dysphasia/heartburn slightly improved; will convert from Pepcid to Protonix given ongoing heartburn. Speech therapy evaluation. PT/OT evaluated today and recommended home with home health; may require walker. 01/28/18 CT chest showed multiloculated effusion consistent with complex parapneumonic effusion. Dr Garcia DC'd prednisone. Pigtail catheter was placed under US guidance. Plan to instill TPA to enhance drainage per pulm. . Recommend continuing antibiotics for CAP. Ceftriaxone was restarted today. ( Initial tx for CAP was completed 01/25/18) Pleural fluid sent for culture. Cardiology following. 01/29/18 Had about 100 mL output from pigtail catheter to right lung. CXR today shows decreasing effusion. No further episodes of NSVT last night. Cardiology stopped diltiazem and started metoprolol yesterday. Ceftriaxone resumed on 01/28 -- may be contributing to diarrhea. Start Culturelle. WBC still elevated at 17.8 (prednisone had just been dc'd). Continue PT: she ambulated 380 feet today with FWW but needs to manage O2 tank and chest tube. Sats down to 87% after ambulation but she recovered within 30 sec of rest. 01/30/18 About 200 mL total output from pigtail catheter to right lung. Dr. Garcia is planning on repeating tPA on Thursday and tentatively removing the drain on Thursday. Pleural fluid culture remains neg. WBC increased to 24; continue Rocephin. She's afebrile. Pt had 5 loose bowel movements yesterday but only 1 soft bowel movement so far today. If diarrhea returns we may need to check for C. diff. (consider holding PPI) Remains in sinus rhythm. Continue amiodarone. Continue diuresis per cardiology. Plan: 01/31/18-Dr. Lutz covering for Dr. Davis. *Pulm-Continue Chest tube. Possible Repeat tPA tomorrow per Dr. Garcia. Minimal output apparent. CXR reviewed. Leukocytosis persistent, but she is not febrile and does not appear ill. Continue Ceftriaxone and monitor. Cx reviewed, negative. *CV- HR controlled. Doing well on Bumex. Continue, but will need to replace potassium now and then order daily replacement. Dr. Hebert following. Will DC Carafate to avoid interaction with NOAC. *AFib- Eliquis/Amiodarone. *N/V/Dysphagia- Will de-escalate therapy. Stop Carafate (day #9 therapy), Decrease H2RB to Q HS and continue PPI in AM. Repeat labs in AM. Continue supportive care.
[2018-02-01] MEDS: SALINE FLUSH 10ml SYRINGE IVF PRN ×2 (06:05→10:12)
[2018-02-01] MEDS: PANTOPRAZOLE 40 MG TABLET PO SCH (06:05)
[2018-02-01] MEDS: BUDESONIDE INH.SOLN 0.5mg/2ml NEB AEROSOL SCH ×2 (06:57→20:52)
[2018-02-01] MEDS: ARFORMOTEROL NEB 15mcg/2ml AEROSOL SCH ×2 (06:57→20:52)
[2018-02-01] MEDS ORDERED: ALTEPLASE (Cathflo*) 2mg INJECTION IPL ONE (09:00)
[2018-02-01] MEDS: ALBUTEROL/IPRATROPIUM 2.5mg-0.5mg/3ml NEB AEROSOL SCH ×4 (09:30→20:52)
--- NOTE | 2018-02-01 09:45 | Pulmonology Progress Note ---
Subjective Principal diagnosis: pneumonia Interval history: Pt in bed eating. States her breathing is doing good, no SOB, minimal cough noted. Exam Vital signs: Temperature 97.5 F 02/01/18 07:00 Pulse Rate 67 02/01/18 07:33 Respiratory Rate 22 02/01/18 09:33 Blood Pressure 136/62 02/01/18 07:33 Pulse Oximetry 96 02/01/18 07:07 Inpatient Medications: Generic Name Dose Route Start Last Admin Trade Name Freq PRN Reason Stop Dose Admin Acetaminophen 325 - 650 mg 01/21/18 20:15 01/22/18 11:42 Tylenol PO 650 mg Q5H PRN Administration Discomfort Hydrocodone Bitart/Acetaminophen 1 tab 01/23/18 16:45 [place] 5/325 PO Q4H PRN Pain Albuterol/Ipratropium 3 ml 01/27/18 11:00 01/31/18 19:07 Duoneb AEROSOL 3 ml RTQID JUANJOSE Administration Amiodarone HCl 200 mg 01/29/18 21:00 01/31/18 20:53 Pacerone PO 02/05/18 09:01 200 mg BID JUANJOSE Administration Amiodarone HCl 200 mg 02/06/18 09:00 Pacerone PO DAILY JUANJOSE Apixaban 5 mg 01/23/18 21:00 01/31/18 20:53 Eliquis PO 5 mg BID JUANJOSE Administration Arformoterol Tartrate 15 mcg 01/22/18 19:00 02/01/18 06:57 Brovana Neb AEROSOL 15 mcg RTBID JUANJOSE Administration Budesonide 0.5 mg 01/22/18 07:00 02/01/18 06:57 Pulmicort Inhalation AEROSOL 0.5 mg RTBID JUANJOSE Administration Bumetanide 2 mg 01/30/18 09:00 01/31/18 08:54 Bumex 1 Mg Tab PO 2 mg DAILY JUANJOSE Administration Famotidine 20 mg 01/31/18 21:00 01/31/18 20:53 Pepcid PO 20 mg HS JUANJOSE Administration Ceftriaxone Sodium 1 g/ Sodium 100 mls @ 200 mls/hr 01/28/18 10:15 01/31/18 10:06 Chloride IV Infused Q24H JUANJOSE Infusion Lactobacillus Acidophilus 2 cap 01/29/18 17:30 01/31/18 16:44 Culturelle PO 2 cap BIDWM JUANJOSE Administration Metoprolol Tartrate 50 mg 01/27/18 13:30 01/31/18 16:44 Lopressor PO 50 mg BIDWM JUANJOSE Administration Ondansetron HCl 4 mg 01/21/18 20:15 Zofran IVP Q6H PRN Nausea &/or vomiting Pantoprazole Sodium 40 mg 01/28/18 06:30 02/01/18 06:05 Protonix Tab PO 40 mg ACB JUNAJOSE Administration Potassium Chloride 20 meq 02/01/18 08:00 Micro-K 10 Meq Capsule PO BIDWM JUANJOSE Senna/Docusate Sodium 1 tab 01/21/18 20:15 Senna Plus Tablet PO BID PRN Constipation Sodium Chloride 10 - 80 ml 01/21/18 17:39 02/01/18 06:05 Iv Flush IVF 10 ml PRN PRN Administration Flushing Sodium Chloride 500 ml 01/31/18 09:32 01/31/18 09:36 Normal Saline IV 500 ml PRN PRN Administration Discontinued Medications Generic Name Dose Route Start Last Admin Trade Name Freq PRN Reason Stop Dose Admin Albuterol Sulfate 2.5 mg 01/22/18 07:00 01/28/18 09:03 Proventil Neb (0.083%) AEROSOL Not Given RTQID JUANJOSE Albuterol/Ipratropium 3 ml 01/21/18 17:39 01/21/18 18:59 Duoneb AEROSOL 01/21/18 17:40 3 ml O ONE Administration Albuterol/Ipratropium 3 ml 01/21/18 20:15 01/23/18 22:20 Duoneb AEROSOL 01/21/18 20:16 Not Given Q4WA ONE Albuterol/Ipratropium 3 ml 01/21/18 22:00 01/21/18 21:45 Duoneb AEROSOL 3 ml Q4WA JUANJOSE Administration Alteplase, Recombinant 10 mg 01/28/18 15:30 01/28/18 15:45 Cathflo Activase IPL 01/28/18 15:31 10 mg O ONE Administration Alteplase, Recombinant 10 mg 02/01/18 09:00 Cathflo Activase IPL 02/01/18 09:01 O ONE Amiodarone HCl 400 mg 01/22/18 16:24 01/29/18 09:14 Pacerone PO 01/29/18 09:01 400 mg BID JUANJOSE Administration Amoxicillin/Clavulanate Potassium 875 mg 01/25/18 08:00 01/25/18 17:06 Augmentin 875/125 PO 01/26/18 01:00 875 mg BIDWM JUANJOSE Administration Arformoterol Tartrate 15 mcg 01/22/18 09:00 01/22/18 09:15 Brovana Neb AEROSOL 15 mcg BID JUANJOSE Administration Bumetanide 2 mg 01/26/18 15:00 01/29/18 09:13 Bumex 2.5 Mg/10 Ml Inj IVP 2 mg DAILY JUANJOSE Administration Diltiazem HCl 60 mg 01/22/18 12:00 01/22/18 12:26 Cardizem Sr 60 Mg (12 Hr) PO 60 mg O JUANJOSE Administration Diltiazem HCl 180 mg 01/23/18 13:00 01/27/18 09:04 Cardizem Cd 180 Mg PO 180 mg DAILY JUANJOSE Administration Enoxaparin Sodium 40 mg 01/22/18 09:00 01/23/18 08:22 Lovenox SQ 40 mg DAILY JUANJOSE Administration Famotidine 20 mg 01/25/18 21:00 01/31/18 08:53 Pepcid PO 20 mg BID JUANJOSE Administration Furosemide 40 mg 01/25/18 12:14 01/25/18 12:24 Lasix 40 Mg/4 Ml IVP 01/25/18 12:15 40 mg O ONE Administration Sodium Chloride 1,000 mls @ 999.9 mls/hr 01/21/18 19:48 01/23/18 22:19 Normal Saline IV 01/21/18 20:47 Infused .Q1H ONE Infusion Levofloxacin/Dextrose 750 mg in 150 mls @ 100 mls/hr 01/21/18 20:15 01/22/18 21:54 Levaquin Premix IV Infused Q24H JUANJOSE Infusion Sodium Chloride 1,000 mls @ 50 mls/hr 01/21/18 20:15 01/24/18 15:15 Normal Saline IV Infused .Q20H JUANJOSE Infusion Levofloxacin 750 mg 01/23/18 20:30 01/24/18 06:30 Levaquin PO 750 mg ACB JUANJOSE Administration Methylprednisolone Sodium Succinate 62.5 mg 01/22/18 12:00 01/22/18 12:26 Solu-Medrol IVP 62.5 mg O JUANJOSE Administration Metoprolol Tartrate 50 mg 01/27/18 22:00 01/27/18 21:56 Lopressor PO 01/27/18 22:01 50 mg ONE TIME JUANJOSE Administration Nystatin 5 ml 01/25/18 13:00 01/30/18 08:38 Mycostatin PO 01/30/18 12:59 5 ml QID JUANJOSE Administration Ondansetron HCl 4 mg 01/21/18 17:39 01/21/18 18:54 Zofran IVP 01/21/18 17:40 4 mg O ONE Administration Pharmacy Consult each 01/28/18 20:50 Pharmacy Consult - Fall Risk 01/28/18 20:51 ONE TIME ONE Potassium Chloride 20 meq 01/25/18 12:14 01/25/18 12:24 K-Dur 20 Meq Tablet PO 01/25/18 12:15 20 meq O ONE Administration Potassium Chloride 20 meq 01/30/18 13:42 01/30/18 14:03 K-Dur 20 Meq Tablet PO 01/30/18 13:43 20 meq O ONE Administration Potassium Chloride 40 meq 01/31/18 09:03 01/31/18 09:33 K-Dur 20 Meq Tablet PO 01/31/18 09:04 40 meq O ONE Administration Potassium Chloride 40 meq 01/31/18 13:36 01/31/18 14:32 K-Dur 20 Meq Tablet PO 01/31/18 13:37 40 meq O ONE Administration Prednisone 40 mg 01/23/18 16:47 01/27/18 09:03 Deltasone 20 Mg PO 01/27/18 08:01 40 mg WB JUANJOSE Administration Prednisone 20 mg 01/28/18 08:00 01/28/18 08:52 Deltasone 20 Mg PO 02/02/18 07:59 20 mg WB JUANJOSE Administration Sodium Phosphate 250 mg 01/24/18 17:30 01/26/18 20:26 K-Phos *Neutral* Tablet PO 250 mg WM JUANJOSE Administration Sucralfate 1 gm 01/23/18 17:00 01/31/18 12:06 Carafate Slurry PO 1 gm ACHS JUANJOSE Administration - Constitutional no acute distress, average body habitus, cooperative - Routine HEENT Exam Head: Present: normocephalic, atraumatic Eye: Present: EOMI, PERRL ENT: Present: mucous membranes moist - Routine Neck Exam Present: supple, full ROM, trachea midline - Routine Respiratory Exam Present: decreased breath sounds, crackles. Absent: accessory muscle use, patient mechanically ventilated Comments: crackles to bases R>L - Routine Cardiovascular Exam Present: RRR, S1, S2, no murmur - Routine Abdominal Exam Present: soft, normoactive bowel sounds - Routine Extremities Exam Present: no edema, non tender, full ROM. Absent: cyanosis, clubbing, edema - Routine Back/Spine/Pelvis Exam Back/Spine: Present: full ROM - Routine Skin Exam Present: intact, dry - Routine Neurological Exam Present: alert, oriented X3, CN II-XII intact - Routine Psychiatric Exam Present: normal affect, normal thought process Results - Laboratory Findings Laboratory: Laboratory Results - last 48 hr 01/31/18 01/31/18 02/01/18 04:48 04:48 04:48 WBC 20.2 H 12.7 H RBC 3.56 L 3.39 L Hgb 10.6 L 10.1 L Hct 32.2 L 30.9 L MCV 90.4 91.2 MCH 29.8 29.8 MCHC 32.9 32.7 RDW Std Deviation 45.9 46.6 Plt Count 274 309 MPV 9.5 9.8 Immature Gran % (Auto) Not performed 0.7 H Neut % (Auto) Not performed 81.4 H Lymph % (Auto) Not performed 8.4 L [place]one % (Auto) Not performed 8.5 Eos % (Auto) Not performed 0.9 Baso % (Auto) Not performed 0.1 Neut # (Auto) Not performed 10.3 H Lymph # (Auto) Not performed 1.1 Shoshone # (Auto) Not performed 1.1 H Eos # (Auto) Not performed 0.1 Baso # (Auto) Not performed 0.0 Abs Immat Gran (auto) Not performed 0.09 H Neutrophils % (Manual) 93.0 H Band Neutrophils % 1.0 D Lymphocytes % (Manual) 4.0 L Monocytes % (Manual) 2.0 Neutrophils # (Manual) 18.8 H Band Neutrophils # 0.2 Lymphocytes # (Manual) 0.8 L Monocytes # (Manual) 0.4 RBC Morph Comment Normal Turbidity < 20 Sodium 135 Potassium 3.3 L Chloride 97 L Carbon Dioxide 32 H Anion Gap 6 BUN 16.0 Creatinine 0.9 GFR Calculation 61 BUN/Creatinine Ratio 18 Glucose 90 Calculated Osmolality 261 Calcium 7.7 L Phosphorus Magnesium Icterus Index < 2 Albumin Specimen Hemolysis < 15 02/01/18 04:48 WBC RBC Hgb Hct MCV MCH MCHC RDW Std Deviation Plt Count MPV Immature Gran % (Auto) Neut % (Auto) Lymph % (Auto) Shoshone % (Auto) Eos % (Auto) Baso % (Auto) Neut # (Auto) Lymph # (Auto) Shoshone # (Auto) Eos # (Auto) Baso # (Auto) Abs Immat Gran (auto) Neutrophils % (Manual) Band Neutrophils % Lymphocytes % (Manual) Monocytes % (Manual) Neutrophils # (Manual) Band Neutrophils # Lymphocytes # (Manual) Monocytes # (Manual) RBC Morph Comment Turbidity < 20 Sodium 136 Potassium 3.9 D Chloride 99 Carbon Dioxide 31 H Anion Gap 6 BUN 18.0 H Creatinine 0.8 GFR Calculation 70 BUN/Creatinine Ratio 23 Glucose 86 Calculated Osmolality 263 Calcium 7.7 L Phosphorus 2.8 Magnesium 2.0 Icterus Index < 2 Albumin 2.3 L Specimen Hemolysis < 15 - Diagnostic Findings Chest x-ray: image reviewed (CXR: Still RLL effusion and improving RLL infiltrate) Assessment and Plan - Assessment and Plan CAP COPD exacerbation Complex parapneumonic effusion Atrial fibrillation Plan: Pt currently on O2 at 1L per NC and tolerating, wean to keep sats 90-95%, no O2 at home. R pigtail in place, drained 9ml overnoc, CXR with cont effusion but improving infiltrate on R. WBC improving 20.2>12, afebrile on Rocephin, bands 1 , sputum cx showing normal zahra, pleural fluid cx NTD. Currently on pulmicort/ brovana BID and a/a QID, off steroids at this time, no wheezing or increase in SOB. Will infuse TPA 10mg/50ml saline into pigtail today and clamp pigtail for 1 hr and then let drain. Will follow drainage overnoc and check a CXR in am. - Time Spent With Patient Total time spent is greater than 50% in coordination of care (as documented) at patient's floor/unit and/or counseling patient: less than 15 minutes
[2018-02-01] MEDS: LACTOBACILLUS (15B cfu) CAPSULE PO SCH ×2 (10:09→17:50)
[2018-02-01] MEDS: BUMETANIDE 1 MG TABLET PO SCH (10:09)
[2018-02-01] MEDS: CEFTRIAXONE 1 G in NS 100 ML IV SCH (10:09)
[2018-02-01] MEDS: AMIODARONE 200 MG TABLET PO SCH ×2 (10:10→21:22)
[2018-02-01] MEDS: APIXABAN 5 MG TABLET PO SCH ×2 (10:12→21:22)
--- NOTE | 2018-02-01 10:26 | XRay Report ---
INDICATION: pleural effusion, pna PROCEDURE: CHEST 2-VIEWS UPRIGHT (PA & LAT) Encounter: Initial COMPARISON: January 30, 2018 FINDINGS: Right-sided pleural drain remains in stable position. Decreasing right pleural effusion. Persistent subcutaneous emphysema on the right chest wall. No visible pneumothorax. Small left effusion. Improving aeration of the right lower lobe. Heart size and mediastinal contours are stable. Pulmonary vascularity is unchanged. Impression: Decreasing right effusion and improving aeration of the right lower lobe. .
--- NOTE | 2018-02-01 10:37 | Progress Note ---
- Date 02/01/18 Subjective: Leoncio was seen just after Stephenie rBady APRN, instilled TPA into pigtail. It will be clamped for an hour but she is free to ambulate. Kaitlin states that her breathing is doing well and she denies feeling short of breath. The pigtail catheter is annoying but not too painful. She denies any chest pain or palpitations. She has been eating well without any GI complaints. However, she has diarrhea on and off, which seems to be associated with Rocephin. Objective Vital signs: Temperature 97.5 F 02/01/18 07:00 Pulse Rate 67 02/01/18 07:33 Respiratory Rate 22 02/01/18 09:33 Blood Pressure 136/62 02/01/18 07:33 Pulse Oximetry 96 02/01/18 07:07 Rhythm: Normal Sinus Rhythm Height/Weight/BMI: Height 1.61 m Weight 69.1 kg Body Mass Index 26.6 - Constitutional Present: no acute distress, well nourished, well developed - Routine HEENT Exam Head: Present: normocephalic Eye: Present: PERRL. Absent: conjunctival icterus, scleral injection ENT: Absent: oropharynx clear (mild thrush to b/l buccal mucosa) - Routine Respiratory Exam Present: decreased breath sounds, crackles Comments: Pigtail catheter with overlying gauze dressing to right upper back. There is some dried drainage on the gauze but it has not expanded beyond the line drawn. - Routine Cardiovascular Exam Present: RRR, S1, S2 - Routine Abdominal Exam Present: soft, normoactive bowel sounds, non distended, non tender - Routine Extremities Exam Present: edema (1+ BLE) - Routine Skin Exam Present: intact, dry, warm - Routine Neurological Exam Present: alert, oriented X3, normal speech - Routine Psychiatric Exam Present: normal affect, normal thought process, cooperative Results - Labs CBC & Chem 7: 02/01/18 04:48 02/01/18 04:48 Microbiology Results: Microbiology 01/28/18 12:50 Pleural Fluid Gram Stain - Final 01/28/18 12:50 Pleural Fluid Body Fluid Culture - Preliminary No Growth After 3 Days 01/22/18 12:47 Sputum, Expectorated Gram Stain - Final 01/22/18 12:47 Sputum, Expectorated Sputum Culture - Final Normal Respiratory Bridgette including Yeast Present Assessment and Plan (1) CAP (community acquired pneumonia) Current visit: Yes Status: Acute (2) Hyponatremia Problem details: POA-118 Current visit: Yes Status: Resolved (3) Atrial fibrillation with RVR Current visit: Yes Status: Resolved Assessment and Plan: Assessment: New onset A fib with RVR-Eliquis initiated 01/23/18 NSVT on 01/27/18-diltiazem dc'd and metoprolol initiated Hyponatremia-118 on admission-resolved CAP-RML/RLL; antibiotics completed Pleural effusion, multiloculated-01/27/18 COPD HTN Nausea/Vomiting-resolved Dysphagia-01/23/18 CAD Valvular heart disease-/TR Hypophosphatemia-resolved Thrush (tongue)-01/25/18 Hypokalemia-01/30/18 Plan: TPA repeated today followed by chest tube clamped for 1 hour. Continue to monitor drainage. Repeat chest x-ray in a.m., and hopefully will be able to remove pigtail catheter tomorrow. Chest x-ray done this morning was personally reviewed and shows an improving right effusion and improving aeration of the right lower lobe. Continue Rocephin. White count down to 12.7. Mild thrush noted, resume nystatin. Potassium was low yesterday at 3.3, but this has been corrected to 3.9 today. Continue amiodarone and Eliquis for A. fib; metoprolol for NSVT. She remains in sinus rhythm. Discussed with Ender Ricardo APRN, and with Dr. Lutz. 02/01/2018-3 PM-I reviewed this chart, the patient history, and the MACHINE REBUILDER's/PA's documented findings as above. We discussed and formulated the assessment and plan as above with the additions below.-Dr. Lutz The patient was seen this afternoon in her room. She states she's feeling pretty well. She states she is eating okay but usually does not have a very big appetite. She has some mild loose stools at times. She is drinking fluids well. She denies any shortness of breath. She walked with physical therapy in the halls without difficulty today. On exam she is alert and in no acute distress. Chest reveals some mild crackles and wheezes in the right base. Cardiovascular reveals a regular rate and rhythm. Telemetry shows paced rhythm currently. Abdomen is soft and nontender. Extremities are free of edema. Impression and plan Community-acquired pneumonia-on antibiotics Multiloculated pleural effusion-chest tube in place, TPA repeated today. COPD-continue breathing treatments, supplemental oxygen as needed Continue eliquis for paroxysmal afib DVT Prophylaxis: Eliquis GI Prophylaxis: Protonix Resuscitation Status: Full Code - Physician Narrative Narrative: Date: 02/01/18 Time: 1026 Hospital Course Summary Disclaimer: The visit summary below is not to be considered part of the above Progress Note. Hospital Course: 01/21/18 1. CAP with no hypoxia currently--cxs, levaquin as per her elementary instructional coach rec today. Nebs. 2. COPD--brovana and duoneb 3. Hyponatremia due to HCTZ and free water excess most likely. NS and recheck in AM holding HCTZ. 4. Essential HTN--hold HCTZ and monitor. 5. N/V likely due to lortab, monitor with 1. possible contributor. LFTs fine. 01/22/18 New onset atrial fibrillation present early this morning. Obtain troponin, obtain echocardiogram. Telemetry initiated. Obtain serum/urine osm, urine sodium. Continue to hold HCTZ. Trend sodium. Obtain TSH Monitor I/O Continue antibiotics and start steroids; continue breathing treatments, RT consult. Consult patient's senior ios software engineer (Emilee) and elementary instructional coach (Radha) 01/23/18 Day 3 Levaquin for community-acquired pneumonia. Convert to oral Levaquin. Repeat chest x-ray in a.m. Continue breathing treatments/O2 as needed. Initiate prednisone-intended to start earlier today. Sodium has improved progressively off HCTZ and with volume replacement. Undetectable urine sodium consistent with volume depletion. BUN 26--> 14 with hydration. Cardiac rhythm stabilizing, in sinus rhythm at present. Troponins unremarkable. Echocardiogram with normal LV function and moderate aortic stenosis, moderate TR , moderate pulmonary hypertension. Appreciate assistance offered by cardiology. Increased dysphasia described by patient-Carafate suspension initiated. Minimal symptoms prior to nausea/vomiting prior to hospitalization. 01/24/18 Day 4 Levaquin for community-acquired pneumonia. Converted to oral Levaquin yesterday and we'll discontinue today due to interaction with amiodarone. Convert to Augmentin for 1-3 days. Repeat chest x-ray with improvement in infiltrate. Continue prednisone 40 mg daily 5 days. Sodium has normalized off HCTZ and with volume replacement. Undetectable urine sodium consistent with volume depletion. Good oral intake, discontinue IV fluids. Eliquis initiated yesterday per cardiology, remains on amiodarone and diltiazem for atrial fibrillation. Echocardiogram with normal LV function and moderate aortic stenosis, moderate TR , moderate pulmonary hypertension. Increased dysphagia described by patient yesterday-Carafate suspension initiated and symptoms slightly improved today. Phosphorus supplement initiated-reassess phosphorus level in a couple of days. 01/25/18 Has had 4 days of Levaquin. Today started on Augmentin as Levaquin was discontinued due to interaction with amiodarone. Complete 5 days of antibiotics today. Continue prednisone 40 mg daily 5 days (through January 27) Appears fluid overloaded today. IV fluids were discontinued yesterday. Lasix 40 mg IV and potassium 20 mEq po given1. Phosphorus initiated yesterday due to hypophosphatemia. Repeat phosphorus level in a.m. Eliquis initiated 01/23/18 per cardiology, remains on amiodarone and diltiazem for atrial fibrillation. Start nystatin for thrush. Pepcid added for persistent dysphasia. Per cardiology: Will start Bumex 2mg IV daily - start today and monitor response Patient likely in acute diastolic heart failure due to rapid atrial fibrillation - she has moderate will monitor blood pressure closely Possible VT noted on Tele Will obtain [facility] PPM interrogation 01/26/18 Completed 5 days of antibiotics yesterday. Continue prednisone through tomorrow for pulmonary inflammation associated with pneumonia. Chest x-ray in the morning. Chronic COPD-reassessed by Dr. Garcia, no additional changes in regimen recommended at this time. Pacemaker was interrogated earlier today due to presence of wide complex tachycardia which appeared to be pacemaker dependent tachycardia prompting pacemaker adjustment. SVT and previously identified A. fib/flutter with RVR was identified on interrogation but there was no evidence of NSVT. Pacemaker check plan 2-4 weeks after discharge to evaluate modifications and pacemaker settings made today. Cardiology is converted to oral Bumex to continue diuresis. Continue nystatin. Phosphorus improved-discontinue replacement. PT/OT evaluations in a.m. in anticipation of discharge. 01/27/18 Titrate prednisone to 20 mg daily. Chest x-ray improving however there is suggestion of loculated pleural effusion ; discussed with Dr. Garcia--> CT chest with contrast. Discussed recurrent wide complex tachycardia with cardiology-strip reviewed by myself, morphology overnight different than prior pacemaker mediated tachycardia. Pacemaker check planned 2-4 weeks after discharge to evaluate modifications in pacemaker settings made for/3. Diuresing well; continue amiodarone and Eliquis for recent atrial fibrillation. Continue nystatin. Dysphasia/heartburn slightly improved; will convert from Pepcid to Protonix given ongoing heartburn. Speech therapy evaluation. PT/OT evaluated today and recommended home with home health; may require walker. 01/28/18 CT chest showed multiloculated effusion consistent with complex parapneumonic effusion. Dr Garcia DC'd prednisone. Pigtail catheter was placed under US guidance. Plan to instill TPA to enhance drainage per pulm. . Recommend continuing antibiotics for CAP. Ceftriaxone was restarted today. ( Initial tx for CAP was completed 01/25/18) Pleural fluid sent for culture. Cardiology following. 01/29/18 Had about 100 mL output from pigtail catheter to right lung. CXR today shows decreasing effusion. No further episodes of NSVT last night. Cardiology stopped diltiazem and started metoprolol yesterday. Ceftriaxone resumed on 01/28 -- may be contributing to diarrhea. Start Culturelle. WBC still elevated at 17.8 (prednisone had just been dc'd). Continue PT: she ambulated 380 feet today with FWW but needs to manage O2 tank and chest tube. Sats down to 87% after ambulation but she recovered within 30 sec of rest. 01/30/18 About 200 mL total output from pigtail catheter to right lung. Dr. Garcia is planning on repeating tPA on Thursday and tentatively removing the drain on Thursday. Pleural fluid culture remains neg. WBC increased to 24; continue Rocephin. She's afebrile. Pt had 5 loose bowel movements yesterday but only 1 soft bowel movement so far today. If diarrhea returns we may need to check for C. diff. (consider holding PPI) Remains in sinus rhythm. Continue amiodarone. Continue diuresis per cardiology. Plan: 01/31/18-Dr. Lutz covering for Dr. Roeser. *Pulm-Continue Chest tube. Possible Repeat tPA tomorrow per Dr. Garcia. Minimal output apparent. CXR reviewed. Leukocytosis persistent, but she is not febrile and does not appear ill. Continue Ceftriaxone and monitor. Cx reviewed, negative. *CV- HR controlled. Doing well on Bumex. Continue, but will need to replace potassium now and then order daily replacement. Dr. Hebert following. Will DC Carafate to avoid interaction with NOAC. *AFib- Eliquis/Amiodarone. *N/V/Dysphagia- Will de-escalate therapy. Stop Carafate (day #9 therapy), Decrease H2RB to Q HS and continue PPI in AM. Repeat labs in AM. Continue supportive care. 02/01/18 TPA repeated today followed by chest tube clamped for 1 hour. Continue to monitor drainage. Repeat chest x-ray in a.m., and hopefully will be able to remove pigtail catheter tomorrow. Chest x-ray done this morning shows an improving right effusion and improving aeration of the right lower lobe. Continue Rocephin. White count down to 12.7. Mild thrush noted, resume nystatin. Potassium was low yesterday at 3.3, but this has been corrected to 3.9 today. Continue amiodarone and Eliquis for A. fib; metoprolol for NSVT. She remains in sinus rhythm.
--- NOTE | 2018-02-01 12:58 | Cardiology Progress Note ---
<Anabela Pang M - Last Filed: 02/02/18 08:17> Subjective Principal diagnosis: Atrial Fibrillation Interval history: Kaitlin is seen in f/u of new onset AFib, , PPM and NSVT. She is in her bed, chest tube in place, in no distress on 1L/NC O2. She denies dyspnea, chest pain , pressure or palpitations. Exam Vital signs: Temperature 97.5 F 02/01/18 07:00 Pulse Rate 72 02/01/18 08:00 Respiratory Rate 22 02/01/18 09:33 Blood Pressure 136/62 02/01/18 07:33 Pulse Oximetry 96 02/01/18 07:07 Inpatient Medications: Generic Name Dose Route Start Last Admin Trade Name Freq PRN Reason Stop Dose Admin Acetaminophen 325 - 650 mg 01/21/18 20:15 01/22/18 11:42 Tylenol PO 650 mg Q5H PRN Administration Discomfort Hydrocodone Bitart/Acetaminophen 1 tab 01/23/18 16:45 [place] 5/325 PO Q4H PRN Pain Albuterol/Ipratropium 3 ml 01/27/18 11:00 01/31/18 19:07 Duoneb AEROSOL 3 ml RTQID JUANJOSE Administration Amiodarone HCl 200 mg 01/29/18 21:00 02/01/18 10:10 Pacerone PO 02/05/18 09:01 200 mg BID JUANJOSE Administration Amiodarone HCl 200 mg 02/06/18 09:00 Pacerone PO DAILY JUANJOSE Apixaban 5 mg 01/23/18 21:00 02/01/18 10:12 Eliquis PO 5 mg BID JUANJOSE Administration Arformoterol Tartrate 15 mcg 01/22/18 19:00 02/01/18 06:57 Brovana Neb AEROSOL 15 mcg RTBID JUANJOSE Administration Budesonide 0.5 mg 01/22/18 07:00 02/01/18 06:57 Pulmicort Inhalation AEROSOL 0.5 mg RTBID JUANJOSE Administration Bumetanide 2 mg 01/30/18 09:00 02/01/18 10:09 Bumex 1 Mg Tab PO 2 mg DAILY JUANJOSE Administration Famotidine 20 mg 01/31/18 21:00 01/31/18 20:53 Pepcid PO 20 mg HS JUANJOSE Administration Ceftriaxone Sodium 1 g/ Sodium 100 mls @ 200 mls/hr 01/28/18 10:15 02/01/18 10:39 Chloride IV Infused Q24H JUANJOSE Infusion Lactobacillus Acidophilus 2 cap 01/29/18 17:30 02/01/18 10:09 Culturelle PO 2 cap BIDWM JUANJOSE Administration Metoprolol Tartrate 50 mg 01/27/18 13:30 02/01/18 10:10 Lopressor PO 50 mg BIDWM JUANJOSE Administration Nystatin 5 ml 02/01/18 13:00 Mycostatin PO QID JUANJOSE Ondansetron HCl 4 mg 01/21/18 20:15 Zofran IVP Q6H PRN Nausea &/or vomiting Pantoprazole Sodium 40 mg 01/28/18 06:30 02/01/18 06:05 Protonix Tab PO 40 mg ACB JUANJOSE Administration Potassium Chloride 20 meq 02/01/18 08:00 02/01/18 10:10 Micro-K 10 Meq Capsule PO 20 meq BIDWM JUANJOSE Administration Senna/Docusate Sodium 1 tab 01/21/18 20:15 Senna Plus Tablet PO BID PRN Constipation Sodium Chloride 10 - 80 ml 01/21/18 17:39 02/01/18 10:12 Iv Flush IVF 10 ml PRN PRN Administration Flushing Sodium Chloride 500 ml 01/31/18 09:32 01/31/18 09:36 Normal Saline IV 500 ml PRN PRN Administration Discontinued Medications Generic Name Dose Route Start Last Admin Trade Name Freq PRN Reason Stop Dose Admin Albuterol Sulfate 2.5 mg 01/22/18 07:00 01/28/18 09:03 Proventil Neb (0.083%) AEROSOL Not Given RTQID JUANJOSE Albuterol/Ipratropium 3 ml 01/21/18 17:39 01/21/18 18:59 Duoneb AEROSOL 01/21/18 17:40 3 ml O ONE Administration Albuterol/Ipratropium 3 ml 01/21/18 20:15 01/23/18 22:20 Duoneb AEROSOL 01/21/18 20:16 Not Given Q4WA ONE Albuterol/Ipratropium 3 ml 01/21/18 22:00 01/21/18 21:45 Duoneb AEROSOL 3 ml Q4WA JUANJOSE Administration Alteplase, Recombinant 10 mg 01/28/18 15:30 01/28/18 15:45 Cathflo Activase IPL 01/28/18 15:31 10 mg O ONE Administration Alteplase, Recombinant 10 mg 02/01/18 09:00 Cathflo Activase IPL 02/01/18 09:01 O ONE Amiodarone HCl 400 mg 01/22/18 16:24 01/29/18 09:14 Pacerone PO 01/29/18 09:01 400 mg BID JUANJOSE Administration Amoxicillin/Clavulanate Potassium 875 mg 01/25/18 08:00 01/25/18 17:06 Augmentin 875/125 PO 01/26/18 01:00 875 mg BIDWM JUANJOSE Administration Arformoterol Tartrate 15 mcg 01/22/18 09:00 01/22/18 09:15 Brovana Neb AEROSOL 15 mcg BID JUANJOSE Administration Bumetanide 2 mg 01/26/18 15:00 01/29/18 09:13 Bumex 2.5 Mg/10 Ml Inj IVP 2 mg DAILY JUANJOSE Administration Diltiazem HCl 60 mg 01/22/18 12:00 01/22/18 12:26 Cardizem Sr 60 Mg (12 Hr) PO 60 mg O JUANJOSE Administration Diltiazem HCl 180 mg 01/23/18 13:00 01/27/18 09:04 Cardizem Cd 180 Mg PO 180 mg DAILY JUANJOSE Administration Enoxaparin Sodium 40 mg 01/22/18 09:00 01/23/18 08:22 Lovenox SQ 40 mg DAILY JUANJOSE Administration Famotidine 20 mg 01/25/18 21:00 01/31/18 08:53 Pepcid PO 20 mg BID JUANJOSE Administration Furosemide 40 mg 01/25/18 12:14 01/25/18 12:24 Lasix 40 Mg/4 Ml IVP 01/25/18 12:15 40 mg O ONE Administration Sodium Chloride 1,000 mls @ 999.9 mls/hr 01/21/18 19:48 01/23/18 22:19 Normal Saline IV 01/21/18 20:47 Infused .Q1H ONE Infusion Levofloxacin/Dextrose 750 mg in 150 mls @ 100 mls/hr 01/21/18 20:15 01/22/18 21:54 Levaquin Premix IV Infused Q24H JUANJOSE Infusion Sodium Chloride 1,000 mls @ 50 mls/hr 01/21/18 20:15 01/24/18 15:15 Normal Saline IV Infused .Q20H JUANJOSE Infusion Levofloxacin 750 mg 01/23/18 20:30 01/24/18 06:30 Levaquin PO 750 mg ACB JUANJOSE Administration Methylprednisolone Sodium Succinate 62.5 mg 01/22/18 12:00 01/22/18 12:26 Solu-Medrol IVP 62.5 mg O JUANJOSE Administration Metoprolol Tartrate 50 mg 01/27/18 22:00 01/27/18 21:56 Lopressor PO 01/27/18 22:01 50 mg ONE TIME JUANJOSE Administration Nystatin 5 ml 01/25/18 13:00 01/30/18 08:38 Mycostatin PO 01/30/18 12:59 5 ml QID JUANJOSE Administration Ondansetron HCl 4 mg 01/21/18 17:39 01/21/18 18:54 Zofran IVP 01/21/18 17:40 4 mg O ONE Administration Pharmacy Consult each 01/28/18 20:50 Pharmacy Consult - Fall Risk 01/28/18 20:51 ONE TIME ONE Potassium Chloride 20 meq 01/25/18 12:14 01/25/18 12:24 K-Dur 20 Meq Tablet PO 01/25/18 12:15 20 meq O ONE Administration Potassium Chloride 20 meq 01/30/18 13:42 01/30/18 14:03 K-Dur 20 Meq Tablet PO 01/30/18 13:43 20 meq O ONE Administration Potassium Chloride 40 meq 01/31/18 09:03 01/31/18 09:33 K-Dur 20 Meq Tablet PO 01/31/18 09:04 40 meq O ONE Administration Potassium Chloride 40 meq 01/31/18 13:36 01/31/18 14:32 K-Dur 20 Meq Tablet PO 01/31/18 13:37 40 meq O ONE Administration Prednisone 40 mg 01/23/18 16:47 01/27/18 09:03 Deltasone 20 Mg PO 01/27/18 08:01 40 mg WB JUANJOSE Administration Prednisone 20 mg 01/28/18 08:00 01/28/18 08:52 Deltasone 20 Mg PO 02/02/18 07:59 20 mg WB JUANJOSE Administration Sodium Phosphate 250 mg 01/24/18 17:30 01/26/18 20:26 K-Phos *Neutral* Tablet PO 250 mg WM JUANJOSE Administration Sucralfate 1 gm 01/23/18 17:00 01/31/18 12:06 Carafate Slurry PO 1 gm ACHS JUANJOSE Administration - Constitutional no acute distress, well nourished, cooperative - Routine HEENT Exam Head: Present: normocephalic - Routine Neck Exam Absent: JVD, carotid bruit - Routine Chest/Breast/Axilla Exam Chest wall: Present: tenderness, chest tube - Routine Respiratory Exam Present: decreased breath sounds. Absent: dyspnea, CTA bilaterally - Routine Cardiovascular Exam Present: RRR, murmur - Routine Abdominal Exam Present: soft, normoactive bowel sounds - Routine Extremities Exam Present: edema - Routine Skin Exam Present: intact, dry, warm - Routine Neurological Exam Present: alert, oriented X3 - Routine Psychiatric Exam Present: normal affect, normal thought process Results 02/02/18 04:19 02/02/18 04:19 CBC 02/01/18 Range/Units 04:48 WBC 12.7 H (4.5-11.0) T/MM3 RBC 3.39 L (4.00-5.20) M/MM3 Hgb 10.1 L (12-16) GM/DL Hct 30.9 L (36-46) % Plt Count 309 (130-400) T/MM3 Neut # (Auto) 10.3 H (1.8-7.7) T/MM3 Lymph # (Auto) 1.1 (1-4.8) T/MM3 [place] # (Auto) 1.1 H (0-0.8) T/MM3 Eos # (Auto) 0.1 (0-0.5) T/MM3 Baso # (Auto) 0.0 (0-0.2) T/MM3 Comprehensive Metabolic Panel 02/01/18 Range/Units 04:48 Sodium 136 (134-144) MEQ/L Potassium 3.9 D (3.6-5) MEQ/L Chloride 99 (98-107) MEQ/L Carbon Dioxide 31 H (22-30) MEQ/L BUN 18.0 H (7-17) MG/DL Creatinine 0.8 (0.7-1.2) mg/dL Glucose 86 (65-110) MG/DL Calcium 7.7 L (8.4-10.2) MG/DL Albumin 2.3 L (3.5-5.0) g/dL Intake and Output 01/31/18 02/01/18 02/01/18 22:59 06:59 14:59 Intake Total 920 / 920 393 / 393 Output Total 709 / 709 650 / 650 100 / 100 Balance 211 / 211 -650 / -650 293 / 293 Intake: IV 100 / 100 Ceftriaxone 1 g In Ns 100 ml @ 100 / 100 200 mls/hr IV Q24H [facility] Rx#: [id number] Oral 920 / 920 293 / 293 Output: Urine 700 / 700 650 / 650 100 / 100 Chest Tube Drainage Right Posterior Chest Other: Urine Appearance Clear Clear Clear Urine Color Pale Pale Pale Yellow Yellow Yellow Urine Odor Normal Stool Color Brown Brown Stool Consistency Soft Soft Watery Formed Size of Bowel Movement Moderate Small # Voids 1 # Bowel Movements 1 1 Weight 152 lb 5.431 oz Patient Weight 02/02/18 06:59 Weight 152 lb 5.431 oz - Imaging and Cardiology Imaging & Cardiology Narrative: Date of Exam: 02/01/18 Ordering Provider: Stephenie Brady APRN Type of Exam(s): XR chest 2V Reason for Exam(s): pleural effusion, pna INDICATION: pleural effusion, pna PROCEDURE: CHEST 2-VIEWS UPRIGHT (PA & LAT) Encounter: Initial COMPARISON: January 30, 2018 FINDINGS: Right-sided pleural drain remains in stable position. Decreasing right pleural effusion. Persistent subcutaneous emphysema on the right chest wall. No visible pneumothorax. Small left effusion. Improving aeration of the right lower lobe. Heart size and mediastinal contours are stable. Pulmonary vascularity is unchanged. Impression: Decreasing right effusion and improving aeration of the right lower lobe. 02/01/18 12:59 Assessment and Plan - Assessment and Plan (1) Diastolic CHF, acute Current visit: Yes Status: Acute (2) CAP (community acquired pneumonia) Current visit: Yes Status: Acute (3) Hyponatremia Problem details: [id number] Current visit: Yes Status: Resolved (4) Atrial fibrillation with RVR Current visit: Yes Status: Resolved (5) HTN (hypertension) Current visit: Yes Status: Chronic (6) Aortic stenosis Current visit: Yes Status: Chronic (7) COPD (chronic obstructive pulmonary disease) Current visit: Yes Status: Chronic (8) Pulmonary hypertension Current visit: Yes Status: Chronic (9) Pacemaker Current visit: Yes Status: Chronic (10) NSVT (nonsustained ventricular tachycardia) Current visit: Yes Status: Acute - Assessment and Plan 01/22/18 Troponin negative. Converted to SR this afternoon, confirmed on ECG, no ischemic changes. TSH wnl. ECHO 01/22/18: moderate , Pa pressures 51mmHg, mild TR. Recommend aggressive rhythm management due to patient and pulmonary hypertension, putting her at greater heart failure risk. Initiate AAT with Amiodarone 400mg bid for 7 days, then 200mg daily. ECG in AM; monitor QT closely in the setting Levaquin antibiotic therapy. Pt refuses anticoagulation at this time; she is advised to start it to reduce stroke risk associated with Afib. Pneumonia, hypoxia, COPD managed per attending. 01/23/18 Pt has been and out of afib since yesterday rates up to 140 seen on tele. On amiodarone 400mg po bid, continue. Initiate diltiazem 180mg daily for improved rate control, hold for sbp <100. Monitor pressures closely, avoid hypotension in setting of . Pt consents to anticoagulation therapy, initiate eliquis 5mg bid, dc lovenox 40mg daily. First dose of eliquis this PM. Pneumonia, hypotnatremia per attending. 01/24/18: In SR, has maintained it most of the day. Continue Amiodarone and Diltiazem. Get ECG in AM to monitor QT. Eliquis 5mg bid. Continue to monitor tele, vitals. 01/25/18 Continue Eliquis Continue Diltiazem 180mg one tablet daily for rate control Continue Amiodarone oral titration to maintain NSR. EKG today revealing NSR, RBBB, Qtc 432 - tolerating Amiodarone well. Monitor tele and vitals Hyponatremia resolved Evaluation of Tele revealing tachycardia in a patient with known RBBB will perform Mg level and consider PPM interrogation BNP today high - was given Lasix 40mg IV X 1 earlier today Mg level high Will start Bumex 2mg IV daily - start today and monitor response Patient likely in acute diastolic heart failure due to rapid atrial fibrillation - she has moderate will monitor blood pressure closely Possible VT noted on Tele Will obtain [facility] PPM interrogation 01/26/18 Patient continues to have runs of dysrhythmia I have just received a call from Carlos Manjarrez PPM rep. It appears that patient is having multiple pacemaker dependent tachycardic events. Carlos has adjusted the PPM to prevent this event. Otherwise, The VT detection has been turned on today. 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 No need for a heart catheterization today as likely her rhythm is not VT We will go ahead and feed patient today and once discharged, will have her follow up with us for a repeat PPM check in 2 to 4 weeks to ensure that her pacemaker dependent tachycardia has resolved. I have informed patient that we will not proceed with a HC today for a couple of reasons - she is on Eliquis and likely her dysrhythmia is not VT. Patient is ok with the plan of care We will change her IV Bumex to oral bumex 1mg po BID Her EF is approx 55%, which is normal Her CHF is likely diastolic heart failure from her dysrhythmia and pneumonia/ hypoxia She will likely be ready for discharge from a cardiac standpoint in 1 to 2 days 01/27/18 NSVT: Start Metoprolol 50mg BID - Stop Cardizem 01/28/18 Chest tube inserted per pulm. - No further NSVT since started metoprolol. - Continue IV Bumex as ordered for diuresis 01/29/18 Change Bumex to 2mg PO daily - No further NSVT on telemetry Continue to monitor 02/01/18 Telemetry and V/S remain stable - Continue current Bumex, monitor renal and electrolytes Hospital Course Summary Disclaimer: The visit summary below is not to be considered part of the above Progress Note. Hospital Course: 01/21/18 1. CAP with no hypoxia currently--cxs, levaquin as per her cat sitter rec today. Nebs. 2. COPD--brovana and duoneb 3. Hyponatremia due to HCTZ and free water excess most likely. NS and recheck in AM holding HCTZ. 4. Essential HTN--hold HCTZ and monitor. 5. N/V likely due to lortab, monitor with 1. possible contributor. LFTs fine. 01/22/18 New onset atrial fibrillation present early this morning. Obtain troponin, obtain echocardiogram. Telemetry initiated. Obtain serum/urine osm, urine sodium. Continue to hold HCTZ. Trend sodium. Obtain TSH Monitor I/O Continue antibiotics and start steroids; continue breathing treatments, RT consult. Consult patient's delicatessen manager (Emilee) and cat sitter (Radha) 01/23/18 Day 3 Levaquin for community-acquired pneumonia. Convert to oral Levaquin. Repeat chest x-ray in a.m. Continue breathing treatments/O2 as needed. Initiate prednisone-intended to start earlier today. Sodium has improved progressively off HCTZ and with volume replacement. Undetectable urine sodium consistent with volume depletion. BUN 26--> 14 with hydration. Cardiac rhythm stabilizing, in sinus rhythm at present. Troponins unremarkable. Echocardiogram with normal LV function and moderate aortic stenosis, moderate TR , moderate pulmonary hypertension. Appreciate assistance offered by cardiology. Increased dysphasia described by patient-Carafate suspension initiated. Minimal symptoms prior to nausea/vomiting prior to hospitalization. 01/24/18 Day 4 Levaquin for community-acquired pneumonia. Converted to oral Levaquin yesterday and we'll discontinue today due to interaction with amiodarone. Convert to Augmentin for 1-3 days. Repeat chest x-ray with improvement in infiltrate. Continue prednisone 40 mg daily 5 days. Sodium has normalized off HCTZ and with volume replacement. Undetectable urine sodium consistent with volume depletion. Good oral intake, discontinue IV fluids. Eliquis initiated yesterday per cardiology, remains on amiodarone and diltiazem for atrial fibrillation. Echocardiogram with normal LV function and moderate aortic stenosis, moderate TR , moderate pulmonary hypertension. Increased dysphagia described by patient yesterday-Carafate suspension initiated and symptoms slightly improved today. Phosphorus supplement initiated-reassess phosphorus level in a couple of days. 01/25/18 Has had 4 days of Levaquin. Today started on Augmentin as Levaquin was discontinued due to interaction with amiodarone. Complete 5 days of antibiotics today. Continue prednisone 40 mg daily 5 days (through January 27) Appears fluid overloaded today. IV fluids were discontinued yesterday. Lasix 40 mg IV and potassium 20 mEq po given1. Phosphorus initiated yesterday due to hypophosphatemia. Repeat phosphorus level in a.m. Eliquis initiated 01/23/18 per cardiology, remains on amiodarone and diltiazem for atrial fibrillation. Start nystatin for thrush. Pepcid added for persistent dysphasia. Per cardiology: Will start Bumex 2mg IV daily - start today and monitor response Patient likely in acute diastolic heart failure due to rapid atrial fibrillation - she has moderate will monitor blood pressure closely Possible VT noted on Tele Will obtain [facility] PPM interrogation 01/26/18 Completed 5 days of antibiotics yesterday. Continue prednisone through tomorrow for pulmonary inflammation associated with pneumonia. Chest x-ray in the morning. Chronic COPD-reassessed by Dr. Garcia, no additional changes in regimen recommended at this time. Pacemaker was interrogated earlier today due to presence of wide complex tachycardia which appeared to be pacemaker dependent tachycardia prompting pacemaker adjustment. SVT and previously identified A. fib/flutter with RVR was identified on interrogation but there was no evidence of NSVT. Pacemaker check plan 2-4 weeks after discharge to evaluate modifications and pacemaker settings made today. Cardiology is converted to oral Bumex to continue diuresis. Continue nystatin. Phosphorus improved-discontinue replacement. PT/OT evaluations in a.m. in anticipation of discharge. <Omkar Hebert - Last Filed: 02/02/18 13:00> Exam Vital signs: Temperature 96.9 F 02/02/18 07:00 Pulse Rate 66 02/02/18 07:38 Respiratory Rate 18 02/02/18 11:36 Blood Pressure 129/49 02/02/18 07:00 Pulse Oximetry 97 02/02/18 11:36 Inpatient Medications: Generic Name Dose Route Start Last Admin Trade Name Freq PRN Reason Stop Dose Admin Acetaminophen 325 - 650 mg 01/21/18 20:15 01/22/18 11:42 Tylenol PO 650 mg Q5H PRN Administration Discomfort Hydrocodone Bitart/Acetaminophen 1 tab 01/23/18 16:45 [place] 5/325 PO Q4H PRN Pain Albuterol/Ipratropium 3 ml 01/27/18 11:00 02/02/18 11:36 Duoneb AEROSOL 3 ml RTQID JUANJOSE Administration Amiodarone HCl 200 mg 01/29/18 21:00 02/02/18 09:19 Pacerone PO 02/05/18 09:01 200 mg BID JUANJOSE Administration Amiodarone HCl 200 mg 02/06/18 09:00 Pacerone PO DAILY JUANJOSE Apixaban 5 mg 01/23/18 21:00 02/02/18 09:17 Eliquis PO 5 mg BID JUANJOSE Administration Arformoterol Tartrate 15 mcg 01/22/18 19:00 02/02/18 08:43 Brovana Neb AEROSOL 15 mcg RTBID JUANJOSE Administration Budesonide 0.5 mg 01/22/18 07:00 02/02/18 06:58 Pulmicort Inhalation AEROSOL 0.5 mg RTBID JUANJOSE Administration Bumetanide 2 mg 01/30/18 09:00 02/02/18 09:18 Bumex 1 Mg Tab PO 2 mg DAILY JUANJOSE Administration Famotidine 20 mg 01/31/18 21:00 02/01/18 21:22 Pepcid PO 20 mg HS JUANJOSE Administration Ceftriaxone Sodium 1 g/ Sodium 100 mls @ 200 mls/hr 01/28/18 10:15 02/02/18 11:41 Chloride IV Infused Q24H JUANJOSE Infusion Lactobacillus Acidophilus 2 cap 01/29/18 17:30 02/02/18 09:18 Culturelle PO 2 cap BIDWM JUANJOSE Administration Metoprolol Tartrate 50 mg 01/27/18 13:30 02/02/18 09:18 Lopressor PO 50 mg BIDWM JUANJOSE Administration Nystatin 5 ml 02/01/18 13:00 02/02/18 09:17 Mycostatin PO 5 ml QID JUANJOSE Administration Ondansetron HCl 4 mg 01/21/18 20:15 Zofran IVP Q6H PRN Nausea &/or vomiting Pantoprazole Sodium 40 mg 01/28/18 06:30 02/02/18 07:34 Protonix Tab PO Not Given ACB [facility] Potassium Chloride 20 meq 02/01/18 08:00 02/02/18 09:19 Micro-K 10 Meq Capsule PO 20 meq BIDWM JUANJOSE Administration Senna/Docusate Sodium 1 tab 01/21/18 20:15 Senna Plus Tablet PO BID PRN Constipation Sodium Chloride 10 - 80 ml 01/21/18 17:39 02/01/18 10:12 Iv Flush IVF 10 ml PRN PRN Administration Flushing Sodium Chloride 500 ml 01/31/18 09:32 02/02/18 11:12 Normal Saline IV 500 ml PRN PRN Administration Discontinued Medications Generic Name Dose Route Start Last Admin Trade Name Freq PRN Reason Stop Dose Admin Albuterol Sulfate 2.5 mg 01/22/18 07:00 01/28/18 09:03 Proventil Neb (0.083%) AEROSOL Not Given RTQID JUANJOSE Albuterol/Ipratropium 3 ml 01/21/18 17:39 01/21/18 18:59 Duoneb AEROSOL 01/21/18 17:40 3 ml O ONE Administration Albuterol/Ipratropium 3 ml 01/21/18 20:15 01/23/18 22:20 Duoneb AEROSOL 01/21/18 20:16 Not Given Q4WA ONE Albuterol/Ipratropium 3 ml 01/21/18 22:00 01/21/18 21:45 Duoneb AEROSOL 3 ml Q4WA JUANJOSE Administration Alteplase, Recombinant 10 mg 01/28/18 15:30 01/28/18 15:45 Cathflo Activase IPL 01/28/18 15:31 10 mg O ONE Administration Alteplase, Recombinant 10 mg 02/01/18 09:00 Cathflo Activase IPL 02/01/18 09:01 O ONE Amiodarone HCl 400 mg 01/22/18 16:24 01/29/18 09:14 Pacerone PO 01/29/18 09:01 400 mg BID JUANJOSE Administration Amoxicillin/Clavulanate Potassium 875 mg 01/25/18 08:00 01/25/18 17:06 Augmentin 875/125 PO 01/26/18 01:00 875 mg BIDWM JUANJOSE Administration Arformoterol Tartrate 15 mcg 01/22/18 09:00 01/22/18 09:15 Brovana Neb AEROSOL 15 mcg BID JUANJOSE Administration Bumetanide 2 mg 01/26/18 15:00 01/29/18 09:13 Bumex 2.5 Mg/10 Ml Inj IVP 2 mg DAILY JUANJOSE Administration Diltiazem HCl 60 mg 01/22/18 12:00 01/22/18 12:26 Cardizem Sr 60 Mg (12 Hr) PO 60 mg O JUANJOSE Administration Diltiazem HCl 180 mg 01/23/18 13:00 01/27/18 09:04 Cardizem Cd 180 Mg PO 180 mg DAILY JUANJOSE Administration Enoxaparin Sodium 40 mg 01/22/18 09:00 01/23/18 08:22 Lovenox SQ 40 mg DAILY JUANJOSE Administration Famotidine 20 mg 01/25/18 21:00 01/31/18 08:53 Pepcid PO 20 mg BID JUANJOSE Administration Furosemide 40 mg 01/25/18 12:14 01/25/18 12:24 Lasix 40 Mg/4 Ml IVP 01/25/18 12:15 40 mg O ONE Administration Sodium Chloride 1,000 mls @ 999.9 mls/hr 01/21/18 19:48 01/23/18 22:19 Normal Saline IV 01/21/18 20:47 Infused .Q1H ONE Infusion Levofloxacin/Dextrose 750 mg in 150 mls @ 100 mls/hr 01/21/18 20:15 01/22/18 21:54 Levaquin Premix IV Infused Q24H JUANJOSE Infusion Sodium Chloride 1,000 mls @ 50 mls/hr 01/21/18 20:15 01/24/18 15:15 Normal Saline IV Infused .Q20H JUANJOSE Infusion Levofloxacin 750 mg 01/23/18 20:30 01/24/18 06:30 Levaquin PO 750 mg ACB JUANJOSE Administration Methylprednisolone Sodium Succinate 62.5 mg 01/22/18 12:00 01/22/18 12:26 Solu-Medrol IVP 62.5 mg O JUANJOSE Administration Metoprolol Tartrate 50 mg 01/27/18 22:00 01/27/18 21:56 Lopressor PO 01/27/18 22:01 50 mg ONE TIME JUANJOSE Administration Nystatin 5 ml 01/25/18 13:00 01/30/18 08:38 Mycostatin PO 01/30/18 12:59 5 ml QID JUANJOSE Administration Ondansetron HCl 4 mg 01/21/18 17:39 01/21/18 18:54 Zofran IVP 01/21/18 17:40 4 mg O ONE Administration Pharmacy Consult each 01/28/18 20:50 Pharmacy Consult - Fall Risk [facility] 01/28/18 20:51 ONE TIME ONE Potassium Chloride 20 meq 01/25/18 12:14 01/25/18 12:24 K-Dur 20 Meq Tablet PO 01/25/18 12:15 20 meq O ONE Administration Potassium Chloride 20 meq 01/30/18 13:42 01/30/18 14:03 K-Dur 20 Meq Tablet PO 01/30/18 13:43 20 meq O ONE Administration Potassium Chloride 40 meq 01/31/18 09:03 01/31/18 09:33 K-Dur 20 Meq Tablet PO 01/31/18 09:04 40 meq O ONE Administration Potassium Chloride 40 meq 01/31/18 13:36 01/31/18 14:32 K-Dur 20 Meq Tablet PO 01/31/18 13:37 40 meq O ONE Administration Prednisone 40 mg 01/23/18 16:47 01/27/18 09:03 Deltasone 20 Mg PO 01/27/18 08:01 40 mg WB JUANJOSE Administration Prednisone 20 mg 01/28/18 08:00 01/28/18 08:52 Deltasone 20 Mg PO 02/02/18 07:59 20 mg WB JUANJOSE Administration Sodium Phosphate 250 mg 01/24/18 17:30 01/26/18 20:26 K-Phos *Neutral* Tablet PO 250 mg WM JUANJOSE Administration Sucralfate 1 gm 01/23/18 17:00 01/31/18 12:06 Carafate Slurry PO 1 gm ACHS JUANJOSE Administration Results 02/02/18 04:19 02/02/18 04:19 CBC 02/02/18 Range/Units 04:19 WBC 9.4 (4.5-11.0) T/MM3 RBC 3.42 L (4.00-5.20) M/MM3 Hgb 10.2 L (12-16) GM/DL Hct 31.7 L (36-46) % Plt Count 335 (130-400) T/MM3 Neut # (Auto) 7.2 (1.8-7.7) T/MM3 Lymph # (Auto) 1.2 (1-4.8) T/MM3 [place] # (Auto) 0.8 (0-0.8) T/MM3 Eos # (Auto) 0.1 (0-0.5) T/MM3 Baso # (Auto) 0.0 (0-0.2) T/MM3 Comprehensive Metabolic Panel 02/02/18 Range/Units 04:19 Sodium 136 (134-144) MEQ/L Potassium 4.0 (3.6-5) MEQ/L Chloride 99 (98-107) MEQ/L Carbon Dioxide 32 H (22-30) MEQ/L BUN 17.0 (7-17) MG/DL Creatinine 0.9 (0.7-1.2) mg/dL Glucose 85 (65-110) MG/DL Calcium 7.6 L (8.4-10.2) MG/DL Intake and Output 02/01/18 02/02/18 02/02/18 22:59 06:59 14:59 Intake Total 1140 / 1140 200 / 200 100 / 100 Output Total 186 / 186 365 / 365 1200 / 1200 Balance 954 / 954 -165 / -165 -1100 / -1100 Intake: IV 100 / 100 Ceftriaxone 1 g In Ns 100 ml @ 100 / 100 200 mls/hr IV Q24H JUANJOSE Rx#: [id number] Oral 1140 / 1140 200 / 200 Output: Urine 150 / 150 350 / 350 1200 / 1200 Chest Tube Drainage Right Posterior Chest Other: Urine Appearance Clear Clear Clear Urine Color Yellow Yellow Yellow Urine Odor Normal Normal Normal Stool Color Brown Stool Consistency Loose Size of Bowel Movement Smear Moderate # Voids 1 # Bowel Movements 1 Weight 69.7 kg Patient Weight 02/03/18 06:59 Weight 69.7 kg Assessment and Plan - Assessment and Plan (1) CAP (community acquired pneumonia) Current visit: Yes Status: Acute (2) Hyponatremia Problem details: [id number] Current visit: Yes Status: Resolved (3) COPD (chronic obstructive pulmonary disease) Current visit: Yes Status: Chronic (4) HTN (hypertension) Current visit: Yes Status: Chronic (5) Atrial fibrillation with RVR Current visit: Yes Status: Resolved (6) Aortic stenosis Current visit: Yes Status: Chronic (7) Pulmonary hypertension Current visit: Yes Status: Chronic (8) Pacemaker Current visit: Yes Status: Chronic (9) Diastolic CHF, acute Current visit: Yes Status: Acute (10) NSVT (nonsustained ventricular tachycardia) Current visit: Yes Status: Acute - Attestation Attestation Narrative: 02/02/18 13:00 Recommendation After examining the patient I agree with the above assessment. I am involved in the formulation of the patient's plan of care. Hospital Course Summary Disclaimer: The visit summary below is not to be considered part of the above Progress Note.
[2018-02-01] MEDS: NYSTATIN 500,000 units/5 ml ORAL LIQUID PO SCH ×3 (13:51→21:22)
[2018-02-01] MEDS: FAMOTIDINE 20 MG TABLET PO SCH (21:22)
[2018-02-02] MEDS: PANTOPRAZOLE 40 MG TABLET PO SCH ×2 (05:25→07:34)
[2018-02-02] MEDS: BUDESONIDE INH.SOLN 0.5mg/2ml NEB AEROSOL SCH ×2 (06:58→19:17)
[2018-02-02] MEDS: ALBUTEROL/IPRATROPIUM 2.5mg-0.5mg/3ml NEB AEROSOL SCH ×4 (06:58→19:16)
[2018-02-02] MEDS: ARFORMOTEROL NEB 15mcg/2ml AEROSOL SCH ×2 (08:43→19:17)
--- NOTE | 2018-02-02 08:47 | Cardiology Progress Note ---
<Anabela Pang M - Last Filed: 02/05/18 21:23> Subjective Principal diagnosis: Atrial Fibrillation Interval history: Kaitlin is seen in f/u of new onset AFib, , PPM and NSVT. She is up in the recliner, chest tube in place, in no distress on 1L/NC O2. She denies dyspnea, chest pain, pressure or palpitations. Exam Vital signs: Temperature 96.9 F 02/02/18 07:00 Pulse Rate 66 02/02/18 07:38 Respiratory Rate 22 02/02/18 07:00 Blood Pressure 129/49 02/02/18 07:00 Pulse Oximetry 97 02/02/18 07:00 Inpatient Medications: Generic Name Dose Route Start Last Admin Trade Name Freq PRN Reason Stop Dose Admin Acetaminophen 325 - 650 mg 01/21/18 20:15 01/22/18 11:42 Tylenol PO 650 mg Q5H PRN Administration Discomfort Hydrocodone Bitart/Acetaminophen 1 tab 01/23/18 16:45 [place] 5/325 PO Q4H PRN Pain Albuterol/Ipratropium 3 ml 01/27/18 11:00 02/02/18 06:58 Duoneb AEROSOL 3 ml RTQID JUANJOSE Administration Amiodarone HCl 200 mg 01/29/18 21:00 02/01/18 21:22 Pacerone PO 02/05/18 09:01 200 mg BID JUANJOSE Administration Amiodarone HCl 200 mg 02/06/18 09:00 Pacerone PO DAILY JUANJOSE Apixaban 5 mg 01/23/18 21:00 02/01/18 21:22 Eliquis PO 5 mg BID JUANJOSE Administration Arformoterol Tartrate 15 mcg 01/22/18 19:00 02/01/18 20:52 Brovana Neb AEROSOL 15 mcg RTBID JUANJOSE Administration Budesonide 0.5 mg 01/22/18 07:00 02/02/18 06:58 Pulmicort Inhalation AEROSOL 0.5 mg RTBID JUANJOSE Administration Bumetanide 2 mg 01/30/18 09:00 02/01/18 10:09 Bumex 1 Mg Tab PO 2 mg DAILY JUANJOSE Administration Famotidine 20 mg 01/31/18 21:00 02/01/18 21:22 Pepcid PO 20 mg HS JUANJOSE Administration Ceftriaxone Sodium 1 g/ Sodium 100 mls @ 200 mls/hr 01/28/18 10:15 02/01/18 10:39 Chloride IV Infused Q24H JUANJOSE Infusion Lactobacillus Acidophilus 2 cap 01/29/18 17:30 02/01/18 17:50 Culturelle PO 2 cap BIDWM JUANJOSE Administration Metoprolol Tartrate 50 mg 01/27/18 13:30 02/01/18 17:49 Lopressor PO 50 mg BIDWM JUANJOSE Administration Nystatin 5 ml 02/01/18 13:00 02/01/18 21:22 Mycostatin PO 5 ml QID JUANJOSE Administration Ondansetron HCl 4 mg 01/21/18 20:15 Zofran IVP Q6H PRN Nausea &/or vomiting Pantoprazole Sodium 40 mg 01/28/18 06:30 02/02/18 07:34 Protonix Tab PO Not Given ACB JUANJOSE Potassium Chloride 20 meq 02/01/18 08:00 02/01/18 17:49 Micro-K 10 Meq Capsule PO 20 meq BIDWM JUANJOSE Administration Senna/Docusate Sodium 1 tab 01/21/18 20:15 Senna Plus Tablet PO BID PRN Constipation Sodium Chloride 10 - 80 ml 01/21/18 17:39 02/01/18 10:12 Iv Flush IVF 10 ml PRN PRN Administration Flushing Sodium Chloride 500 ml 01/31/18 09:32 01/31/18 09:36 Normal Saline IV 500 ml PRN PRN Administration Discontinued Medications Generic Name Dose Route Start Last Admin Trade Name Freq PRN Reason Stop Dose Admin Albuterol Sulfate 2.5 mg 01/22/18 07:00 01/28/18 09:03 Proventil Neb (0.083%) AEROSOL Not Given RTQID JUANJOSE Albuterol/Ipratropium 3 ml 01/21/18 17:39 01/21/18 18:59 Duoneb AEROSOL 01/21/18 17:40 3 ml O ONE Administration Albuterol/Ipratropium 3 ml 01/21/18 20:15 01/23/18 22:20 Duoneb AEROSOL 01/21/18 20:16 Not Given Q4WA ONE Albuterol/Ipratropium 3 ml 01/21/18 22:00 01/21/18 21:45 Duoneb AEROSOL 3 ml Q4WA JUANJOSE Administration Alteplase, Recombinant 10 mg 04/05/18 15:30 01/28/18 15:45 Cathflo Activase IPL 01/28/18 15:31 10 mg O ONE Administration Alteplase, Recombinant 10 mg 02/01/18 09:00 Cathflo Activase IPL 02/01/18 09:01 O ONE Amiodarone HCl 400 mg 01/22/18 16:24 01/29/18 09:14 Pacerone PO 01/29/18 09:01 400 mg BID JUANJOSE Administration Amoxicillin/Clavulanate Potassium 875 mg 01/25/18 08:00 01/25/18 17:06 Augmentin 875/125 PO 01/26/18 01:00 875 mg BIDWM JUANJOSE Administration Arformoterol Tartrate 15 mcg 01/22/18 09:00 01/22/18 09:15 Brovana Neb AEROSOL 15 mcg BID JUANJOSE Administration Bumetanide 2 mg 01/26/18 15:00 01/29/18 09:13 Bumex 2.5 Mg/10 Ml Inj IVP 2 mg DAILY JUANJOSE Administration Diltiazem HCl 60 mg 01/22/18 12:00 01/22/18 12:26 Cardizem Sr 60 Mg (12 Hr) PO 60 mg O JUANJOSE Administration Diltiazem HCl 180 mg 01/23/18 13:00 01/27/18 09:04 Cardizem Cd 180 Mg PO 180 mg DAILY JUANJOSE Administration Enoxaparin Sodium 40 mg 01/22/18 09:00 01/23/18 08:22 Lovenox SQ 40 mg DAILY JUANJOSE Administration Famotidine 20 mg 01/25/18 21:00 01/31/18 08:53 Pepcid PO 20 mg BID JUANJOSE Administration Furosemide 40 mg 01/25/18 12:14 01/25/18 12:24 Lasix 40 Mg/4 Ml IVP 01/25/18 12:15 40 mg O ONE Administration Sodium Chloride 1,000 mls @ 999.9 mls/hr 01/21/18 19:48 01/23/18 22:19 Normal Saline IV 01/21/18 20:47 Infused .Q1H ONE Infusion Levofloxacin/Dextrose 750 mg in 150 mls @ 100 mls/hr 01/21/18 20:15 01/22/18 21:54 Levaquin Premix IV Infused Q24H JUANJOSE Infusion Sodium Chloride 1,000 mls @ 50 mls/hr 01/21/18 20:15 01/24/18 15:15 Normal Saline IV Infused .Q20H JUANJOSE Infusion Levofloxacin 750 mg 01/23/18 20:30 01/24/18 06:30 Levaquin PO 750 mg ACB JUANJOSE Administration Methylprednisolone Sodium Succinate 62.5 mg 01/22/18 12:00 01/22/18 12:26 Solu-Medrol IVP 62.5 mg O JUANJOSE Administration Metoprolol Tartrate 50 mg 01/27/18 22:00 01/27/18 21:56 Lopressor PO 01/27/18 22:01 50 mg ONE TIME JUANJOSE Administration Nystatin 5 ml 01/25/18 13:00 01/30/18 08:38 Mycostatin PO 01/30/18 12:59 5 ml QID JUANJOSE Administration Ondansetron HCl 4 mg 01/21/18 17:39 01/21/18 18:54 Zofran IVP 01/21/18 17:40 4 mg O ONE Administration Pharmacy Consult each 01/28/18 20:50 Pharmacy Consult - Fall Risk 01/28/18 20:51 ONE TIME ONE Potassium Chloride 20 meq 01/25/18 12:14 01/25/18 12:24 K-Dur 20 Meq Tablet PO 01/25/18 12:15 20 meq O ONE Administration Potassium Chloride 20 meq 01/30/18 13:42 01/30/18 14:03 K-Dur 20 Meq Tablet PO 01/30/18 13:43 20 meq O ONE Administration Potassium Chloride 40 meq 01/31/18 09:03 01/31/18 09:33 K-Dur 20 Meq Tablet PO 01/31/18 09:04 40 meq O ONE Administration Potassium Chloride 40 meq 01/31/18 13:36 01/31/18 14:32 K-Dur 20 Meq Tablet PO 01/31/18 13:37 40 meq O ONE Administration Prednisone 40 mg 01/23/18 16:47 01/27/18 09:03 Deltasone 20 Mg PO 01/27/18 08:01 40 mg WB JUANJOSE Administration Prednisone 20 mg 01/28/18 08:00 01/28/18 08:52 Deltasone 20 Mg PO 02/02/18 07:59 20 mg WB JUANJOSE Administration Sodium Phosphate 250 mg 01/24/18 17:30 01/26/18 20:26 K-Phos *Neutral* Tablet PO 250 mg WM JUANJOSE Administration Sucralfate 1 gm 01/23/18 17:00 01/31/18 12:06 Carafate Slurry PO 1 gm ACHS JUANJOSE Administration - Constitutional no acute distress, well nourished, cooperative - Routine HEENT Exam Head: Present: normocephalic ENT: Present: mucous membranes moist - Routine Neck Exam Absent: JVD, carotid bruit - Routine Chest/Breast/Axilla Exam Chest wall: Present: tenderness, chest tube - Routine Respiratory Exam Present: decreased breath sounds. Absent: dyspnea - Routine Cardiovascular Exam Present: RRR, murmur - Routine Abdominal Exam Present: soft, non tender - Routine Extremities Exam Present: edema - Routine Skin Exam Present: intact, dry, warm - Routine Neurological Exam Present: alert, oriented X3 - Routine Psychiatric Exam Present: normal affect, normal thought process Results 02/03/18 04:16 02/03/18 04:16 CBC 02/02/18 Range/Units 04:19 WBC 9.4 (4.5-11.0) T/MM3 RBC 3.42 L (4.00-5.20) M/MM3 Hgb 10.2 L (12-16) GM/DL Hct 31.7 L (36-46) % Plt Count 335 (130-400) T/MM3 Neut # (Auto) 7.2 (1.8-7.7) T/MM3 Lymph # (Auto) 1.2 (1-4.8) T/MM3 Yell # (Auto) 0.8 (0-0.8) T/MM3 Eos # (Auto) 0.1 (0-0.5) T/MM3 Baso # (Auto) 0.0 (0-0.2) T/MM3 Comprehensive Metabolic Panel 02/02/18 Range/Units 04:19 Sodium 136 (134-144) MEQ/L Potassium 4.0 (3.6-5) MEQ/L Chloride 99 (98-107) MEQ/L Carbon Dioxide 32 H (22-30) MEQ/L BUN 17.0 (7-17) MG/DL Creatinine 0.9 (0.7-1.2) mg/dL Glucose 85 (65-110) MG/DL Calcium 7.6 L (8.4-10.2) MG/DL Intake and Output 02/01/18 02/02/18 02/02/18 22:59 06:59 14:59 Intake Total 1140 / 1140 200 / 200 Output Total 186 / 186 365 / 365 Balance 954 / 954 -165 / -165 Intake: Oral 1140 / 1140 200 / 200 Output: Urine 150 / 150 350 / 350 Chest Tube Drainage 15 / 15 Right Posterior Chest Other: Urine Appearance Clear Clear Urine Color Yellow Yellow Urine Odor Normal Normal Size of Bowel Movement Smear # Voids 1 # Bowel Movements 1 Weight 153 lb 10.595 oz Patient Weight 02/03/18 06:59 Weight 153 lb 10.595 oz - Imaging and Cardiology Imaging & Cardiology Narrative: Date of Exam: 02/02/18 Ordering Provider: Stephenie Brady APRN Type of Exam(s): XR chest 2V Reason for Exam(s): effusion/infiltrate Indication: effusion/infiltrate PROCEDURE: XR chest 2V: Encounter: Initial Comparison: 02/01/2018 Findings: There are small bilateral pleural effusions, right greater than left with patchy atelectasis and/or scarring in both lung bases, right greater than left. There is a right-sided pigtail in place without definite detectable pneumothorax. There is a small fluid level in the posterior superior right thorax with some linear changes anteriorly along the right minor fissure. Trachea is midline. No subdiaphragmatic free air. Impression: No significant change from prior exam. Right-sided pigtail in place without free pneumothorax. Small fluid level in the posterior right thorax with pleural-based opacity and patchy atelectasis primarily in the right greater than left lung base. Assessment and Plan - Assessment and Plan (1) Diastolic CHF, acute Status: Acute (2) CAP (community acquired pneumonia) Status: Acute (3) Hyponatremia Problem details: [id number] Status: Resolved (4) Atrial fibrillation with RVR Status: Resolved (5) HTN (hypertension) Status: Chronic (6) Aortic stenosis Status: Chronic (7) COPD (chronic obstructive pulmonary disease) Status: Chronic (8) Pulmonary hypertension Status: Chronic (9) Pacemaker Status: Chronic (10) NSVT (nonsustained ventricular tachycardia) Status: Acute - Assessment and Plan 01/22/18 Troponin negative. Converted to SR this afternoon, confirmed on ECG, no ischemic changes. TSH wnl. ECHO 01/22/18: moderate , Pa pressures 51mmHg, mild TR. Recommend aggressive rhythm management due to patient and pulmonary hypertension, putting her at greater heart failure risk. Initiate AAT with Amiodarone 400mg bid for 7 days, then 200mg daily. ECG in AM; monitor QT closely in the setting Levaquin antibiotic therapy. Pt refuses anticoagulation at this time; she is advised to start it to reduce stroke risk associated with Afib. Pneumonia, hypoxia, COPD managed per attending. 01/23/18 Pt has been and out of afib since yesterday rates up to 140 seen on tele. On amiodarone 400mg po bid, continue. Initiate diltiazem 180mg daily for improved rate control, hold for sbp <100. Monitor pressures closely, avoid hypotension in setting of . Pt consents to anticoagulation therapy, initiate eliquis 5mg bid, dc lovenox 40mg daily. First dose of eliquis this PM. Pneumonia, hypotnatremia per attending. 01/24/18: In SR, has maintained it most of the day. Continue Amiodarone and Diltiazem. Get ECG in AM to monitor QT. Eliquis 5mg bid. Continue to monitor tele, vitals. 01/25/18 Continue Eliquis Continue Diltiazem 180mg one tablet daily for rate control Continue Amiodarone oral titration to maintain NSR. EKG today revealing NSR, RBBB, Qtc 432 - tolerating Amiodarone well. Monitor tele and vitals Hyponatremia resolved Evaluation of Tele revealing tachycardia in a patient with known RBBB will perform Mg level and consider PPM interrogation BNP today high - was given Lasix 40mg IV X 1 earlier today Mg level high Will start Bumex 2mg IV daily - start today and monitor response Patient likely in acute diastolic heart failure due to rapid atrial fibrillation - she has moderate will monitor blood pressure closely Possible VT noted on Tele Will obtain [facility] PPM interrogation 01/26/18 Patient continues to have runs of dysrhythmia I have just received a call from Carlos Manjarrez PPM rep. It appears that patient is having multiple pacemaker dependent tachycardic events. Carlos has adjusted the PPM to prevent this event. Otherwise, The VT detection has been turned on today. Carlos is seeing multiple events of SVT, Afib vs Aflutter with rapid ventricular rate and no evidence of NSVT Patient will need half-way anticoagulation therapy as an outpatient. No need for a heart catheterization today as likely her rhythm is not VT We will go ahead and feed patient today and once discharged, will have her follow up with us for a repeat PPM check in 2 to 4 weeks to ensure that her pacemaker dependent tachycardia has resolved. I have informed patient that we will not proceed with a HC today for a couple of reasons - she is on Eliquis and likely her dysrhythmia is not VT. Patient is ok with the plan of care We will change her IV Bumex to oral bumex 1mg po BID Her EF is approx 55%, which is normal Her CHF is likely diastolic heart failure from her dysrhythmia and pneumonia/ hypoxia She will likely be ready for discharge from a cardiac standpoint in 1 to 2 days 01/27/18 NSVT: Start Metoprolol 50mg BID - Stop Cardizem 01/28/18 Chest tube inserted per pulm. - No further NSVT since started metoprolol. - Continue IV Bumex as ordered for diuresis 01/29/18 Change Bumex to 2mg PO daily - No further NSVT on telemetry Continue to monitor 02/01/18 Telemetry and V/S remain stable - Continue current Bumex, monitor renal and electrolytes 02/02/18 - Remains in SR, Continue Amiodarone and Eliquis for A. fib. - Given Eliquis 5mg samples (4 weeks) and Discount card. - Continue Metoprolol for NSVT. - Follow up with in 2-3 weeks after discharge Hospital Course Summary Disclaimer: The visit summary below is not to be considered part of the above Progress Note. Hospital Course: 01/21/18 1. 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 Nebs. 2. COPD--brovana and duoneb 3. Hyponatremia due to HCTZ and free water excess most likely. NS and recheck in AM holding HCTZ. 4. Essential HTN--hold HCTZ and monitor. 5. N/V likely due to lortab, monitor with 1. possible contributor. LFTs fine. 01/22/18 New onset atrial fibrillation present early this morning. Obtain troponin, obtain echocardiogram. Telemetry initiated. Obtain serum/urine osm, urine sodium. Continue to hold HCTZ. Trend sodium. Obtain TSH Monitor I/O Continue antibiotics and start steroids; continue breathing treatments, RT consult. Consult patient's vending machine mechanic (Emilee) and bevel mill operator (Radha) 01/23/18 Day 3 Levaquin for community-acquired pneumonia. Convert to oral Levaquin. Repeat chest x-ray in a.m. Continue breathing treatments/O2 as needed. Initiate prednisone-intended to start earlier today. Sodium has improved progressively off HCTZ and with volume replacement. Undetectable urine sodium consistent with volume depletion. BUN 26--> 14 with hydration. Cardiac rhythm stabilizing, in sinus rhythm at present. Troponins unremarkable. Echocardiogram with normal LV function and moderate aortic stenosis, moderate TR , moderate pulmonary hypertension. Appreciate assistance offered by cardiology. Increased dysphasia described by patient-Carafate suspension initiated. Minimal symptoms prior to nausea/vomiting prior to hospitalization. 01/24/18 Day 4 Levaquin for community-acquired pneumonia. Converted to oral Levaquin yesterday and we'll discontinue today due to interaction with amiodarone. Convert to Augmentin for 1-3 days. Repeat chest x-ray with improvement in infiltrate. Continue prednisone 40 mg daily 5 days. Sodium has normalized off HCTZ and with volume replacement. Undetectable urine sodium consistent with volume depletion. Good oral intake, discontinue IV fluids. Eliquis initiated yesterday per cardiology, remains on amiodarone and diltiazem for atrial fibrillation. Echocardiogram with normal LV function and moderate aortic stenosis, moderate TR , moderate pulmonary hypertension. Increased dysphagia described by patient yesterday-Carafate suspension initiated and symptoms slightly improved today. Phosphorus supplement initiated-reassess phosphorus level in a couple of days. 01/25/18 Has had 4 days of Levaquin. Today started on Augmentin as Levaquin was discontinued due to interaction with amiodarone. Complete 5 days of antibiotics today. Continue prednisone 40 mg daily 5 days (through January 27) Appears fluid overloaded today. IV fluids were discontinued yesterday. Lasix 40 mg IV and potassium 20 mEq po given1. Phosphorus initiated yesterday due to hypophosphatemia. Repeat phosphorus level in a.m. Eliquis initiated 01/23/18 per cardiology, remains on amiodarone and diltiazem for atrial fibrillation. Start nystatin for thrush. Pepcid added for persistent dysphasia. Per cardiology: Will start Bumex 2mg IV daily - start today and monitor response Patient likely in acute diastolic heart failure due to rapid atrial fibrillation - she has moderate will monitor blood pressure closely Possible VT noted on Tele Will obtain [facility] PPM interrogation 01/26/18 Completed 5 days of antibiotics yesterday. Continue prednisone through tomorrow for pulmonary inflammation associated with pneumonia. Chest x-ray in the morning. Chronic COPD-reassessed by Dr. Garcia, no additional changes in regimen recommended at this time. Pacemaker was interrogated earlier today due to presence of wide complex tachycardia which appeared to be pacemaker dependent tachycardia prompting pacemaker adjustment. SVT and previously identified A. fib/flutter with RVR was identified on interrogation but there was no evidence of NSVT. Pacemaker check plan 2-4 weeks after discharge to evaluate modifications and pacemaker settings made today. Cardiology is converted to oral Bumex to continue diuresis. Continue nystatin. Phosphorus improved-discontinue replacement. PT/OT evaluations in a.m. in anticipation of discharge. <Omkar Hebert - Last Filed: 02/09/18 07:59> Exam Vital signs: Temperature 95.5 F L 02/03/18 04:00 Pulse Rate 66 02/03/18 04:00 Respiratory Rate 16 02/03/18 14:46 Blood Pressure 144/63 H 02/03/18 04:00 Pulse Oximetry 94 02/03/18 10:45 Inpatient Medications: Discontinued Medications Generic Name Dose Route Start Last Admin Trade Name Freq PRN Reason Stop Dose Admin Acetaminophen 325 - 650 mg 01/21/18 20:15 01/22/18 11:42 Tylenol PO 650 mg Q5H PRN Administration Discomfort Hydrocodone Bitart/Acetaminophen 1 tab 01/23/18 16:45 [place] 5/325 PO Q4H PRN Pain Albuterol Sulfate 2.5 mg 01/22/18 07:00 01/28/18 09:03 Proventil Neb (0.083%) AEROSOL Not Given RTQID JUANJOSE Albuterol Sulfate 2 puff 02/03/18 14:02 02/03/18 14:45 Ventolin Hfa ORAL INH 2 puff Q4HR PRN Administration Albuterol/Ipratropium 3 ml 01/21/18 17:39 01/21/18 18:59 Duoneb AEROSOL 01/21/18 17:40 3 ml O ONE Administration Albuterol/Ipratropium 3 ml 01/21/18 20:15 01/23/18 22:20 Duoneb AEROSOL 01/21/18 20:16 Not Given Q4WA ONE Albuterol/Ipratropium 3 ml 01/21/18 22:00 01/21/18 21:45 Duoneb AEROSOL 3 ml Q4WA JUANJOSE Administration Albuterol/Ipratropium 3 ml 01/27/18 11:00 02/03/18 10:45 Duoneb AEROSOL 3 ml RTQID JUANJOSE Administration Alteplase, Recombinant 10 mg 01/28/18 15:30 01/28/18 15:45 Cathflo Activase IPL 01/28/18 15:31 10 mg O ONE Administration Alteplase, Recombinant 10 mg 02/01/18 09:00 Cathflo Activase IPL 02/01/18 09:01 O ONE Amiodarone HCl 400 mg 01/22/18 16:24 01/29/18 09:14 Pacerone PO 01/29/18 09:01 400 mg BID JUANJOSE Administration Amiodarone HCl 200 mg 01/29/18 21:00 02/03/18 08:26 Pacerone PO 02/05/18 09:01 200 mg BID JUANJOSE Administration Amiodarone HCl 200 mg 02/06/18 09:00 Pacerone PO DAILY JUANJOSE Amoxicillin/Clavulanate Potassium 875 mg 01/25/18 08:00 01/25/18 17:06 Augmentin 875/125 PO 01/26/18 01:00 875 mg BIDWM JUANJOSE Administration Amoxicillin/Clavulanate Potassium 875 mg 02/02/18 21:00 02/03/18 08:26 Augmentin 875/125 PO 875 mg Q12HR JUANJOSE Administration Apixaban 5 mg 01/23/18 21:00 02/03/18 08:26 Eliquis PO 5 mg BID JUANJOSE Administration Arformoterol Tartrate 15 mcg 01/22/18 09:00 01/22/18 09:15 Brovana Neb AEROSOL 15 mcg BID JUANJOSE Administration Arformoterol Tartrate 15 mcg 01/22/18 19:00 02/03/18 06:40 Brovana Neb AEROSOL 15 mcg RTBID JUANJOSE Administration Budesonide 0.5 mg 01/22/18 07:00 02/03/18 06:40 Pulmicort Inhalation AEROSOL 0.5 mg RTBID JUANJOSE Administration Bumetanide 2 mg 01/26/18 15:00 01/29/18 09:13 Bumex 2.5 Mg/10 Ml Inj IVP 2 mg DAILY JUANJOSE Administration Bumetanide 2 mg 01/30/18 09:00 02/03/18 08:26 Bumex 1 Mg Tab PO 2 mg DAILY JUANJOSE Administration Diltiazem HCl 60 mg 01/22/18 12:00 01/22/18 12:26 Cardizem Sr 60 Mg (12 Hr) PO 60 mg O JUANJOSE Administration Diltiazem HCl 180 mg 01/23/18 13:00 01/27/18 09:04 Cardizem Cd 180 Mg PO 180 mg DAILY JUANJOSE Administration Enoxaparin Sodium 40 mg 01/22/18 09:00 01/23/18 08:22 Lovenox SQ 40 mg DAILY JUANJOSE Administration Famotidine 20 mg 01/25/18 21:00 01/31/18 08:53 Pepcid PO 20 mg BID JUANJOSE Administration Famotidine 20 mg 01/31/18 21:00 02/02/18 20:17 Pepcid PO 20 mg HS JUANJOSE Administration Furosemide 40 mg 01/25/18 12:14 01/25/18 12:24 Lasix 40 Mg/4 Ml IVP 01/25/18 12:15 40 mg O ONE Administration Sodium Chloride 1,000 mls @ 999.9 mls/hr 01/21/18 19:48 01/23/18 22:19 Normal Saline IV 01/21/18 20:47 Infused .Q1H ONE Infusion Levofloxacin/Dextrose 750 mg in 150 mls @ 100 mls/hr 01/21/18 20:15 01/22/18 21:54 Levaquin Premix IV Infused Q24H JUANJOSE Infusion Sodium Chloride 1,000 mls @ 50 mls/hr 01/21/18 20:15 01/24/18 15:15 Normal Saline IV Infused .Q20H JUANJOSE Infusion Ceftriaxone Sodium 1 g/ Sodium 100 mls @ 200 mls/hr 01/28/18 10:15 02/02/18 11:41 Chloride IV Infused Q24H JUANJOSE Infusion Lactobacillus Acidophilus 2 cap 01/29/18 17:30 02/03/18 08:26 Culturelle PO 2 cap BIDWM JUANJOSE Administration Levofloxacin 750 mg 01/23/18 20:30 01/24/18 06:30 Levaquin PO 750 mg ACB JUANJOSE Administration Methylprednisolone Sodium Succinate 62.5 mg 01/22/18 12:00 01/22/18 12:26 Solu-Medrol IVP 62.5 mg O JUANJOSE Administration Metoprolol Tartrate 50 mg 01/27/18 13:30 02/03/18 08:26 Lopressor PO 50 mg BIDWM JUANJOSE Administration Metoprolol Tartrate 50 mg 01/27/18 22:00 01/27/18 21:56 Lopressor PO 01/27/18 22:01 50 mg ONE TIME JUANJOSE Administration Nystatin 5 ml 01/25/18 13:00 01/30/18 08:38 Mycostatin PO 01/30/18 12:59 5 ml QID JUANJOSE Administration Nystatin 5 ml 02/01/18 13:00 02/03/18 14:00 Mycostatin PO 5 ml QID JUANJOSE Administration Ondansetron HCl 4 mg 01/21/18 17:39 01/21/18 18:54 Zofran IVP 01/21/18 17:40 4 mg O ONE Administration Ondansetron HCl 4 mg 01/21/18 20:15 Zofran IVP Q6H PRN Nausea &/or vomiting Pantoprazole Sodium 40 mg 01/28/18 06:30 02/03/18 06:06 Protonix Tab PO 40 mg ACB JUANJOSE Administration Pharmacy Consult each 01/28/18 20:50 Pharmacy Consult - Fall Risk 01/28/18 20:51 ONE TIME ONE Potassium Chloride 20 meq 01/25/18 12:14 01/25/18 12:24 K-Dur 20 Meq Tablet PO 01/25/18 12:15 20 meq O ONE Administration Potassium Chloride 20 meq 01/30/18 13:42 01/30/18 14:03 K-Dur 20 Meq Tablet PO 01/30/18 13:43 20 meq O ONE Administration Potassium Chloride 40 meq 01/31/18 09:03 01/31/18 09:33 K-Dur 20 Meq Tablet PO 01/31/18 09:04 40 meq O ONE Administration Potassium Chloride 40 meq 01/31/18 13:36 01/31/18 14:32 K-Dur 20 Meq Tablet PO 01/31/18 13:37 40 meq O ONE Administration Potassium Chloride 20 meq 02/01/18 08:00 02/03/18 08:25 Micro-K 10 Meq Capsule PO 20 meq BIDWM JUANJOSE Administration Prednisone 40 mg 01/23/18 16:47 01/27/18 09:03 Deltasone 20 Mg PO 01/27/18 08:01 40 mg WB JUANJOSE Administration Prednisone 20 mg 01/28/18 08:00 01/28/18 08:52 Deltasone 20 Mg PO 02/02/18 07:59 20 mg WB JUANJOSE Administration Senna/Docusate Sodium 1 tab 01/21/18 20:15 02/03/18 08:26 Senna Plus Tablet PO 1 tab BID PRN Administration Constipation Sodium Chloride 10 - 80 ml 01/21/18 17:39 02/01/18 10:12 Iv Flush IVF 10 ml PRN PRN Administration Flushing Sodium Chloride 500 ml 01/31/18 09:32 02/02/18 11:12 Normal Saline IV 500 ml PRN PRN Administration Sodium Phosphate 250 mg 01/24/18 17:30 01/26/18 20:26 K-Phos *Neutral* Tablet PO 250 mg WM JUANJOSE Administration Sucralfate 1 gm 01/23/18 17:00 01/31/18 12:06 Carafate Slurry PO 1 gm ACHS JUANJOSE Administration Results 02/03/18 04:16 02/03/18 04:16 Assessment and Plan - Assessment and Plan (1) CAP (community acquired pneumonia) Status: Acute (2) Hyponatremia Problem details: POA-118 Status: Resolved (3) COPD (chronic obstructive pulmonary disease) Status: Chronic (4) HTN (hypertension) Status: Chronic (5) Atrial fibrillation with RVR Status: Resolved (6) Aortic stenosis Status: Chronic (7) Pulmonary hypertension Status: Chronic (8) Pacemaker Status: Chronic (9) Diastolic CHF, acute Status: Acute (10) NSVT (nonsustained ventricular tachycardia) Status: Acute - Attestation Attestation Narrative: 02/09/18 07:59 Recommendation After examining the patient I agree with the above assessment. I am involved in the formulation of the patient's plan of care. Hospital Course Summary Disclaimer: The visit summary below is not to be considered part of the above Progress Note.
[2018-02-02] MEDS: NYSTATIN 500,000 units/5 ml ORAL LIQUID PO SCH ×4 (09:17→20:17)
[2018-02-02] MEDS: APIXABAN 5 MG TABLET PO SCH ×2 (09:17→20:17)
[2018-02-02] MEDS: BUMETANIDE 1 MG TABLET PO SCH (09:18)
[2018-02-02] MEDS: LACTOBACILLUS (15B cfu) CAPSULE PO SCH ×2 (09:18→18:03)
[2018-02-02] MEDS: AMIODARONE 200 MG TABLET PO SCH ×2 (09:19→20:18)
--- NOTE | 2018-02-02 10:04 | XRay Report ---
Indication: effusion/infiltrate PROCEDURE: XR chest 2V: Encounter: Initial Comparison: 02/01/2018 Findings: There are small bilateral pleural effusions, right greater than left with patchy atelectasis and/or scarring in both lung bases, right greater than left. There is a right-sided pigtail in place without definite detectable pneumothorax. There is a small fluid level in the posterior superior right thorax with some linear changes anteriorly along the right minor fissure. Trachea is midline. No subdiaphragmatic free air. Impression: No significant change from prior exam. Right-sided pigtail in place without free pneumothorax. Small fluid level in the posterior right thorax with pleural-based opacity and patchy atelectasis primarily in the right greater than left lung base. .
[2018-02-02] MEDS: CEFTRIAXONE 1 G in NS 100 ML IV SCH (11:11)
[2018-02-02] MEDS: NS FLUSH BAG 500ml IV PRN (11:12)
--- NOTE | 2018-02-02 11:52 | Progress Note ---
- Date 02/02/18 Subjective: F/U: new onset a-fib, CAP, pleural effusion, COPD. Kaitlin is seen while sitting up in her chair, watching TV, preparing to have a breathing treatment. She reports that overall, she is feeling better. She denies any chest pain, shortness of breath, abdominal pain, nausea, vomiting or dysuria. She continues to be on 1L NC with minimal cough and nursing is actively working on weaning to room air. She is scheduled to have her right pigtail chest tube removed today by Dr. Garcia, which she is eager for. Repeat CXR this morning revealed no significant change from prior exam with small fluid level in the posterior right thorax with pleural-based opacity and patchy atelectasis primarily in right greater than left lung base. Appetite remains stable and bowels are moving. Labs this AM were unremarkable. Objective Vital signs: Temperature 96.9 F 02/02/18 07:00 Pulse Rate 66 02/02/18 07:38 Respiratory Rate 18 02/02/18 11:36 Blood Pressure 129/49 02/02/18 07:00 Pulse Oximetry 97 02/02/18 11:36 Rhythm: Normal Sinus Rhythm (occasional pacer spikes) Height/Weight/BMI: Height 5 ft 3.5 in Weight 153 lb 10.595 oz Body Mass Index 26.6 Comments: Resting in recliner, watching TV. - Constitutional Present: no acute distress, well nourished, well developed, cooperative - Routine HEENT Exam Head: Present: normocephalic, atraumatic Eye: Present: PERRL. Absent: conjunctival icterus ENT: Present: mucous membranes moist - Routine Respiratory Exam Present: decreased breath sounds. Absent: rales, respiratory distress, rhonchi , stridor, wheezes, crackles Comments: pigtail chest tube to right posterior lung. - Routine Cardiovascular Exam Present: RRR, S1, S2 - Routine Abdominal Exam Present: soft, normoactive bowel sounds, non distended, non tender - Routine Extremities Exam Present: edema (2-3+ bilaterally), pulses intact. Absent: calf tenderness - Routine Back/Spine/Pelvis Exam Back/Spine: Present: full ROM. Absent: vertebral tenderness - Routine Musculoskeletal Exam Musculoskeletal: Present: moving extremities well - Routine Skin Exam Present: dry, warm. Absent: jaundice Comments: afebrile. - Routine Neurological Exam Present: alert, oriented X3, moving all extremities, hearing grossly intact, normal speech - Routine Psychiatric Exam Present: normal affect, cooperative Results - Labs CBC & Chem 7: 02/02/18 04:19 02/02/18 04:19 Microbiology Results: Microbiology 01/28/18 12:50 Pleural Fluid Gram Stain - Final 01/28/18 12:50 Pleural Fluid Body Fluid Culture - Preliminary No Growth After 4 Days 01/22/18 12:47 Sputum, Expectorated Gram Stain - Final 01/22/18 12:47 Sputum, Expectorated Sputum Culture - Final Normal Respiratory Bridgette including Yeast Present Assessment and Plan (1) CAP (community acquired pneumonia) Current visit: Yes Status: Acute (2) Hyponatremia Problem details: POA-118 Current visit: Yes Status: Resolved (3) Atrial fibrillation with RVR Current visit: Yes Status: Resolved Assessment and Plan: Assessment: New onset A fib with RVR-Eliquis initiated 01/23/18 NSVT on 01/27/18-diltiazem dc'd and metoprolol initiated Hyponatremia-118 on admission-resolved CAP-RML/RLL; antibiotics completed Pleural effusion, multiloculated-01/27/18 COPD HTN Nausea/Vomiting-resolved Dysphagia-01/23/18 CAD Valvular heart disease-/TR Hypophosphatemia-resolved Thrush (tongue)-01/25/18 Hypokalemia-01/30/18 Plan - 02/02/18: Dr. Garcia plans to remove the pigtail chest tube from the right lung. Repeat CXR this morning revealed no significant change from prior exam with small fluid level in the posterior right thorax with pleural-based opacity and patchy atelectasis primarily in right greater than left lung base. Will continue Rocephin (Day 5) for empiric coverage of pulmonary pathogens. Leukocytosis resolved. Continue nystatin for thrush - monitor closely. Continue amiodarone and Eliquis for A. fib; metoprolol for NSVT. She remains in sinus rhythm. Dr. Hebert following. Continue respiratory cares, nebulized treatments and supplemental oxygen as needed. Recheck labs in AM to monitor blood counts, electrolytes and renal function. Monitor hypokalemia (Ca 7.6). Calcium correction due to hypoalbuminemia revealed calcium >9.0. Encourage PT/OT. DVT Prophylaxis: SCD's, Eliquis GI Prophylaxis: Protonix Resuscitation Status: Full Code - Time spent with patient Time with patient PN: 30 minutes - Physician Narrative Physician: Julia Dennis MD Narrative: Date: 02/02/18 Time: 1844 I have independently evaluated and examined this patient. I reviewed the chart, the patient's history, and the EDUCATIONAL SIGN LANGUAGE INTERPRETER/PA's documented findings as above. We discussed and formulated the assessment and plan as above with additions as below: Kaitlin reports that she feels much improved and has minimal dyspnea or cough. She 's had no further arrhythmias that she is aware of and review of telemetry strips indicates sinus rhythm paced rhythm over the past couple of days. Chest x-ray today demonstrated small bilateral pleural effusions, greater on the right and minimally changed from film 1 days ago. Film reviewed with Dr. Garcia. Respirations nonlabored, decreased breath sounds throughout +2 edema bilateral lower extremities; regular cardiac rhythm Room air oxygen saturation 93% prior to ambulation and generally maintained throughout walk except fleeting desaturation to 88% which recovered quickly to 90% within a couple of seconds. Plan overnight oximetry tonight to determine if nocturnal oxygen will be needed at discharge; tentatively planned discharge tomorrow. Rocephin discontinued and converted to Augmentin. Plans reviewed with Dr. Garcia. Hospital Course Summary Disclaimer: The visit summary below is not to be considered part of the above Progress Note. Hospital Course: 01/21/18 1. CAP with no hypoxia currently--cxs, levaquin as per her pig conveyor operator rec today. Nebs. 2. COPD--brovana and duoneb 3. Hyponatremia due to HCTZ and free water excess most likely. NS and recheck in AM holding HCTZ. 4. Essential HTN--hold HCTZ and monitor. 5. N/V likely due to lortab, monitor with 1. possible contributor. LFTs fine. 01/22/18 New onset atrial fibrillation present early this morning. Obtain troponin, obtain echocardiogram. Telemetry initiated. Obtain serum/urine osm, urine sodium. Continue to hold HCTZ. Trend sodium. Obtain TSH Monitor I/O Continue antibiotics and start steroids; continue breathing treatments, RT consult. Consult patient's outdoor landscape architect (Emilee) and pig conveyor operator (Radha) 01/23/18 Day 3 Levaquin for community-acquired pneumonia. Convert to oral Levaquin. Repeat chest x-ray in a.m. Continue breathing treatments/O2 as needed. Initiate prednisone-intended to start earlier today. Sodium has improved progressively off HCTZ and with volume replacement. Undetectable urine sodium consistent with volume depletion. BUN 26--> 14 with hydration. Cardiac rhythm stabilizing, in sinus rhythm at present. Troponins unremarkable. Echocardiogram with normal LV function and moderate aortic stenosis, moderate TR , moderate pulmonary hypertension. Appreciate assistance offered by cardiology. Increased dysphasia described by patient-Carafate suspension initiated. Minimal symptoms prior to nausea/vomiting prior to hospitalization. 01/24/18 Day 4 Levaquin for community-acquired pneumonia. Converted to oral Levaquin yesterday and we'll discontinue today due to interaction with amiodarone. Convert to Augmentin for 1-3 days. Repeat chest x-ray with improvement in infiltrate. Continue prednisone 40 mg daily 5 days. Sodium has normalized off HCTZ and with volume replacement. Undetectable urine sodium consistent with volume depletion. Good oral intake, discontinue IV fluids. Eliquis initiated yesterday per cardiology, remains on amiodarone and diltiazem for atrial fibrillation. Echocardiogram with normal LV function and moderate aortic stenosis, moderate TR , moderate pulmonary hypertension. Increased dysphagia described by patient yesterday-Carafate suspension initiated and symptoms slightly improved today. Phosphorus supplement initiated-reassess phosphorus level in a couple of days. 01/25/18 Has had 4 days of Levaquin. Today started on Augmentin as Levaquin was discontinued due to interaction with amiodarone. Complete 5 days of antibiotics today. Continue prednisone 40 mg daily 5 days (through January 27) Appears fluid overloaded today. IV fluids were discontinued yesterday. Lasix 40 mg IV and potassium 20 mEq po given1. Phosphorus initiated yesterday due to hypophosphatemia. Repeat phosphorus level in a.m. Eliquis initiated 01/23/18 per cardiology, remains on amiodarone and diltiazem for atrial fibrillation. Start nystatin for thrush. Pepcid added for persistent dysphasia. Per cardiology: Will start Bumex 2mg IV daily - start today and monitor response Patient likely in acute diastolic heart failure due to rapid atrial fibrillation - she has moderate will monitor blood pressure closely Possible VT noted on Tele Will obtain [facility] [place] PPM interrogation 01/26/18 Completed 5 days of antibiotics yesterday. Continue prednisone through tomorrow for pulmonary inflammation associated with pneumonia. Chest x-ray in the morning. Chronic COPD-reassessed by Dr. Garcia, no additional changes in regimen recommended at this time. Pacemaker was interrogated earlier today due to presence of wide complex tachycardia which appeared to be pacemaker dependent tachycardia prompting pacemaker adjustment. SVT and previously identified A. fib/flutter with RVR was identified on interrogation but there was no evidence of NSVT. Pacemaker check plan 2-4 weeks after discharge to evaluate modifications and pacemaker settings made today. Cardiology is converted to oral Bumex to continue diuresis. Continue nystatin. Phosphorus improved-discontinue replacement. PT/OT evaluations in a.m. in anticipation of discharge. Plan - 02/02/18: Dr. Garcia removed the pigtail chest tube from the right lung. Repeat CXR this morning revealed no significant change from prior exam with small fluid level in the posterior right thorax with pleural-based opacity and patchy atelectasis primarily in right greater than left lung base. Discontinue Rocephin (Day 5) for empiric coverage of pulmonary pathogens, convert to Augmentin. Leukocytosis resolved. Continue nystatin for thrush - monitor closely. Continue amiodarone and Eliquis for A. fib; metoprolol for NSVT. She remains in sinus rhythm. Dr. Hebert following. Continue respiratory cares, nebulized treatments and supplemental oxygen as needed. Recheck labs in AM to monitor blood counts, electrolytes and renal function. Monitor hypokalemia (Ca 7.6). Calcium correction due to hypoalbuminemia revealed calcium >9.0. Ambulatory oximetry unremarkable on room air. Overnight oximetry to be obtained to determine need for home oxygen. Encourage PT/OT. Addendum entered and electronically signed by NAVDEEP Brandt 02/02/18 13: 14: Pigtail chest tube successfully removed from right posterior chest by Dr. Garcia. Will continue oxygen to maintain SAO2 >90%, weaning as able. Continue budesonide BID and Brovana BID. Will discontinue Rocephin and change to Augmentin 875 for coverage of pulmonary pathogens. Will obtain ambulatory and night oximetry to further evaluation oxygen needs. Anticipate discharge tomorrow, 02/03/18.
--- NOTE | 2018-02-02 12:17 | Pulmonology Progress Note ---
Subjective Principal diagnosis: Atrial Fibrillation Interval history: No new complaints Denies cough or sputum No dyspnea On O2 at 1 lpm Exam Vital signs: Temperature 96.9 F 02/02/18 07:00 Pulse Rate 66 02/02/18 07:38 Respiratory Rate 18 02/02/18 11:36 Blood Pressure 129/49 02/02/18 07:00 Pulse Oximetry 97 02/02/18 11:36 Inpatient Medications: Generic Name Dose Route Start Last Admin Trade Name Freq PRN Reason Stop Dose Admin Acetaminophen 325 - 650 mg 01/21/18 20:15 01/22/18 11:42 Tylenol PO 650 mg Q5H PRN Administration Discomfort Hydrocodone Bitart/Acetaminophen 1 tab 01/23/18 16:45 [place] 5/325 PO Q4H PRN Pain Albuterol/Ipratropium 3 ml 01/27/18 11:00 02/02/18 11:36 Duoneb AEROSOL 3 ml RTQID JAUNJOSE Administration Amiodarone HCl 200 mg 01/29/18 21:00 02/02/18 09:19 Pacerone PO 02/05/18 09:01 200 mg BID JUANJOSE Administration Amiodarone HCl 200 mg 02/06/18 09:00 Pacerone PO DAILY JUANJOSE Apixaban 5 mg 01/23/18 21:00 02/02/18 09:17 Eliquis PO 5 mg BID JUANJOSE Administration Arformoterol Tartrate 15 mcg 01/22/18 19:00 02/02/18 08:43 Brovana Neb AEROSOL 15 mcg RTBID JUANJOSE Administration Budesonide 0.5 mg 01/22/18 07:00 02/02/18 06:58 Pulmicort Inhalation AEROSOL 0.5 mg RTBID JUANJOSE Administration Bumetanide 2 mg 01/30/18 09:00 02/02/18 09:18 Bumex 1 Mg Tab PO 2 mg DAILY JUANJOSE Administration Famotidine 20 mg 01/31/18 21:00 02/01/18 21:22 Pepcid PO 20 mg HS JUANJOSE Administration Ceftriaxone Sodium 1 g/ Sodium 100 mls @ 200 mls/hr 01/28/18 10:15 02/02/18 11:11 Chloride IV 200 mls/hr Q24H JUANJOSE Administration Lactobacillus Acidophilus 2 cap 01/29/18 17:30 02/02/18 09:18 Culturelle PO 2 cap BIDWM JUANJOSE Administration Metoprolol Tartrate 50 mg 01/27/18 13:30 02/02/18 09:18 Lopressor PO 50 mg BIDWM JUANJOSE Administration Nystatin 5 ml 02/01/18 13:00 02/02/18 09:17 Mycostatin PO 5 ml QID JUANJOSE Administration Ondansetron HCl 4 mg 01/21/18 20:15 Zofran IVP Q6H PRN Nausea &/or vomiting Pantoprazole Sodium 40 mg 01/28/18 06:30 02/02/18 07:34 Protonix Tab PO Not Given ACB JUANJOSE Potassium Chloride 20 meq 02/01/18 08:00 02/02/18 09:19 Micro-K 10 Meq Capsule PO 20 meq BIDWM JUANJOSE Administration Senna/Docusate Sodium 1 tab 01/21/18 20:15 Senna Plus Tablet PO BID PRN Constipation Sodium Chloride 10 - 80 ml 01/21/18 17:39 02/01/18 10:12 Iv Flush IVF 10 ml PRN PRN Administration Flushing Sodium Chloride 500 ml 01/31/18 09:32 02/02/18 11:12 Normal Saline IV 500 ml PRN PRN Administration Discontinued Medications Generic Name Dose Route Start Last Admin Trade Name Freq PRN Reason Stop Dose Admin Albuterol Sulfate 2.5 mg 01/22/18 07:00 01/28/18 09:03 Proventil Neb (0.083%) AEROSOL Not Given RTQID JUAJNOSE Albuterol/Ipratropium 3 ml 01/21/18 17:39 01/21/18 18:59 Duoneb AEROSOL 01/21/18 17:40 3 ml O ONE Administration Albuterol/Ipratropium 3 ml 01/21/18 20:15 01/23/18 22:20 Duoneb AEROSOL 01/21/18 20:16 Not Given Q4WA ONE Albuterol/Ipratropium 3 ml 01/21/18 22:00 01/21/18 21:45 Duoneb AEROSOL 3 ml Q4WA JUANJOSE Administration Alteplase, Recombinant 10 mg 01/28/18 15:30 01/28/18 15:45 Cathflo Activase IPL 01/28/18 15:31 10 mg O ONE Administration Alteplase, Recombinant 10 mg 02/01/18 09:00 Cathflo Activase IPL 02/01/18 09:01 O ONE Amiodarone HCl 400 mg 01/22/18 16:24 01/29/18 09:14 Pacerone PO 01/29/18 09:01 400 mg BID JUANJOSE Administration Amoxicillin/Clavulanate Potassium 875 mg 01/25/18 08:00 01/25/18 17:06 Augmentin 875/125 PO 01/26/18 01:00 875 mg BIDWM JUANJOSE Administration Arformoterol Tartrate 15 mcg 01/22/18 09:00 01/22/18 09:15 Brovana Neb AEROSOL 15 mcg BID JUANJOSE Administration Bumetanide 2 mg 01/26/18 15:00 01/29/18 09:13 Bumex 2.5 Mg/10 Ml Inj IVP 2 mg DAILY JUANJOSE Administration Diltiazem HCl 60 mg 01/22/18 12:00 01/22/18 12:26 Cardizem Sr 60 Mg (12 Hr) PO 60 mg O JUANJOSE Administration Diltiazem HCl 180 mg 01/23/18 13:00 01/27/18 09:04 Cardizem Cd 180 Mg PO 180 mg DAILY JUANJOSE Administration Enoxaparin Sodium 40 mg 01/22/18 09:00 01/23/18 08:22 Lovenox SQ 40 mg DAILY JUANJOSE Administration Famotidine 20 mg 01/25/18 21:00 01/31/18 08:53 Pepcid PO 20 mg BID JUANJOSE Administration Furosemide 40 mg 01/25/18 12:14 01/25/18 12:24 Lasix 40 Mg/4 Ml IVP 01/25/18 12:15 40 mg O ONE Administration Sodium Chloride 1,000 mls @ 999.9 mls/hr 01/21/18 19:48 01/23/18 22:19 Normal Saline IV 01/21/18 20:47 Infused .Q1H ONE Infusion Levofloxacin/Dextrose 750 mg in 150 mls @ 100 mls/hr 01/21/18 20:15 01/22/18 21:54 Levaquin Premix IV Infused Q24H JUANJOSE Infusion Sodium Chloride 1,000 mls @ 50 mls/hr 01/21/18 20:15 01/24/18 15:15 Normal Saline IV Infused .Q20H JUANJOSE Infusion Levofloxacin 750 mg 01/23/18 20:30 01/24/18 06:30 Levaquin PO 750 mg ACB JUANJOSE Administration Methylprednisolone Sodium Succinate 62.5 mg 01/22/18 12:00 01/22/18 12:26 Solu-Medrol IVP 62.5 mg O JUANJOSE Administration Metoprolol Tartrate 50 mg 01/27/18 22:00 01/27/18 21:56 Lopressor PO 01/27/18 22:01 50 mg ONE TIME JUANJOSE Administration Nystatin 5 ml 01/25/18 13:00 01/30/18 08:38 Mycostatin PO 01/30/18 12:59 5 ml QID JUANJOSE Administration Ondansetron HCl 4 mg 01/21/18 17:39 01/21/18 18:54 Zofran IVP 01/21/18 17:40 4 mg O ONE Administration Pharmacy Consult each 01/28/18 20:50 Pharmacy Consult - Fall Risk 01/28/18 20:51 ONE TIME ONE Potassium Chloride 20 meq 01/25/18 12:14 01/25/18 12:24 K-Dur 20 Meq Tablet PO 01/25/18 12:15 20 meq O ONE Administration Potassium Chloride 20 meq 01/30/18 13:42 01/30/18 14:03 K-Dur 20 Meq Tablet PO 01/30/18 13:43 20 meq O ONE Administration Potassium Chloride 40 meq 01/31/18 09:03 01/31/18 09:33 K-Dur 20 Meq Tablet PO 01/31/18 09:04 40 meq O ONE Administration Potassium Chloride 40 meq 01/31/18 13:36 01/31/18 14:32 K-Dur 20 Meq Tablet PO 01/31/18 13:37 40 meq O ONE Administration Prednisone 40 mg 01/23/18 16:47 01/27/18 09:03 Deltasone 20 Mg PO 01/27/18 08:01 40 mg WB JUANJOSE Administration Prednisone 20 mg 01/28/18 08:00 01/28/18 08:52 Deltasone 20 Mg PO 02/02/18 07:59 20 mg WB JUANJOSE Administration Sodium Phosphate 250 mg 01/24/18 17:30 01/26/18 20:26 K-Phos *Neutral* Tablet PO 250 mg WM JUANJOSE Administration Sucralfate 1 gm 01/23/18 17:00 01/31/18 12:06 Carafate Slurry PO 1 gm ACHS JUANJOSE Administration - Constitutional no acute distress - Routine HEENT Exam Head: Present: normocephalic Eye: Present: EOMI. Absent: conjunctival icterus - Routine Neck Exam Present: supple - Routine Respiratory Exam Present: decreased breath sounds. Absent: accessory muscle use - Routine Cardiovascular Exam Present: RRR Results - Laboratory Findings Laboratory: Laboratory Results - last 48 hr 02/01/18 02/01/18 02/02/18 04:48 04:48 04:19 WBC 12.7 H 9.4 RBC 3.39 L 3.42 L Hgb 10.1 L 10.2 L Hct 30.9 L 31.7 L MCV 91.2 92.7 MCH 29.8 29.8 MCHC 32.7 32.2 RDW Std Deviation 46.6 47.3 Plt Count 309 335 MPV 9.8 9.7 Immature Gran % (Auto) 0.7 H 1.0 H Neut % (Auto) 81.4 H 76.2 H Lymph % (Auto) 8.4 L 12.6 L Butts % (Auto) 8.5 8.9 Eos % (Auto) 0.9 1.2 Baso % (Auto) 0.1 0.1 Neut # (Auto) 10.3 H 7.2 Lymph # (Auto) 1.1 1.2 Butts # (Auto) 1.1 H 0.8 Eos # (Auto) 0.1 0.1 Baso # (Auto) 0.0 0.0 Abs Immat Gran (auto) 0.09 H 0.09 H Turbidity < 20 Sodium 136 Potassium 3.9 D Chloride 99 Carbon Dioxide 31 H Anion Gap 6 BUN 18.0 H Creatinine 0.8 GFR Calculation 70 BUN/Creatinine Ratio 23 Glucose 86 Calculated Osmolality 263 Calcium 7.7 L Phosphorus 2.8 Magnesium 2.0 Icterus Index < 2 Albumin 2.3 L Specimen Hemolysis < 15 02/02/18 04:19 WBC RBC Hgb Hct MCV MCH MCHC RDW Std Deviation Plt Count MPV Immature Gran % (Auto) Neut % (Auto) Lymph % (Auto) Butts % (Auto) Eos % (Auto) Baso % (Auto) Neut # (Auto) Lymph # (Auto) Butts # (Auto) Eos # (Auto) Baso # (Auto) Abs Immat Gran (auto) Turbidity < 20 Sodium 136 Potassium 4.0 Chloride 99 Carbon Dioxide 32 H Anion Gap 5 BUN 17.0 Creatinine 0.9 GFR Calculation 61 BUN/Creatinine Ratio 19 Glucose 85 Calculated Osmolality 263 Calcium 7.6 L Phosphorus Magnesium Icterus Index < 2 Albumin Specimen Hemolysis < 15 - Diagnostic Findings Chest x-ray: report reviewed, image reviewed Assessment and Plan (1) Chronic obstructive pulmonary disease with acute exacerbation Status: Acute Assessment and plan: Neb budesonide BID, Brovana BID. No significant wheeze at this time. O2 to keep sat >90% Current Visit: Yes (2) CAP (community acquired pneumonia) Status: Acute Assessment and plan: with multiloculated effusion consistent with complex parapneumonic effusion. 12 [place] pigtail drain placed TPA instilled x 2 on IV Rocephin. Discussed with Dr Dennis, we can change to PO antibiotics cultures neg to date chest tube removed today with overall improvement in CXR. Current Visit: Yes - Assessment and Plan CAP COPD exacerbation Complex parapneumonic effusion Atrial fibrillation - Time Spent With Patient Total time spent is greater than 50% in coordination of care (as documented) at patient's floor/unit and/or counseling patient: 25 - 35 minutes
--- NOTE | 2018-02-02 12:24 | Procedure Note ---
Date of procedure: 01/28/18 Pre-op diagnosis: pleural effusion Post-op diagnosis: same Procedure: Instillation of TPA through the chest tube to enhance pleural drainage (CPT 66918) The patient was placed in the recumbent position with the right posterior thorax exposed. Under sterile technique the dressings were removed from the chest tube. The Luer Lock was prepped with alcohol. Through the chest tube, 50 ML of a solution of sterile saline and 10 mg Alteplase was instilled and the tube was clamped. The tube was unclamped after 1 hour and returned to -20 cm suction. There were no complications from the procedure. Anesthesia: local Surgeon: Chente Garcia MD Pathology: none sent Condition: Stable Disposition: floor
--- NOTE | 2018-02-02 15:13 | Procedure Note ---
Date of procedure: 02/01/18 Pre-op diagnosis: Complex loculated pleural effusion Post-op diagnosis: same Procedure: Patient was placed in the recumbent position and her Right thoracic region was exposed. Dressing removed from pigtail luer lock and was prepped with alcohol. Through the pigtail, 10mg Altepase in 50ml of sterile saline solution was instilled and the tube was clamped. The tube was ordered to be unclamped after 1 hour and returned to -20 cm suction. No difficulties noted during procedure. Anesthesia: none Estimated blood loss (mL): 0 IV fluids (mL): 0 Pathology: none sent Condition: Stable Disposition: floor
[2018-02-02] MEDS: FAMOTIDINE 20 MG TABLET PO SCH (20:17)
[2018-02-02] MEDS: AMOX/CLAV 875 MG/125 MG TABLET PO SCH (20:18)
[2018-02-03 04:38] VITALS: BP 144/63; PULSE 66; TEMP 95.5
[2018-02-03] MEDS: PANTOPRAZOLE 40 MG TABLET PO SCH (06:06)
[2018-02-03] MEDS: BUDESONIDE INH.SOLN 0.5mg/2ml NEB AEROSOL SCH (06:40)
[2018-02-03] MEDS: ARFORMOTEROL NEB 15mcg/2ml AEROSOL SCH (06:40)
[2018-02-03] MEDS: ALBUTEROL/IPRATROPIUM 2.5mg-0.5mg/3ml NEB AEROSOL SCH ×2 (08:20→10:45)
[2018-02-03] MEDS: BUMETANIDE 1 MG TABLET PO SCH (08:26)
[2018-02-03] MEDS: APIXABAN 5 MG TABLET PO SCH (08:26)
[2018-02-03] MEDS: AMOX/CLAV 875 MG/125 MG TABLET PO SCH (08:26)
[2018-02-03] MEDS: LACTOBACILLUS (15B cfu) CAPSULE PO SCH (08:26)
[2018-02-03] MEDS: AMIODARONE 200 MG TABLET PO SCH (08:26)
[2018-02-03] MEDS: NYSTATIN 500,000 units/5 ml ORAL LIQUID PO SCH ×2 (08:26→14:00)
--- NOTE | 2018-02-03 09:33 | Pulmonology Progress Note ---
Subjective Principal diagnosis: Atrial Fibrillation Interval history: Pt in bed, no complaints of SOB, cough or sputum at this time. Currently on RA as she had an VALERIO done last noc and awaiting ExOx. Wanting to go home today. Exam Vital signs: Temperature 95.5 F L 02/03/18 04:00 Pulse Rate 66 02/03/18 04:00 Respiratory Rate 20 02/03/18 08:20 Blood Pressure 144/63 H 02/03/18 04:00 Pulse Oximetry 92 02/03/18 08:20 Inpatient Medications: Generic Name Dose Route Start Last Admin Trade Name Freq PRN Reason Stop Dose Admin Acetaminophen 325 - 650 mg 01/21/18 20:15 01/22/18 11:42 Tylenol PO 650 mg Q5H PRN Administration Discomfort Hydrocodone Bitart/Acetaminophen 1 tab 01/23/18 16:45 [place]inkley 5/325 PO Q4H PRN Pain Albuterol/Ipratropium 3 ml 01/27/18 11:00 02/03/18 08:20 Duoneb AEROSOL 3 ml RTQID JUANJOSE Administration Amiodarone HCl 200 mg 01/29/18 21:00 02/03/18 08:26 Pacerone PO 02/05/18 09:01 200 mg BID JUANJOSE Administration Amiodarone HCl 200 mg 02/06/18 09:00 Pacerone PO DAILY JUANJOSE Amoxicillin/Clavulanate Potassium 875 mg 02/02/18 21:00 02/03/18 08:26 Augmentin 875/125 PO 875 mg Q12HR JUANJOSE Administration Apixaban 5 mg 01/23/18 21:00 02/03/18 08:26 Eliquis PO 5 mg BID JUANJOSE Administration Arformoterol Tartrate 15 mcg 01/22/18 19:00 02/03/18 06:40 Brovana Neb AEROSOL 15 mcg RTBID JUANJOSE Administration Budesonide 0.5 mg 01/22/18 07:00 02/03/18 06:40 Pulmicort Inhalation AEROSOL 0.5 mg RTBID JUANJOSE Administration Bumetanide 2 mg 01/30/18 09:00 02/03/18 08:26 Bumex 1 Mg Tab PO 2 mg DAILY JUANJOSE Administration Famotidine 20 mg 01/31/18 21:00 02/02/18 20:17 Pepcid PO 20 mg HS JUANJOSE Administration Lactobacillus Acidophilus 2 cap 01/29/18 17:30 02/03/18 08:26 Culturelle PO 2 cap BIDWM JUANJOSE Administration Metoprolol Tartrate 50 mg 01/27/18 13:30 02/03/18 08:26 Lopressor PO 50 mg BIDWM JUANJOSE Administration Nystatin 5 ml 02/01/18 13:00 02/03/18 08:26 Mycostatin PO 5 ml QID JUANJOSE Administration Ondansetron HCl 4 mg 01/21/18 20:15 Zofran IVP Q6H PRN Nausea &/or vomiting Pantoprazole Sodium 40 mg 01/28/18 06:30 02/03/18 06:06 Protonix Tab PO 40 mg ACB JUANJOSE Administration Potassium Chloride 20 meq 02/01/18 08:00 02/03/18 08:25 Micro-K 10 Meq Capsule PO 20 meq BIDWM JUANJOSE Administration Senna/Docusate Sodium 1 tab 01/21/18 20:15 02/03/18 08:26 Senna Plus Tablet PO 1 tab BID PRN Administration Constipation Sodium Chloride 10 - 80 ml 01/21/18 17:39 02/01/18 10:12 Iv Flush IVF 10 ml PRN PRN Administration Flushing Sodium Chloride 500 ml 01/31/18 09:32 02/02/18 11:12 Normal Saline IV 500 ml PRN PRN Administration Discontinued Medications Generic Name Dose Route Start Last Admin Trade Name Freq PRN Reason Stop Dose Admin Albuterol Sulfate 2.5 mg 01/22/18 07:00 01/28/18 09:03 Proventil Neb (0.083%) AEROSOL Not Given RTQID JUANJOSE Albuterol/Ipratropium 3 ml 01/21/18 17:39 01/21/18 18:59 Duoneb AEROSOL 01/21/18 17:40 3 ml O ONE Administration Albuterol/Ipratropium 3 ml 01/21/18 20:15 01/23/18 22:20 Duoneb AEROSOL 01/21/18 20:16 Not Given Q4WA ONE Albuterol/Ipratropium 3 ml 01/21/18 22:00 01/21/18 21:45 Duoneb AEROSOL 3 ml Q4WA JUANJOSE Administration Alteplase, Recombinant 10 mg 01/28/18 15:30 01/28/18 15:45 Cathflo Activase IPL 01/28/18 15:31 10 mg O ONE Administration Alteplase, Recombinant 10 mg 02/01/18 09:00 Cathflo Activase IPL 02/01/18 09:01 O ONE Amiodarone HCl 400 mg 01/22/18 16:24 01/29/18 09:14 Pacerone PO 01/29/18 09:01 400 mg BID JUANJOSE Administration Amoxicillin/Clavulanate Potassium 875 mg 01/25/18 08:00 01/25/18 17:06 Augmentin 875/125 PO 01/26/18 01:00 875 mg BIDWM JUANJOSE Administration Arformoterol Tartrate 15 mcg 01/22/18 09:00 01/22/18 09:15 Brovana Neb AEROSOL 15 mcg BID JUANJOSE Administration Bumetanide 2 mg 01/26/18 15:00 01/29/18 09:13 Bumex 2.5 Mg/10 Ml Inj IVP 2 mg DAILY JUANJOSE Administration Diltiazem HCl 60 mg 01/22/18 12:00 01/22/18 12:26 Cardizem Sr 60 Mg (12 Hr) PO 60 mg O JUANJOSE Administration Diltiazem HCl 180 mg 01/23/18 13:00 01/27/18 09:04 Cardizem Cd 180 Mg PO 180 mg DAILY JUANJOSE Administration Enoxaparin Sodium 40 mg 01/22/18 09:00 01/23/18 08:22 Lovenox SQ 40 mg DAILY JUANJOSE Administration Famotidine 20 mg 01/25/18 21:00 01/31/18 08:53 Pepcid PO 20 mg BID JUANJOSE Administration Furosemide 40 mg 01/25/18 12:14 01/25/18 12:24 Lasix 40 Mg/4 Ml IVP 01/25/18 12:15 40 mg O ONE Administration Sodium Chloride 1,000 mls @ 999.9 mls/hr 01/21/18 19:48 01/23/18 22:19 Normal Saline IV 01/21/18 20:47 Infused .Q1H ONE Infusion Levofloxacin/Dextrose 750 mg in 150 mls @ 100 mls/hr 01/21/18 20:15 01/22/18 21:54 Levaquin Premix IV Infused Q24H JUANJOSE Infusion Sodium Chloride 1,000 mls @ 50 mls/hr 01/21/18 20:15 01/24/18 15:15 Normal Saline IV Infused .Q20H JUANJOSE Infusion Ceftriaxone Sodium 1 g/ Sodium 100 mls @ 200 mls/hr 01/28/18 10:15 02/02/18 11:41 Chloride IV Infused Q24H JUANJOSE Infusion Levofloxacin 750 mg 01/23/18 20:30 01/24/18 06:30 Levaquin PO 750 mg ACB JUANJOSE Administration Methylprednisolone Sodium Succinate 62.5 mg 01/22/18 12:00 01/22/18 12:26 Solu-Medrol IVP 62.5 mg O JUANJOSE Administration Metoprolol Tartrate 50 mg 01/27/18 22:00 01/27/18 21:56 Lopressor PO 01/27/18 22:01 50 mg ONE TIME JUANJOSE Administration Nystatin 5 ml 01/25/18 13:00 01/30/18 08:38 Mycostatin PO 01/30/18 12:59 5 ml QID JUANJOSE Administration Ondansetron HCl 4 mg 01/21/18 17:39 01/21/18 18:54 Zofran IVP 01/21/18 17:40 4 mg O ONE Administration Pharmacy Consult each 01/28/18 20:50 Pharmacy Consult - Fall Risk [facility] 01/28/18 20:51 ONE TIME ONE Potassium Chloride 20 meq 01/25/18 12:14 01/25/18 12:24 K-Dur 20 Meq Tablet PO 01/25/18 12:15 20 meq O ONE Administration Potassium Chloride 20 meq 01/30/18 13:42 01/30/18 14:03 K-Dur 20 Meq Tablet PO 01/30/18 13:43 20 meq O ONE Administration Potassium Chloride 40 meq 01/31/18 09:03 01/31/18 09:33 K-Dur 20 Meq Tablet PO 01/31/18 09:04 40 meq O ONE Administration Potassium Chloride 40 meq 01/31/18 13:36 01/31/18 14:32 K-Dur 20 Meq Tablet PO 01/31/18 13:37 40 meq O ONE Administration Prednisone 40 mg 01/23/18 16:47 01/27/18 09:03 Deltasone 20 Mg PO 01/27/18 08:01 40 mg WB JUANJOSE Administration Prednisone 20 mg 01/28/18 08:00 01/28/18 08:52 Deltasone 20 Mg PO 02/02/18 07:59 20 mg WB JUANJOSE Administration Sodium Phosphate 250 mg 01/24/18 17:30 01/26/18 20:26 K-Phos *Neutral* Tablet PO 250 mg WM JUANJOSE Administration Sucralfate 1 gm 01/23/18 17:00 01/31/18 12:06 Carafate Slurry PO 1 gm ACHS JUANJOSE Administration - Constitutional no acute distress, average body habitus, cooperative - Routine HEENT Exam Head: Present: normocephalic, atraumatic Eye: Present: EOMI, PERRL ENT: Present: mucous membranes moist - Routine Neck Exam Present: supple, full ROM, trachea midline - Routine Respiratory Exam Present: decreased breath sounds, crackles. Absent: accessory muscle use, patient mechanically ventilated Comments: crackles bases R>L - Routine Cardiovascular Exam Present: RRR, S1, S2, no murmur - Routine Abdominal Exam Present: soft, normoactive bowel sounds - Routine Extremities Exam Present: no edema, non tender, full ROM. Absent: cyanosis, clubbing - Routine Back/Spine/Pelvis Exam Back/Spine: Present: full ROM - Routine Skin Exam Present: intact, dry - Routine Neurological Exam Present: alert, oriented X3, CN II-XII intact, moving all extremities - Routine Psychiatric Exam Present: normal affect, normal thought process, good judgment Results - Laboratory Findings Laboratory: Laboratory Results - last 48 hr 02/02/18 02/02/18 02/03/18 04:19 04:19 04:16 WBC 9.4 9.7 RBC 3.42 L 3.74 L Hgb 10.2 L 11.1 L Hct 31.7 L 34.7 L MCV 92.7 92.8 MCH 29.8 29.7 MCHC 32.2 32.0 RDW Std Deviation 47.3 47.8 Plt Count 335 401 H MPV 9.7 9.9 Immature Gran % (Auto) 1.0 H 0.7 H Neut % (Auto) 76.2 H 76.2 H Lymph % (Auto) 12.6 L 12.2 L [place] % (Auto) 8.9 9.2 H Eos % (Auto) 1.2 1.5 Baso % (Auto) 0.1 0.2 Neut # (Auto) 7.2 7.4 Lymph # (Auto) 1.2 1.2 [place] # (Auto) 0.8 0.9 H Eos # (Auto) 0.1 0.2 Baso # (Auto) 0.0 0.0 Abs Immat Gran (auto) 0.09 H 0.07 H Turbidity < 20 Sodium 136 Potassium 4.0 Chloride 99 Carbon Dioxide 32 H Anion Gap 5 BUN 17.0 Creatinine 0.9 GFR Calculation 61 BUN/Creatinine Ratio 19 Glucose 85 Calculated Osmolality 263 Calcium 7.6 L Total Bilirubin Icterus Index < 2 AST ALT Alkaline Phosphatase Total Protein Albumin Globulin Albumin/Globulin Ratio Specimen Hemolysis < 15 02/03/18 04:16 WBC RBC Hgb Hct MCV MCH MCHC RDW Std Deviation Plt Count MPV Immature Gran % (Auto) Neut % (Auto) Lymph % (Auto) [place] % (Auto) Eos % (Auto) Baso % (Auto) Neut # (Auto) Lymph # (Auto) [place] # (Auto) Eos # (Auto) Baso # (Auto) Abs Immat Gran (auto) Turbidity < 20 Sodium 138 Potassium 4.4 Chloride 100 Carbon Dioxide 30 Anion Gap 8 BUN 16.0 Creatinine 0.9 GFR Calculation 61 BUN/Creatinine Ratio 18 Glucose 89 Calculated Osmolality 266 Calcium 8.1 L Total Bilirubin 0.50 Icterus Index < 2 AST 26 ALT 28 Alkaline Phosphatase 61 Total Protein 6.0 L Albumin 2.7 L Globulin 3.3 Albumin/Globulin Ratio 0.8 L Specimen Hemolysis < 15 - Diagnostic Findings Chest x-ray: image reviewed (still small R effusion and atelectasis/infiltrate, stable but overall improved) Assessment and Plan - Assessment and Plan CAP COPD exacerbation Complex parapneumonic effusion Atrial fibrillation Plan: Pt currently on RA, VALERIO reviewed and pt requires O2 at 2L per NC, awaiting ExOx for O2 assessment during day. Will continue her nebulized brovana/budesonide BID and prescribe proair prn for rescue. Continue Augmentin OP and needs to follow up in clinic with Dr. Garcia in 2 weeks with CXR. My office will call patient with appt time. - Time Spent With Patient Total time spent is greater than 50% in coordination of care (as documented) at patient's floor/unit and/or counseling patient: less than 15 minutes
[2018-02-03 10:55] VITALS: O2SAT 94
--- NOTE | 2018-02-03 14:32 | Discharge Summary ---
Discharge Information Date of admission: 01/21/18 20:13 Anticipated date of discharge: 02/03/18 Attending Physician: Julia Dennis MD Primary care physician: Blanche Cazares MD Consults: Consulting Provider: Omkar Hebert Reason For Exam: new a-fib Consulting Provider: Chente Garcia Reason For Exam: COPD - Discharge Diagnosis (1) CAP (community acquired pneumonia) Status: Acute (2) Hyponatremia Status: Resolved (3) Atrial fibrillation with RVR Status: Resolved CAP-RML/RLL Hyponatremia-POA, resolved-medication/dehydration induced New onset A fib with RVR NSVT - resolved. Pleural effusion, multiloculated COPD. Hypertension. Nausea/Vomiting-resolved Dysphagia. CAD. Aortic stenosis-moderately severe Moderate tricuspid regurgitation/pulmonary hypertension GERD Hypophosphatemia-resolved. Thrush (tongue)-resolved. Hypokalemia-resolved. - Procedures Procedures: Date of procedure: 01/28/18 Pre-op diagnosis: plueral effusion Post-op diagnosis: same Procedure: right sided US guided chest tube placement The patient was placed in the upright position. US was used to image a pocket of fluid in the posterior axillary line, right hemithorax. The site was marked for tube placement Lidocaine was used for local anesthetic A small incision was made in the skin. and 18 guage needle was inserted into the pleural space with return of yellow fluid a guidewire was inserted into the right pleural space a 12 [place] pigtail catheter was inserted over the guidewire and the catheter was secured at the skin there was a small airleak noted after placement under water seal The tube was connected to continuous suction and water seal. There were no complications. Anesthesia: local Surgeon: Chente Garcia MD Pathology: none sent Condition: Stable Disposition: floor Date of procedure: 02/01/18 Pre-op diagnosis: Complex loculated pleural effusion Post-op diagnosis: same Procedure: Patient was placed in the recumbent position and her Right thoracic region was exposed. Dressing removed from pigtail luer lock and was prepped with alcohol. Through the pigtail, 10mg Altepase in 50ml of sterile saline solution was instilled and the tube was clamped. The tube was ordered to be unclamped after 1 hour and returned to -20 cm suction. No difficulties noted during procedure. Anesthesia: none Estimated blood loss (mL): 0 IV fluids (mL): 0 Pathology: none sent Condition: Stable Disposition: floor Date of procedure: 01/28/18 Pre-op diagnosis: pleural effusion Post-op diagnosis: same Procedure: Instillation of TPA through the chest tube to enhance pleural drainage (CPT 89399) The patient was placed in the recumbent position with the right posterior thorax exposed. Under sterile technique the dressings were removed from the chest tube. The Luer Lock was prepped with alcohol. Through the chest tube, 50 ML of a solution of sterile saline and 10 mg Alteplase was instilled and the tube was clamped. The tube was unclamped after 1 hour and returned to -20 cm suction. There were no complications from the procedure. Anesthesia: local Surgeon: Chente Garcia MD Pathology: none sent Condition: Stable Disposition: floor Ambulatory oximetry on 02/02/18 with patient on room air initial oxygen saturation was 93%, patient ambulated 150 feet with oxygen saturation dropping to 88 for 1-2 seconds and recovering to 90 without use of supplemental oxygen. ----- Overnight oximetry on 02/02/18-02/03/18 on room air revealed oxygen saturation < 89% for 58 minutes with lowest saturation recorded 76%. - Laboratory Labs: On 01/21/18: Sodium 118, osmolality 234, chloride 82, creatinine 0.9. WBC 21.6 with neutrophil predominance, hemoglobin 12.8 TSH 0.87 on 01/22 Urine sodium <5, urine osmolality 172 on 01/2202/03/18 04:16 02/03/18 04:16 - Microbiology Microbiology 01/28/18 12:50 Pleural Fluid Gram Stain -no neutrophils or organisms seen 01/28/18 12:50 Pleural Fluid Body Fluid Culture - Final No Growth After 5 Days 01/22/18 12:47 Sputum, Expectorated Gram Stain - Final 01/22/18 12:47 Sputum, Expectorated Sputum Culture - Final Normal Respiratory Bridgette including Yeast Present - Radiology Radiology: Date of Exam: 01/21/18 Type of Exam(s): XR chest 2V Reason for Exam(s): cough, known pneumonia COPD FINDINGS: Increasing consolidation in the right mid to lower lung field peripherally. Small right effusion. Left lung remains clear. No pneumothorax. Cardiomediastinal contours are stable. Left pacemaker. Pulmonary vascularity appears normal. Impression: Right middle and lower lobe pneumonia appears slightly worse. Date of Exam: 01/22/18 Type of Exam(s): US echo doppler complete DATE OF PROCEDURE 01/22/2018 This is a two-dimensional echo with spectral Doppler, color-flow and M-mode. It was obtained in a patient with new-onset atrial fibrillation. Left atrial dimension is normal. Left ventricular end-diastolic dimension is normal. Left ventricular wall thickness is normal. LV systolic function is normal with ejection fraction of 56%. Right atrium is normal. Right ventricle is normal. Aortic root dimension is normal. Mitral valve is morphologically normal. Aortic valve shows fibrocalcific changes. Peak velocity across the aortic valve is increased at 3.16 m/sec. Peak gradient across the aortic valve is 40 with a mean gradient of 24. Aortic valve area is calculated at 1.08 cm2. Mild aortic insufficiency is present. Tricuspid valve shows moderate tricuspid regurgitation with moderate pulmonary hypertension with estimated pulmonary artery systolic pressure of 51. Pulmonary valve was not visualized. There is no pericardial effusion. Pacemaker is present in right heart. IMPRESSION 1. Technically difficult study. 2. Normal LV systolic function with ejection fraction of 56%. 3. Moderate aortic stenosis with a valve area of 1.08 cm2 with mild aortic insufficiency. 4. Moderate tricuspid regurgitation with moderate pulmonary hypertension with estimated pulmonary artery systolic pressure of 51. 6. Pacemaker present in right heart. Date of Exam: 01/24/18 Type of Exam(s): XR chest 2V Reason for Exam(s): pneumonia FINDINGS: Right middle and lower lobe airspace consolidation is not significant changed. Small right effusion is stable. No pneumothorax. Left lung remains clear. Heart size and mediastinal contours are unchanged. Pulmonary vascularity is stable. Impression: No significant change in right-sided consolidation. Date of Exam: 01/27/18 Type of Exam(s): XR chest 2V Reason for Exam(s): CHF/pneumonia FINDINGS: Right lower lobe airspace consolidation has improved with some hazy opacity remaining in the right upper and lower lobes. Loculated pleural fluid in the right posterior mid chest is again seen projecting over the midthoracic spine on the lateral view and is slightly smaller. Small right subpulmonic pleural effusion is also seen and unchanged. Left lung remains grossly clear. No pneumothorax. Heart size and mediastinal contours are stable. Left pacemaker. Pulmonary vascularity appears normal. Impression: Improving pneumonia with decreasing size of a loculated right parapneumonic effusion. - Date of Exam: 01/27/18 Type of Exam(s): CT chest w con Reason for Exam(s): pleural effusion Technique: Axial CT images were performed through the chest after the administration of intravenous contrast. Coronal and sagittal two-dimensional reformats. Automated Exposure Control and Iterative Reconstruction dose reducing techniques were utilized. Contrast: Omnipaque 300 74 mL Findings: Irregular multiloculated right-sided pleural effusion. Mild emphysema with subpleural scarring. Minor compressive atelectasis in the right lower lobe. No pneumothorax. Small left effusion. No pulmonary masses. The central airways are patent. There is no significant pleural enhancement seen on the right to suggest an empyema despite the multiloculated appearance. No axillary or mediastinal adenopathy by CT criteria. Heart size is normal. No pericardial effusion. Great vessels are within normal limits. Large hiatal hernia. The upper abdomen shows no acute findings. Impression: Multiloculated right pleural effusion accounting for the opacities on chest x-ray. There is no significant consolidative pneumonia. Although there is no definite CT evidence to suggest an empyema, diagnostic thoracentesis may be helpful. - Date of Exam: 01/28/18 Type of Exam(s): US chest real time w/ image Reason for Exam(s): CHEST TUBE PLACEMENT Technique/findings/ Impression: Grayscale sonographic imaging of the right chest was performed demonstrating a small to moderate size pocket of loculated fluid in the right posterior chest. - Date of Exam: 01/28/18 Type of Exam(s): XR chest 1V Reason for Exam(s): POST CHEST TUBE Findings: New small bore right sided pleural drain in place with evacuation of some of the prior loculated right pleural effusion. Basilar pleural effusion remains. No pneumothorax. Left lung is stable and grossly clear. Heart size and may stomach contours are unchanged. Hiatal hernia. Impression: New right-sided pleural drain without evidence of pneumothorax. -- Date of Exam: 01/29/18 Type of Exam(s): XR chest 1V Reason for Exam(s): pleural effusion Findings: Small bore right pleural drain remains with the tip in stable position. Interval decrease in right pleural effusion. No pneumothorax. Small left effusion is stable. Emphysema. Left pacemaker. Heart size and mediastinal contours are stable. Hiatal hernia. Impression: Continued decrease in right pleural fluid with a drain in place. ---- Date of Exam: 01/30/18 Type of Exam(s): XR chest 2V Reason for Exam(s): loculated pleural effusion FINDINGS: Right-sided pleural drain in stable position. No visible pneumothorax. Development of subcutaneous emphysema in the right chest wall. Increasing opacity in the right lower lobe with some loculated basilar pleural fluid remaining. Left lung appears clear. Heart size and mediastinal contours are stable. Left pacemaker. Pulmonary vascularity is mildly congested. Impression: Developing mild pulmonary vascular congestion and increasing right lower lobe airspace disease. ------- Date of Exam: 02/01/18 Type of Exam(s): XR chest 2V Reason for Exam(s): pleural effusion, pna FINDINGS: Right-sided pleural drain remains in stable position. Decreasing right pleural effusion. Persistent subcutaneous emphysema on the right chest wall. No visible pneumothorax. Small left effusion. Improving aeration of the right lower lobe. Heart size and mediastinal contours are stable. Pulmonary vascularity is unchanged. Impression: Decreasing right effusion and improving aeration of the right lower lobe. ------ Date of Exam: 02/02/18 Type of Exam(s): XR chest 2V Reason for Exam(s): effusion/infiltrate Findings: There are small bilateral pleural effusions, right greater than left with patchy atelectasis and/or scarring in both lung bases, right greater than left. There is a right-sided pigtail in place without definite detectable pneumothorax. There is a small fluid level in the posterior superior right thorax with some linear changes anteriorly along the right minor fissure. Trachea is midline. No subdiaphragmatic free air. Impression: No significant change from prior exam. Right-sided pigtail in place without free pneumothorax. Small fluid level in the posterior right thorax with pleural-based opacity and patchy atelectasis primarily in the right greater than left lung base. -------- History of Present Illness HPI: Patient is a 77 year old female with a history of COPD, hypertension and pacemaker due to bradycardia who was admitted for pneumonia. Patient reports that she was seen by PCP due to cough and was diagnosed with pneumonia approximately 4 days ago. She was started on azithromycin. She was then seen by pulmonology, Dr Garcia who changed to [facility] and placed on steroids. She continued to be symptomatic so presented to the ED the same day. She was found to be hyponatremic as well. She reports nausea and vomiting with no fever or chills she also reports generalized weakness. She was found to be in atrial fibrillation overnight. She states this is a new diagnosis and she has never been told she has an abnormal heart rhythm. Objective Vital signs: Temperature 95.5 F L 02/03/18 04:00 Pulse Rate 66 02/03/18 04:00 Respiratory Rate 20 02/03/18 10:45 Blood Pressure 144/63 H 02/03/18 04:00 Pulse Oximetry 94 02/03/18 10:45 Rhythm: Normal Sinus Rhythm (occasional pacer spikes) Height/Weight/BMI: Height 5 ft 3.5 in Weight 153 lb 10.595 oz Body Mass Index 26.6 Comments: Patient seen while sitting up in bed, watching TV. She is breathing easily on room air without cough or conversational dyspnea. - Constitutional Present: no acute distress, well nourished, well developed, cooperative - Routine HEENT Exam Head: Present: normocephalic, atraumatic Eye: Present: PERRL. Absent: conjunctival icterus ENT: Present: mucous membranes moist - Routine Respiratory Exam Present: decreased breath sounds. Absent: respiratory distress Comments: Diminished, course breath sounds in bases, particularly the right base; no cough or conversational dyspnea; breathing easily on room air. - Routine Cardiovascular Exam Present: RRR, S1, S2 - Routine Abdominal Exam Present: soft, normoactive bowel sounds, non distended, non tender - Routine Extremities Exam Present: edema, full ROM, pulses intact - Routine Back/Spine/Pelvis Exam Back/Spine: Present: full ROM. Absent: vertebral tenderness Comments: Bandage intact, clean and dry to right mid back from recent removal of pigtail chest tube. - Routine Musculoskeletal Exam Musculoskeletal: Present: moving extremities well - Routine Skin Exam Present: dry, warm Comments: Afebrile. - Routine Neurological Exam Present: alert, oriented X3, moving all extremities, hearing grossly intact, normal speech - Routine Psychiatric Exam Present: normal affect, cooperative Hospital Course This is a general summary of the patient's hospital course. For more details refer to the complete medical record. Hospital course: 01/21/18 1. CAP with no hypoxia currently--cxs, levaquin as per her cone winder rec today. Nebs. 2. COPD--brovana and duoneb 3. Hyponatremia due to HCTZ and free water excess most likely. NS and recheck in AM holding HCTZ. 4. Essential HTN--hold HCTZ and monitor. 5. N/V likely due to lortab, monitor with 1. possible contributor. LFTs fine. 01/22/18 New onset atrial fibrillation present early this morning. Obtain troponin, obtain echocardiogram. Telemetry initiated. Obtain serum/urine osm, urine sodium (<5 suggesting dehydration). Urine osmolality 172. Continue to hold HCTZ. Trend sodium. Obtain TSH-0.87 Monitor I/O Continue antibiotics and start steroids; continue breathing treatments, RT consult. Consult patient's sales strategy manager (Emilee) and cone winder (Radha) 01/23/18 Day 3 Levaquin for community-acquired pneumonia. Convert to oral Levaquin. Repeat chest x-ray in a.m. Continue breathing treatments/O2 as needed. Initiate prednisone-intended to start earlier today. Sodium has improved progressively off HCTZ and with volume replacement. Undetectable urine sodium consistent with volume depletion. BUN 26--> 14 with hydration. Cardiac rhythm stabilizing, in sinus rhythm at present. Troponins unremarkable. Echocardiogram with normal LV function and moderate aortic stenosis, moderate TR , moderate pulmonary hypertension. Appreciate assistance offered by cardiology. Increased dysphasia described by patient-Carafate suspension initiated. Minimal symptoms prior to nausea/vomiting prior to hospitalization. 01/24/18 Day 4 Levaquin for community-acquired pneumonia. Converted to oral Levaquin yesterday and we'll discontinue today due to interaction with amiodarone. Convert to Augmentin for 1-3 days. Repeat chest x-ray with improvement in infiltrate. Continue prednisone 40 mg daily 5 days. Sodium has normalized off HCTZ and with volume replacement. Undetectable urine sodium consistent with volume depletion. Good oral intake, discontinue IV fluids. Eliquis initiated yesterday per cardiology, remains on amiodarone and diltiazem for atrial fibrillation. Echocardiogram with normal LV function and moderate aortic stenosis, moderate TR , moderate pulmonary hypertension. Increased dysphagia described by patient yesterday-Carafate suspension initiated and symptoms slightly improved today. Phosphorus supplement initiated-reassess phosphorus level in a couple of days. 01/25/18 Has had 4 days of Levaquin. Today started on Augmentin as Levaquin was discontinued due to interaction with amiodarone. Complete 5 days of antibiotics today. Continue prednisone 40 mg daily 5 days (through January 27) Appears fluid overloaded today. IV fluids were discontinued yesterday. Lasix 40 mg IV and potassium 20 mEq po given1. Phosphorus initiated yesterday due to hypophosphatemia. Repeat phosphorus level in a.m. Eliquis initiated 01/23/18 per cardiology, remains on amiodarone and diltiazem for atrial fibrillation. Start nystatin for thrush. Pepcid added for persistent dysphasia. Per cardiology: Will start Bumex 2mg IV daily - start today and monitor response Patient likely in acute diastolic heart failure due to rapid atrial fibrillation - she has moderate will monitor blood pressure closely Possible VT noted on Tele Will obtain [facility] PPM interrogation 01/26/18 Completed 5 days of antibiotics yesterday. Continue prednisone through tomorrow for pulmonary inflammation associated with pneumonia. Chest x-ray in the morning. Chronic COPD-reassessed by Dr. Garcia, no additional changes in regimen recommended at this time. Pacemaker was interrogated earlier today due to presence of wide complex tachycardia which appeared to be pacemaker dependent tachycardia prompting pacemaker adjustment. SVT and previously identified A. fib/flutter with RVR was identified on interrogation but there was no evidence of NSVT. Pacemaker check plan 2-4 weeks after discharge to evaluate modifications and pacemaker settings made today. Cardiology is converted to oral Bumex to continue diuresis. Continue nystatin. Phosphorus improved-discontinue replacement. PT/OT evaluations in a.m. in anticipation of discharge. 01/27/18 Titrate prednisone to 20 mg daily. Chest x-ray improving however there is suggestion of loculated pleural effusion ; discussed with Dr. Garcia--> CT chest with contrast. Discussed recurrent wide complex tachycardia with cardiology-strip reviewed by myself, morphology overnight different than prior pacemaker mediated tachycardia. Pacemaker check planned 2-4 weeks after discharge to evaluate modifications in pacemaker settings made for/3. Diuresing well; continue amiodarone and Eliquis for recent atrial fibrillation. Continue nystatin. Dysphasia/heartburn slightly improved; will convert from Pepcid to Protonix given ongoing heartburn. Speech therapy evaluation. PT/OT evaluated today and recommended home with home health; may require walker. 01/28/18 CT chest showed multiloculated effusion consistent with complex parapneumonic effusion. Dr Garcia DC'd prednisone. Pigtail catheter was placed under US guidance. Plan to instill TPA to enhance drainage per pulmonology. Recommend continuing antibiotics for CAP. Ceftriaxone was restarted today. ( Initial tx for CAP was completed 01/25/18) Pleural fluid sent for culture. Cardiology following. 01/29/18 Had about 100 mL output from pigtail catheter to right lung. CXR today shows decreasing effusion. No further episodes of NSVT last night. Cardiology stopped diltiazem and started metoprolol yesterday. Ceftriaxone resumed on 01/28 -- may be contributing to diarrhea. Start Culturelle. WBC still elevated at 17.8 (prednisone had just been dc'd). Continue PT: she ambulated 380 feet today with FWW but needs to manage O2 tank and chest tube. Sats down to 87% after ambulation but she recovered within 30 sec of rest. 01/30/18 About 200 mL total output from pigtail catheter to right lung. Dr. Garcia is planning on repeating tPA on Thursday and tentatively removing the drain on Thursday. Pleural fluid culture remains neg. WBC increased to 24; continue Rocephin. She's afebrile. Pt had 5 loose bowel movements yesterday but only 1 soft bowel movement so far today. If diarrhea returns we may need to check for C. diff. (consider holding PPI) Remains in sinus rhythm. Continue amiodarone. Continue diuresis per cardiology. Continue PT/OT/Speech. Sodium down slightly today, reassess tomorrow. Potassium replaced orally. Chest x-ray reviewed by myself and discussed with Dr. Garica-inferior right pleural fluid flexion increasing; posterior collection has improved following placement of pigtail. Repeat instillation of TPA planned on Thursday. 01/31/18 Continue Chest tube. Possible Repeat tPA tomorrow per Dr. Garcia. Minimal output apparent. CXR reviewed. Leukocytosis persistent, but she is not febrile and does not appear ill. Continue Ceftriaxone and monitor. Cx reviewed, negative. HR controlled. Doing well on Bumex. Continue, but will need to replace potassium now and then order daily replacement. Dr. Hebert following. Will DC Carafate to avoid interaction with NOAC. Stop Carafate (day #9 therapy), Decrease H2RB to Q HS and continue PPI in AM. Repeat labs in AM. Continue supportive care. 02/01/18 TPA repeated today followed by chest tube clamped for 1 hour. Continue to monitor drainage. Repeat chest x-ray in a.m., and hopefully will be able to remove pigtail catheter tomorrow. Chest x-ray done this morning was personally reviewed and shows an improving right effusion and improving aeration of the right lower lobe. Continue Rocephin. White count down to 12.7. Mild thrush noted, resume nystatin. Potassium was low yesterday at 3.3, but this has been corrected to 3.9 today. Continue amiodarone and Eliquis for A. fib; metoprolol for NSVT. She remains in sinus rhythm. Discussed with Ender Ricardo APRN, and with Dr. Lutz. 02/02/18 Dr. Garcia removed the pigtail chest tube from the right lung. Repeat CXR this morning revealed no significant change from prior exam with small fluid level in the posterior right thorax with pleural-based opacity and patchy atelectasis primarily in right greater than left lung base. Discontinue Rocephin (Day 5) for empiric coverage of pulmonary pathogens, convert to Augmentin. Leukocytosis resolved. Continue nystatin for thrush - monitor closely. Continue amiodarone and Eliquis for A. fib; metoprolol for NSVT. She remains in sinus rhythm. Dr. Hebert following. Continue respiratory cares, nebulized treatments and supplemental oxygen as needed. Recheck labs in AM to monitor blood counts, electrolytes and renal function. Monitor hypokalemia (Ca 7.6). Calcium correction due to hypoalbuminemia revealed calcium >9.0. Ambulatory oximetry unremarkable on room air. Overnight oximetry to be obtained to determine need for home oxygen. Encourage PT/OT. 02/03/18 Patient is doing well medically and eager for discharge. Breathing stable on room air. Will discharge home on Augment 875 BID x 4 more days. Patient to continue amiodarone, Eliquis, metoprolol and Bumex as directed - initiated during hospitalization for new onset a-fib. Continue Pulmicort treatments as well as albuerol inhaler, Brovana nebulized treatments. Patient to follow up with Dr. Hebert in clinic in 2-3 weeks - patient to call for appointment. Will discharge home with home night oxygen. Patient to follow up with Dr. Garcia - call to schedule. Time spent with patient: greater than 35 minutes Resuscitation Status: Full Code Discharge Plan - Discharge Disposition Discharge Date: 02/03/18 Disposition: 01 Discharged Home, Self-Care *Condition: Stable Reason For Visit (Visit label in EMR): CAP - Discharge Medications *Discharge Medications: New RX: Amiodarone [Pacerone] 200 mg PO BID #40 tab RX: Amoxicillin/Potassium Clav [Amox-Clav 875-125 mg Tablet] 875 mg PO Q12HR #8 tab RX: Apixaban [Eliquis] 5 mg PO BID #60 tab RX: Budesonide Inhalation [Pulmicort Inhalation] 0.5 mg AEROSOL RTBID #60 vial RX: Metoprolol Tartrate [Lopressor] 50 mg PO BIDWM #60 tab RX: Pantoprazole Tab [Protonix Tab] 40 mg PO ACB #30 tab RX: Potassium Chloride [MICRO-K 10 mEq Capsule] 20 meq PO BIDWM cap Albuterol Sulfate [Proair Hfa] 2 puff INH Q4H PRN #1 inhaler PRN Reason: Shortness Of Air/Wheezing RX: Bumetanide Tab [Bumex 1 mg Tab] 2 mg PO DAILY #60 tab Continue RX: Arformoterol Neb [Brovana Neb] 1 vial AEROSOL BID #320 ml RX: Zoledronic Acid [Reclast] 1 dose IV 1 YEAR RX: Loratadine [Claritin] 10 mg PO DAILY RX: Cholecalciferol (Vitamin D3) [Vitamin D3] 1 cap PO DAILY RX: Calcium Carbonate [Calcium] 500 mg PO DAILY RX: Hydrocodone/APAP 5/325 [[place] 5/325] 1 tab PO Q4H PRN PRN Reason: Pain RX: Vit A/C/E AC/Znox/Cupric Oxide [Eye Vitamin-Minerals Tablet] 1 each PO DAILY Discontinued [place]-3/Dha/Epa/Fish Oil [Fish Oil 1,000 mg Softgel] 1 each PO DAILY hydroCHLOROthiazide [Hydrochlorothiazide] 12.5 mg PO DAILY levoFLOXacin [Levofloxacin] 750 mg PO DAILY Azithromycin [Azithromycin] 500 mg PO O - Discharge Packet/Instructions *Diet: Low-salt *Activity: As tolerate *Pain Management/Treatment: Tylenol if something needed *Wound Care: Not applicable Additional Instructions: Continue breathing treatments twice daily with Brovana and pulmicort (new); add albuterol (maybe labeled ProAire) 2 puffs every 4 hrs as needed if short of breath or wheezing. See Dr. Garcia in the office in 2 weeks. Wear 2 L O2 at night. You are on a number of new medications for the irregular heartbeat you experienced while in the hospital. Amiodarone needs to be taken twice daily for the next 2 days but starting 02/06 only take it once a day. Metoprolol 50 mg twice a day, bumetanide 2-1 mg pills daily (take both in the morning), and potassium as before. Apixaban 5 mg twice daily to prevent blood clots. Generally Dr. Hebert wants to see pts back (and may need to reassess pacemaker) in 2-3 weeks. Continue current antibiotic for 4 more days. Levaquin should not be taken with amiodarone so don't resume it. I have kept you on pantoprazole 40 mg daily for reflux/heartburn for at least the next month. Discuss need to continue beyond that with Dr. Cazares. Plan to see Dr. Cazares in about a week. *Expected Signs/Symptoms: Fatigue, shortness of breath with activities, may experience some cough *Notify Physician if: Breathing worsen significantly or if you are coughing up ugly sputum, you developed pain in your chest or rapid heartbeats. *During Business Hours Contact: Dr. Cazares's office *After Business Hours Contact: Call [facility] at [phone] and ask that the on-call physician be paged *Pending Lab/Results: No Pending Lab - Referrals/Follow Up *Referrals/Follow Up: Omkar Hebert MD [Physician] - 3 Weeks (PLEASE MAKE APPOINTMENT.) Blanche Cazares MD [Family Provider] - 1 Week (APPOINTMENT ON 02/12 AT 2:30.) Chente Garcia MD [Physician] - 2 Weeks (APPOINTMENT ON 02/23 AT 1:10 IN [place].) - Patient Handouts Patient Handouts: Pneumonia (GEN) - Dismissal Complete Discharge Instructions are:: Complete Physician Narrative - Narrative Attestation Narrative: Date: 02/03/18 Time: 1800 I have independently evaluated and examined this patient. I reviewed the chart, the patient's history, and the MANAGER SCIENTIFIC/PA's documented findings as above. We discussed and formulated the assessment and plan as above with additions as below: Kaitlin reports feeling well today. She denied dyspnea, cough, or lightheadedness. Ambulatory oximetry on room air was unremarkable yesterday but overnight oximetry demonstrated recurrent hypoxia and oxygen for nocturnal use is being coordinated with intent to use 2 L at night. She will discharged today with plans to follow-up with Dr. Cazares in 1 week, Dr. Garcia in 2 weeks, and Dr. Hebert in approximately 3 weeks. 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 Patient is alert and in no distress. Respirations are nonlabored with decreased airflow throughout, faint crackles were noted at the right base today. Cardiac rhythm is regular. +2 pitting edema at the ankles. Telemetry strips were again reviewed today demonstrating paced or sinus rhythm. Stable for discharge. Discharge medications were reviewed with pulmonary and cardiology services and as reflected on the discharge med record. Cardiology indicated she can decrease amiodarone to 200 mg once daily now rather than waiting to 02/06 but change was not made until discharge list was completed. Patient is aware of the modification and regimen.
[2018-02-03 14:47] VITALS: RESP 16
[2018-02-06] MEDS ORDERED: AMIODARONE 200 MG TABLET PO SCH (09:00)
== END 2018-02-03 16:15 | disposition home or self-care (01) | DRG 193 ==
LOC: ED 16:23 → MED 20:13 → SUATTDRO 20:13 → MED 20:45
PROVIDERS: ADMIT Hospitalist; ATTEND Internal Medicine